=== PATIENT | female | born 1960 | race American Indian/Alaskan Native ===

== ENCOUNTER 2017-04-25 00:50 | Inpatient (IN) | payer MEDICAID ==
[2017-04-25] MEDS ORDERED: ZOFRAN IM ONE (01:17)
[2017-04-25 01:51] LABS: Basophils % (Auto) 1.2 % (0.0-1.8); Eosinophils % (Auto) 2.1 % (0.0-4.3); Hemoglobin 12.8 gm/dl (10.1-14.3); Mean Corpuscular HGB Conc 33 % (30-34); Mean Corpuscular Hemoglobin 28 pg (28-32); Mean Corpuscular Volume 86 fl (79-97); Platelet Count 201 K/mm3 (140-440); Red Blood Count 4.52 M/mm3 (3.65-5.03); Red Cell Distribution Width 14.3 % (13.2-15.2); White Blood Count 8.3 K/mm3 (4.5-11.0)
[2017-04-25 02:09] LABS: Alanine Aminotransferase 12 units/L (7-56); Albumin 3.7 g/dL (3.9-5); Albumin/Globulin Ratio 1.5 %; Alkaline Phosphatase 81 units/L (35-129); Anion Gap 19 mmol/L; BUN/Creatinine Ratio 21; Blood Urea Nitrogen 15 mg/dL (7-17); Carbon Dioxide 21 mmol/L (22-30); Chloride 98.6 mmol/L (98-107); Glucose 418 mg/dL (65-100); Lipase 41 units/L (13-60); Potassium 3.8 mmol/L (3.6-5.0); Sodium 135 mmol/L (137-145); Total Protein 6.2 g/dL (6.3-8.2)
[2017-04-25] MEDS ORDERED: APRESOLINE IV ONE (03:34)
[2017-04-25] MEDS ORDERED: NACL 0.9% 1000 ML 1,000 ML IV ONE (03:34)
[2017-04-25] MEDS ORDERED: MORPHINE IV ONE (03:34)
[2017-04-25 04:15] LABS: Bilirubin,Urine NEG (Negative); Blood,Urine NEG (Negative); Ketones,Urine NEG (Negative); Leukocyte Esterase,Urine NEG (Negative); Mucus,Urine FEW /HPF; Nitrite,Urine NEG (Negative); Urobilinogen,Urine < 2.0 mg/dL (<2.0)
--- NOTE | 2017-04-25 05:36 | Emergency Department Report ---
ED N/V/D HPI - General Chief complaint: Nausea/Vomiting/Diarrhea Stated complaint: LOWER ABD/BACK PAIN Time Seen by Provider: 04/25/17 04:46 Source: patient Mode of arrival: Ambulatory Limitations: No Limitations - History of Present Illness Initial comments: Patient's abdominal pain is in the right upper quadrant and epigastric region it is of moderate intensity radiating to the right flank area with no aggravating or relieving factor. While the patient was here at about 5 PM she started complaining of substernal chest pain of moderate intensity with no aggravating or relieving factor and nonradiating MD complaint: nausea, diarrhea, abdominal pain Onset/Timin (day) -: Gradual Description of Vomiting: food contents Description of Diarrhea: water Associated Abdominal Pain: Yes Location: RUQ, epigastric Radiation: other (right flank) Severity: moderate Quality: constant Consistency: constant Improves with: none Worsens with: none Associated Symptoms: denies other symptoms - Related Data Home Medications Medication Instructions Recorded Confirmed Last Taken Aspirin [Aspirin BABY CHEW TAB] 81 mg PO QDAY 02/20/15 10/09/16 1 Day Ago ~10/08/16 81 Carvedilol [Coreg] 6.25 mg PO BID 02/20/15 10/09/16 1 Day Ago ~10/08/16 Clopidogrel Bisulfate [Plavix] 75 mg PO DAILY 02/20/15 10/09/16 1 Day Ago ~10/08/16 Ezetimibe [Zetia] 10 mg PO QDAY 02/20/15 10/09/16 1 Day Ago ~10/08/16 Hydrochlorothiazide [HCTZ] 12.5 mg PO QDAY 02/20/15 10/09/16 1 Day Ago ~10/08/16 Lisinopril [Zestril TAB] 20 mg PO QHS 02/20/15 10/09/16 1 Day Ago ~10/08/16 Pantoprazole [Protonix TAB] 40 mg PO QDAY 02/20/15 10/09/16 1 Day Ago ~10/08/16 Ranolazine [Ranexa] 1,000 mg PO BID 02/20/15 10/09/16 1 Day Ago ~10/08/16 amLODIPine [Norvasc] 5 mg PO QHS 02/20/15 10/09/16 1 Day Ago ~10/08/16 Previous Rx's Medication Instructions Recorded Last Taken Type oxyCODONE /ACETAMINOPHEN [Percocet 1 tab PO Q6HR PRN #20 tablet 02/20/15 1 Day Ago Rx 5/325 mg] ~10/08/16 ISOSORBIDE MONOnitrate [Imdur ER] 60 mg PO QDAY #30 tablet 10/11/16 Unknown Rx Insulin Detemir [Levemir] 18 units SUB-Q QHS #30 units 10/11/16 Unknown Rx Allergies Allergy/AdvReac Type Severity Reaction Status Date / Time insulin glargine, human AdvReac Unknown Verified 02/21/16 00:05 recombin. a [From Lantus] shellfish derived AdvReac Unknown Verified 02/20/15 15:28 Flu Vaccine AdvReac Rash Uncoded 02/20/15 15:28 IV Dye AdvReac Unknown Uncoded 02/20/15 15:28 ED Review of Systems ROS: Stated complaint: LOWER ABD/BACK PAIN Other details as noted in HPI Comment: All other systems reviewed and negative ED Past Medical Hx - Past Medical History Hx Hypertension: Yes Hx Heart Attack/AMI: Yes (nstemi) Hx Diabetes: Yes Hx Arthritis: Yes Hx Headaches / Migraines: Yes Hx Asthma: Yes Additional medical history: lupus, Gastroparesis. sleep apnea, CPAP - Surgical History Hx Coronary Stent: Yes (x 9) Hx Open Heart Surgery: Yes (CABG x 3) Hx Cholecystectomy: Yes - Social History Smoking Status: Never Smoker Substance Use Type: None - Medications Home Medications: Home Medications Medication Instructions Recorded Confirmed Last Taken Type Aspirin [Aspirin BABY CHEW TAB] 81 mg PO QDAY 02/20/15 10/09/16 1 Day Ago History ~10/08/16 81 Carvedilol [Coreg] 6.25 mg PO BID 02/20/15 10/09/16 1 Day Ago History ~10/08/16 Clopidogrel Bisulfate [Plavix] 75 mg PO DAILY 02/20/15 10/09/16 1 Day Ago History ~10/08/16 Ezetimibe [Zetia] 10 mg PO QDAY 02/20/15 10/09/16 1 Day Ago History ~10/08/16 Hydrochlorothiazide [HCTZ] 12.5 mg PO QDAY 02/20/15 10/09/16 1 Day Ago History ~10/08/16 Lisinopril [Zestril TAB] 20 mg PO QHS 02/20/15 10/09/16 1 Day Ago History ~10/08/16 Pantoprazole [Protonix TAB] 40 mg PO QDAY 02/20/15 10/09/16 1 Day Ago History ~10/08/16 Ranolazine [Ranexa] 1,000 mg PO BID 02/20/15 10/09/16 1 Day Ago History ~10/08/16 amLODIPine [Norvasc] 5 mg PO QHS 02/20/15 10/09/16 1 Day Ago History ~10/08/16 oxyCODONE /ACETAMINOPHEN [Percocet 1 tab PO Q6HR PRN #20 tablet 02/20/15 1 Day Ago Rx 5/325 mg] ~10/08/16 ISOSORBIDE MONOnitrate [Imdur ER] 60 mg PO QDAY #30 tablet 10/11/16 Unknown Rx Insulin Detemir [Levemir] 18 units SUB-Q QHS #30 units 10/11/16 Unknown Rx ED Physical Exam - General Limitations: No Limitations General appearance: alert, in distress ([id number] due to chest pain and abdominal pain) - Head Head exam: Present: atraumatic, normocephalic - Eye Eye exam: Present: normal appearance, PERRL Pupils: Present: normal accommodation - ENT ENT exam: Present: normal exam, normal orophraynx - Neck Neck exam: Present: normal inspection, tenderness - Respiratory Respiratory exam: Present: normal lung sounds bilaterally, respiratory distress - Cardiovascular Cardiovascular Exam: Present: regular rate, normal rhythm - GI/Abdominal GI/Abdominal exam: Present: soft, tenderness (epigastric tenderness no rebound.) . Absent: distended - Rectal Rectal exam: Present: deferred - Extremities Exam Extremities exam: Present: normal inspection, full ROM - Back Exam Back exam: Present: normal inspection, full ROM - Neurological Exam Neurological exam: Present: alert, oriented X3, CN II-XII intact. Absent: altered - Psychiatric Psychiatric exam: Present: normal affect, normal mood, anxious - Skin Skin exam: Present: warm, dry, cyanosis ED Course Vital Signs 04/25/17 04/25/17 04/25/17 01:05 02:04 02:06 Temperature 98.2 F Pulse Rate 96 H 90 Respiratory 17 Rate Blood Pressure 240/103 Blood Pressure [Right] O2 Sat by Pulse 100 100 98 Oximetry 04/25/17 04/25/17 04/25/17 02:10 02:16 02:20 Temperature Pulse Rate 88 88 91 H Respiratory 13 18 14 Rate Blood Pressure 220/96 220/96 220/96 Blood Pressure [Right] O2 Sat by Pulse 100 100 100 Oximetry 04/25/17 04/25/17 04/25/17 02:26 02:30 02:36 Temperature Pulse Rate 88 87 89 Respiratory 18 22 14 Rate Blood Pressure 216/80 216/80 230/90 Blood Pressure [Right] O2 Sat by Pulse 100 99 100 Oximetry 04/25/17 04/25/17 04/25/17 02:40 02:46 02:50 Temperature Pulse Rate 88 90 89 Respiratory 18 16 21 Rate Blood Pressure 230/90 230/90 229/99 Blood Pressure [Right] O2 Sat by Pulse 100 100 100 Oximetry 04/25/17 04/25/17 04/25/17 03:00 03:01 03:03 Temperature 97.7 F Pulse Rate 91 H 90 Respiratory 14 14 12 Rate Blood Pressure Blood Pressure 216/80 [Right] O2 Sat by Pulse 100 100 99 Oximetry 04/25/17 04/25/17 04/25/17 03:05 03:11 03:15 Temperature Pulse Rate 88 90 86 Respiratory 20 20 20 Rate Blood Pressure 227/87 227/87 229/99 Blood Pressure [Right] O2 Sat by Pulse 100 100 100 Oximetry 04/25/17 04/25/17 04/25/17 03:20 03:25 03:30 Temperature Pulse Rate 87 88 90 Respiratory 12 19 16 Rate Blood Pressure 230/85 230/85 228/100 Blood Pressure [Right] O2 Sat by Pulse 98 100 97 Oximetry 04/25/17 04/25/17 04/25/17 03:35 03:41 03:45 Temperature Pulse Rate 95 H 94 H 94 H Respiratory 14 16 10 L Rate Blood Pressure 228/100 228/100 228/100 Blood Pressure [Right] O2 Sat by Pulse 100 100 100 Oximetry 04/25/17 04/25/17 04/25/17 03:51 03:55 03:59 Temperature Pulse Rate 88 91 H 91 H Respiratory 16 21 Rate Blood Pressure 195/73 195/73 195/73 Blood Pressure [Right] O2 Sat by Pulse 100 100 Oximetry 04/25/17 04/25/17 04/25/17 04:01 04:05 04:10 Temperature Pulse Rate 86 72 56 L Respiratory 18 9 L 21 Rate Blood Pressure 128/68 128/68 81/29 Blood Pressure [Right] O2 Sat by Pulse 97 100 100 Oximetry 04/25/17 04/25/17 04/25/17 04:15 04:21 04:25 Temperature Pulse Rate 61 68 65 Respiratory 26 H 24 26 H Rate Blood Pressure 87/32 82/52 82/52 Blood Pressure [Right] O2 Sat by Pulse 100 99 99 Oximetry 04/25/17 04/25/17 04/25/17 04:30 04:35 04:40 Temperature Pulse Rate 78 86 69 Respiratory 22 24 16 Rate Blood Pressure 95/40 95/40 127/43 Blood Pressure [Right] O2 Sat by Pulse 100 100 98 Oximetry 04/25/17 04/25/17 04/25/17 04:45 04:50 04:55 Temperature Pulse Rate 70 89 75 Respiratory 17 15 15 Rate Blood Pressure 112/33 109/53 110/55 Blood Pressure [Right] O2 Sat by Pulse 100 97 98 Oximetry 04/25/17 04:59 Temperature Pulse Rate Respiratory Rate Blood Pressure Blood Pressure 110/55 [Right] O2 Sat by Pulse Oximetry ED Medical Decision Making - Lab Data Result diagrams: 04/25/17 01:25 04/25/17 01:25 - EKG Data -: EKG Interpreted by Me EKG shows normal: sinus rhythm, axis (normal), intervals (normal), QRS complexes (normal), ST-T waves (T-wave inversion in lead II and V4 to V6. different Compared to the EKG of 10/10/2016) Rate: normal - EKG Data When compared to previous EKG there are: changes noted - Medical Decision Making The patient's significant risk factors I think the patient had been admitted to be ruled out for an acute coronary syndrome. Also, with the fact that patient has flipped T waves which are new compared to the EKG of September of this year. The T waves are inverted in V4 to V6 and also in lead 2 - Differential Diagnosis acs,gastroenteritis Critical care attestation.: If time is entered above; I have spent that time in minutes in the direct care of this critically ill patient, excluding procedure time. ED Disposition Clinical Impression: Chest pain Disposition: OP ADMIT IP TO THIS HOSP Is pt being admited?: Yes Does the pt Need Aspirin: Yes Condition: Stable
[2017-04-25] MEDS ORDERED: ZOFRAN IV ONE (05:46)
[2017-04-25] MEDS ORDERED: BABY ASPIRIN PO ONE (05:46)
[2017-04-25] MEDS ORDERED: NITRO-BID 2% TP ONE (05:46)
[2017-04-25] MEDS ORDERED: D50W (25GM) Syringe IV PRN (08:12)
[2017-04-25] MEDS ORDERED: SODIUM CHLORIDE FLUSH SYRINGE 10 ML IV PRN (08:13)
[2017-04-25] MEDS ORDERED: MILK OF MAGNESIA PO PRN (08:17)
[2017-04-25] MEDS ORDERED: DULCOLAX PR PRN (08:17)
--- NOTE | 2017-04-25 08:41 | History and Physical Report ---
History of Present Illness Date of examination: 04/25/17 Chief complaint: Chest pain and abdominal pain History of present illness: 56-year-old -[place] female with past medical history significant for CAD status post CABG, 5 stents, lupus, hyperlipidemia, diabetes, arthritis presented to the emergency department complaining of abdominal pain that started yesterday. Pain is on the lower abdomen, sharp, 10 out of 10 in intensity, with no radiation, associated with nausea, vomiting and diarrhea. Patient is also complaining chronic back pain and joint pain. While she was in the emergency department the patient started to have mediastinal chest pain, 8 out of 10 in intensity, she feels as if an elephant is sitting her chest, no radiation, associated with diaphoresis, shortness of breath, palpitation. Patient said that her blood pressure was 240/160. Patient said she has been taking her medications as ordered. Patient has been admitted previously and was evaluated by [facility]. Cardiac enzymes were negative, right upper quadrant ultrasound is negative. REVIEW OF SYSTEMS: GENERAL: no weight change, no fatigue, no fever HEAD: no head ache EYES: no blurry vision, no acute visual loss EARS: no hearing loss, no discharge, no earache NOSE: no stuffiness, no sneezing, no discharge MOUTH, THROAT AND NECK: no bleeding gums, no sore throat, no swollen neck CARDIAC: As stated in the HPI. RESPIRATORY: + shortness of breath, no wheeze, no cough, no sputum, no hemoptysis, no asthma GI: As stated in the HPI URINARY: no change in frequency, no urgency, no polyuria, no hematuria, no incontinence MUSCULOSKELETAL: no muscle weakness, no pain, no joint stiffness NEUROLOGIC: no loss of sensation/numbness, no tingling, no tremors, no weakness/ paralysis HEMATOLOGIC: no anemia, no easy bruising SKIN: no rashes ENDOCRINE: no heat/cold intolerance, no polyuria, no polydipsia, no thyroid problems,+ diabetes PSYCHIATRIC: no anxiety, no depression, no suicidal ideations Past History Past Medical History: arthritis, diabetes, hypertension, hyperlipidemia, other ( SLE) Past Surgical History: cholecystectomy, CABG Social history: full code. denies: smoking, alcohol abuse, prescription drug abuse, IV drug use Family history: cancer (Father diet of throat cancer), other (sister has heart failure) Medications and Allergies Allergies Allergy/AdvReac Type Severity Reaction Status Date / Time insulin glargine, human AdvReac Unknown Verified 02/21/16 00:05 recombin. a [From Lantus] shellfish derived AdvReac Unknown Verified 02/20/15 15:28 Flu Vaccine AdvReac Rash Uncoded 02/20/15 15:28 IV Dye AdvReac Unknown Uncoded 02/20/15 15:28 Home Medications Medication Instructions Recorded Confirmed Last Taken Type Aspirin [Aspirin BABY CHEW TAB] 81 mg PO QDAY 02/20/15 10/09/16 1 Day Ago History ~10/08/16 81 Carvedilol [Coreg] 6.25 mg PO BID 02/20/15 10/09/16 1 Day Ago History ~10/08/16 Clopidogrel Bisulfate [Plavix] 75 mg PO DAILY 02/20/15 10/09/16 1 Day Ago History ~10/08/16 Ezetimibe [Zetia] 10 mg PO QDAY 02/20/15 10/09/16 1 Day Ago History ~10/08/16 Hydrochlorothiazide [HCTZ] 12.5 mg PO QDAY 02/20/15 10/09/16 1 Day Ago History ~10/08/16 Lisinopril [Zestril TAB] 20 mg PO QHS 02/20/15 10/09/16 1 Day Ago History ~10/08/16 Pantoprazole [Protonix TAB] 40 mg PO QDAY 02/20/15 10/09/16 1 Day Ago History ~10/08/16 Ranolazine [Ranexa] 1,000 mg PO BID 02/20/15 10/09/16 1 Day Ago History ~10/08/16 amLODIPine [Norvasc] 5 mg PO QHS 02/20/15 10/09/16 1 Day Ago History ~10/08/16 oxyCODONE /ACETAMINOPHEN [Percocet 1 tab PO Q6HR PRN #20 tablet 02/20/15 1 Day Ago Rx 5/325 mg] ~10/08/16 ISOSORBIDE MONOnitrate [Imdur ER] 60 mg PO QDAY #30 tablet 10/11/16 Unknown Rx Insulin Detemir [Levemir] 18 units SUB-Q QHS #30 units 10/11/16 Unknown Rx Active Meds: Active Medications Acetaminophen (Tylenol) 650 mg PO Q4H PRN PRN Reason: Pain MILD(1-3)/Fever >100.5/MUSA Aspirin (Ecotrin) 325 mg PO QDAY [facility] Atorvastatin Calcium (Lipitor) 40 mg PO QHS [facility] Bisacodyl (Dulcolax) 10 mg [place] QDAY PRN PRN Reason: Constipation unrelieved by MOM Carvedilol (Coreg) 6.25 mg PO BID [facility] Clopidogrel Bisulfate (Plavix) 75 mg PO DAILY [facility] Dextrose (D50w (25gm) Syringe) 50 ml IV PRN PRN PRN Reason: Hypoglycemia Docusate Sodium (Colace) 100 mg PO BID [facility] Ezetimibe (Zetia) 10 mg PO QDAY [facility] Insulin Aspart (Novolog) 0 units SUB-Q ACHS [facility] PRN Reason: Protocol Insulin Detemir (Levemir) 18 units SUB-Q QHS [facility] Isosorbide Mononitrate (Imdur) 60 mg PO QDAY [facility] Lisinopril (Zestril) 20 mg PO QHS [facility] Magnesium Hydroxide (Milk Of Magnesia) 30 ml PO Q4H PRN PRN Reason: Constipation Morphine Sulfate (Morphine) 2 mg IV Q4H PRN PRN Reason: Chest Pain Ondansetron HCl (Zofran) 4 mg IV Q8H PRN PRN Reason: N/V unrelieved by Reglan Pantoprazole Sodium (Protonix) 40 mg PO QDAY [facility] Ranolazine (Ranexa Er) 1,000 mg PO BID [facility] Sodium Chloride (Sodium Chloride Flush Syringe 10 Ml) 10 ml IV PRN PRN PRN Reason: LINE FLUSH Exam - Physical Exam Narrative exam: Not in cardiopulmonary distress. The patient appeared well nourished and normally developed. Vital signs as documented. Head exam is unremarkable. No scleral icterus . Neck is without jugular venous distension, thyromegaly, or carotid bruits. Lungs are clear to auscultation. Cardiac exam reveals regular rate and Rhythm. First and second heart sounds normal. No murmurs, rubs or gallops. Abdominal exam reveals normal bowel sounds, no masses, no organomegaly and no aortic enlargement. Extremities are nonedematous and both femoral and pedal pulses are normal. ELEVATOR INSPECTOR: Alert and oriented 3. No focal weakness. - Constitutional Vitals: Temp Pulse Resp BP Pulse Ox 97.7 F 94 H 15 126/66 98 04/25/17 03:00 04/25/17 06:56 04/25/17 04:55 04/25/17 06:56 04/25/17 04:55 Results - Labs CBC & Chem 7: 04/25/17 08:58 04/25/17 08:58 Labs: Laboratory Last Values WBC 8.3 K/mm3 (4.5-11.0) 04/25/17 01:25 RBC 4.52 M/mm3 (3.65-5.03) 04/25/17 01:25 Hgb 12.8 gm/dl (10.1-14.3) 04/25/17 01:25 Hct 39.0 % (30.3-42.9) 04/25/17 01:25 MCV 86 fl (79-97) 04/25/17 01:25 MCH 28 pg (28-32) 04/25/17 01:25 MCHC 33 % (30-34) 04/25/17 01:25 RDW 14.3 % (13.2-15.2) 04/25/17 01:25 Plt Count 201 K/mm3 (140-440) 04/25/17 01:25 Lymph % (Auto) 36.3 % (13.4-35.0) H 04/25/17 01:25 [place] % (Auto) 5.8 % (0.0-7.3) 04/25/17 01:25 Eos % (Auto) 2.1 % (0.0-4.3) 04/25/17 01:25 Baso % (Auto) 1.2 % (0.0-1.8) 04/25/17 01:25 Lymph # 3.0 K/mm3 (1.2-5.4) 04/25/17 01:25 [place] # 0.5 K/mm3 (0.0-0.8) 04/25/17 01:25 Eos # 0.2 K/mm3 (0.0-0.4) 04/25/17 01:25 Baso # 0.1 K/mm3 (0.0-0.1) 04/25/17 01:25 Seg Neutrophils % 54.6 % (40.0-70.0) 04/25/17 01:25 Seg Neutrophils # 4.5 K/mm3 (1.8-7.7) 04/25/17 01:25 VBG pH 7.399 (7.320-7.420) 04/25/17 01:25 Sodium 135 mmol/L (137-145) L 04/25/17 01:25 Potassium 3.8 mmol/L (3.6-5.0) 04/25/17 01:25 Chloride 98.6 mmol/L (98-107) 04/25/17 01:25 Carbon Dioxide 21 mmol/L (22-30) L 04/25/17 01:25 Anion Gap 19 mmol/L 04/25/17 01:25 BUN 15 mg/dL (7-17) 04/25/17 01:25 Creatinine 0.7 mg/dL (0.7-1.2) 04/25/17 01:25 Estimated GFR > 60 ml/min 04/25/17 01:25 BUN/Creatinine Ratio 21 % 04/25/17 01:25 Glucose 418 mg/dL (65-100) H 04/25/17 01:25 POC Glucose 298 (70-105) H 04/25/17 04:34 Calcium 9.0 mg/dL (8.4-10.2) 04/25/17 01:25 Total Bilirubin 0.20 mg/dL (0.1-1.2) 04/25/17 01:25 AST 10 units/L (5-40) 04/25/17 01:25 ALT 12 units/L (7-56) 04/25/17 01:25 Alkaline Phosphatase 81 units/L (35-129) 04/25/17 01:25 Troponin T < 0.010 ng/mL (0.00-0.029) 04/25/17 05:41 Total Protein 6.2 g/dL (6.3-8.2) L 04/25/17 01:25 Albumin 3.7 g/dL (3.9-5) L 04/25/17 01:25 Albumin/Globulin Ratio 1.5 % 04/25/17 01:25 Lipase 41 units/L (13-60) 04/25/17 01:25 Urine Color Yellow (Yellow) 04/25/17 03:55 Urine Turbidity Clear (Clear) 04/25/17 03:55 Urine pH 7.0 (5.0-7.0) 04/25/17 03:55 Ur Specific [place] 1.026 (1.003-1.030) 04/25/17 03:55 Urine Protein 100 mg/dl mg/dL (Negative) 04/25/17 03:55 Urine Glucose (UA) >=500 mg/dL (Negative) 04/25/17 03:55 Urine Ketones Neg mg/dL (Negative) 04/25/17 03:55 Urine Blood Neg (Negative) 04/25/17 03:55 Urine Nitrite Neg (Negative) 04/25/17 03:55 Urine Bilirubin Neg (Negative) 04/25/17 03:55 Urine Urobilinogen < 2.0 mg/dL (<2.0) 04/25/17 03:55 Ur Leukocyte Esterase Neg (Negative) 04/25/17 03:55 Urine WBC (Auto) 2.0 /HPF (0.0-6.0) 04/25/17 03:55 Urine RBC (Auto) 4.0 /HPF (0.0-6.0) 04/25/17 03:55 U Epithel Cells (Auto) 4.0 /HPF (0-13.0) 04/25/17 03:55 Urine Mucus Few /HPF 04/25/17 03:55 - Imaging and Cardiology US - abdomen: report reviewed (normal) Assessment and Plan Assessment and plan: Chest pain CAD status post CABG History of stent placement DM with hyperglycemia History of lupus Lower abdominal pain - Serial cardiac enzymes, EKG, cardiology consult - Pain control - Resume appropriate home medications - Cardiology consult - Sliding scale and basal insulin - Right upper quadrant ultrasound, was negative - CT abdomen and pelvis is pending DVT prophylaxis - Heparin Disposition - Admit to telemetry Advance Directives: Yes VTE prophylaxis?: Chemical Plan of care discussed with patient/family: Yes
[2017-04-25 09:12] LABS: Eosinophils % (Auto) 0.2 % (0.0-4.3); Mean Corpuscular HGB Conc 33 % (30-34); Mean Corpuscular Hemoglobin 28 pg (28-32); Mean Corpuscular Volume 85 fl (79-97); Platelet Count 200 K/mm3 (140-440); Red Blood Count 4.61 M/mm3 (3.65-5.03); Red Cell Distribution Width 14.5 % (13.2-15.2); White Blood Count 11.4 K/mm3 (4.5-11.0)
[2017-04-25 09:23] LABS: INR 0.93 (0.87-1.13)
[2017-04-25] MEDS: TYLENOL PO PRN ×3 (09:31→17:38)
[2017-04-25] MEDS: MORPHINE IV PRN ×3 (09:32→17:39)
[2017-04-25] MEDS: ZOFRAN IV PRN (09:32)
[2017-04-25] MEDS ORDERED: ZOFRAN ONE (09:35)
[2017-04-25] MEDS ORDERED: MORPHINE ONE (09:35)
[2017-04-25] MEDS ORDERED: TYLENOL ONE (09:36)
[2017-04-25 09:37] LABS: Anion Gap 22 mmol/L; BUN/Creatinine Ratio 27; Blood Urea Nitrogen 16 mg/dL (7-17); Calcium 8.5 mg/dL (8.4-10.2); Carbon Dioxide 20 mmol/L (22-30); Chloride 100.6 mmol/L (98-107); Glucose 359 mg/dL (65-100); Potassium 3.9 mmol/L (3.6-5.0); Sodium 139 mmol/L (137-145)
[2017-04-25] MEDS ORDERED: NON-FORMULARY (Ranolazine [Ranexa] 1,000 MG) PO SCH (10:00)
[2017-04-25] MEDS ORDERED: PEPCID PO SCH (10:00)
--- NOTE | 2017-04-25 10:12 | Ultrasound Report ---
FINAL REPORT PROCEDURE: US ABDOMEN LIMITED TECHNIQUE: Real-time sonography was performed of the RIGHT UPPER QUADRANT with image documentation. CPT 19418 HISTORY: RUQ pain COMPARISON: No prior studies are available for comparison. FINDINGS: Fatty infiltration of liver. Prior cholecystectomy. Common bile duct 7 millimeters. 13 centimeter right kidney without obstruction. Pancreas unremarkable. No aortic aneurysm. IMPRESSION: No acute pathologic process seen at this time
--- NOTE | 2017-04-25 10:42 | Consultation ---
Medications and Allergies Allergies Allergy/AdvReac Type Severity Reaction Status Date / Time insulin glargine, human AdvReac Unknown Verified 02/21/16 00:05 recombin. a [From Lantus] shellfish derived AdvReac Unknown Verified 02/20/15 15:28 Flu Vaccine AdvReac Rash Uncoded 02/20/15 15:28 IV Dye AdvReac Unknown Uncoded 02/20/15 15:28 Home Medications Medication Instructions Recorded Confirmed Last Taken Type Aspirin [Aspirin BABY CHEW TAB] 81 mg PO QDAY 02/20/15 10/09/16 1 Day Ago History ~10/08/16 81 Carvedilol [Coreg] 6.25 mg PO BID 02/20/15 10/09/16 1 Day Ago History ~10/08/16 Clopidogrel Bisulfate [Plavix] 75 mg PO DAILY 02/20/15 10/09/16 1 Day Ago History ~10/08/16 Ezetimibe [Zetia] 10 mg PO QDAY 02/20/15 10/09/16 1 Day Ago History ~10/08/16 Hydrochlorothiazide [HCTZ] 12.5 mg PO QDAY 02/20/15 10/09/16 1 Day Ago History ~10/08/16 Lisinopril [Zestril TAB] 20 mg PO QHS 02/20/15 10/09/16 1 Day Ago History ~10/08/16 Pantoprazole [Protonix TAB] 40 mg PO QDAY 02/20/15 10/09/16 1 Day Ago History ~10/08/16 Ranolazine [Ranexa] 1,000 mg PO BID 02/20/15 10/09/16 1 Day Ago History ~10/08/16 amLODIPine [Norvasc] 5 mg PO QHS 02/20/15 10/09/16 1 Day Ago History ~10/08/16 oxyCODONE /ACETAMINOPHEN [Percocet 1 tab PO Q6HR PRN #20 tablet 02/20/15 1 Day Ago Rx 5/325 mg] ~10/08/16 ISOSORBIDE MONOnitrate [Imdur ER] 60 mg PO QDAY #30 tablet 10/11/16 Unknown Rx Insulin Detemir [Levemir] 18 units SUB-Q QHS #30 units 10/11/16 Unknown Rx Active Meds: Active Medications Acetaminophen (Tylenol) 650 mg PO Q4H PRN PRN Reason: Pain MILD(1-3)/Fever >100.5/MUSA Last Admin: 04/25/17 09:31 Dose: 650 mg Aspirin (Ecotrin) 325 mg PO QDAY [facility] Atorvastatin Calcium (Lipitor) 40 mg PO QHS [facility] Bisacodyl (Dulcolax) 10 mg [place] QDAY PRN PRN Reason: Constipation unrelieved by MOM Carvedilol (Coreg) 6.25 mg PO BID [facility] Clopidogrel Bisulfate (Plavix) 75 mg PO DAILY [facility] Dextrose (D50w (25gm) Syringe) 50 ml IV PRN PRN PRN Reason: Hypoglycemia Docusate Sodium (Colace) 100 mg PO BID [facility] Ezetimibe (Zetia) 10 mg PO QDAY [facility] Sodium Chloride (Nacl 0.9% 1000 Ml) 1,000 mls @ 75 mls/hr IV DIRECT [facility] Insulin Aspart (Novolog) 0 units SUB-Q ACHS [facility] PRN Reason: Protocol Insulin Detemir (Levemir) 18 units SUB-Q QHS [facility] Isosorbide Mononitrate (Imdur) 60 mg PO QDAY [facility] Lisinopril (Zestril) 20 mg PO QHS [facility] Magnesium Hydroxide (Milk Of Magnesia) 30 ml PO Q4H PRN PRN Reason: Constipation Morphine Sulfate (Morphine) 2 mg IV Q4H PRN PRN Reason: Chest Pain Last Admin: 04/25/17 09:32 Dose: 2 mg Ondansetron HCl (Zofran) 4 mg IV Q8H PRN PRN Reason: N/V unrelieved by Reglan Last Admin: 04/25/17 09:32 Dose: 4 mg Pantoprazole Sodium (Protonix) 40 mg PO QDAY [facility] Ranolazine (Ranexa Er) 1,000 mg PO BID [facility] Sodium Chloride (Sodium Chloride Flush Syringe 10 Ml) 10 ml IV PRN PRN PRN Reason: LINE FLUSH Physical Examination Vital Signs Temp Pulse BP Pulse Ox 98.2 F 96 H 240/103 100 04/25/17 01:05 04/25/17 01:05 04/25/17 01:05 04/25/17 01:05 Results 04/25/17 08:58 04/25/17 08:58 Cardiac Enzymes 04/25/17 Range/Units 01:25 AST 10 (5-40) units/L Coagulation 04/25/17 Range/Units 08:58 PT 12.9 (12.2-14.9) Sec. INR 0.93 (0.87-1.13) Lipids 04/25/17 Range/Units 08:58 Triglycerides 62 (2-149) mg/dL Cholesterol 255 H (50-199) mg/dL HDL Cholesterol 70 H (40-59) mg/dL Cholesterol/HDL Ratio 3.64 % CBC 04/25/17 04/25/17 Range/Units 01:25 08:58 WBC 8.3 11.4 H (4.5-11.0) K/mm3 RBC 4.52 4.61 (3.65-5.03) M/mm3 Hgb 12.8 13.0 (10.1-14.3) gm/dl Hct 39.0 39.0 (30.3-42.9) % Plt Count 201 200 (140-440) K/mm3 Lymph # 3.0 1.4 (1.2-5.4) K/mm3 [place] # 0.5 0.3 (0.0-0.8) K/mm3 Eos # 0.2 0.0 (0.0-0.4) K/mm3 Baso # 0.1 0.1 (0.0-0.1) K/mm3 Comprehensive Metabolic Panel 04/25/17 04/25/17 Range/Units 01:25 08:58 Sodium 135 L 139 (137-145) mmol/L Potassium 3.8 3.9 (3.6-5.0) mmol/L Chloride 98.6 100.6 (98-107) mmol/L Carbon Dioxide 21 L 20 L (22-30) mmol/L BUN 15 16 (7-17) mg/dL Creatinine 0.7 0.6 L (0.7-1.2) mg/dL Glucose 418 H 359 H (65-100) mg/dL Calcium 9.0 8.5 (8.4-10.2) mg/dL AST 10 (5-40) units/L ALT 12 (7-56) units/L Alkaline Phosphatase 81 (35-129) units/L Total Protein 6.2 L (6.3-8.2) g/dL Albumin 3.7 L (3.9-5) g/dL Assessment and Plan full consult dictated thanks
[2017-04-25] MEDS: RANEXA ER PO SCH ×2 (11:05→22:10)
[2017-04-25] MEDS: ZETIA PO SCH (11:05)
[2017-04-25] MEDS: IMDUR PO SCH (11:06)
[2017-04-25] MEDS: COREG PO SCH ×2 (11:06→22:11)
[2017-04-25] MEDS: PROTONIX PO SCH (11:06)
[2017-04-25] MEDS: PLAVIX PO SCH (11:06)
[2017-04-25] MEDS: COLACE PO SCH ×2 (11:07→22:11)
[2017-04-25] MEDS ORDERED: COLACE ONE (11:18)
[2017-04-25] MEDS ORDERED: COREG ONE (11:19)
[2017-04-25] MEDS ORDERED: PLAVIX ONE (11:19)
[2017-04-25] MEDS ORDERED: PROTONIX PO ONE (11:19)
[2017-04-25] MEDS: NOVOLOG SUB-Q SCH ×3 (11:35→22:11)
[2017-04-25] MEDS ORDERED: NACL ONE (12:30)
--- NOTE | 2017-04-25 13:34 | Cat Scan Report ---
CT ABDOMEN PELVIS WITH CONTRAST: HISTORY: Lower abdominal pain. COMPARISON: none. TECHNIQUE: Helical CT in 1.25mm intervals following IV contrast. Sagittal and coronal reconstructions. FINDINGS: Lung bases: normal. Liver: There is mild fatty change throughout the liver. No focal mass or surface nodularity. Biliary system: Cholecystectomy has been performed. No evidence for biliary dilatation. Pancreas: normal. Spleen: normal. Kidneys/ureters/bladder: normal. Adrenal glands: normal. Aorta: normal. Intestines: normal. Appendix: normal. Pelvic viscera: Hysterectomy changes are suspected. No adnexal abnormality.. Musculoskeletal: normal. IMPRESSION: No acute process is identified in the abdomen or pelvis. Surgical changes. Mild hepatic steatosis.
[2017-04-25] MEDS: NACL 0.9% 1000 ML 1,000 ML IV SCH (17:28)
--- NOTE | 2017-04-25 18:46 | Consultation ---
REASON FOR CONSULTATION: Abdominal pain, history of CABG and multiple PCIs. HISTORY OF PRESENT ILLNESS: The patient is a pleasant 56-year-old -[place] female who presents here with abdominal pain, nausea, vomiting and diarrhea. She has had abdominal pain since 5:00 p.m. No syncope or presyncope. When pressing on the abdomen, she does have chest pain. She was seen in the Emergency Room. She has no chest pain at this time. No syncope or presyncope. No hematochezia or melena. No rashes. No headache or blurred vision. She has been admitted to the hospitalist service. MEDICATIONS: Inpatient and outpatient medications reviewed. ALLERGIES: Multiple allergies were reviewed. PHYSICAL EXAMINATION: VITAL SIGNS: Blood pressure is 140/70, sinus tachycardia, heart rate of 113. No dysrhythmias. O2 sats 100% on 2 liters. GENERAL: This is a middle-aged -[place] female in no apparent distress, alert and oriented x3. HEENT: Sclerae anicteric. NECK: Supple. No mass or JVD. CHEST: Clear to auscultation bilaterally. Good air movement. CARDIOVASCULAR: Tachy, S1, S2. ABDOMEN: Soft, nontender, nondistended. Normoactive bowel sounds in 4 quadrants. No mass or bruits. EXTREMITIES: No cyanosis, clubbing, edema. Good peripheral pulses. SKIN: Intact. No rashes. LABORATORY DATA: BMP is normal. Cardiac enzymes are negative x2. Hemoglobin 13.0, hematocrit , platelets 200. Her creatinine is 0.6, BUN 22. EKG shows sinus tachycardia, LVH, no acute ST segment shift. Echocardiogram performed in September reveals normal LV function, moderate concentric LVH, diastolic dysfunction. ASSESSMENT AND PLAN: In summary, the patient is a pleasant 56-year-old pleasant female with multiple medical problems including coronary artery disease, coronary bypass surgery and multiple percutaneous coronary interventions, who presents with nausea, vomiting, abdominal pain and diarrhea. Cardiac enzymes are negative. EKG is unremarkable, mild sinus tachycardia, likely due to volume depletion. She is not having any chest pain. At this point, continue aspirin, Plavix, supportive care, abdominal pain per primary, volume repletion with IV fluids. We will continue to follow along with you. Thank you for this consultation. JOB# [id number] SBM/NTS
[2017-04-25] MEDS: ZESTRIL PO SCH (22:10)
[2017-04-25] MEDS: LEVEMIR SUB-Q SCH (22:13)
[2017-04-26] MEDS: TYLENOL PO PRN ×3 (01:01→18:42)
[2017-04-26 06:41] LABS: Basophils % (Auto) 0.5 % (0.0-1.8); Eosinophils % (Auto) 2.2 % (0.0-4.3); Hematocrit 33.4 % (30.3-42.9); Hemoglobin 10.8 gm/dl (10.1-14.3); Mean Corpuscular HGB Conc 32 % (30-34); Mean Corpuscular Hemoglobin 27 pg (28-32); Mean Corpuscular Volume 84 fl (79-97); Platelet Count 187 K/mm3 (140-440); Red Blood Count 3.97 M/mm3 (3.65-5.03); Red Cell Distribution Width 14.5 % (13.2-15.2)
[2017-04-26 06:50] LABS: Anion Gap 17 mmol/L; BUN/Creatinine Ratio 22; Blood Urea Nitrogen 13 mg/dL (7-17); Calcium 8.1 mg/dL (8.4-10.2); Carbon Dioxide 21 mmol/L (22-30); Chloride 105.2 mmol/L (98-107); Glucose 175 mg/dL (65-100); Potassium 3.6 mmol/L (3.6-5.0); Sodium 140 mmol/L (137-145)
[2017-04-26] MEDS: COLACE PO SCH ×2 (10:44→21:53)
[2017-04-26] MEDS: COREG PO SCH ×2 (10:45→22:02)
[2017-04-26] MEDS: IMDUR PO SCH (10:46)
[2017-04-26] MEDS: PLAVIX PO SCH (10:46)
[2017-04-26] MEDS: ZETIA PO SCH (10:47)
[2017-04-26] MEDS: RANEXA ER PO SCH ×2 (10:47→22:02)
[2017-04-26] MEDS: PROTONIX PO SCH (10:47)
[2017-04-26] MEDS: ECOTRIN PO SCH (10:49)
[2017-04-26] MEDS: MORPHINE IV PRN ×2 (10:56→18:43)
--- NOTE | 2017-04-26 11:41 | Progress Note ---
Assessment and Plan 56yo aaf: 1. Abd pain - ? colitis, neg ct abd * consider gi consult (Dr. Black) 2. Volume depletion - better w repletion 3. h/o cad/cabg/pci - * neg ce * no ecg changes * no cp 4. htn * uncontrolled on multiple agents - add hydralazine * low salt diet 5. hl 6. lupus 7. dm Subjective Date of service: 04/26/17 Interval history: Abd pain somewhat better no cp or sob Objective Vital Signs Temp Pulse Resp BP BP Pulse Ox 04/26/17 10:46 87 171/88 04/26/17 10:45 87 171/88 04/26/17 09:13 98.9 F 87 20 171/88 04/26/17 08:08 98.9 F 86 20 171/88 97 04/26/17 04:21 98.4 F 81 18 120/59 96 04/25/17 23:42 98.1 F 82 18 126/66 97 04/25/17 19:07 98.2 F 18 169/80 04/25/17 15:42 98.2 F 87 18 152/71 100 04/25/17 13:18 98.9 F 98 H 18 137/58 99 - Labs and Meds CBC 04/26/17 Range/Units 05:57 WBC 8.0 (4.5-11.0) K/mm3 RBC 3.97 (3.65-5.03) M/mm3 Hgb 10.8 (10.1-14.3) gm/dl Hct 33.4 (30.3-42.9) % Plt Count 187 (140-440) K/mm3 Lymph # 2.6 (1.2-5.4) K/mm3 [place] # 0.5 (0.0-0.8) K/mm3 Eos # 0.2 (0.0-0.4) K/mm3 Baso # 0.0 (0.0-0.1) K/mm3 Comprehensive Metabolic Panel 04/26/17 Range/Units 05:57 Sodium 140 (137-145) mmol/L Potassium 3.6 (3.6-5.0) mmol/L Chloride 105.2 (98-107) mmol/L Carbon Dioxide 21 L (22-30) mmol/L BUN 13 (7-17) mg/dL Creatinine 0.6 L (0.7-1.2) mg/dL Glucose 175 H (65-100) mg/dL Calcium 8.1 L (8.4-10.2) mg/dL
[2017-04-26] MEDS: NOVOLOG SUB-Q SCH ×4 (13:04→22:02)
[2017-04-26] MEDS: APRESOLINE PO SCH ×2 (14:02→22:02)
--- NOTE | 2017-04-26 16:10 | Progress Note ---
Assessment and Plan - Lower abdominal pain: NL CT abdomen except for mild steotosis; still has severe RLQ tenderness with rebound. consulted surgeon. Not typical of colitis - Chest pain: resolved. Normal Jeremias EKG. Cardiology following. continu with ASA, NTG and morphin - CAD status post CABG: State on staein and - DM with hyperglycemia: optimize control with SSI an continue with ADA diet - History of lupus: Stable - DVT prophylaxis: Heparin Subjective Date of service: 04/26/17 Principal diagnosis: Chest pain, Abdominal pain, SLE Interval history: Still having severe abdominal pain. No fever, N/V Objective - Exam Narrative Exam: Constitutional: Well-nourished well-developed. In no distress Head: Normocephalic atraumatic Eyes: Pupils are equal round and reactive to light Nose: No enlarged turbinates, no septal deviation. Mouth: Moist mucous membranes. Neck: Supple no thyromegaly. No bruit. No JVD Heart: Regular rate and rhythm, S1-S2 abnormal. No rubs murmurs or gallop Lungs: Clear to auscultation bilaterally no rales or rhonchi Abdomen: Soft right lower quadrant tenderness and rebound tenderness. No organomegaly Extremities: No edema no cyanosis and no clubbing. Neuro: Alert oriented -3 no focal sensory or motor deficit. Skin: No rashes no hyperemic spots - Constitutional Vitals: Vital Signs - 12hr 04/26/17 04/26/17 04/26/17 04:21 08:08 09:13 Temperature 98.4 F 98.9 F 98.9 F Pulse Rate 81 86 87 Respiratory 18 20 20 Rate Blood Pressure 120/59 171/88 Blood Pressure 171/88 [Right] O2 Sat by Pulse 96 97 Oximetry 04/26/17 04/26/17 04/26/17 10:45 10:46 13:29 Temperature 99.1 F Pulse Rate 87 87 84 Respiratory 20 Rate Blood Pressure 171/88 171/88 Blood Pressure 187/84 [Right] O2 Sat by Pulse 98 Oximetry 04/26/17 04/26/17 04/26/17 13:36 13:40 14:02 Temperature 99.1 F Pulse Rate 84 80 84 Respiratory 20 Rate Blood Pressure 187/84 Blood Pressure 187/84 [Right] O2 Sat by Pulse 98 Oximetry - Labs CBC & Chem 7: 04/26/17 05:57 04/26/17 05:57 Labs: Abnormal lab results 04/25/17 04/25/17 04/26/17 Range/Units 12:38 15:41 05:57 MCH 27 L (28-32) pg Carbon Dioxide (22-30) mmol/L Creatinine (0.7-1.2) mg/dL Glucose (65-100) mg/dL POC Glucose 367 H 305 H (70-105) Calcium (8.4-10.2) mg/dL 04/26/17 04/26/17 Range/Units 05:57 10:58 MCH (28-32) pg Carbon Dioxide 21 L (22-30) mmol/L Creatinine 0.6 L (0.7-1.2) mg/dL Glucose 175 H (65-100) mg/dL POC Glucose 214 H (70-105) Calcium 8.1 L (8.4-10.2) mg/dL
--- NOTE | 2017-04-26 16:43 | Consultation ---
History of Present Illness Consult date: 04/26/17 Reason for consult: abdominal pain Requesting physician: ZACKERY MARRERO Chief complaint: abdominal pain - History of present illness History of present illness: 56 yo F with hx of CAD s/p cath with stents, DM, HTN presented to ER with c/o abdominal pain and back pain on the right. This started 2 days ago and the pain starts in the mid lower abdomen and radiates to the RLQ and across to the back. The patient states it is crampy in nature. She had associated nausea and dry heaves, but no emesis. This has since improved. She also c/o diarrhea without hematochezia or melena. She is complaining of dyuria, pressure with urination, and foul smelling urine. She has been tolerating a clear liquid diet. She denies sick contacts. She has hx of kidney stones. Surgery is consulted to r/o appendicitis. Past History Past Medical History: arthritis, CAD, diabetes, hypertension, hyperlipidemia, other (SLE) Past Surgical History: cholecystectomy, CABG, , hysterectomy, Other ( cardiac stents) Social history: full code. denies: smoking, alcohol abuse, prescription drug abuse, IV drug use Family history: cancer (Father diet of throat cancer), other (sister has heart failure) Medications and Allergies Allergies Allergy/AdvReac Type Severity Reaction Status Date / Time insulin glargine, human AdvReac Unknown Verified 02/21/16 00:05 recombin. a [From Lantus] shellfish derived AdvReac Unknown Verified 02/20/15 15:28 Flu Vaccine AdvReac Rash Uncoded 02/20/15 15:28 IV Dye AdvReac Unknown Uncoded 02/20/15 15:28 Home Medications Medication Instructions Recorded Confirmed Last Taken Type Aspirin [Aspirin BABY CHEW TAB] 81 mg PO QDAY 02/20/15 10/09/16 04/24/17 10:00 History Carvedilol [Coreg] 6.25 mg PO BID 02/20/15 04/25/17 04/24/17 10:00 History Clopidogrel Bisulfate [Plavix] 75 mg PO DAILY 02/20/15 04/25/17 04/24/17 10:00 History Ezetimibe [Zetia] 10 mg PO QDAY 02/20/15 04/25/17 04/24/17 10:00 History Hydrochlorothiazide [HCTZ] 12.5 mg PO QDAY 02/20/15 10/09/16 04/24/17 10:00 History Lisinopril [Zestril TAB] 20 mg PO QHS 02/20/15 10/09/16 04/24/17 17:00 History Pantoprazole [Protonix TAB] 40 mg PO QDAY 02/20/15 10/09/16 04/24/17 17:00 History Ranolazine [Ranexa] 1,000 mg PO BID 02/20/15 10/09/16 1 Day Ago History ~10/08/16 amLODIPine [Norvasc] 5 mg PO QHS 02/20/15 10/09/16 04/24/17 10:00 History oxyCODONE /ACETAMINOPHEN [Percocet 1 tab PO Q6HR PRN #20 tablet 02/20/1504/24/17 17:00 Rx 5/325 mg] ISOSORBIDE MONOnitrate [Imdur ER] 60 mg PO QDAY #30 tablet 10/11/16 04/24/17 17 :00 Rx Insulin Detemir [Levemir] 18 units SUB-Q QHS #30 units 10/11/16 04/25/17 10:00 Rx Active Meds: Active Medications Acetaminophen (Tylenol) 650 mg PO Q4H PRN PRN Reason: Pain MILD(1-3)/Fever >100.5/MUSA Last Admin: 04/26/17 10:55 Dose: 650 mg Aspirin (Ecotrin) 325 mg PO QDAY [facility] Last Admin: 04/26/17 10:49 Dose: 325 mg Atorvastatin Calcium (Lipitor) 40 mg PO QHS [facility] Last Admin: 04/25/17 22:11 Dose: 40 mg Bisacodyl (Dulcolax) 10 mg [place] QDAY PRN PRN Reason: Constipation unrelieved by MOM Carvedilol (Coreg) 6.25 mg PO BID [facility] Last Admin: 04/26/17 10:45 Dose: 6.25 mg Clopidogrel Bisulfate (Plavix) 75 mg PO DAILY [facility] Last Admin: 04/26/17 10:46 Dose: 75 mg Dextrose (D50w (25gm) Syringe) 50 ml IV PRN PRN PRN Reason: Hypoglycemia Docusate Sodium (Colace) 100 mg PO BID [facility] Last Admin: 04/26/17 10:44 Dose: 100 mg Ezetimibe (Zetia) 10 mg PO QDAY [facility] Last Admin: 04/26/17 10:47 Dose: 10 mg Hydralazine HCl (Apresoline) 25 mg PO Q8HR [facility] Last Admin: 04/26/17 14:02 Dose: 25 mg Sodium Chloride (Nacl 0.9% 1000 Ml) 1,000 mls @ 75 mls/hr IV DIRECT [facility] Last Admin: 04/25/17 17:28 Dose: 75 mls/hr Insulin Aspart (Novolog) 0 units SUB-Q ACHS [facility] PRN Reason: Protocol Last Admin: 04/26/17 13:04 Dose: 4 units Insulin Detemir (Levemir) 18 units SUB-Q QHS [facility] Last Admin: 04/25/17 22:13 Dose: 18 units Isosorbide Mononitrate (Imdur) 60 mg PO QDAY [facility] Last Admin: 04/26/17 10:46 Dose: 60 mg Lisinopril (Zestril) 20 mg PO QHS [facility] Last Admin: 04/25/17 22:10 Dose: 20 mg Magnesium Hydroxide (Milk Of Magnesia) 30 ml PO Q4H PRN PRN Reason: Constipation Morphine Sulfate (Morphine) 2 mg IV Q4H PRN PRN Reason: Chest Pain Last Admin: 04/26/17 10:56 Dose: 2 mg Ondansetron HCl (Zofran) 4 mg IV Q8H PRN PRN Reason: N/V unrelieved by Alexandra Last Admin: 04/25/17 09:32 Dose: 4 mg Pantoprazole Sodium (Protonix) 40 mg PO QDAY [facility] Last Admin: 04/26/17 10:47 Dose: 40 mg Ranolazine (Ranexa Er) 1,000 mg PO BID [facility] Last Admin: 04/26/17 10:47 Dose: 1,000 mg Sodium Chloride (Sodium Chloride Flush Syringe 10 Ml) 10 ml IV PRN PRN PRN Reason: LINE FLUSH Review of Systems All systems: negative (see hpi) Exam Vital Signs Temp Pulse BP Pulse Ox 98.2 F 96 H 240/103 100 04/25/17 01:05 04/25/17 01:05 04/25/17 01:05 04/25/17 01:05 Narrative exam: Gen: AAOx3. NAD CV: s1, S2+ Resp: No audible wheezes Abd: soft, ND, + TTP suprapubic region, RLQ, R flank, and +CVA Tenderness of the right. Ext: no c/c/e Results - Labs 04/26/17 05:57 04/26/17 05:57 Abnormal lab results 04/25/17 04/25/17 04/26/17 Range/Units 12:38 15:41 05:57 MCH 27 L (28-32) pg Carbon Dioxide (22-30) mmol/L Creatinine (0.7-1.2) mg/dL Glucose (65-100) mg/dL POC Glucose 367 H 305 H (70-105) Calcium (8.4-10.2) mg/dL 04/26/17 04/26/17 Range/Units 05:57 10:58 MCH (28-32) pg Carbon Dioxide 21 L (22-30) mmol/L Creatinine 0.6 L (0.7-1.2) mg/dL Glucose 175 H (65-100) mg/dL POC Glucose 214 H (70-105) Calcium 8.1 L (8.4-10.2) mg/dL Diabetes panel 04/26/17 Range/Units 05:57 Sodium 140 (137-145) mmol/L Potassium 3.6 (3.6-5.0) mmol/L Chloride 105.2 (98-107) mmol/L Carbon Dioxide 21 L (22-30) mmol/L BUN 13 (7-17) mg/dL Creatinine 0.6 L (0.7-1.2) mg/dL Glucose 175 H (65-100) mg/dL Calcium 8.1 L (8.4-10.2) mg/dL Calcium panel 04/26/17 Range/Units 05:57 Calcium 8.1 L (8.4-10.2) mg/dL Pituitary panel 04/26/17 Range/Units 05:57 Sodium 140 (137-145) mmol/L Potassium 3.6 (3.6-5.0) mmol/L Chloride 105.2 (98-107) mmol/L Carbon Dioxide 21 L (22-30) mmol/L BUN 13 (7-17) mg/dL Creatinine 0.6 L (0.7-1.2) mg/dL Glucose 175 H (65-100) mg/dL Calcium 8.1 L (8.4-10.2) mg/dL Adrenal panel 04/26/17 Range/Units 05:57 Sodium 140 (137-145) mmol/L Potassium 3.6 (3.6-5.0) mmol/L Chloride 105.2 (98-107) mmol/L Carbon Dioxide 21 L (22-30) mmol/L BUN 13 (7-17) mg/dL Creatinine 0.6 L (0.7-1.2) mg/dL Glucose 175 H (65-100) mg/dL Calcium 8.1 L (8.4-10.2) mg/dL - Imaging CT scan - abdomen: report reviewed, image reviewed CT scan - pelvis: report reviewed, image reviewed (normal appendix, filled with oral contrast with air at tip, no thickening, no fat stranding. Mild hepatic steatosis) US - abdomen: report reviewed, image reviewed (no abdominal pathology) Assessment and Plan 56 Yo F with R lower abdominal pain and right flank pain 1. recommend UA to r/o UTI. 2. Patient may have kidney stones as etiology of pain based on distribution of pain on exam 3. continue diet as tolerated 4. pain and nausea control prn 5. no evidence of acute appendicitis based on HPI, exam, labs, and imaging D/W Dr. Marrero
[2017-04-26] MEDS: LEVEMIR SUB-Q SCH (22:01)
[2017-04-26] MEDS: ZESTRIL PO SCH (22:02)
[2017-04-27] MEDS: TYLENOL PO PRN ×2 (00:13→11:23)
[2017-04-27] MEDS: MORPHINE IV PRN ×5 (00:18→23:07)
[2017-04-27] MEDS: APRESOLINE PO SCH ×3 (06:11→23:13)
[2017-04-27] MEDS: NOVOLOG SUB-Q SCH ×4 (08:59→23:30)
[2017-04-27] MEDS: ZETIA PO SCH (09:01)
[2017-04-27] MEDS: RANEXA ER PO SCH ×2 (09:01→23:10)
[2017-04-27] MEDS: IMDUR PO SCH (09:01)
[2017-04-27] MEDS: COREG PO SCH ×2 (09:01→23:12)
[2017-04-27] MEDS: ECOTRIN PO SCH (09:01)
[2017-04-27] MEDS: PROTONIX PO SCH (09:01)
[2017-04-27] MEDS: PLAVIX PO SCH (09:01)
[2017-04-27] MEDS: COLACE PO SCH ×2 (09:02→23:15)
[2017-04-27] MEDS: ZOFRAN IV PRN (09:07)
[2017-04-27] MEDS ORDERED: LEVAQUIN 750MG/150ML 750 MG/150 ML BAG IV SCH (10:00)
--- NOTE | 2017-04-27 11:13 | Progress Note ---
Assessment and Plan Currently stable cardiac status. Recommend GI consultation per primary. The patient has been seen in conjunction with Dr. Wilkes who agrees with the assessment and plan of care. - Patient Problems (1) Abdominal pain Current Visit: Yes Status: Acute (2) CAD (coronary artery disease) Current Visit: Yes Status: Chronic (3) Hx of CABG Current Visit: Yes Status: Chronic (4) Lupus Current Visit: Yes Status: Chronic (5) Diabetes Current Visit: Yes Status: Chronic (6) HTN (hypertension) Current Visit: Yes Status: Chronic Subjective Date of service: 04/27/17 Principal diagnosis: Chest pain, Abdominal pain, SLE Interval history: Pt resting in bed, still c/o abdominal pain, tenderness noted with palpation of RUQ and anjana-umbilical area. Pt deneis any chest pain or cardiac complaints. Objective Last Vital Signs Temp 98.8 F 04/27/17 07:23 Pulse 85 04/27/17 09:01 Resp 18 04/27/17 07:23 BP 133/69 04/27/17 09:01 Pulse Ox 97 04/27/17 03:53 - Physical Examination General: Other (c/o abdominal pain) HEENT: Positive: PERRL, Normocephaly, Mucus Membranes Moist Neck: Positive: neck supple, trachea midline Cardiac: Positive: Reg Rate and Rhythm, S1/S2 Lungs: Positive: clear to auscultation Neuro: Positive: Grossly Intact, Cranial Nerve 2-12 Intact Abdomen: Positive: Active Bowel Sounds, Tender (RUE and anjana-umbilical area) Skin: Positive: Clear. Negative: Rash, Wound Musculoskeletal: No Pain, Normal Range of Motion Extremities: Present: edema (trace BLE ) - Telemetry EKG Rhythm: Sinus Rhythm
[2017-04-27 11:30] LABS: Bilirubin,Urine NEG (Negative); Blood,Urine NEG (Negative); Ketones,Urine NEG (Negative); Leukocyte Esterase,Urine TR (Negative); Mucus,Urine FEW /HPF; Nitrite,Urine NEG (Negative)
--- NOTE | 2017-04-27 12:51 | Progress Note ---
<WILLIAN MENDOSA - Last Filed: 04/27/17 13:01> Assessment and Plan Assessment and plan: 56-year-old -A[place]ij[place] female with past medical history significant for CAD status post CABG, 5 stents, lupus, hyperlipidemia, diabetes, arthritis presented to the emergency department complaining of abdominal pain that started yesterday. Pain is on the lower abdomen, sharp, 10 out of 10 in intensity, with no radiation, associated with nausea, vomiting and diarrhea. Patient is also complaining chronic back pain and joint pain. While she was in the emergency department the patient started to have mediastinal chest pain, 8 out of 10 in intensity, she feels as if an elephant is sitting her chest, no radiation, associated with diaphoresis, shortness of breath, palpitation. Patient said that her blood pressure was 240/160. Lower abdominal pain NL CT abdomen except for mild steotosis; Still has severe RLQ tenderness with rebound, Not typical of colitis GI consulted Chest pain Resolved Normal Jeremias EKG, Cardiology following. continue with ASA, NTG and morphine CAD status post CABG Continue Zetia and ASA DM with hyperglycemia SSI and and basal insulin continue with ADA diet History of lupus: Stable DVT prophylaxis: Heparin Disposition Transfer to med/surg floor History Interval history: Patient mildly distressed. She denies chest pain shortness of breath diarrhea. Still complains of abdominal pain 5 out of 6 with medication 10 without. nausea is alleviated with medication Hospitalist Physical - Constitutional Vitals: Temp Pulse Resp BP Pulse Ox 98.6 F 85 18 141/73 97 04/27/17 11:26 04/27/17 09:01 04/27/17 11:26 04/27/17 11:26 04/27/17 03:53 General appearance: Present: mild distress, well-nourished - EENT Eyes: Present: PERRL, EOM intact ENT: hearing intact, clear oral mucosa - Neck Neck: Present: supple, normal ROM - Respiratory Respiratory effort: normal Respiratory: bilateral: CTA - Cardiovascular Rhythm: regular Heart Sounds: Present: S1 & S2 - Extremities Extremities: no ischemia, pulses intact, No edema Peripheral Pulses: within normal limits - Abdominal General gastrointestinal: soft, normal bowel sounds, other (RLQ tenderness with rebound tenderness) - Integumentary Integumentary: Present: clear, warm, dry - Psychiatric Psychiatric: appropriate mood/affect, cooperative - Neurologic Neurologic: CNII-XII intact, moves all extremities - Allied Health Allied health notes reviewed: nursing Results - Labs CBC & Chem 7: 04/26/17 05:57 04/26/17 05:57 Labs: Laboratory Last Values WBC 8.0 K/mm3 (4.5-11.0) 04/26/17 05:57 RBC 3.97 M/mm3 (3.65-5.03) 04/26/17 05:57 Hgb 10.8 gm/dl (10.1-14.3) 04/26/17 05:57 Hct 33.4 % (30.3-42.9) 04/26/17 05:57 MCV 84 fl (79-97) 04/26/17 05:57 MCH 27 pg (28-32) L 04/26/17 05:57 MCHC 32 % (30-34) 04/26/17 05:57 RDW 14.5 % (13.2-15.2) 04/26/17 05:57 Plt Count 187 K/mm3 (140-440) 04/26/17 05:57 Lymph % (Auto) 32.4 % (13.4-35.0) 04/26/17 05:57 [place] % (Auto) 6.3 % (0.0-7.3) 04/26/17 05:57 Eos % (Auto) 2.2 % (0.0-4.3) 04/26/17 05:57 Baso % (Auto) 0.5 % (0.0-1.8) 04/26/17 05:57 Lymph # 2.6 K/mm3 (1.2-5.4) 04/26/17 05:57 [place] # 0.5 K/mm3 (0.0-0.8) 04/26/17 05:57 Eos # 0.2 K/mm3 (0.0-0.4) 04/26/17 05:57 Baso # 0.0 K/mm3 (0.0-0.1) 04/26/17 05:57 Seg Neutrophils % 58.6 % (40.0-70.0) 04/26/17 05:57 Seg Neutrophils # 4.7 K/mm3 (1.8-7.7) 04/26/17 05:57 PT 12.9 Sec. (12.2-14.9) 04/25/17 08:58 INR 0.93 (0.87-1.13) 04/25/17 08:58 VBG pH 7.399 (7.320-7.420) 04/25/17 01:25 Sodium 140 mmol/L (137-145) 04/26/17 05:57 Potassium 3.6 mmol/L (3.6-5.0) 04/26/17 05:57 Chloride 105.2 mmol/L (98-107) 04/26/17 05:57 Carbon Dioxide 21 mmol/L (22-30) L 04/26/17 05:57 Anion Gap 17 mmol/L 04/26/17 05:57 BUN 13 mg/dL (7-17) 04/26/17 05:57 Creatinine 0.6 mg/dL (0.7-1.2) L 04/26/17 05:57 Estimated GFR > 60 ml/min 04/26/17 05:57 BUN/Creatinine Ratio 22 % 04/26/17 05:57 Glucose 175 mg/dL (65-100) H 04/26/17 05:57 POC Glucose 277 (70-105) H 04/26/17 21:32 Hemoglobin A1c 11.8 % (4-6) H 04/25/17 08:58 Calcium 8.1 mg/dL (8.4-10.2) L 04/26/17 05:57 Total Bilirubin 0.20 mg/dL (0.1-1.2) 04/25/17 01:25 AST 10 units/L (5-40) 04/25/17 01:25 ALT 12 units/L (7-56) 04/25/17 01:25 Alkaline Phosphatase 81 units/L (35-129) 04/25/17 01:25 Troponin T < 0.010 ng/mL (0.00-0.029) 04/25/17 08:58 NT-Pro-B Natriuret Pep 898.9 pg/mL (0-900) 04/25/17 08:58 Total Protein 6.2 g/dL (6.3-8.2) L 04/25/17 01:25 Albumin 3.7 g/dL (3.9-5) L 04/25/17 01:25 Albumin/Globulin Ratio 1.5 % 04/25/17 01:25 Triglycerides 62 mg/dL (2-149) 04/25/17 08:58 Cholesterol 255 mg/dL (50-199) H 04/25/17 08:58 LDL Cholesterol Direct 173 mg/dL (50-130) H 04/25/17 08:58 HDL Cholesterol 70 mg/dL (40-59) H 04/25/17 08:58 Cholesterol/HDL Ratio 3.64 % 04/25/17 08:58 Lipase 41 units/L (13-60) 04/25/17 01:25 Urine Color [place] (Yellow) 04/27/17 11:02 Urine Turbidity Clear (Clear) 04/27/17 11:02 Urine pH 5.0 (5.0-7.0) 04/27/17 11:02 Ur Specific [place] 1.028 (1.003-1.030) 04/27/17 11:02 Urine Protein 100 mg/dl mg/dL (Negative) 04/27/17 11:02 Urine Glucose (UA) Neg mg/dL (Negative) 04/27/17 11:02 Urine Ketones Neg mg/dL (Negative) 04/27/17 11:02 Urine Blood Neg (Negative) 04/27/17 11:02 Urine Nitrite Neg (Negative) 04/27/17 11:02 Urine Bilirubin Neg (Negative) 04/27/17 11:02 Urine Urobilinogen 2.0 mg/dL (<2.0) 04/27/17 11:02 Ur Leukocyte Esterase Tr (Negative) 04/27/17 11:02 Urine WBC (Auto) 7.0 /HPF (0.0-6.0) H 04/27/17 11:02 Urine RBC (Auto) 3.0 /HPF (0.0-6.0) 04/27/17 11:02 U Epithel Cells (Auto) 1.0 /HPF (0-13.0) 04/27/17 11:02 Urine Mucus Few /HPF 04/27/17 11:02 <TAO BELLAMY - Last Filed: 04/28/17 06:45> Assessment and Plan Assessment and plan: I saw and evaluated the patient. I agree with the findings and the plan of care as documented in the Physician Lithographic Press Feeder's~note, with the following corrections and additions. Pt reports recurrent admission for "abdominal infection" and was associated with diarrhea x2 since october. she reports right flank pain has been ongoing since that time but recurrent ruq pain comes intermittently. She reports diarrhea on this admission although staff has only mentioned diarrhea only noted once. Will check stool for occult blood Obtain GI eval- Per patient was planned for colonoscopy out patient for this week Doubt SLE flare but cannot fully rule out at this time. Hospitalist Physical - Constitutional Vitals: Temp Pulse Resp BP Pulse Ox 98.7 F 90 18 178/80 98 04/28/17 05:05 04/28/17 05:29 04/28/17 05:05 04/28/17 05:29 04/28/17 05:05 Results - Labs CBC & Chem 7: 04/26/17 05:57 04/26/17 05:57 Labs: Laboratory Last Values WBC 8.0 K/mm3 (4.5-11.0) 04/26/17 05:57 RBC 3.97 M/mm3 (3.65-5.03) 04/26/17 05:57 Hgb 10.8 gm/dl (10.1-14.3) 04/26/17 05:57 Hct 33.4 % (30.3-42.9) 04/26/17 05:57 MCV 84 fl (79-97) 04/26/17 05:57 MCH 27 pg (28-32) L 04/26/17 05:57 MCHC 32 % (30-34) 04/26/17 05:57 RDW 14.5 % (13.2-15.2) 04/26/17 05:57 Plt Count 187 K/mm3 (140-440) 04/26/17 05:57 Lymph % (Auto) 32.4 % (13.4-35.0) 04/26/17 05:57 [place] % (Auto) 6.3 % (0.0-7.3) 04/26/17 05:57 Eos % (Auto) 2.2 % (0.0-4.3) 04/26/17 05:57 Baso % (Auto) 0.5 % (0.0-1.8) 04/26/17 05:57 Lymph # 2.6 K/mm3 (1.2-5.4) 04/26/17 05:57 [place] # 0.5 K/mm3 (0.0-0.8) 04/26/17 05:57 Eos # 0.2 K/mm3 (0.0-0.4) 04/26/17 05:57 Baso # 0.0 K/mm3 (0.0-0.1) 04/26/17 05:57 Seg Neutrophils % 58.6 % (40.0-70.0) 04/26/17 05:57 Seg Neutrophils # 4.7 K/mm3 (1.8-7.7) 04/26/17 05:57 PT 12.9 Sec. (12.2-14.9) 04/25/17 08:58 INR 0.93 (0.87-1.13) 04/25/17 08:58 VBG pH 7.399 (7.320-7.420) 04/25/17 01:25 Sodium 140 mmol/L (137-145) 04/26/17 05:57 Potassium 3.6 mmol/L (3.6-5.0) 04/26/17 05:57 Chloride 105.2 mmol/L (98-107) 04/26/17 05:57 Carbon Dioxide 21 mmol/L (22-30) L 04/26/17 05:57 Anion Gap 17 mmol/L 04/26/17 05:57 BUN 13 mg/dL (7-17) 04/26/17 05:57 Creatinine 0.6 mg/dL (0.7-1.2) L 04/26/17 05:57 Estimated GFR > 60 ml/min 04/26/17 05:57 BUN/Creatinine Ratio 22 % 04/26/17 05:57 Glucose 175 mg/dL (65-100) H 04/26/17 05:57 POC Glucose 157 (70-105) H 04/27/17 16:34 Hemoglobin A1c 11.8 % (4-6) H 04/25/17 08:58 Calcium 8.1 mg/dL (8.4-10.2) L 04/26/17 05:57 Total Bilirubin 0.20 mg/dL (0.1-1.2) 04/25/17 01:25 AST 10 units/L (5-40) 04/25/17 01:25 ALT 12 units/L (7-56) 04/25/17 01:25 Alkaline Phosphatase 81 units/L (35-129) 04/25/17 01:25 Troponin T < 0.010 ng/mL (0.00-0.029) 04/25/17 08:58 NT-Pro-B Natriuret Pep 898.9 pg/mL (0-900) 04/25/17 08:58 Total Protein 6.2 g/dL (6.3-8.2) L 04/25/17 01:25 Albumin 3.7 g/dL (3.9-5) L 04/25/17 01:25 Albumin/Globulin Ratio 1.5 % 04/25/17 01:25 Triglycerides 62 mg/dL (2-149) 04/25/17 08:58 Cholesterol 255 mg/dL (50-199) H 04/25/17 08:58 LDL Cholesterol Direct 173 mg/dL (50-130) H 04/25/17 08:58 HDL Cholesterol 70 mg/dL (40-59) H 04/25/17 08:58 Cholesterol/HDL Ratio 3.64 % 04/25/17 08:58 Lipase 41 units/L (13-60) 04/25/17 01:25 Urine Color [place] (Yellow) 04/27/17 11:02 Urine Turbidity Clear (Clear) 04/27/17 11:02 Urine pH 5.0 (5.0-7.0) 04/27/17 11:02 Ur Specific [place] 1.028 (1.003-1.030) 04/27/17 11:02 Urine Protein 100 mg/dl mg/dL (Negative) 04/27/17 11:02 Urine Glucose (UA) Neg mg/dL (Negative) 04/27/17 11:02 Urine Ketones Neg mg/dL (Negative) 04/27/17 11:02 Urine Blood Neg (Negative) 04/27/17 11:02 Urine Nitrite Neg (Negative) 04/27/17 11:02 Urine Bilirubin Neg (Negative) 04/27/17 11:02 Urine Urobilinogen 2.0 mg/dL (<2.0) 04/27/17 11:02 Ur Leukocyte Esterase Tr (Negative) 04/27/17 11:02 Urine WBC (Auto) 7.0 /HPF (0.0-6.0) H 04/27/17 11:02 Urine RBC (Auto) 3.0 /HPF (0.0-6.0) 04/27/17 11:02 U Epithel Cells (Auto) 1.0 /HPF (0-13.0) 04/27/17 11:02 Urine Mucus Few /HPF 04/27/17 11:02
--- NOTE | 2017-04-27 20:04 | Gastroenterology Consultation ---
History of Present Illness - Reason for Consult Consult date: 04/27/17 Abdominal Pain Requesting physician: IOANA MONTALVO - History of Present Illness The patient is a 56 yo female admitted with chest and abdominal pain. She has been evaluated by Cards (extensive CAD hx) and is felt to not be having acute ischemia. She does have a long hx of chronic abdominal pain that his intermittent. She has had CT scans that have shown no lesions; she recently saw Dr Black in the clinic and is set up to get a colonoscopy/EGD in the clinic in the next 2-[address] scan this visit shows no obstruction, mass lesion, or ischemia. She is on no antispasmodic. She denies BM or eating as a trigger , but does say she has a poor appetite. She has no family hx of GI cancer. She has had a prior CCY and hysterectomy. She has not tried any IBS-type medications in the past. Past History Past Medical History: arthritis, CAD, diabetes, hypertension, hyperlipidemia, other (SLE) Past Surgical History: cholecystectomy, CABG, , hysterectomy, Other ( cardiac stents) Social history: full code. denies: smoking, alcohol abuse, prescription drug abuse, IV drug use Family history: cancer (Father diet of throat cancer), other (sister has heart failure) Medications and Allergies Allergies Allergy/AdvReac Type Severity Reaction Status Date / Time insulin glargine, human AdvReac Unknown Verified 02/21/16 00:05 recombin. a [From Lantus] shellfish derived AdvReac Unknown Verified 02/20/15 15:28 Flu Vaccine AdvReac Rash Uncoded 02/20/15 15:28 IV Dye AdvReac Unknown Uncoded 02/20/15 15:28 Home Medications Medication Instructions Recorded Confirmed Last Taken Type Aspirin [Aspirin BABY CHEW TAB] 81 mg PO QDAY 02/20/15 04/27/17 1 Day Ago History ~10/08/16 81 Carvedilol [Coreg] 6.25 mg PO BID 02/20/15 04/27/17 1 Day Ago History ~10/08/16 Clopidogrel Bisulfate [Plavix] 75 mg PO DAILY 02/20/15 04/27/17 1 Day Ago History ~10/08/16 Ezetimibe [Zetia] 10 mg PO QDAY 02/20/15 04/27/17 1 Day Ago History ~10/08/16 Hydrochlorothiazide [HCTZ] 12.5 mg PO QDAY 02/20/15 04/27/17 1 Day Ago History ~10/08/16 Lisinopril [Zestril TAB] 20 mg PO QHS 02/20/15 04/27/17 1 Day Ago History ~10/08/16 Pantoprazole [Protonix TAB] 40 mg PO QDAY 02/20/15 04/27/17 1 Day Ago History ~10/08/16 Ranolazine [Ranexa] 1,000 mg PO BID 02/20/15 04/27/17 1 Day Ago History ~10/08/16 amLODIPine [Norvasc] 5 mg PO QHS 02/20/15 04/27/17 1 Day Ago History ~10/08/16 oxyCODONE /ACETAMINOPHEN [Percocet 1 tab PO Q6HR PRN #20 tablet 02/20/15 1 Day Ago Rx 5/325 mg] ~10/08/16 ISOSORBIDE MONOnitrate [Imdur ER] 60 mg PO QDAY #30 tablet 10/11/16 04/27/17 Unknown Rx Insulin Detemir [Levemir] 18 units SUB-Q QHS #30 units 10/11/16 04/27/17 Unknown Rx Active Meds: Active Medications Acetaminophen (Tylenol) 650 mg PO Q4H PRN PRN Reason: Pain MILD(1-3)/Fever >100.5/MUSA Last Admin: 04/27/17 11:23 Dose: 650 mg Aspirin (Ecotrin) 325 mg PO QDAY [facility] Last Admin: 04/27/17 09:01 Dose: 325 mg Atorvastatin Calcium (Lipitor) 40 mg PO QHS [facility] Last Admin: 04/26/17 22:02 Dose: 40 mg Bisacodyl (Dulcolax) 10 mg NE QDAY PRN PRN Reason: Constipation unrelieved by MOM Carvedilol (Coreg) 6.25 mg PO BID [facility] Last Admin: 04/27/17 09:01 Dose: 6.25 mg Clopidogrel Bisulfate (Plavix) 75 mg PO DAILY [facility] Last Admin: 04/27/17 09:01 Dose: 75 mg Dextrose (D50w (25gm) Syringe) 50 ml IV PRN PRN PRN Reason: Hypoglycemia Docusate Sodium (Colace) 100 mg PO BID [facility] Last Admin: 04/27/17 09:02 Dose: Not Given Ezetimibe (Zetia) 10 mg PO QDAY [facility] Last Admin: 04/27/17 09:01 Dose: 10 mg Hydralazine HCl (Apresoline) 25 mg PO Q8HR [facility] Last Admin: 04/27/17 13:57 Dose: 25 mg Sodium Chloride (Nacl 0.9% 1000 Ml) 1,000 mls @ 75 mls/hr IV DIRECT [facility] Last Admin: 04/25/17 17:28 Dose: 75 mls/hr Insulin Aspart (Novolog) 0 units SUB-Q ACHS [facility] PRN Reason: Protocol Last Admin: 04/27/17 16:30 Dose: 3 units Insulin Detemir (Levemir) 18 units SUB-Q QHS [facility] Last Admin: 04/26/17 22:01 Dose: 18 units Isosorbide Mononitrate (Imdur) 60 mg PO QDAY [facility] Last Admin: 04/27/17 09:01 Dose: 60 mg Levofloxacin (Levaquin) 750 mg PO Q24HR [facility] Lisinopril (Zestril) 20 mg PO QHS [facility] Last Admin: 04/26/17 22:02 Dose: 20 mg Magnesium Hydroxide (Milk Of Magnesia) 30 ml PO Q4H PRN PRN Reason: Constipation Morphine Sulfate (Morphine) 2 mg IV Q4H PRN PRN Reason: Chest Pain Last Admin: 04/27/17 16:17 Dose: 2 mg Ondansetron HCl (Zofran) 4 mg IV Q8H PRN PRN Reason: N/V unrelieved by Reglan Last Admin: 04/27/17 09:07 Dose: 4 mg Pantoprazole Sodium (Protonix) 40 mg PO QDAY [facility] Last Admin: 04/27/17 09:01 Dose: 40 mg Ranolazine (Ranexa Er) 1,000 mg PO BID [facility] Last Admin: 04/27/17 09:01 Dose: 1,000 mg Sodium Chloride (Sodium Chloride Flush Syringe 10 Ml) 10 ml IV PRN PRN PRN Reason: LINE FLUSH Review of Systems - Review of Systems All systems: negative (as noted in the HPI.) Exam - Constitutional Vital Signs: Temp Pulse Resp BP Pulse Ox 97.4 F L 82 20 144/69 99 04/27/17 15:49 04/27/17 15:49 04/27/17 15:49 04/27/17 15:49 04/27/17 15:49 General appearance: no acute distress - EENT Eyes: PERRL, EOM intact ENT: hearing intact, clear oral mucosa - Neck Neck: supple, normal ROM - Respiratory Respiratory effort: normal Respiratory: bilateral: CTA - Cardiovascular Rhythm: regular Heart Sounds: Present: S1 & S2 Extremities: no ischemia, No edema - Gastrointestinal General gastrointestinal: Present: soft, non-tender, non-distended - Integumentary Integumentary: Present: clear, warm, dry - Neurologic Neurological: alert and oriented x3 - Labs CBC & Chem 7: 04/26/17 05:57 04/26/17 05:57 Lab Results: Laboratory Results - last 24 hr 04/26/17 04/27/17 04/27/17 21:32 07:30 11:02 POC Glucose 277 H 105 Urine Color [place] Urine Turbidity Clear Urine pH 5.0 Ur Specific [place] 1.028 Urine Protein 100 mg/dl Urine Glucose (UA) Neg Urine Ketones Neg Urine Blood Neg Urine Nitrite Neg Urine Bilirubin Neg Urine Urobilinogen 2.0 Ur Leukocyte Esterase Tr Urine WBC (Auto) 7.0 H Urine RBC (Auto) 3.0 U Epithel Cells (Auto) 1.0 Urine Mucus Few 04/27/17 04/27/17 11:31 16:34 POC Glucose 172 H 157 H Urine Color Urine Turbidity Urine pH Ur Specific [place] Urine Protein Urine Glucose (UA) Urine Ketones Urine Blood Urine Nitrite Urine Bilirubin Urine Urobilinogen Ur Leukocyte Esterase Urine WBC (Auto) Urine RBC (Auto) U Epithel Cells (Auto) Urine Mucus Assessment and Plan - Patient Problems (1) Chronic abdominal pain Current Visit: Yes Status: Acute Plan to address problem: - Labs/CT/Hx not consistent with acute process requiring emergent w/u, and the patient has an appt with Dr Black for endoscopy in the next few weeks. - Recommend adding librax for acute flares of pain QAC, and OK to d/c home per our service. - Recommend patient optimize BP and cholesterol treatment at home, as this may be contributing. -Will sign off; patient has OP appt arranged with Dr Black, please call if needed.
[2017-04-27] MEDS: ZESTRIL PO SCH (23:10)
[2017-04-27] MEDS: NACL 0.9% 1000 ML 1,000 ML IV SCH (23:17)
[2017-04-27] MEDS: LEVEMIR SUB-Q SCH (23:32)
[2017-04-28] MEDS: APRESOLINE PO SCH ×2 (05:29→13:42)
[2017-04-28] MEDS: MORPHINE IV PRN ×2 (05:30→10:53)
[2017-04-28] MEDS: LIBRAX 5-2.5 MG PO SCH ×2 (07:30→11:30)
[2017-04-28] MEDS: NOVOLOG SUB-Q SCH ×2 (07:30→11:30)
[2017-04-28 08:53] VITALS: BP 162/74
--- NOTE | 2017-04-28 09:23 | Discharge Summary ---
Providers - Providers Date of Admission: 04/25/17 09:04 Attending physician: IOANA MONTALVO 04/25/17 Consult to Cardiac Rehabilitation [CONS] Routine Reason For Exam: Phase I 04/25/17 08:21 Consult to Physician [CONS] Routine Consulting Provider: HARITHA KRISHNAMURTHY Reason For Exam: chest pain Place consult to:: [facility] Notified:: Y Was contact made?: Yes If yes, spoke with:: CARLOS Naidu Time called:: 09:05 04/27/17 12:45 Consult to Physician [CONS] Urgent Consulting Provider: [facility] Reason For Exam: Abdominal pain Notified:: Yes 04/27/17 12:51 Consult to Physician [CONS] Routine Consulting Provider: JEANETH LOPEZ Reason For Exam: right upper quad abdominal pain Place consult to:: Office Notified:: yes Phone number called:: [phone] Was contact made?: Yes If yes, spoke with:: Odalys Time called:: 13:10 Primary care physician: CUSTOMS MANAGER Hospitalization Condition: Stable Disposition: DC-01 TO HOME OR SELFCARE Exam - Constitutional Vitals: Temp Pulse Resp BP Pulse Ox 98.7 F 84 18 162/74 97 04/28/17 08:02 04/28/17 08:02 04/28/17 08:02 04/28/17 08:02 04/28/17 08:02 Plan Follow up with: VIKI FRANCO MD [Primary Care Provider] - 3-5 Days JEANETH LOPEZ MD [Staff Physician] - 7 Days Prescriptions: AtorvaSTATin [Lipitor] 40 mg PO QHS 30 Days tablet chlordiazePOXIDE/CLIDINIUM [Librax 5-2.5 mg] 1 cap PO AC 30 Days capsule
[2017-04-28] MEDS ORDERED: LEVAQUIN PO SCH (10:00)
[2017-04-28] MEDS: IMDUR PO SCH (10:43)
[2017-04-28] MEDS: COLACE PO SCH (10:43)
[2017-04-28] MEDS: RANEXA ER PO SCH (10:44)
[2017-04-28] MEDS: PROTONIX PO SCH (10:44)
[2017-04-28] MEDS: ZETIA PO SCH (10:44)
[2017-04-28] MEDS: PLAVIX PO SCH (10:45)
[2017-04-28] MEDS: ECOTRIN PO SCH (10:45)
[2017-04-28] MEDS: COREG PO SCH (10:47)
--- NOTE | 2017-04-28 11:48 | Progress Note ---
Assessment and Plan Currently stable cardiac status. GI consultation noted. Pt to f/u as OP with GI. Pt may discharge home from cardiology standpoint. Recommend follow up in our office with Sol Vázquez NP, within 1-2 weeks of hospital discharge ([phone]). The patient has been seen in conjunction with Dr. Wilkes who agrees with the assessment and plan of care. - Patient Problems (1) Abdominal pain Current Visit: Yes Status: Acute (2) CAD (coronary artery disease) Current Visit: Yes Status: Chronic (3) Hx of CABG Current Visit: Yes Status: Chronic (4) Lupus Current Visit: Yes Status: Chronic (5) Diabetes Current Visit: Yes Status: Chronic (6) HTN (hypertension) Current Visit: Yes Status: Chronic Subjective Date of service: 04/28/17 Principal diagnosis: Chest pain, Abdominal pain, SLE Interval history: Pt resting in bed, still c/o abdominal pain. Pt deneis any chest pain or cardiac complaints. Objective Last Vital Signs Temp 98.7 F 04/28/17 08:02 Pulse 84 04/28/17 08:02 Resp 18 04/28/17 08:02 BP 162/74 04/28/17 08:02 Pulse Ox 97 04/28/17 08:02 - Physical Examination General: Other (c/o abdominal pain) HEENT: Positive: PERRL, Normocephaly, Mucus Membranes Moist Neck: Positive: neck supple, trachea midline Cardiac: Positive: Reg Rate and Rhythm, S1/S2 Lungs: Positive: clear to auscultation Neuro: Positive: Grossly Intact, Cranial Nerve 2-12 Intact Abdomen: Positive: Active Bowel Sounds, Tender (RUE and anjana-umbilical area) Skin: Positive: Clear. Negative: Rash, Wound Musculoskeletal: No Pain, Normal Range of Motion Extremities: Present: edema (trace BLE )
--- NOTE | 2017-04-28 13:55 | Discharge Summary ---
Providers - Providers Date of Admission: 04/25/17 09:04 Date of discharge: 04/28/17 Attending physician: IOANA MONTALVO 04/25/17 Consult to Cardiac Rehabilitation [CONS] Routine Reason For Exam: Phase I 04/25/17 08:21 Consult to Physician [CONS] Routine Consulting Provider: HARITHA KRISHNAMURTHY Reason For Exam: chest pain Place consult to:: [facility] Notified:: Y Was contact made?: Yes If yes, spoke with:: CARLOS Naidu Time called:: 09:05 04/27/17 12:45 Consult to Physician [CONS] Urgent Consulting Provider: [facility] Reason For Exam: Abdominal pain Notified:: Yes 04/27/17 12:51 Consult to Physician [CONS] Routine Consulting Provider: JEANETH LOPEZ Reason For Exam: right upper quad abdominal pain Place consult to:: Office Notified:: yes Phone number called:: [phone] Was contact made?: Yes If yes, spoke with:: Odalys Time called:: 13:10 Primary care physician: ARMHOLE BASTER JUMPBASTING Hospitalization Condition: Stable Pertinent studies: Abdominal ultrasound revealed no acute pathologic process. CT of the pelvis and abdomen revealed no acute process. Hospital course: 56-year-old -[place] female with past medical history significant for CAD status post CABG, 5 stents, lupus, hyperlipidemia, diabetes, arthritis presented to the emergency department complaining of abdominal pain that started yesterday. Pain is on the lower abdomen, sharp, 10 out of 10 in intensity, with no radiation, associated with nausea, vomiting and diarrhea. Patient is also complaining chronic back pain and joint pain. While she was in the emergency department the patient started to have mediastinal chest pain, 8 out of 10 in intensity, she feels as if an elephant is sitting her chest, no radiation, associated with diaphoresis, shortness of breath, palpitation. Patient said that her blood pressure was 240/160. Patient was treated with antibiotics, IV fluids, insulin, antihypertensives, antiplatelet therapy, statin therapy, nitrates, and analgesics. Discharge diagnoses Lower abdominal pain Chest pain CAD status post CABG Diabetes mellitus with hyperglycemia History of lupus Hypertension DVT prophylaxis Disposition: TO HOME OR SELFCARE Time spent for discharge: 35 mins Core Measure Documentation - Palliative Care Palliative Care/ Comfort Measures: Not Applicable - Core Measures Any of the following diagnoses?: none Exam - Constitutional Vitals: Temp Pulse Resp BP Pulse Ox 98.7 F 84 18 162/74 97 04/28/17 08:02 04/28/17 08:02 04/28/17 08:02 04/28/17 08:02 04/28/17 08:02 General appearance: Present: no acute distress, well-nourished - EENT Eyes: Present: PERRL ENT: hearing intact, clear oral mucosa - Neck Neck: Present: supple, normal ROM - Respiratory Respiratory effort: normal Respiratory: bilateral: CTA - Cardiovascular Heart Sounds: Present: S1 & S2. Absent: rub, click - Extremities Extremities: pulses symmetrical, No edema Peripheral Pulses: within normal limits - Abdominal General gastrointestinal: Present: soft, non-tender, non-distended, normal bowel sounds Female genitourinary: Present: deferred - Rectal Rectal Exam: deferred - Integumentary Integumentary: Present: clear, warm, dry - Musculoskeletal Musculoskeletal: gait normal, strength equal bilaterally - Psychiatric Psychiatric: appropriate mood/affect, intact judgment & insight - Neurologic Neurologic: CNII-XII intact, moves all extremities - Allied Health Allied health notes reviewed: nursing Plan Activity: fall precautions Weight Bearing Status: Weight Bear as Tolerated Diet: low fat, low cholesterol, low salt, diabetic Follow up with: PRIMARY CAREMD [Primary Care Provider] - 3-5 Days JEANETH LOPEZ MD [Staff Physician] - 7 Days Prescriptions: AtorvaSTATin [Lipitor] 40 mg PO QHS 30 Days tablet chlordiazePOXIDE/CLIDINIUM [Librax 5-2.5 mg] 1 cap PO AC 30 Days capsule
--- NOTE | 2017-05-05 11:11 | Query- Chest Pain ---
Janak Bey Ayleen Date: 05/05/17 Sdv Pilot/Navigator/Dds Operator/CDS:____Sanam / Rafiq Phone#:____[phone] Exercise your independent professional judgment when responding to query. Questions asked do not imply a particular answer is desired or expected. We greatly appreciate your clarification on this issue. Clinical Documentation States: 56 year old female was admitted on 04/25/17 The progress note (Dr. Null 04/26/17) states " Chest pain: resolved. Normal Jeremias EKG. Cardiology following. continu with ASA, NTG and morphin Principal diagnosis: Chest pain, Abdominal pain, SLE " The cardiology progress note (Dr. Wilkes 04/27/17) states " - Patient Problems (1) Abdominal pain (2) CAD (coronary artery disease) (3) Hx of CABG " Please document the etiology of Chest Pain: [ ] Myocardial Infarction [ ] Pneumonia [ ] Mediastinitis [ ] Costochondritis [ ] Pulmonary Embolism [ ] Coronary Artery Disease [x ] GERD [ ] Other: [ ] Comment/Explanation: Present on Admission: [x ] Yes (Y) [ ] Clinically undeterminable (W) [ ] No(N) Please document response in your Progress Notes and/or Discharge Summary and indicate if the condition was present on admission. TORITO
== END 2017-04-28 16:17 | disposition home or self-care (01) | DRG 392 ==
LOC: ED 00:50 → 4A 09:04 → 3A 04-27 15:38
PROVIDERS: ADMIT Internal Medicine; ATTEND Internal Medicine
DX: K21.9 Gastro-esophageal reflux disease without esophagitis (principal); R10.31 Right lower quadrant pain; M32.9 Systemic lupus erythematosus, unspecified; E11.65 Type 2 diabetes mellitus with hyperglycemia; I25.10 Atherosclerotic heart disease of native coronary artery without angina pectoris; I10 Essential (primary) hypertension; E78.5 Hyperlipidemia, unspecified; G89.29 Other chronic pain; M54.9 Dorsalgia, unspecified; M19.90 Unspecified osteoarthritis, unspecified site; N39.0 Urinary tract infection, site not specified; G43.909 Migraine, unspecified, not intractable, without status migrainosus; J45.909 Unspecified asthma, uncomplicated; Z95.1 Presence of aortocoronary bypass graft; Z90.49 Acquired absence of other specified parts of digestive tract; Z88.7 Allergy status to serum and vaccine; I25.2 Old myocardial infarction; Z88.8 Allergy status to other drugs, medicaments and biological substances; Z91.013 Allergy to seafood; Z80.8 Family history of malignant neoplasm of other organs or systems; Z90.710 Acquired absence of both cervix and uterus
CPT/HCPCS: 36415; 74177; 76705; 80048; 80053; 80061; 81001; 82805; 82962; 83036; 83690; 83880; 84484; 85025; 85610; 93005; 93010; 96361; 96372; 96375; 96376; A9270-GY; J0360; J1815; J1818; J1956; J2270; J2405; J7030; Q9967

== ENCOUNTER 2017-05-07 14:22 | Emergency (ER) | payer MEDICAID ==
[2017-05-07 14:38] VITALS: BP 189/75
[2017-05-07] MEDS ORDERED: NACL 0.9% 1000 ML 1,000 ML IV ONE (15:56)
[2017-05-07] MEDS ORDERED: MORPHINE IV ONE (15:57)
[2017-05-07] MEDS ORDERED: DECADRON IV ONE (15:57)
--- NOTE | 2017-05-07 16:00 | Emergency Department Report ---
Chief Complaint: Pain General Stated Complaint: LUPUS PAINS Time Seen by Provider: 05/07/17 15:50 - HPI History of Present Illness: Patient is a 56-year-old [place] female with a history of lupus who states that she is in the lupus flareup. Patient states she has pain in all of her joints in her arms and legs as well as her back. Patient denies any vomiting does state she has mild nausea. Patient states this the second time this year that she has had a flareup. Patient states that she has not had a fever denies cough chest pain shortness of breath. The pain is achy - ROS Review of Systems: Review of systems are negative except for those discussed in the HPI - Exam Vital Signs: Vital Signs 05/07/17 14:36 Temperature 98.4 F Pulse Rate 98 H Respiratory 18 Rate Blood Pressure 189/75 O2 Sat by Pulse 100 Oximetry Physical Exam: Focused physical exam general exam patient is an mild distress secondary to pain. Lungs are clear to auscultation bilaterally heart tones are normal abdomen soft nontender skin exam is normal no rash muscular skeletal is no swelling erythema or warmth to the joints are exam is grossly normal MSE screening note: Focused history and physical exam performed. Due to findings the following was ordered: Patient be given 10 of Decadron for morphine as well as 1 L of IV fluids for pain control ED Disposition for MSE Condition: Stable Referrals: JEYSON REYES MD [Primary Care Provider] - 3-5 Days
--- NOTE | 2017-05-07 17:36 | Emergency Department Report ---
HPI - General Chief Complaint: Pain General Time Seen by Provider: 05/07/17 15:50 - HPI HPI: Patient is a 56-year-old female with a history of lupus who presents to ED complaining of a lupus flare with generalized body aches. Patient states she gets about 2 flareups per year and normally sees a pain doctor but cannot get an appointment to June 01 and could not wait that long. She also states that she has a primary care doctor that she follows up with regularly. She denies any lesions, rash, shortness of breath or chest pain Patient was initially screened by Dr. Reyes. See MSE note for HPI ED Past Medical Hx - Past Medical History Hx Hypertension: Yes Hx Heart Attack/AMI: Yes (nstemi) Hx Diabetes: Yes Hx Arthritis: Yes Hx Headaches / Migraines: Yes Hx Asthma: Yes Additional medical history: lupus, Gastroparesis. sleep apnea, CPAP - Surgical History Hx Coronary Stent: Yes (x 9) Hx Open Heart Surgery: Yes (CABG x 3) Hx Cholecystectomy: Yes - Social History Smoking Status: Never Smoker Substance Use Type: None - Medications Home Medications: Home Medications Medication Instructions Recorded Confirmed Last Taken Type Aspirin [Aspirin BABY CHEW TAB] 81 mg PO QDAY 02/20/15 04/27/17 1 Day Ago History ~10/08/16 81 Carvedilol [Coreg] 6.25 mg PO BID 02/20/15 04/27/17 1 Day Ago History ~10/08/16 Clopidogrel Bisulfate [Plavix] 75 mg PO DAILY 02/20/15 04/27/17 1 Day Ago History ~10/08/16 Ezetimibe [Zetia] 10 mg PO QDAY 02/20/15 04/27/17 1 Day Ago History ~10/08/16 Hydrochlorothiazide [HCTZ] 12.5 mg PO QDAY 02/20/15 04/27/17 1 Day Ago History ~10/08/16 Lisinopril [Zestril TAB] 20 mg PO QHS 02/20/15 04/27/17 1 Day Ago History ~10/08/16 Pantoprazole [Protonix TAB] 40 mg PO QDAY 02/20/15 04/27/17 1 Day Ago History ~10/08/16 Ranolazine [Ranexa] 1,000 mg PO BID 02/20/15 04/27/17 1 Day Ago History ~10/08/16 amLODIPine [Norvasc] 5 mg PO QHS 02/20/15 04/27/17 1 Day Ago History ~10/08/16 ISOSORBIDE MONOnitrate [Imdur ER] 60 mg PO QDAY #30 tablet 10/11/16 04/27/17 Unknown Rx Insulin Detemir [Levemir] 18 units SUB-Q QHS #30 units 10/11/16 04/27/17 Unknown Rx AtorvaSTATin [Lipitor] 40 mg PO QHS 30 Days tablet 04/28/17 Unknown Rx chlordiazePOXIDE/CLIDINIUM [Librax 1 cap PO AC 30 Days capsule 04/28/17 Unknown Rx 5-2.5 mg] Diclofenac Dr (Nf) 50 mg PO BID #40 tablet. 05/07/17 Unknown Rx oxyCODONE /ACETAMINOPHEN [Percocet 1 tab PO Q6HR PRN #20 tablet 05/07/17 Unknown Rx 5/325 mg] predniSONE [Deltasone] 20 mg PO QDAY #5 tab 05/07/17 Unknown Rx ED Review of Systems ROS: Stated complaint: LUPUS PAINS Other details as noted in HPI Constitutional: denies: chills, fever Eyes: denies: eye pain, eye discharge, vision change ENT: denies: ear pain, throat pain Respiratory: denies: cough, shortness of breath, wheezing Cardiovascular: denies: chest pain, palpitations Endocrine: no symptoms reported Gastrointestinal: denies: abdominal pain, nausea, diarrhea Genitourinary: denies: urgency, dysuria, discharge Musculoskeletal: myalgia. denies: back pain, joint swelling, arthralgia Skin: denies: rash, lesions Neurological: denies: headache, weakness, paresthesias Psychiatric: denies: anxiety, depression Hematological/Lymphatic: denies: easy bleeding, easy bruising Physical Exam - Physical Exam Vital Signs: Vital Signs 05/07/17 05/07/17 14:36 16:33 Temperature 98.4 F Pulse Rate 98 H Respiratory 18 20 Rate Blood Pressure 189/75 O2 Sat by Pulse 100 Oximetry Physical Exam: GENERAL: Alert and oriented x3, no apparent distress, Normal Gait, atraumatic. HEAD: Head is normocephalic and a-traumatic. EYES: Extra ocular muscles are intact. Pupils are equal, round, and reactive to light and accommodation. mildly jaundiced. LUNGS: Symetrical with respiration, No wheezing, no rales or crackles, CTAB. HEART: S1, S2 present, regular rate and rhythm without murmur, no rubs, no gallops. Non tender to palpation ABDOMEN: No organomegaly was noted,Positive bowel sounds, soft, and non- distended. Nontender to palpation on all Quadrants, NO CVA tenderness. BACK: Full range of motion, no spinal tenderness, nontender to palpation. EXTREMITIES/MUSCULOSKELETAL: No cyanosis, clubbing, rash, lesions or edema. Full ROM bilaterally. UE/LE Pulses 2+ bilaterally. LE and UE 5+ strength bilaterally, NEUROLOGIC: The patient is cooperative with no focal neurologic deficits. Cranial nerves II through XII are grossly intact. Normal speech. Normal sensation in bilateral upper and lower extremities, No loss of sensation, SKIN: Warm and dry, No lesions, No ulceration or induration present. Old healed scars on bilateral legs. ED Course Vital Signs 05/07/17 05/07/17 14:36 16:33 Temperature 98.4 F Pulse Rate 98 H Respiratory 18 20 Rate Blood Pressure 189/75 O2 Sat by Pulse 100 Oximetry ED Medical Decision Making - Medical Decision Making 56-year-old female presents with lupus generalized pain ED course: Patient received a liter of fluids, some pain control. Patient reports feeling much better after getting treatment. I discussed the patient to follow up with her pcp Vital signs are normal , she is in no acute distress Patient states that she will follow-up with her doctor and keep her appointment. I discussed the patient worsens to return to ED. I discussed the patient to abstain from strenuous activities Critical care attestation.: If time is entered above; I have spent that time in minutes in the direct care of this critically ill patient, excluding procedure time. ED Disposition Clinical Impression: Lupus arthritis, Myalgia Disposition: -01 TO HOME OR SELFCARE Is pt being admited?: No Does the pt Need Aspirin: No Condition: Stable Instructions: Sarcoidosis (ED), Trigger Point Pain (ED) Additional Instructions: Make sure to follow up with the primary care physician as discussed. Take all your medications as you've been prescribed. If you have any worsening symptoms or develop new symptoms please return to ED immediately. Prescriptions: Diclofenac (Nf) 50 mg PO BID #40 tablet. oxyCODONE /ACETAMINOPHEN [Percocet 5/325 mg] 1 tab PO Q6HR PRN #20 tablet PRN Reason: Pain predniSONE [Deltasone] 20 mg PO QDAY #5 tab Referrals: JEYSON REYES MD [Primary Care Provider] - 3-5 Days Forms: Accompanied Note, Work/School Release Form(ED) Time of Disposition: 17:40
== END 2017-05-07 17:59 | disposition home or self-care (01) ==
LOC: ED 14:22
DX: M32.8 Other forms of systemic lupus erythematosus (principal); M79.1 Myalgia; I10 Essential (primary) hypertension; M19.90 Unspecified osteoarthritis, unspecified site; E11.9 Type 2 diabetes mellitus without complications; I25.2 Old myocardial infarction; G43.909 Migraine, unspecified, not intractable, without status migrainosus; J45.909 Unspecified asthma, uncomplicated; Z90.49 Acquired absence of other specified parts of digestive tract; Z95.1 Presence of aortocoronary bypass graft; Z88.8 Allergy status to other drugs, medicaments and biological substances; Z91.013 Allergy to seafood
CPT/HCPCS: 96361; 96374; 96375; 99282; J1100; J2270; J7030

== ENCOUNTER 2017-06-04 16:53 | Emergency (ER) | payer MEDICAID ==
[2017-06-04] MEDS ORDERED: ASPIRIN PO ONE (17:12)
[2017-06-04 17:31] LABS: Basophils # (Auto) 0.1 K/mm3 (0.0-0.1); Basophils % (Auto) 1.2 % (0.0-1.8); Eosinophils # (Auto) 0.2 K/mm3 (0.0-0.4); Hematocrit 38.8 % (30.3-42.9); Lymphocytes # (Auto) 2.5 K/mm3 (1.2-5.4); Lymphocytes % (Auto) 31.1 % (13.4-35.0); Mean Corpuscular HGB Conc 34 % (30-34); Mean Corpuscular Hemoglobin 28 pg (28-32); Mean Corpuscular Volume 84 fl (79-97); Monocytes # (Auto) 0.4 K/mm3 (0.0-0.8); Monocytes % (Auto) 5.5 % (0.0-7.3); Platelet Count 223 K/mm3 (140-440); Red Cell Distribution Width 13.2 % (13.2-15.2)
--- NOTE | 2017-06-04 17:52 | XRay Report ---
FINAL REPORT EXAM: XR CHEST ROUTINE 2V HISTORY: cough/chest pain TECHNIQUE: Frontal and lateral chest radiographs. PRIORS: None. FINDINGS: Median sternotomy are seen. The cardiomediastinal silhouette is normal. No focal consolidation. No pleural effusion. No pneumothorax. No acute osseous abnormality. IMPRESSION: No acute cardiopulmonary process.
[2017-06-04 17:53] LABS: BUN/Creatinine Ratio 32; Blood Urea Nitrogen 19 mg/dL (7-17); Calcium 8.9 mg/dL (8.4-10.2); Hemolysis Index 6
[2017-06-04 19:25] VITALS: BP 231/83
== END 2017-06-05 03:14 | disposition left against medical advice (07) ==
LOC: ED 16:53
DX: R07.2 Precordial pain (principal); R09.81 Nasal congestion; R05 Cough; Z53.21 Procedure and treatment not carried out due to patient leaving prior to being seen by health care provider
CPT/HCPCS: 36415; 71046; 80048; 84484; 85025; 87400; 93005; 93010

== ENCOUNTER 2017-09-09 03:10 | Emergency (ER) | payer MEDICAID ==
[2017-09-09 04:13] LABS: Basophils # (Auto) 0.1 K/mm3 (0.0-0.1); Eosinophils # (Auto) 0.3 K/mm3 (0.0-0.4); Eosinophils % (Auto) 3.3 % (0.0-4.3); Hematocrit 38.7 % (30.3-42.9); Hemoglobin 13.2 gm/dl (10.1-14.3); Lymphocytes # (Auto) 2.9 K/mm3 (1.2-5.4); Lymphocytes % (Auto) 36.5 % (13.4-35.0); Mean Corpuscular HGB Conc 34 % (30-34); Mean Corpuscular Hemoglobin 28 pg (28-32); Mean Corpuscular Volume 83 fl (79-97); Monocytes # (Auto) 0.6 K/mm3 (0.0-0.8); Monocytes % (Auto) 7.5 % (0.0-7.3); Platelet Count 252 K/mm3 (140-440); Red Cell Distribution Width 13.5 % (13.2-15.2)
[2017-09-09 04:27] LABS: Alanine Aminotransferase 8 units/L (7-56); Albumin 3.7 g/dL (3.9-5); BUN/Creatinine Ratio 18; Blood Urea Nitrogen 9 mg/dL (7-17); Calcium 8.8 mg/dL (8.4-10.2); Hemolysis Index 0
--- NOTE | 2017-09-09 04:28 | Cat Scan Report ---
FINAL REPORT EXAM: CT HEAD/BRAIN WO CON HISTORY: headache TECHNIQUE: Routine imaging was obtained of the brain without IV contrast. FINDINGS: There is no evidence of acute stroke or hemorrhage. The ventricular system is appropriate in size and is symmetric. The basal cisterns appear normal. The visualized sinuses are clear. The mastoid air cells are well pneumatized. The calvarium appears intact. IMPRESSION: No acute intracranial process.
[2017-09-09] MEDS ORDERED: APRESOLINE IV ONE (05:13)
[2017-09-09] MEDS ORDERED: K-DUR PO ONE (06:27)
[2017-09-09] MEDS ORDERED: ZOFRAN IV ONE (06:50)
[2017-09-09] MEDS ORDERED: DILAUDID IV ONE (06:50)
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
[2017-09-09 08:29] VITALS: BP 148/84
== END 2017-09-09 08:27 | disposition home or self-care (01) ==
LOC: ED 03:10
DX: R51 Headache (principal); L93.0 Discoid lupus erythematosus; L97.529 Non-pressure chronic ulcer of other part of left foot with unspecified severity; I10 Essential (primary) hypertension; E11.9 Type 2 diabetes mellitus without complications; J44.9 Chronic obstructive pulmonary disease, unspecified; Z95.1 Presence of aortocoronary bypass graft
CPT/HCPCS: 36415; 70450; 80053; 85025; 93005; 93010; 96374; 96375; 99284; J0360; J1170; J2405

== ENCOUNTER 2018-03-02 13:23 | Emergency (ER) | payer MEDICAID ==
[2018-03-02 15:13] VITALS: BP 137/61
[2018-03-02] MEDS ORDERED: NACL 0.9% 1000 ML 1,000 ML IV ONE (15:57)
[2018-03-02] MEDS ORDERED: BENADRYL IV ONE ×2 (15:57→17:27)
[2018-03-02] MEDS ORDERED: TORADOL IV ONE (15:57)
[2018-03-02] MEDS ORDERED: REGLAN IV ONE (15:57)
--- NOTE | 2018-03-02 16:03 | Emergency Department Report ---
ED Headache HPI - General Chief Complaint: Headache Stated Complaint: MIGRAINE,HEADACHES Time Seen by Provider: 03/02/18 15:50 Source: patient Exam Limitations: no limitations - History of Present Illness Initial Comments: Pt reports that she has had a headache for the past four days with associated blurred vision, nausea, vomiting. States glucose elevated. Also reports a couple episodes of palpitations but denies CP or SOB. States she has not had a headache like this in the past. Timing/Duration: constant, other (4 days) Quality: severe Recent Head Trauma: no recent headache/trauma Modifying Factors: worse with: exposure to light Associated Symptoms: nausea/vomiting. denies: fever/chills, loss of consciousness, numbness in legs/feet, seizures, stiff neck Allergies/Adverse Reactions: Allergies insulin glargine, human recombin. a [From Lantus] Adverse Reaction (Verified 03:27) Unknown shellfish derived Adverse Reaction (Verified 06/07/17 03:27) Unknown Flu Vaccine Adverse Reaction (Uncoded 06/07/17 03:27) Rash IV Dye Adverse Reaction (Uncoded 06/07/17 03:27) Unknown Home Medications: Ambulatory Orders hydroCHLOROthiazide [HCTZ] 12.5 mg PO QDAY 02/20/15 Carvedilol [Coreg] 3.125 mg PO BID #60 tablet 06/10/17 Clopidogrel Bisulfate [Plavix] 75 mg PO DAILY #30 tablet 06/10/17 Detemir (Nf) [Levemir (Nf)] 18 units SUB-Q QHS #30 day 06/10/17 ISOSORBIDE MONOnitrate [Imdur ER] 120 mg PO QDAY #30 day 06/10/17 Nitroglycerin [Nitrostat] 0.4 mg SL .Q5MIN PRN #30 tablet 06/10/17 Pantoprazole [Protonix TAB] 40 mg PO QDAY #30 tablet 06/10/17 Prochlorperazine [Compazine] 10 mg PO Q6HR tablet 06/10/17 Ranolazine ER [Ranexa ER] 500 mg PO BID #60 tablet 06/10/17 amLODIPine [Norvasc] 10 mg PO QHS #30 tablet 06/10/17 oxyCODONE /ACETAMINOPHEN [Percocet 5/325 mg] 1 tab PO Q6H PRN #20 tablet Ondansetron [Zofran Odt] 4 mg PO Q8HR PRN #15 tab.rapdis 09/09/17 Butalb/Acetamin/Caff 50-325-40 [Fioricet] 1 tab PO Q6HR PRN #12 tab 03/02/18 Promethazine [Phenergan TAB] 25 mg PO Q6HR PRN #12 tab 03/02/18 ED Review of Systems ROS: Stated complaint: MIGRAINE,HEADACHES Other details as noted in HPI Comment: All other systems reviewed and negative Constitutional: denies: chills, fever Eyes: denies: eye pain, eye discharge, vision change ENT: denies: ear pain, throat pain Respiratory: denies: cough, shortness of breath, wheezing Cardiovascular: palpitations. denies: chest pain Endocrine: no symptoms reported Gastrointestinal: nausea, vomiting. denies: abdominal pain, diarrhea Genitourinary: denies: urgency, dysuria, discharge Musculoskeletal: denies: back pain, joint swelling, arthralgia Skin: denies: rash, lesions Neurological: headache. denies: weakness, paresthesias Psychiatric: denies: anxiety, depression Hematological/Lymphatic: denies: easy bleeding, easy bruising ED Past Medical Hx - Past Medical History Hx Hypertension: Yes Hx Heart Attack/AMI: Yes (nstemi) Hx Diabetes: Yes Hx Arthritis: Yes Hx Headaches / Migraines: Yes Hx Asthma: Yes Additional medical history: lupus, Gastroparesis. sleep apnea, CPAP - Surgical History Hx Coronary Stent: Yes Hx Open Heart Surgery: Yes Hx Cholecystectomy: Yes Additional Surgical History: stent placed in left lower extremity - Social History Smoking Status: Former Smoker Substance Use Type: None - Medications Home Medications: Home Medications Medication Instructions Recorded Confirmed Last Taken Type hydroCHLOROthiazide [HCTZ] 12.5 mg PO QDAY 02/20/15 06/07/17 06/06/17 History Carvedilol [Coreg] 3.125 mg PO BID #60 tablet 06/10/17 Unknown Rx Clopidogrel Bisulfate [Plavix] 75 mg PO DAILY #30 tablet 06/10/17 Unknown Rx Detemir (Nf) [Levemir (Nf)] 18 units SUB-Q QHS #30 day 06/10/17 Unknown Rx ISOSORBIDE MONOnitrate [Imdur ER] 120 mg PO QDAY #30 day 06/10/17 Unknown Rx Nitroglycerin [Nitrostat] 0.4 mg SL .Q5MIN PRN #30 tablet 06/10/17 Unknown Rx Pantoprazole [Protonix TAB] 40 mg PO QDAY #30 tablet 06/10/17 Unknown Rx Prochlorperazine [Compazine] 10 mg PO Q6HR tablet 06/10/17 Unknown Rx Ranolazine ER [Ranexa ER] 500 mg PO BID #60 tablet 06/10/17 Unknown Rx amLODIPine [Norvasc] 10 mg PO QHS #30 tablet 06/10/17 Unknown Rx oxyCODONE /ACETAMINOPHEN [Percocet 1 tab PO Q6H PRN #20 tablet 06/10/17 Unknown Rx 5/325 mg] Ondansetron [Zofran Odt] 4 mg PO Q8HR PRN #15 tab.rapdis 09/09/17 Unknown Rx Butalb/Acetamin/Caff 50-325-40 1 tab PO Q6HR PRN #12 tab 03/02/18 Unknown Rx [Fioricet] Promethazine [Phenergan TAB] 25 mg PO Q6HR PRN #12 tab 03/02/18 Unknown Rx ED Physical Exam - General Limitations: No Limitations General appearance: alert, in no apparent distress (but appears uncomfortable) - Head Head exam: Present: atraumatic, normocephalic - Eye Eye exam: Present: normal appearance, PERRL, EOMI Pupils: Present: normal accommodation - ENT ENT exam: Present: normal exam, mucous membranes moist - Neck Neck exam: Present: normal inspection, full ROM. Absent: tenderness, meningismus - Respiratory Respiratory exam: Present: normal lung sounds bilaterally. Absent: respiratory distress - Cardiovascular Cardiovascular Exam: Present: regular rate, normal rhythm. Absent: systolic murmur, diastolic murmur, rubs, gallop - GI/Abdominal GI/Abdominal exam: Present: soft, normal bowel sounds. Absent: tenderness, guarding - Extremities Exam Extremities exam: Present: normal inspection - Back Exam Back exam: Present: normal inspection - Neurological Exam Neurological exam: Present: alert, oriented X3, CN II-XII intact, normal gait, reflexes normal. Absent: motor sensory deficit - Psychiatric Psychiatric exam: Present: normal affect, normal mood - Skin Skin exam: Present: warm, dry, intact, normal color. Absent: rash ED Course Vital Signs 03/02/18 15:10 Temperature 98.7 F Pulse Rate 95 H Respiratory 20 Rate Blood Pressure 137/61 O2 Sat by Pulse 100 Oximetry ED Medical Decision Making - Lab Data Result diagrams: 03/02/18 16:21 03/02/18 16:21 - EKG Data -: EKG Interpreted by Me EKG shows normal: sinus rhythm Rate: normal - EKG Data Interpretation: nonspecific ST-T wave pennie 03/02/18 18:04 no STEMI - Radiology Data Radiology results: image reviewed interpreted by me: negative head CT - Medical Decision Making Pt in with [facility]USA x 4 days, nausea, blurred vision. Workup included a negative head CT reviewed by myself and Dr. Reyes. There were no focal deficits on exam. Labs showed mild hyperglycemia treated with IVF. Pt received IV Toradol, Benadryl, Reglan and had resolution of symptoms. She is stable for f/u with PCP. - Differential Diagnosis migraine, tension MUSA, SAH less likely, electrolyte disturbance. Critical care attestation.: If time is entered above; I have spent that time in minutes in the direct care of this critically ill patient, excluding procedure time. ED Disposition Clinical Impression: Hyperglycemia Headache Qualifiers: Headache type: unspecified Headache chronicity pattern: acute headache Intractability: not intractable Qualified Code(s): R51 - Headache Disposition: DC- TO HOME OR SELFCARE Is pt being admited?: No Condition: Good Instructions: Diabetic Hyperglycemia (ED), Migraine Headache (ED) Prescriptions: Butalb/Acetamin/Caff 50-325-40 [Fioricet] 1 tab PO Q6HR PRN #12 tab PRN Reason: Headache Promethazine [Phenergan TAB] 25 mg PO Q6HR PRN #12 tab PRN Reason: Nausea Referrals: PRIMARY CARE, [Primary Care Provider] - 3-5 Days Time of Disposition: 18:05
[2018-03-02 16:29] LABS: Basophils # (Auto) 0.1 K/mm3 (0.0-0.1); Basophils % (Auto) 0.8 % (0.0-1.8); Eosinophils # (Auto) 0.1 K/mm3 (0.0-0.4); Eosinophils % (Auto) 1.8 % (0.0-4.3); Hematocrit 39.1 % (30.3-42.9); Lymphocytes # (Auto) 2.1 K/mm3 (1.2-5.4); Lymphocytes % (Auto) 25.7 % (13.4-35.0); Mean Corpuscular HGB Conc 33 % (30-34); Mean Corpuscular Hemoglobin 28 pg (28-32); Mean Corpuscular Volume 83 fl (79-97); Monocytes # (Auto) 0.5 K/mm3 (0.0-0.8); Monocytes % (Auto) 6.1 % (0.0-7.3); Platelet Count 324 K/mm3 (140-440); Red Blood Count 4.71 M/mm3 (3.65-5.03); Red Cell Distribution Width 13.7 % (13.2-15.2)
[2018-03-02 16:46] LABS: BUN/Creatinine Ratio 21; Blood Urea Nitrogen 17 mg/dL (7-17); Calcium 9.3 mg/dL (8.4-10.2); Hemolysis Index 2
--- NOTE | 2018-03-03 10:27 | Cat Scan Report ---
FINAL REPORT EXAM: CT HEAD WO CONTRAST HISTORY: HEADACHE TECHNIQUE: Noncontrast CT axial images of the brain. PRIORS: 09 September 2017. FINDINGS: No parenchymal mass, mass effect, hemorrhage, midline shift or hydrocephalus. No evidence of acute cortical infarct. No abnormal, extra-axial fluid or air collection. Osseous calvarium grossly intact. IMPRESSION: 1. No acute intracranial findings.
== END 2018-03-02 18:21 | disposition home or self-care (01) ==
LOC: ED 13:23
DX: R51 Headache (principal); E11.65 Type 2 diabetes mellitus with hyperglycemia; I10 Essential (primary) hypertension; M19.90 Unspecified osteoarthritis, unspecified site; J45.909 Unspecified asthma, uncomplicated; M32.9 Systemic lupus erythematosus, unspecified; G47.30 Sleep apnea, unspecified; Z95.1 Presence of aortocoronary bypass graft; Z90.49 Acquired absence of other specified parts of digestive tract; Z87.891 Personal history of nicotine dependence; Z88.8 Allergy status to other drugs, medicaments and biological substances; Z91.013 Allergy to seafood; Z88.7 Allergy status to serum and vaccine
CPT/HCPCS: 36415; 70450; 80048; 85025; 93005; 93010; 96361; 96374; 96375; 96376; 99284; J1200; J1885; J2765; J7030

== ENCOUNTER 2018-10-26 12:09 | Inpatient (IN) | payer MEDICAID ==
--- NOTE | 2018-10-26 12:29 | Emergency Department Report ---
ED Chest Pain HPI - General Chief Complaint: Chest Pain Stated Complaint: CHEST PAIN/LUPUS FLARING UP Time Seen by Provider: 10/26/18 12:18 Source: patient Mode of arrival: Wheelchair Limitations: No Limitations - History of Present Illness Initial Comments: 58-year-old -[place] female presents to the emergency department via EMS from home with complaint of a flareup of her lupus, as well as some more recent chest pain. The patient says that she has been dealing with some joint pains over the past few days that she believes is secondary to her lupus. About 1 hour prior to arrival, the patient started having some midsternal chest pain and shortness of breath. She took 2 sublingual nitroglycerin with only some mild improvement. She has been taking Tylenol for her joint pains without any relief. She has a past medical history of hypertension, diabetes on both insulin and pills, coronary artery disease with previous CABG, peripheral arterial disease. Her primary care physician is a Dr. 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 No recent travel or sick contacts only. - Related Data Home Medications Medication Instructions Recorded Confirmed Last Taken Lisinopril [Zestril] 20 mg PO QDAY 10/26/18 10/26/18 10/25/18 Rosuvastatin Calcium [Crestor] 40 mg PO QHS 10/26/18 10/26/18 10/25/18 metFORMIN [Glucophage] 500 mg PO BID 10/26/18 10/26/18 10/25/18 Previous Rx's Medication Instructions Recorded Last Taken Type Clopidogrel Bisulfate [Plavix] 75 mg PO DAILY #30 tablet 06/10/17 10/25/18 Rx Detemir (Nf) [Levemir (Nf)] 18 units SUB-Q QHS #30 day 06/10/17 10/25/18 Rx ISOSORBIDE MONOnitrate [Imdur ER] 120 mg PO QDAY #30 day 06/10/17 10/25/18 Rx Nitroglycerin [Nitrostat] 0.4 mg SL .Q5MIN PRN #30 tablet 06/10/17 10/25/18 Rx Pantoprazole [Protonix TAB] 40 mg PO QDAY #30 tablet 06/10/17 10/25/18 Rx Prochlorperazine [Compazine] 10 mg PO Q6HR tablet 06/10/17 10/25/18 Rx Ranolazine ER [Ranexa ER] 500 mg PO BID #60 tablet 06/10/17 10/25/18 Rx amLODIPine [Norvasc] 10 mg PO QHS #30 tablet 06/10/17 10/25/18 Rx oxyCODONE /ACETAMINOPHEN [Percocet 1 tab PO Q6H PRN #20 tablet 06/10/17 10/25/18 Rx 5/325 mg] Allergies Allergy/AdvReac Type Severity Reaction Status Date / Time insulin glargine, human AdvReac Unknown Verified 10/26/18 12:10 recombin. a [From Lantus] shellfish derived AdvReac Unknown Verified 10/26/18 12:10 Flu Vaccine AdvReac Rash Uncoded 06/07/17 03:27 IV Dye AdvReac Unknown Uncoded 06/07/17 03:27 Heart Score - HEART Score History: Moderately suspicious EKG: Non-specific Age: 45-65 Risk factors: > 3 risk factors or hx of atherosclerotic disease Troponin: < normal limit HEART Score: 5 - Critical Actions Critical Actions: 4-6 pts:12-16.6% risk of adverse cardiac event. Should be admitted ED Review of Systems ROS: Stated complaint: CHEST PAIN/LUPUS FLARING UP Other details as noted in HPI Comment: All other systems reviewed and negative Constitutional: denies: chills, fever Eyes: denies: eye pain, vision change ENT: denies: ear pain, throat pain Respiratory: shortness of breath. denies: cough Cardiovascular: chest pain, edema. denies: palpitations Gastrointestinal: denies: abdominal pain, vomiting Genitourinary: denies: dysuria, discharge Musculoskeletal: arthralgia. denies: back pain Skin: denies: rash, lesions Neurological: denies: headache, weakness ED Past Medical Hx - Past Medical History Hx Hypertension: Yes Hx Heart Attack/AMI: Yes (nstemi) Hx Diabetes: Yes Hx Arthritis: Yes Hx Headaches / Migraines: Yes Hx Asthma: Yes Additional medical history: lupus, Gastroparesis. sleep apnea, CPAP - Surgical History Hx Coronary Stent: Yes Hx Open Heart Surgery: Yes Hx Cholecystectomy: Yes Additional Surgical History: stent placed in left lower extremity - Social History Smoking Status: Former Smoker Substance Use Type: None - Medications Home Medications: Home Medications Medication Instructions Recorded Confirmed Last Taken Type Clopidogrel Bisulfate [Plavix] 75 mg PO DAILY #30 tablet 06/10/17 10/26/18 10/25/18 Rx Detemir (Nf) [Levemir (Nf)] 18 units SUB-Q QHS #30 day 06/10/17 10/26/18 10/25/18 Rx ISOSORBIDE MONOnitrate [Imdur ER] 120 mg PO QDAY #30 day 06/10/17 10/26/18 10/25/18 Rx Nitroglycerin [Nitrostat] 0.4 mg SL .Q5MIN PRN #30 tablet 06/10/17 10/26/18 10/25/18 Rx Pantoprazole [Protonix TAB] 40 mg PO QDAY #30 tablet 06/10/17 10/26/18 10/25/18 Rx Prochlorperazine [Compazine] 10 mg PO Q6HR tablet 06/10/17 10/26/18 10/25/18 Rx Ranolazine ER [Ranexa ER] 500 mg PO BID #60 tablet 06/10/17 10/26/18 10/25/18 Rx amLODIPine [Norvasc] 10 mg PO QHS #30 tablet 06/10/17 10/26/18 10/25/18 Rx oxyCODONE /ACETAMINOPHEN [Percocet 1 tab PO Q6H PRN #20 tablet 06/10/17 10/26/18 10/25/18 Rx 5/325 mg] Lisinopril [Zestril] 20 mg PO QDAY 10/26/18 10/26/18 10/25/18 History Rosuvastatin Calcium [Crestor] 40 mg PO QHS 10/26/18 10/26/18 10/25/18 History metFORMIN [Glucophage] 500 mg PO BID 10/26/18 10/26/18 10/25/18 History ED Physical Exam - General Limitations: No Limitations - Other Other exam information: GENERAL: The patient is well-developed well-nourished. HENT: Normocephalic. Atraumatic. Patient has moist mucous membranes. EYES: Extraocular motions are intact. NECK: Supple. Trachea is midline. CHEST/LUNGS: Clear to auscultation. There is no respiratory distress noted. HEART/CARDIOVASCULAR: Regular. There is no tachycardia. There is no murmur. ABDOMEN: Abdomen is soft, nontender. Patient has normal bowel sounds. There is no abdominal distention. SKIN: Skin is warm and dry. NEURO: The patient is awake, alert, and oriented. The patient is cooperative. The patient has no focal neurologic deficits. The patient has normal speech. MUSCULOSKELETAL: There is no tenderness or deformity. There is no evidence of acute injury. ED Course Vital Signs 10/26/18 10/26/18 10/26/18 12:52 12:56 13:08 Temperature 98.6 F Pulse Rate 82 86 Respiratory 16 12 12 Rate Blood Pressure 195/86 Blood Pressure [Left] O2 Sat by Pulse 100 100 100 Oximetry 10/26/18 10/26/18 10/26/18 15:09 16:00 16:15 Temperature Pulse Rate 80 82 78 Respiratory 20 14 14 Rate Blood Pressure 174/65 Blood Pressure 176/83 206/83 126/74 [Left] O2 Sat by Pulse 96 100 Oximetry 10/26/18 10/26/18 10/26/18 16:45 17:00 17:20 Temperature Pulse Rate 81 77 78 Respiratory 17 Rate Blood Pressure Blood Pressure 196/73 198/78 141/68 [Left] O2 Sat by Pulse 98 Oximetry - EJ/Peripheral Line Arm R Time Out Performed: Yes Indications: nurses unable to establis Skin Cleansed in Sterile Fashion: Yes Size: 20 Dressing Placed: Tegaderm, tape Patient Tolerated Procedure: well JAD score - Jad Score Age > 65: (0) No Aspirin use within the Past 7 Days: (1) Yes 3 or more CAD Risk Factors: (1) Yes 2 or more Angina events in past 24 hrs: (1) Yes Known CAD with more than 50% Stenosis: (0) No Elevated Cardiac Markers: (0) No ST Deviation Greater than 0.5mm: (0) No JAD Score: 3 ED Medical Decision Making - Lab Data Result diagrams: 10/26/18 14:33 10/26/18 12:41 - EKG Data -: EKG Interpreted by Me EKG shows normal: sinus rhythm, axis (left axis deviation), intervals, QRS com plexes (LVH), ST-T waves (early repolarization) Rate: normal - EKG Data When compared to previous EKG there are: no significant change Interpretation: unchanged when compared t (03/04/18) - Radiology Data Radiology results: report reviewed, image reviewed interpreted by me: Chest x-ray does not show any acute process. There are no pleural effusions, obvious pneumonia and there is no pneumothorax. PROCEDURE: CT ANGIO CHEST TECHNIQUE: Computerized tomographic angiography of the chest was performed after the IV injection of iodinated nonionic contrast including image processing. The image data was postprocessed using 2-dimensional multiplanar reformatted (MPR) and 3-dimensional (MIP and/or volume rendered) techniques. Automated exposure control, adjustment of mA and/or kV according to patient size, or iterative reconstruction dose optimization techniques were utilized. CT DOSE LENGTH PRODUCT: 534.2 mGycm HISTORY: CP, elevated dimer COMPARISONS: CXR 06/07/2017 . FINDINGS: Heart and pericardium: Normal. Thoracic aorta: Normal. Pulmonary vasculature: Normal. No evidence for PE. Lymph nodes: There is a 1.2 cm lymph node in the superior mediastinum right paratracheal region.. Lungs: Normal. Pleural space: No effusion, thickening, or pneumothorax. Musculoskeletal structures: No significant abnormality. Upper abdominal structures: No significant abnormality. IMPRESSION: No acute abnormality. No evidence for PE. Single mildly enlarged lymph node in the superior mediastinum which may be reactive This document is electronically signed by Keshia Senior MD., October 26 2018 05:34:52 PM ET Transcribed By: [facility] Dictated By: KESHIA SENIOR MD Electronically Authenticated By: KESHIA SENIOR MD Signed Date/Time: 10/26/18 6385 - Medical Decision Making Patient presents to the emergency department with some chest pain and some other body aches consistent with her lupus. EKG does not show any signs of ST elevation IL. Chest x-ray does not show any acute process. The patient's labs have been unremarkable with troponins negative 2 but she did have an elevated and equivocal d-dimer. For this reason a CT angiography of the chest was done that shows a single lymph node but otherwise no signs of any pulmonary embolism, dissection, aneurysm, or any other acute process. She still continues to have some chest discomfort despite administration of pain medication. She has a history of coronary artery disease and it has been greater than 1.5 years since her last stress test. For these reasons the patient will be admitted to the hospital for further evaluation and treatment and was accepted for admission by the hospitalist, Dr. Curry. - Differential Diagnosis IL, PE, Costochondritis, Critical Care Time: No Critical care attestation.: If time is entered above; I have spent that time in minutes in the direct care of this critically ill patient, excluding procedure time. ED Disposition Clinical Impression: History of coronary artery bypass graft x 3, Hx of CABG, Angina at rest Chest pain Qualifiers: Chest pain type: unspecified Qualified Code(s): R07.9 - Chest pain, unspecified HTN (hypertension) Qualifiers: Hypertension type: essential hypertension Qualified Code(s): I10 - Essential (primary) hypertension Disposition: OP ADMIT IP TO THIS HOSP Is pt being admited?: Yes Condition: Fair Instructions: Chest Pain (ED), Hypertension (ED), Angina (ED) Referrals: JESSICA FRASER MD [Primary Care Provider] - 3-5 Days
--- NOTE | 2018-10-26 12:40 | XRay Report ---
AP CHEST: HISTORY: chest pain Previous thoracic surgery changes are noted. AP view of the chest demonstrates a normal mediastinal and cardiac contour with clear lungs and normal bony and soft tissue structures. IMPRESSION: Unremarkable AP chest. No change since 06/07/17.
[2018-10-26 13:07] LABS: INR 0.91 (0.87-1.13)
[2018-10-26 13:08] LABS: Hematocrit TNR % (30.3-42.9); Hemoglobin TNR gm/dl (10.1-14.3); Partial Thromboplastin Time 20.4 Sec. (24.2-36.6); Red Blood Count TNR M/mm3 (3.65-5.03)
[2018-10-26 13:09] LABS: Lymphocytes % (Auto) TNR % (13.4-35.0); Mean Corpuscular HGB Conc TNR % (30-34); Mean Corpuscular Volume TNR fl (79-97); Platelet Count TNR K/mm3 (140-440); Red Cell Distribution Width TNR % (13.2-15.2)
[2018-10-26] MEDS ORDERED: MORPHINE IV ONE ×2 (13:09→16:18)
[2018-10-26] MEDS ORDERED: BABY ASPIRIN PO ONE (13:09)
[2018-10-26 13:10] LABS: Basophils # (Auto) TNR K/mm3 (0.0-0.1); Basophils % (Auto) TNR % (0.0-1.8); Eosinophils # (Auto) TNR K/mm3 (0.0-0.4); Eosinophils % (Auto) TNR % (0.0-4.3); Lymphocytes # (Auto) TNR K/mm3 (1.2-5.4); Monocytes # (Auto) TNR K/mm3 (0.0-0.8); Monocytes % (Auto) TNR % (0.0-7.3)
[2018-10-26 13:23] LABS: Alanine Aminotransferase 10 units/L (7-56); Albumin 3.6 g/dL (3.9-5); BUN/Creatinine Ratio 45; Blood Urea Nitrogen 18 mg/dL (7-17); Calcium 9.5 mg/dL (8.4-10.2); Hemolysis Index 50
[2018-10-26 14:49] LABS: Basophils # (Auto) 0.1 K/mm3 (0.0-0.1); Basophils % (Auto) 1.3 % (0.0-1.8); Eosinophils # (Auto) 0.2 K/mm3 (0.0-0.4); Eosinophils % (Auto) 2.3 % (0.0-4.3); Hemoglobin 14.6 gm/dl (10.1-14.3); Lymphocytes # (Auto) 2.9 K/mm3 (1.2-5.4); Lymphocytes % (Auto) 40.1 % (13.4-35.0); Mean Corpuscular HGB Conc 34 % (30-34); Mean Corpuscular Volume 83 fl (79-97); Monocytes # (Auto) 0.4 K/mm3 (0.0-0.8); Monocytes % (Auto) 5.6 % (0.0-7.3); Platelet Count 278 K/mm3 (140-440); Red Blood Count 5.19 M/mm3 (3.65-5.03); Red Cell Distribution Width 13.8 % (13.2-15.2)
[2018-10-26] MEDS ORDERED: NORMODYNE IV ONE (14:56)
[2018-10-26] MEDS ORDERED: MORPHINE ONE (17:09)
--- NOTE | 2018-10-26 17:36 | Cat Scan Report ---
PROCEDURE: CT ANGIO CHEST TECHNIQUE: Computerized tomographic angiography of the chest was performed after the IV injection of iodinated nonionic contrast including image processing. The image data was postprocessed using 2-di mensional multiplanar reformatted (MPR) and 3-dimensional (MIP and/or volume rendered) techniques. Au tomated exposure control, adjustment of mA and/or kV according to patient size, or iterative reconstr uction dose optimization techniques were utilized. CT DOSE LENGTH PRODUCT: 534.2 mGycm HISTORY: CP, elevated dimer COMPARISONS: CXR 06/07/2017 . FINDINGS: Heart and pericardium: Normal. Thoracic aorta: Normal. Pulmonary vasculature: Normal. No evidence for PE. Lymph nodes: There is a 1.2 cm lymph node in the superior mediastinum right paratracheal region.. Lungs: Normal. Pleural space: No effusion, thickening, or pneumothorax. Musculoskeletal structures: No significant abnormality. Upper abdominal structures: No significant abnormality. IMPRESSION: No acute abnormality. No evidence for PE. Single mildly enlarged lymph node in the superi or mediastinum which may be reactive This document is electronically signed by Keshia Senior MD., October 26 2018 05:34:52 PM ET
[2018-10-26] MEDS ORDERED: NON-FORMULARY (Rosuvastatin Calcium [Crestor] 40 MG) PO SCH (22:00)
[2018-10-26] MEDS: GLUCOPHAGE PO SCH (22:33)
[2018-10-26] MEDS: PROTONIX PO SCH (22:33)
[2018-10-26] MEDS: RANEXA ER PO SCH (22:33)
[2018-10-26] MEDS: ZESTRIL PO SCH (22:34)
[2018-10-26] MEDS: PERCOCET 5/325 PO PRN (22:35)
[2018-10-26] MEDS: NORVASC PO SCH (22:38)
[2018-10-26] MEDS: IMDUR PO SCH (22:39)
[2018-10-26] MEDS: PLAVIX PO SCH (22:46)
[2018-10-27] MEDS: COMPAZINE PO SCH ×5 (01:11→23:47)
[2018-10-27] MEDS: LANTUS SUB-Q SCH ×2 (01:16→21:38)
[2018-10-27] MEDS: PERCOCET 5/325 PO PRN ×2 (05:01→19:32)
--- NOTE | 2018-10-27 06:50 | Event Note ---
Date: 10/26/18 Chest pain--r/o ID Lupus--initiated on Plaquenil See H/p in reports
--- NOTE | 2018-10-27 07:24 | History and Physical Report ---
CHIEF COMPLAINT: Left-sided chest pain for 1 day. HISTORY OF PRESENT ILLNESS: A 58-year-old female with history of hypertension, hyperlipidemia, type 2 diabetes and lupus, comes in for left-sided chest pain since a.m. Chest pain is left-sided, dull in character, 5 in intensity on a scale of 1-10. No radiation. No diaphoresis. No nausea, no vomiting. She took 2 sublingual nitroglycerins with some improvement. Not on any Plaquenil or anything for lupus. The patient is a poor historian. PAST MEDICAL HISTORY: As mentioned, hypertension, hyperlipidemia, type 2 diabetes and lupus. PAST SURGICAL HISTORY: Open heart surgery. Triple bypass and multiple stents in the past. She states she had 13 stents. No recent stress test for 1 year. Also, stent in the left lower extremity secondary to peripheral arterial disease. Cholecystectomy. SOCIAL HISTORY: Former smoker. Stopped smoking over a year ago, smoking for about 40 years. FAMILY HISTORY: Hypertension. CURRENT MEDICATIONS: Plavix 75 mg once a day, Levemir 18 units at night time, isosorbide mononitrate 120 mg once a day, amlodipine 10 mg once a day, lisinopril 20 mg once a day, Crestor 40 mg once a day. REVIEW OF SYSTEMS: Significant for left-sided chest pain. Otherwise, review of systems negative. PHYSICAL EXAMINATION: GENERAL: Young elderly female, cooperative during examination. VITAL SIGNS: Blood pressure is 195/86, temperature is 98.6, pulse is 82, respirations 16. HEENT: Unremarkable. Pupils equal and reactive. NECK: Supple, no lymphadenopathy, no thyromegaly. LUNGS: Clear to auscultation and percussion. Good air entry. CARDIOVASCULAR SYSTEM: S1, S2 heard. No gallop, no murmur, no rub. Apical impulse in left fifth intercostal space in midclavicular line. ABDOMEN: Soft and benign. No hepatosplenomegaly. No guarding, no rigidity. Hernial orifices are normal. EXTREMITIES: Good pedal pulses. No pedal edema. CENTRAL NERVOUS SYSTEM: Alert and oriented x 4, nonfocal exam. SKIN: Normal. LABORATORY DATA: White count is 7300, H and H is 14.0 and 43.0, platelet count is 278,000. Electrolytes are normal. Serum glucose is 223. DIAGNOSTIC DATA: EKG shows normal sinus rhythm, left axis deviation, ST-T wave abnormalities, nonspecific. Chest x-ray shows no acute process. CT angio chest shows no acute abnormality. No evidence for PE. ASSESSMENT AND PLAN: 1. Chest pain, rule out myocardial infarction, chest pain protocol. Lexiscan ordered. 2. Lupus. The patient initiated on Plaquenil. Ds-DNA ordered. 3. Hypertension. Continue antihypertensives in the form of lisinopril and amlodipine. 4. Insulin-dependent diabetes. Continue Levemir 18 units at nighttime and coverage. Also, metformin 500 b.i.d. Check hemoglobin A1c. 5. Coronary artery disease. Continue isosorbide mononitrate and Plavix. 6. Gastroesophageal reflux disease. Continue Protonix 40 mg once a day. 7. Hyperlipidemia. Continue rosuvastatin. 8. Deep venous thrombosis prophylaxis, Lovenox 40 mg once a day. JOB# [id number] VSM/NTS JAYAD
[2018-10-27] MEDS ORDERED: LEXISCAN IV ONE ×2 (10:57→10:58)
[2018-10-27] MEDS: GLUCOPHAGE PO SCH ×2 (12:49→21:34)
[2018-10-27] MEDS: LOVENOX SUB-Q SCH (12:49)
[2018-10-27] MEDS: PLAQUENIL PO SCH (12:49)
[2018-10-27] MEDS: PLAVIX PO SCH (12:49)
[2018-10-27] MEDS: ZESTRIL PO SCH (13:12)
[2018-10-27] MEDS: RANEXA ER PO SCH ×2 (13:13→21:33)
[2018-10-27] MEDS: IMDUR PO SCH (13:13)
[2018-10-27] MEDS: PROTONIX PO SCH (13:13)
--- NOTE | 2018-10-27 13:13 | Event Note ---
Date: 10/27/18 Chest Pain High risk MPI this admission showing a large severely reversible inferior and inferior wall defect consistent with Cx/RCA ischemia, LVEF 48% with RWMA Chronic stable angina Coronary artery disease s/p CABG with MADRID to LAD and multiple PCIs Cath 2016 - severe [place] vessel disease, patent MADRID to LAD. RCA noted occ luded and moderate disease described in the mid circumflex Hyperlipidemia Type II DM Recommendations: Coronary angiography in am to re-evaluate Cx disease
--- NOTE | 2018-10-27 14:23 | Progress Note ---
Assessment and Plan Assessment and plan: Chesty pain Admitted Abnormal stress test For cardiac cath tomorrow CAD s/p CABG Diabetes mellitus type 2 Accucheck qac and hs Hypertension Monitor BP Hyperlipidemia Cont statin Lupus flare On Plaquenil History Interval history: left sided chest pain Hospitalist Physical - Physical exam Narrative exam: Gen: Not in acute distress, lying in bed, HEENT: Normocephalic, atraumatic Neck: supple, no JVD Heart: S1 and S2 reg, no murmurs, rubs or gallop Lungs: Clear, no crackles, no wheeze Abd: soft, non tender, non distended, normal BS Ext: No edema, no clubbing, no cyanosis, Neuro: Awake,alert, oriented x 3, right sided weakness leg>arm Psych:Normal mood - Constitutional Vitals: Temp Pulse Resp BP Pulse Ox 97.5 F L 79 18 97/43 99 10/27/18 08:20 10/27/18 08:20 10/27/18 08:20 10/27/18 11:28 10/27/18 08:20 Results - Labs CBC & Chem 7: 10/28/18 06:17 10/28/18 Unknown Labs: Laboratory Last Values WBC 7.3 K/mm3 (4.5-11.0) 10/26/18 14:33 RBC 5.19 M/mm3 (3.65-5.03) H 10/26/18 14:33 Hgb 14.6 gm/dl (10.1-14.3) H 10/26/18 14:33 Hct 43.0 % (30.3-42.9) H 10/26/18 14:33 MCV 83 fl (79-97) 10/26/18 14:33 MCH 28 pg (28-32) 10/26/18 14:33 MCHC 34 % (30-34) 10/26/18 14:33 RDW 13.8 % (13.2-15.2) 10/26/18 14:33 Plt Count 278 K/mm3 (140-440) 10/26/18 14:33 Lymph % (Auto) 40.1 % (13.4-35.0) H 10/26/18 14:33 [place] % (Auto) 5.6 % (0.0-7.3) 10/26/18 14:33 Eos % (Auto) 2.3 % (0.0-4.3) 10/26/18 14:33 Baso % (Auto) 1.3 % (0.0-1.8) 10/26/18 14:33 Lymph # 2.9 K/mm3 (1.2-5.4) 10/26/18 14:33 [place] # 0.4 K/mm3 (0.0-0.8) 10/26/18 14:33 Eos # 0.2 K/mm3 (0.0-0.4) 10/26/18 14:33 Baso # 0.1 K/mm3 (0.0-0.1) 10/26/18 14:33 Add Manual Diff Complete 10/26/18 12:41 Seg Neutrophils % 50.7 % (40.0-70.0) 10/26/18 14:33 Seg Neutrophils # 3.7 K/mm3 (1.8-7.7) 10/26/18 14:33 PT 12.8 Sec. (12.2-14.9) 10/26/18 12:41 INR 0.91 (0.87-1.13) 10/26/18 12:41 APTT 20.4 Sec. (24.2-36.6) L 10/26/18 12:41 324.48 ng/mlDDU (0-234) H 10/26/18 12:41 Sodium 141 mmol/L (137-145) 10/26/18 12:41 Potassium 3.6 mmol/L (3.6-5.0) 10/26/18 12:41 Chloride 105.0 mmol/L (98-107) 10/26/18 12:41 Carbon Dioxide 23 mmol/L (22-30) 10/26/18 12:41 17 mmol/L 10/26/18 12:41 BUN 18 mg/dL (7-17) H 10/26/18 12:41 0.4 mg/dL (0.7-1.2) L 10/26/18 12:41 Estimated GFR > 60 ml/min 10/26/18 12:41 45 % 10/26/18 12:41 Glucose 223 mg/dL (65-100) H 10/26/18 12:41 POC Glucose 199 (70-105) H 10/27/18 12:42 Calcium 9.5 mg/dL (8.4-10.2) 10/26/18 12:41 0.60 mg/dL (0.1-1.2) 10/26/18 12:41 AST 14 units/L (5-40) 10/26/18 12:41 ALT 10 units/L (7-56) 10/26/18 12:41 77 units/L (35-129) 10/26/18 12:41 < 0.010 ng/mL (0.00-0.029) 10/27/18 Unknown NT-Pro-B Natriuret Pep 2071 pg/mL (0-900) H 10/26/18 12:41 6.8 g/dL (6.3-8.2) 10/26/18 12:41 3.6 g/dL (3.9-5) L 10/26/18 12:41 1.1 % 10/26/18 12:41 Active Medications - Current Medications Current Medications: Generic Name Dose Route Start Last Admin Trade Name Kingq PRN Reason Stop Dose Admin Amlodipine Besylate 10 mg 10/26/18 22:00 10/26/18 22:38 Norvasc PO 10 mg QHS [facility] Administration Aspirin 81 mg 10/28/18 10:00 Halfprin Ec PO QDAY [facility] Atorvastatin Calcium 40 mg 10/27/18 22:00 Lipitor PO QHS [facility] Clopidogrel Bisulfate 75 mg 10/26/18 21:00 10/27/18 12:49 Plavix PO 75 mg DAILY [facility] Administration Enoxaparin Sodium 40 mg 10/27/18 10:00 10/27/18 12:49 Lovenox SUB-Q 40 mg QDAY [facility] Administration Hydroxychloroquine Sulfate 200 mg 10/27/18 10:00 10/27/18 12:49 Plaquenil PO 200 mg QDAY [facility] Administration Insulin Glargine 18 units 10/26/18 22:00 10/27/18 01:16 Lantus SUB-Q Not Given QHS [facility] Isosorbide Mononitrate 120 mg 10/26/18 21:00 10/27/18 13:13 Imdur PO Not Given QDAY [facility] Lisinopril 20 mg 10/26/18 21:00 10/27/18 13:12 Zestril PO Not Given QDAY [facility] Metformin HCl 500 mg 10/26/18 22:00 10/27/18 12:49 Glucophage PO 500 mg BID [facility] Administration Oxycodone/Acetaminophen 1 tab 10/26/18 20:33 10/27/18 05:01 Percocet 5/325 PO 1 tab Q6H PRN Administration Pain, Moderate (4-6) Pantoprazole Sodium 40 mg 10/26/18 21:00 10/27/18 13:13 Protonix PO Not Given QDAY [facility] Prochlorperazine Maleate 10 mg 10/27/18 00:00 10/27/18 13:12 Compazine PO Not Given Q6HR [facility] Ranolazine 500 mg 10/26/18 22:00 10/27/18 13:13 Ranexa Er PO Not Given BID [facility]
--- NOTE | 2018-10-27 15:25 | Treadmill Report ---
INDICATION: Chest pain. ORDERING PHYSICIAN: Michael Curry MD FINDINGS: The left ventricular cavity is mildly dilated. The left ventricular ejection fraction is measured at 48%. There is hypokinesis of the inferolateral wall. There is evidence of a large severely reversible defect involving the inferolateral as well as the inferior wall consistent with ischemia in the right coronary artery and circumflex artery distribution. IMPRESSION: Abnormal myocardial perfusion scan. CONCLUSION: 1. Large severe reversible defect in the inferolateral wall consistent with ischemia in the right coronary artery and/or circumflex artery distribution. 2. Mildly dilated left ventricular cavity with an ejection fraction measured at 48%. 3. High risk myocardial perfusion scan associated with 1-year cardiovascular event rate of greater than 3%. [facility]# [id number] SATURNINO/CONCHITA
[2018-10-27] MEDS: NORVASC PO SCH (21:34)
[2018-10-28] MEDS: PERCOCET 5/325 PO PRN ×2 (01:43→17:20)
[2018-10-28 06:24] LABS: INR 0.9 (0.87-1.13)
[2018-10-28 06:25] LABS: Hemoglobin 10.8 gm/dl (10.1-14.3); Mean Corpuscular HGB Conc 34 % (30-34); Mean Corpuscular Volume 84 fl (79-97); Platelet Count 202 K/mm3 (140-440); Red Blood Count 3.81 M/mm3 (3.65-5.03); Red Cell Distribution Width 13.7 % (13.2-15.2)
[2018-10-28] MEDS: COMPAZINE PO SCH ×3 (06:27→17:22)
[2018-10-28 06:40] LABS: BUN/Creatinine Ratio 28; Blood Urea Nitrogen 22 mg/dL (7-17); Calcium 8.7 mg/dL (8.4-10.2); Hemolysis Index 25
[2018-10-28] MEDS: PLAVIX PO SCH (10:07)
[2018-10-28] MEDS: IMDUR PO SCH (10:07)
[2018-10-28] MEDS: RANEXA ER PO SCH ×2 (10:07→22:34)
[2018-10-28] MEDS: PROTONIX PO SCH (10:08)
[2018-10-28] MEDS: PLAQUENIL PO SCH (10:08)
[2018-10-28] MEDS: ZESTRIL PO SCH (10:08)
[2018-10-28] MEDS: GLUCOPHAGE PO SCH ×2 (10:08→22:35)
[2018-10-28] MEDS: LOVENOX SUB-Q SCH (10:09)
[2018-10-28] MEDS: HALFPRIN EC PO SCH (10:10)
[2018-10-28] MEDS: ZOFRAN IV PRN (11:56)
--- NOTE | 2018-10-28 12:45 | Consultation ---
History of Present Illness Consult date: 10/28/18 Consult reason: chest pain History of present illness: The patient is a 58-year-old woman with a history of complex three-vessel cor onary artery disease. She has had a single-vessel coronary bypass with MADRID to the LAD, as well as multivessel stent procedures. Two years ago, she underwent cardiac catheterization at this hospital following which she was placed on medical therapy for small vessel disease and chronic stable angina. I reviewed her cardiac catheterization angiograms. The right coronary artery was completely occluded at its ostium, within a previous stent. The left anterior descending artery was occluded in its mid segment after a small to medium sized diagonal branch. This mid LAD occlusion was also within the previous stent. The left internal mammary artery graft to the LAD was patent, with good anastomosis into the distal LAD, it also appeared that there was additional stenting of the LAD into its distal apical segments, likely performed via the internal mammary artery. The left main was patent, both used the proximal diagonal branch of the LAD, and also perfused a fairly large, codominant circumflex. The mid obtuse marginal branch was a small caliber branch of the circumflex, and also contained another occluded stent within its midsegment. Despite the diffuseness and severity of the coronary disease, there was very well preserved left ventricular systolic function with overall ejection fraction approaching 60-65%. ECG is normal sinus rhythm, there is left ventricular hypertrophy, there is ST depression in the lateral leads, repolarization abnormalities unchanged from her previous baseline ECG. Past History Past Medical History: CAD Past Surgical History: CABG, PTCA Medications and Allergies Allergies Allergy/AdvReac Type Severity Reaction Status Date / Time insulin glargine, human AdvReac Unknown Verified 10/26/18 12:10 recombin. a [From Lantus] shellfish derived AdvReac Unknown Verified 10/26/18 12:10 Flu Vaccine AdvReac Rash Uncoded 06/07/17 03:27 IV Dye AdvReac Unknown Uncoded 06/07/17 03:27 Home Medications Medication Instructions Recorded Confirmed Last Taken Type Clopidogrel Bisulfate [Plavix] 75 mg PO DAILY #30 tablet 06/10/17 10/26/18 10/25/18 Rx Detemir (Nf) [Levemir (Nf)] 18 units SUB-Q QHS #30 day 06/10/17 10/26/18 10/25/18 Rx ISOSORBIDE MONOnitrate [Imdur ER] 120 mg PO QDAY #30 day 06/10/17 10/26/18 10/25/18 Rx Nitroglycerin [Nitrostat] 0.4 mg SL .Q5MIN PRN #30 tablet 06/10/17 10/26/18 10/25/18 Rx Pantoprazole [Protonix TAB] 40 mg PO QDAY #30 tablet 06/10/17 10/26/18 10/25/18 Rx Prochlorperazine [Compazine] 10 mg PO Q6HR tablet 06/10/17 10/26/18 10/25/18 Rx Ranolazine ER [Ranexa ER] 500 mg PO BID #60 tablet 06/10/17 10/26/18 10/25/18 Rx amLODIPine [Norvasc] 10 mg PO QHS #30 tablet 06/10/17 10/26/18 10/25/18 Rx oxyCODONE /ACETAMINOPHEN [Percocet 1 tab PO Q6H PRN #20 tablet 06/10/17 10/26/18 10/25/18 Rx 5/325 mg] Lisinopril [Zestril] 20 mg PO QDAY 10/26/18 10/26/18 10/25/18 History Rosuvastatin Calcium [Crestor] 40 mg PO QHS 10/26/18 10/26/18 10/25/18 History metFORMIN [Glucophage] 500 mg PO BID 10/26/18 10/26/18 10/25/18 History Active Meds: Active Medications Amlodipine Besylate (Norvasc) 10 mg PO QHS [facility] Last Admin: 10/27/18 21:34 Dose: 10 mg Documented by: Aspirin (Halfprin Ec) 81 mg PO QDAY [facility] Last Admin: 10/28/18 10:10 Dose: 81 mg Documented by: Atorvastatin Calcium (Lipitor) 40 mg PO QHS [facility] Last Admin: 10/27/18 21:33 Dose: 40 mg Documented by: Clopidogrel Bisulfate (Plavix) 75 mg PO DAILY [facility] Last Admin: 10/28/18 10:07 Dose: 75 mg Documented by: Enoxaparin Sodium (Lovenox) 40 mg SUB-Q QDAY [facility] Last Admin: 10/28/18 10:09 Dose: 40 mg Documented by: Hydroxychloroquine Sulfate (Plaquenil) 200 mg PO QDAY [facility] Last Admin: 10/28/18 10:08 Dose: 200 mg Documented by: Insulin Glargine (Lantus) 18 units SUB-Q QHS [facility] Last Admin: 10/27/18 21:38 Dose: Not Given Documented by: Isosorbide Mononitrate (Imdur) 120 mg PO QDAY [facility] Last Admin: 10/28/18 10:07 Dose: 120 mg Documented by: Lisinopril (Zestril) 20 mg PO QDAY [facility] Last Admin: 10/28/18 10:08 Dose: 20 mg Documented by: Metformin HCl (Glucophage) 500 mg PO BID [facility] Last Admin: 10/28/18 10:08 Dose: 500 mg Documented by: Ondansetron HCl (Zofran) 4 mg IV Q6HR PRN PRN Reason: Nausea Last Admin: 10/28/18 11:56 Dose: 4 mg Documented by: Oxycodone/Acetaminophen (Percocet 5/325) 1 tab PO Q6H PRN PRN Reason: Pain, Moderate (4-6) Last Admin: 10/28/18 01:43 Dose: 1 tab Documented by: Pantoprazole Sodium (Protonix) 40 mg PO QDAY [facility] Last Admin: 10/28/18 10:08 Dose: 40 mg Documented by: Prochlorperazine Maleate (Compazine) 10 mg PO Q6HR [facility] Last Admin: 10/28/18 12:04 Dose: 10 mg Documented by: Ranolazine (Ranexa Er) 1,000 mg PO BID [facility] Review of Systems Cardiovascular: chest pain, shortness of breath, no orthopnea, no palpitations, no rapid/irregular heart beat, no edema, no syncope, no lightheadedness Physical Examination Vital Signs Temp Pulse Resp BP Pulse Ox 98.6 F 82 16 195/86 100 10/26/18 12:52 10/26/18 12:52 10/26/18 12:52 10/26/18 12:52 10/26/18 12:52 General appearance: no acute distress HEENT: Positive: PERRL Neck: Positive: neck supple Cardiac: Positive: Reg Rate and Rhythm Lungs: Positive: clear to auscultation Neuro: Positive: Grossly Intact Abdomen: Positive: Soft Female genitourinary: deferred Skin: Positive: Clear Extremities: Absent: edema Results 10/28/18 06:17 10/28/18 Unknown Coagulation 10/28/18 Range/Units Unknown PT 12.7 (12.2-14.9) Sec. INR 0.90 (0.87-1.13) CBC 10/28/18 Range/Units 06:17 WBC 7.2 (4.5-11.0) K/mm3 RBC 3.81 (3.65-5.03) M/mm3 Hgb 10.8 D (10.1-14.3) gm/dl Hct 32.0 D (30.3-42.9) % Plt Count 202 (140-440) K/mm3 Comprehensive Metabolic Panel 10/28/18 Range/Units Unknown Sodium 140 (137-145) mmol/L Potassium 3.5 L (3.6-5.0) mmol/L Chloride 106.9 (98-107) mmol/L Carbon Dioxide 21 L (22-30) mmol/L BUN 22 H (7-17) mg/dL Creatinine 0.8 D (0.7-1.2) mg/dL Glucose 190 H (65-100) mg/dL Calcium 8.7 (8.4-10.2) mg/dL EKG interpretations - Telemetry EKG Rhythm: Sinus Rhythm Assessment and Plan - Patient Problems (1) Chest pain Current Visit: Yes Status: Acute Qualifiers: Chest pain type: unspecified Qualified Code(s): R07.9 - Chest pain, unspecified Plan to address problem: Patient has multivessel coronary disease status post previous coronary bypass and stents, detailed anatomy as outlined. Currently manifesting chronic stable angina from small vessel disease. After discussions with the patient, she prefers optimization of her medical therapy for small vessel disease at this time, no additional benefit from additional coronary studies unless there is failure of medical therapy or significant change in pattern of angina. We will increase Ranexa.
[2018-10-28] MEDS ORDERED: RANEXA ER PO SCH (13:00)
--- NOTE | 2018-10-28 15:06 | Progress Note ---
Assessment and Plan Assessment and plan: Chesty pain Admitted Abnormal stress test Stable angina cardiology following Medical management Ranexa dose increased CAD s/p CABG Diabetes mellitus type 2 Accucheck qac and hs Hypertension Monitor BP Hyperlipidemia Cont statin Lupus flare On Plaquenil History Interval history: left sided chest pain Nausea Hospitalist Physical - Physical exam Narrative exam: Gen: Not in acute distress, lying in bed, HEENT: Normocephalic, atraumatic Neck: supple, no JVD Heart: S1 and S2 reg, no murmurs, rubs or gallop Lungs: Clear, no crackles, no wheeze Abd: soft, non tender, non distended, normal BS Ext: No edema, no clubbing, no cyanosis, Neuro: Awake,alert, oriented x 3, right sided weakness leg>arm Psych:Normal mood - Constitutional Vitals: Temp Pulse Resp BP Pulse Ox 97.8 F 82 18 149/69 99 10/28/18 11:56 10/28/18 12:00 10/28/18 11:56 10/28/18 11:56 10/28/18 11:56 General appearance: Present: no acute distress Results - Labs CBC & Chem 7: 10/28/18 06:17 10/28/18 Unknown Labs: Laboratory Last Values WBC 7.2 K/mm3 (4.5-11.0) 10/28/18 06:17 RBC 3.81 M/mm3 (3.65-5.03) 10/28/18 06:17 Hgb 10.8 gm/dl (10.1-14.3) D 10/28/18 06:17 Hct 32.0 % (30.3-42.9) D 10/28/18 06:17 MCV 84 fl (79-97) 10/28/18 06:17 MCH 28 pg (28-32) 10/28/18 06:17 MCHC 34 % (30-34) 10/28/18 06:17 RDW 13.7 % (13.2-15.2) 10/28/18 06:17 Plt Count 202 K/mm3 (140-440) 10/28/18 06:17 Lymph % (Auto) 40.1 % (13.4-35.0) H 10/26/18 14:33 [place] % (Auto) 5.6 % (0.0-7.3) 10/26/18 14:33 Eos % (Auto) 2.3 % (0.0-4.3) 10/26/18 14:33 Baso % (Auto) 1.3 % (0.0-1.8) 10/26/18 14:33 Lymph # 2.9 K/mm3 (1.2-5.4) 10/26/18 14:33 [place] # 0.4 K/mm3 (0.0-0.8) 10/26/18 14:33 Eos # 0.2 K/mm3 (0.0-0.4) 10/26/18 14:33 Baso # 0.1 K/mm3 (0.0-0.1) 10/26/18 14:33 Add Manual Diff Complete 10/26/18 12:41 Seg Neutrophils % 50.7 % (40.0-70.0) 10/26/18 14:33 Seg Neutrophils # 3.7 K/mm3 (1.8-7.7) 10/26/18 14:33 PT 12.7 Sec. (12.2-14.9) 10/28/18 Unknown INR 0.90 (0.87-1.13) 10/28/18 Unknown APTT 20.4 Sec. (24.2-36.6) L 10/26/18 12:41 324.48 ng/mlDDU (0-234) H 10/26/18 12:41 Sodium 140 mmol/L (137-145) 10/28/18 Unknown Potassium 3.5 mmol/L (3.6-5.0) L 10/28/18 Unknown Chloride 106.9 mmol/L (98-107) 10/28/18 Unknown Carbon Dioxide 21 mmol/L (22-30) L 10/28/18 Unknown 16 mmol/L 10/28/18 Unknown BUN 22 mg/dL (7-17) H 10/28/18 Unknown 0.8 mg/dL (0.7-1.2) D 10/28/18 Unknown Estimated GFR > 60 ml/min 10/28/18 Unknown 28 % 10/28/18 Unknown Glucose 190 mg/dL (65-100) H 10/28/18 Unknown POC Glucose 224 (70-105) H 10/28/18 12:02 Calcium 8.7 mg/dL (8.4-10.2) 10/28/18 Unknown 0.60 mg/dL (0.1-1.2) 10/26/18 12:41 AST 14 units/L (5-40) 10/26/18 12:41 ALT 10 units/L (7-56) 10/26/18 12:41 77 units/L (35-129) 10/26/18 12:41 < 0.010 ng/mL (0.00-0.029) 10/27/18 Unknown NT-Pro-B Natriuret Pep 2071 pg/mL (0-900) H 10/26/18 12:41 6.8 g/dL (6.3-8.2) 10/26/18 12:41 3.6 g/dL (3.9-5) L 10/26/18 12:41 1.1 % 10/26/18 12:41 Active Medications - Current Medications Current Medications: Generic Name Dose Route Start Last Admin Trade Name Freq PRN Reason Stop Dose Admin Amlodipine Besylate 10 mg 10/26/18 22:00 10/27/18 21:34 Norvasc PO 10 mg QHS [facility] Administration Aspirin 81 mg 10/28/18 10:00 10/28/18 10:10 Halfprin Ec PO 81 mg QDAY [facility] Administration Atorvastatin Calcium 40 mg 10/27/18 22:00 10/27/18 21:33 Lipitor PO 40 mg QHS [facility] Administration Clopidogrel Bisulfate 75 mg 10/26/18 21:00 10/28/18 10:07 Plavix PO 75 mg DAILY [facility] Administration Enoxaparin Sodium 40 mg 10/27/18 10:00 10/28/18 10:09 Lovenox SUB-Q 40 mg QDAY [facility] Administration Hydroxychloroquine Sulfate 200 mg 10/27/18 10:00 10/28/18 10:08 Plaquenil PO 200 mg QDAY [facility] Administration Insulin Glargine 18 units 10/26/18 22:00 10/27/18 21:38 Lantus SUB-Q Not Given QHS [facility] Isosorbide Mononitrate 120 mg 10/26/18 21:00 10/28/18 10:07 Imdur PO 120 mg QDAY [facility] Administration Lisinopril 20 mg 10/26/18 21:00 10/28/18 10:08 Zestril PO 20 mg QDAY [facility] Administration Metformin HCl 500 mg 10/26/18 22:00 10/28/18 10:08 Glucophage PO 500 mg BID [facility] Administration Ondansetron HCl 4 mg 10/28/18 12:00 10/28/18 11:56 Zofran IV 4 mg Q6HR PRN Administration Nausea Oxycodone/Acetaminophen 1 tab 10/26/18 20:33 10/28/18 01:43 Percocet 5/325 PO 1 tab Q6H PRN Administration Pain, Moderate (4-6) Pantoprazole Sodium 40 mg 10/26/18 21:00 10/28/18 10:08 Protonix PO 40 mg QDAY [facility] Administration Prochlorperazine Maleate 10 mg 10/27/18 00:00 10/28/18 12:04 Compazine PO 10 mg Q6HR [facility] Administration Ranolazine 1,000 mg 10/28/18 22:00 Ranexa Er PO BID [facility]
[2018-10-28] MEDS: LANTUS SUB-Q SCH (22:35)
[2018-10-28] MEDS: NORVASC PO SCH (22:35)
[2018-10-29] MEDS: PERCOCET 5/325 PO PRN ×2 (00:30→15:54)
[2018-10-29] MEDS: COMPAZINE PO SCH ×4 (00:36→18:21)
[2018-10-29] MEDS ORDERED: K-DUR PO ONE (07:22)
[2018-10-29] MEDS: IMDUR PO SCH (09:44)
[2018-10-29] MEDS: ZOFRAN IV PRN (09:49)
[2018-10-29] MEDS: PLAVIX PO SCH (09:49)
[2018-10-29] MEDS: RANEXA ER PO SCH (09:49)
[2018-10-29] MEDS: HALFPRIN EC PO SCH (09:50)
[2018-10-29] MEDS: PLAQUENIL PO SCH (09:51)
[2018-10-29] MEDS: ZESTRIL PO SCH (09:51)
[2018-10-29] MEDS: PROTONIX PO SCH (09:51)
[2018-10-29] MEDS: GLUCOPHAGE PO SCH (09:51)
[2018-10-29] MEDS: LOVENOX SUB-Q SCH (09:52)
--- NOTE | 2018-10-29 10:11 | Progress Note ---
Assessment and Plan Chronic stable angina from small vessel disease Hx of CAD with 1v CABG and multiple PCI's Diabetes mellitus Hypertension Normal LVEF 55-60% by echo 05/2017. Recommend: Continue medical therapy for coronary artery disease and chronic stable angina. Otherwise, conservative cardiac management. Subjective Date of service: 10/29/18 Interval history: Patient complains of abdominal pain with nausea. She denies chest pain and shortness of breath. Objective Vital Signs Temp Pulse Resp BP Pulse Ox 10/29/18 09:51 79 144/64 10/29/18 09:44 79 144/64 10/29/18 07:58 82 12 137/58 95 10/29/18 03:58 98.3 F 76 18 110/55 92 10/28/18 23:22 98.4 F 84 18 171/60 100 10/28/18 19:41 98.1 F 82 18 110/48 98 10/28/18 16:30 90 125/68 98 10/28/18 12:00 82 10/28/18 11:56 97.8 F 80 18 149/69 99 10/28/18 10:08 82 132/54 10/28/18 10:07 82 132/54 - Physical Examination General: No Apparent Distress HEENT: Positive: PERRL Neck: Positive: neck supple Cardiac: Positive: Reg Rate and Rhythm Lungs: Positive: Decreased Breath Sounds Neuro: Positive: Grossly Intact Abdomen: Positive: Soft Skin: Positive: Clear
--- NOTE | 2018-10-29 13:49 | Discharge Summary ---
Providers - Providers Date of Admission: 10/28/18 17:30 Date of discharge: 10/29/18 Attending physician: IOANA MONTALVO 10/26/18 15:21 Midline [Consult to PICC Line RN] [CONS] Stat Reason For Exam: difficult IV start, needs CTA and admit Type Line:: Midline 10/26/18 20:38 Consult to Physician [CONS] Routine Comment: Consulting Provider: WILFREDO KIM Physician Instructions: Reason For Exam: chest pain and coronary artery disease [facility] Condition: Fair Procedures: Stress test positive on 10/27/18 Hospital course: Patient is 58 yo with hypertension, lupus, coronary artery disease s/p stent, history of myocardial infarction. She presented with chest pain She was seen and evaluated in Emergency Department. Her Troponin was normal. She was admitted to Telemetry and evaluated by cardiology. Stress test was done, was abnormal. Patient opted for conservative management and Ranexa dose was increased to 100mg po twice daily. Chest pain subsided after few days and she was discharged home on 10/29/18. Total time spent on discharge, 31 mins Disposition: DC-01 TO HOME OR SELFCARE - Discharge Diagnoses (1) Diabetes mellitus type 2 in nonobese Status: Acute (2) Angina pectoris Status: Acute (3) Chest pain Status: Acute Qualifiers: Chest pain type: unspecified Qualified Code(s): R07.9 - Chest pain, unspecified (4) Hx of heart artery stent Status: Acute (5) CAD (coronary artery disease) Status: Chronic (6) HTN (hypertension) Status: Chronic Qualifiers: Hypertension type: essential hypertension Qualified Code(s): I10 - Essential (primary) hypertension (7) Hx of CABG Status: Chronic (8) Lupus Status: Chronic Core Measure Documentation - Palliative Care Palliative Care/ Comfort Measures: Not Applicable - Core Measures Any of the following diagnoses?: none Exam - Constitutional Vitals: Temp Pulse Resp BP Pulse Ox 98.3 F 82 12 144/64 95 10/29/18 03:58 10/29/18 10:00 10/29/18 07:58 10/29/18 09:51 10/29/18 07:58 Plan Activity: advance as tolerated Diet: low fat, low cholesterol, low salt, diabetic Additional Instructions: 1.Follow up with PCP in 1 week. 2.Follow up with Dr. Hill in 1 week. 3.Follow up with [facility] in 1 week Follow up with: JESSICA FRASER MD [Primary Care Provider] - 3-5 Days Prescriptions: Aspirin EC 81 mg PO QDAY #30 tablet Ranolazine ER [Ranexa ER] 1,000 mg PO BID #120 tablet
[2018-10-29 17:15] VITALS: BP 142/64
== END 2018-10-29 18:31 | disposition home or self-care (01) | DRG 303 ==
LOC: ED 12:09 → 4A 18:06 → OBSVTOIN 10-28 17:30
PROVIDERS: ADMIT Internal Medicine; ATTEND Internal Medicine
DX: I25.119 Atherosclerotic heart disease of native coronary artery with unspecified angina pectoris (principal); M32.9 Systemic lupus erythematosus, unspecified; R07.9 Chest pain, unspecified; I10 Essential (primary) hypertension; E11.9 Type 2 diabetes mellitus without complications; E11.51 Type 2 diabetes mellitus with diabetic peripheral angiopathy without gangrene; I25.2 Old myocardial infarction; M19.90 Unspecified osteoarthritis, unspecified site; G43.909 Migraine, unspecified, not intractable, without status migrainosus; E11.43 Type 2 diabetes mellitus with diabetic autonomic (poly)neuropathy; K31.84 Gastroparesis; E78.5 Hyperlipidemia, unspecified; Z95.5 Presence of coronary angioplasty implant and graft; Z95.1 Presence of aortocoronary bypass graft; Z90.49 Acquired absence of other specified parts of digestive tract; Z79.84 Long term (current) use of oral hypoglycemic drugs; Z87.891 Personal history of nicotine dependence
CPT/HCPCS: 36415; 71045; 71275; 78452; 80048; 80053; 82962; 83880; 84484; 85025; 85027; 85379; 85610; 85730; 86225; 93005; 93010; 93017; G0378; A9270-GY; A9502; J1650; J1815; J2270; J2405; J2785; J3246; Q0164; Q9967

== ENCOUNTER 2018-12-09 13:07 | Inpatient (IN) | payer MEDICAID ==
--- NOTE | 2018-12-09 13:28 | Event Note ---
ED Screening Note ED Screening Note: pt presents with substernal CP that began early this morning took two nitro which relieved her symptoms but CP returned +nausea no vomiting states she broke out in a sweat earlier today tingling in the right arm PMHx DM, Lupus, HTN, HLD PSHx CABG +smoker non drinker no drug use This initial assessment/diagnostic orders/clinical plan/treatment(s) is/are subject to change based on patients health status, clinical progression and re- assessment by fellow clinical providers in the ED. Further treatment and workup at subsequent clinical providers discretion. Patient/guardian urged not to elope from the ED as their condition may be serious if not clinically assessed and managed. Initial orders include: CP protocol
[2018-12-09] MEDS ORDERED: ASPIRIN PO ONE (13:42)
--- NOTE | 2018-12-09 13:42 | Emergency Department Report ---
ED Chest Pain HPI - General Chief Complaint: Chest Pain Stated Complaint: CHEST PAIN Time Seen by Provider: 12/09/18 13:25 Source: patient Mode of arrival: Wheelchair Limitations: Physical Limitation - History of Present Illness Initial Comments: Patient is a 58-year-old female that presents emergency room with mid sternal chest pain that radiates to her left shoulder and right arm. Patient states she is also having shortness of breath. Patient states she had some nausea last night. Patient states her chest pain has been going on since yesterday. Patient states her chest pain is worsening. Patient states her chest pain is a 5 out of 10. Patient states her chest pain is better with rest and worse with exertion. Patient states her shortness of breath is better with rest and worse with exertion. Patient states that she has a history of MD Complaint: chest pain -: Sudden Onset: during rest Pain Location: substernal, left chest Pain Radiation: RUE, LUE Severity: moderate Severity scale (0 -10): 5 Quality: heaviness, sharp Consistency: constant Improves With: rest Worsens With: exertion re: nausea, dyspnea. denies: vomting, diaphoresis, sense of impending doom Other Symptoms: denies: cough, fever, syncope, rash, acid taste in mouth, leg swelling, palpitations, burping Treatments Prior to Arrival: none Aspirin use within the Past 7 Days: (1) Yes - Related Data On Oral Contraceptives: No Home Medications Medication Instructions Recorded Confirmed Last Taken Lisinopril [Zestril TAB] 20 mg PO QDAY 10/26/18 10/26/18 10/25/18 Rosuvastatin Calcium [Crestor] 40 mg PO QHS 10/26/18 10/26/18 10/25/18 metFORMIN [Glucophage] 500 mg PO BID 10/26/18 10/26/18 10/25/18 Previous Rx's Medication Instructions Recorded Last Taken Type Clopidogrel Bisulfate [Plavix] 75 mg PO DAILY #30 tablet 06/10/17 10/25/18 Rx Detemir (Nf) [Levemir (Nf)] 18 units SUB-Q QHS #30 day 06/10/17 10/25/18 Rx ISOSORBIDE MONOnitrate [Imdur ER] 120 mg PO QDAY #30 day 06/10/17 10/25/18 Rx Nitroglycerin [Nitrostat] 0.4 mg SL .Q5MIN PRN #30 tablet 06/10/17 10/25/18 Rx Pantoprazole [Protonix TAB] 40 mg PO QDAY #30 tablet 06/10/17 10/25/18 Rx Prochlorperazine [Compazine] 10 mg PO Q6HR tablet 06/10/17 10/25/18 Rx amLODIPine [Norvasc] 10 mg PO QHS #30 tablet 06/10/17 10/25/18 Rx oxyCODONE /ACETAMINOPHEN [Percocet 1 tab PO Q6H PRN #20 tablet 06/10/17 10/25/18 Rx 5/325 mg] Aspirin EC 81 mg PO QDAY #30 tablet 10/29/18 Unknown Rx Ranolazine ER [Ranexa ER] 1,000 mg PO BID #120 tablet 10/29/18 Unknown Rx Allergies Allergy/AdvReac Type Severity Reaction Status Date / Time insulin glargine, human AdvReac Unknown Verified 10/26/18 12:10 recombin. a [From Lantus] shellfish derived AdvReac Unknown Verified 10/26/18 12:10 Flu Vaccine AdvReac Rash Uncoded 06/07/17 03:27 IV Dye AdvReac Unknown Uncoded 06/07/17 03:27 Heart Score - HEART Score History: Moderately suspicious EKG: Significant ST-depression Age: 45-65 Risk factors: > 3 risk factors or hx of atherosclerotic disease Troponin: < normal limit HEART Score: 6 ED Review of Systems ROS: Stated complaint: CHEST PAIN Other details as noted in HPI Constitutional: denies: chills, fever Eyes: denies: eye pain, eye discharge, vision change ENT: denies: ear pain, throat pain Respiratory: shortness of breath. denies: cough, wheezing Cardiovascular: chest pain. denies: palpitations Endocrine: no symptoms reported Gastrointestinal: denies: abdominal pain, nausea, diarrhea Genitourinary: denies: urgency, dysuria, discharge Musculoskeletal: denies: back pain, joint swelling, arthralgia Skin: denies: rash, lesions Neurological: denies: headache, weakness, paresthesias Psychiatric: denies: anxiety, depression Hematological/Lymphatic: denies: easy bleeding, easy bruising ED Past Medical Hx - Past Medical History Previous Medical History?: Yes Hx Hypertension: Yes Hx Heart Attack/AMI: Yes Hx Diabetes: Yes Hx Arthritis: Yes Hx Headaches / Migraines: Yes Hx Asthma: Yes Additional medical history: lupus, Gastroparesis. sleep apnea, CPAP - Surgical History Past Surgical History?: Yes Hx Coronary Stent: Yes Hx Open Heart Surgery: Yes Hx Cholecystectomy: Yes Additional Surgical History: stent placed in left lower extremity - Family History Family history: no significant - Social History Smoking Status: Current Every Day Smoker Substance Use Type: None - Medications Home Medications: Home Medications Medication Instructions Recorded Confirmed Last Taken Type Clopidogrel Bisulfate [Plavix] 75 mg PO DAILY #30 tablet 06/10/17 10/26/18 10/25/18 Rx Detemir (Nf) [Levemir (Nf)] 18 units SUB-Q QHS #30 day 06/10/17 10/26/18 10/25/18 Rx ISOSORBIDE MONOnitrate [Imdur ER] 120 mg PO QDAY #30 day 06/10/17 10/26/18 10/25/18 Rx Nitroglycerin [Nitrostat] 0.4 mg SL .Q5MIN PRN #30 tablet 06/10/17 10/26/18 10/25/18 Rx Pantoprazole [Protonix TAB] 40 mg PO QDAY #30 tablet 06/10/17 10/26/18 10/25/18 Rx Prochlorperazine [Compazine] 10 mg PO Q6HR tablet 06/10/17 10/26/18 10/25/18 Rx amLODIPine [Norvasc] 10 mg PO QHS #30 tablet 06/10/17 10/26/18 10/25/18 Rx oxyCODONE /ACETAMINOPHEN [Percocet 1 tab PO Q6H PRN #20 tablet 06/10/17 10/26/18 10/25/18 Rx 5/325 mg] Lisinopril [Zestril TAB] 20 mg PO QDAY 10/26/18 10/26/18 10/25/18 History Rosuvastatin Calcium [Crestor] 40 mg PO QHS 10/26/18 10/26/18 10/25/18 History metFORMIN [Glucophage] 500 mg PO BID 10/26/18 10/26/18 10/25/18 History Aspirin EC 81 mg PO QDAY #30 tablet 10/29/18 Unknown Rx Ranolazine ER [Ranexa ER] 1,000 mg PO BID #120 tablet 10/29/18 Unknown Rx ED Physical Exam - General Limitations: Physical Limitation General appearance: alert, in no apparent distress - Head Head exam: Present: atraumatic, normocephalic - Eye Eye exam: Present: normal appearance - ENT ENT exam: Present: mucous membranes moist - Neck Neck exam: Present: normal inspection - Respiratory Respiratory exam: Present: normal lung sounds bilaterally. Absent: respiratory distress - Cardiovascular Cardiovascular Exam: Present: regular rate, normal rhythm. Absent: systolic mu rmur, diastolic murmur, rubs, gallop - GI/Abdominal GI/Abdominal exam: Present: soft, normal bowel sounds. Absent: distended, tenderness, guarding - Rectal Rectal exam: Present: deferred - Extremities Exam Extremities exam: Present: normal inspection (right BKA), full ROM, normal c apillary refill. Absent: tenderness, pedal edema, calf tenderness - Back Exam Back exam: Present: normal inspection - Neurological Exam Neurological exam: Present: alert, oriented X3 - Psychiatric Psychiatric exam: Present: normal affect, normal mood - Skin Skin exam: Present: warm, dry, intact, normal color. Absent: rash ED Course Vital Signs 12/09/18 13:25 Temperature 97.9 F Pulse Rate 85 Respiratory 16 Rate Blood Pressure 164/69 O2 Sat by Pulse 97 Oximetry - Reevaluation(s) Reevaluation #1: Discussed all results with patient. Patient to be admitted to the hospitalist service. Patient agrees with plan of care. 12/09/18 15:10 - Consultations Consultation #1: Hospitalist consulted for admission. Hospitalist to admit patient and assumed care of the patient. Bridging orders placed if the hospitalist requested. 12/09/18 15:10 LAUREEN score - Laureen Score Age > 65: (0) No Aspirin use within the Past 7 Days: (1) Yes 3 or more CAD Risk Factors: (1) Yes 2 or more Angina events in past 24 hrs: (1) Yes Known CAD with more than 50% Stenosis: (0) No Elevated Cardiac Markers: (0) No ST Deviation Greater than 0.5mm: (1) Yes LAUREEN Score: 4 ED Medical Decision Making - Lab Data Result diagrams: 12/09/18 14:32 12/09/18 14:32 - EKG Data -: EKG Interpreted by Me EKG shows normal: sinus rhythm, axis, intervals, QRS complexes Rate: normal - EKG Data When compared to previous EKG there are: no significant change Interpretation: nonspecific ST-T wave pennie - Radiology Data Radiology results: report reviewed, image reviewed interpreted by me: No acute findings on chest x-ray CHEST 2 VIEWS INDICATION: Chest pain for one day. COMPARISON: 06/07/2017 chest x-ray report FINDINGS: Support devices: None. Heart: Within normal limits. Lungs/pleura: No acute air space or interstitial disease. No pneumothorax. Additional findings: Sternotomy wires are noted indicating previous thoracic surgery. IMPRESSION: Chest x-ray within normal limits. - Medical Decision Making Patient is a 58-year-old female that presents mention with complaints of chest pain and shortness of breath and nausea. Patient has a hi to tx and high heart score. Patient admitted to the hospitalist service. Patient's EKG is unchanged. Patient's chest x-ray is negative. Patient's labs are unremarkable except for an elevated BNP however the patient has no signs of CHF. Patient given aspirin, morphine and Zofran in the ER for chest pain. - Differential Diagnosis ACS. Chest pain. Shortness of breath. Nausea. Critical Care Time: Yes Critical care attestation.: If time is entered above; I have spent that time in minutes in the direct care of this critically ill patient, excluding procedure time. Critical Care Time: 35 minutes ED Disposition Clinical Impression: History of coronary artery bypass graft x 3, Hx of heart artery stent, SOB (shortness of breath) Chest pain Qualifiers: Chest pain type: unspecified Qualified Code(s): R07.9 - Chest pain, unspecified HTN (hypertension) Qualifiers: Hypertension type: unspecified Qualified Code(s): I10 - Essential (primary) hypertension CAD (coronary artery disease) Qualifiers: Coronary Disease-Associated Artery/Lesion type: [place] artery [place] vs. transplanted heart: [place] heart Associated angina: with unspecified angina Qualified Code(s): I25.119 - Atherosclerotic heart disease of [place] coronary artery with unspecified angina pectoris Disposition: OP ADMIT IP TO THIS HOSP Is pt being admited?: Yes Does the pt Need Aspirin: No Condition: Critical Time of Disposition: 15:12
--- NOTE | 2018-12-09 14:23 | XRay Report ---
CHEST 2 VIEWS INDICATION: Chest pain for one day. COMPARISON: 06/07/2017 chest x-ray report FINDINGS: Support devices: None. Heart: Within normal limits. Lungs/pleura: No acute air space or interstitial disease. No pneumothorax. Additional findings: Sternotomy wires are noted indicating previous thoracic surgery. IMPRESSION: Chest x-ray within normal limits. Signer Name: Logan Rossi Jr, MD Signed: 12/09/2018 2:19 PM Workstation Name: [id number]
[2018-12-09] MEDS ORDERED: ZOFRAN IV ONE (14:36)
[2018-12-09] MEDS ORDERED: MORPHINE IV ONE (14:36)
[2018-12-09 14:40] LABS: Basophils # (Auto) 0.1 K/mm3 (0.0-0.1); Basophils % (Auto) 0.9 % (0.0-1.8); Eosinophils # (Auto) 0.2 K/mm3 (0.0-0.4); Eosinophils % (Auto) 2.8 % (0.0-4.3); Hematocrit 37.1 % (30.3-42.9); Hemoglobin 12.4 gm/dl (10.1-14.3); Lymphocytes % (Auto) 40.9 % (13.4-35.0); Mean Corpuscular HGB Conc 34 % (30-34); Mean Corpuscular Volume 85 fl (79-97); Monocytes # (Auto) 0.5 K/mm3 (0.0-0.8); Monocytes % (Auto) 7.4 % (0.0-7.3); Platelet Count 232 K/mm3 (140-440); Red Blood Count 4.37 M/mm3 (3.65-5.03); Red Cell Distribution Width 14.3 % (13.2-15.2)
[2018-12-09] MEDS ORDERED: ZOFRAN ONE (14:40)
[2018-12-09] MEDS ORDERED: MORPHINE ONE (14:40)
[2018-12-09 14:50] LABS: INR 1.03 (0.87-1.13); Partial Thromboplastin Time 28.1 Sec. (24.2-36.6)
[2018-12-09 15:03] LABS: Alanine Aminotransferase 8 units/L (7-56); Albumin 3.1 g/dL (3.9-5); BUN/Creatinine Ratio 30; Blood Urea Nitrogen 18 mg/dL (7-17); Calcium 8.4 mg/dL (8.4-10.2); Hemolysis Index 43
[2018-12-09] MEDS ORDERED: APRESOLINE ONE (16:23)
[2018-12-09] MEDS ORDERED: DILAUDID ONE (16:23)
[2018-12-09] MEDS ORDERED: APRESOLINE IV ONE (16:25)
[2018-12-09] MEDS: DILAUDID IV PRN (16:28)
--- NOTE | 2018-12-09 21:31 | History and Physical Report ---
History of Present Illness Date of examination: 12/09/18 Date of admission: 12/09/18 15:14 Chief complaint: Left-sided chest pain since yesterday History of present illness: 58-year-old female presents with chest pain radiating to the left shoulder and right arm. Patient also has some shortness of breath. No diaphoresis no palpitations. Chest pain is about 6 on a scale of 1-10. His chest pain started since yesterday. No exacerbating or relieving factors. Patient also has some shortness of breath which is worse with exertion. No recent travel. Patient grant d coronary artery bypass surgery and coronary stents in the past. No recent stress test. Chest pain also worsens with exertion. Pain is dull in character. Past Medical History Previous Medical History?: Yes Hypertension: Yes Heart Attack/AMI: Yes Diabetes: Yes Arthritis: Yes Headaches / Migraines: Yes Asthma: Yes Additional medical history: lupus, Gastroparesis. sleep apnea, CPAP - Surgical History Past Surgical History?: Yes Coronary Stent: Yes Open Heart Surgery: Yes Cholecystectomy: Yes Additional Surgical History: stent placed in left lower extremity Rt BKA Family History hypertension Social History Smoking Status: Current Every Day Smoker Substance Use Type: None - Medications Home Medications: Home Medications Medication Instructions Recorded Confirmed Last Taken Type Clopidogrel Bisulfate [Plavix] 75 mg PO DAILY #30 tablet 06/10/17 10/26/18 10/25/18 Rx Detemir (Nf) [Levemir (Nf)] 18 units SUB-Q QHS #30 day 06/10/17 10/26/18 10/25/18 Rx ISOSORBIDE MONOnitrate [Imdur ER] 120 mg PO QDAY #30 day 06/10/17 10/26/18 10/25/18 Rx Nitroglycerin [Nitrostat] 0.4 mg SL .Q5MIN PRN #30 tablet 06/10/17 10/26/18 10/25/18 Rx Pantoprazole [Protonix TAB] 40 mg PO QDAY #30 tablet 06/10/17 10/26/18 10/25/18 Rx Prochlorperazine [Compazine] 10 mg PO Q6HR tablet 06/10/17 10/26/18 10/25/18 Rx amLODIPine [Norvasc] 10 mg PO QHS #30 tablet 06/10/17 10/26/1810/25/19 Rx oxyCODONE /ACETAMINOPHEN [Percocet 1 tab PO Q6H PRN #20 tablet 06/10/17 10/26/18 10/25/18 Rx 5/325 mg] Lisinopril [Zestril TAB] 20 mg PO QDAY 10/26/18 10/26/18 10/25/18 History Rosuvastatin Calcium [Crestor] 40 mg PO QHS 10/26/18 10/26/18 10/25/18 History metFORMIN [Glucophage] 500 mg PO BID 10/26/18 10/26/18 10/25/18 History Aspirin EC 81 mg PO QDAY #30 tablet 10/29/18 Unknown Rx Ranolazine ER [Ranexa ER] 1,000 mg PO BID #120 tablet 10/29/18 Unknown Rx Review of Systems ROS: Stated complaint: CHEST PAIN Other details as noted in HPI Constitutional: denies: chills, fever Eyes: denies: eye pain, eye discharge, vision change ENT: denies: ear pain, throat pain Respiratory: shortness of breath. denies: cough, wheezing Cardiovascular: chest pain. denies: palpitations Endocrine: no symptoms reported Gastrointestinal: denies: abdominal pain, nausea, diarrhea Genitourinary: denies: urgency, dysuria, discharge Musculoskeletal: denies: back pain, joint swelling, arthralgia Skin: denies: rash, lesions Neurological: denies: headache, weakness, paresthesias Psychiatric: denies: anxiety, depression Hematological/Lymphatic: denies: easy bleeding, easy bruising 14 point review of systems done Medications and Allergies Allergies Allergy/AdvReac Type Severity Reaction Status Date / Time insulin glargine, human AdvReac Unknown Verified 10/26/18 12:10 recombin. a [From Lantus] shellfish derived AdvReac Unknown Verified 10/26/18 12:10 Flu Vaccine AdvReac Rash Uncoded 06/07/17 03:27 IV Dye AdvReac Unknown Uncoded 06/07/17 03:27 Home Medications Medication Instructions Recorded Confirmed Last Taken Type Nitroglycerin [Nitrostat] 0.4 mg SL .Q5MIN PRN #30 tablet 06/10/17 12/09/18 10/25/18 Rx Lisinopril [Zestril TAB] 20 mg PO DAILY 10/26/18 12/09/18 10/25/18 History metFORMIN [Glucophage] 1,000 mg PO BID 10/26/18 12/09/18 10/25/18 History Ranolazine ER [Ranexa ER] 1,000 mg PO BID #120 tablet 10/29/18 12/09/18 Unknown Rx Aspirin 325 mg PO DAILY 12/09/18 12/09/18 Unknown History Detemir (Nf) [Levemir (Nf)] 40 units SUB-Q BID 12/09/18 12/09/18 Unknown History Gabapentin [Neurontin] 100 mg PO TID 12/09/18 12/09/18 Unknown History ISOSORBIDE MONOnitrate [Imdur ER] 120 mg PO DAILY 12/09/18 12/09/18 Unknown History amLODIPine [Norvasc] 10 mg PO DAILY 12/09/18 12/09/18 Unknown History Active Meds: Active Medications Hydromorphone HCl (Dilaudid) 0.5 mg IV Q3H PRN PRN Reason: Pain , Severe (7-10) Last Admin: 12/09/18 16:28 Dose: 0.5 mg Documented by: Exam - Constitutional Vitals: Temp Pulse Resp BP Pulse Ox 98.1 F 79 17 181/68 99 12/09/18 20:12 12/09/18 20:12 12/09/18 20:12 12/09/18 20:12 12/09/18 20:12 General appearance: Present: no acute distress, well-nourished - EENT Eyes: Present: PERRL ENT: hearing intact, clear oral mucosa - Neck Neck: Present: supple, normal ROM - Respiratory Respiratory effort: normal Respiratory: bilateral: CTA - Cardiovascular Heart rate: 78 Rhythm: regular Heart Sounds: Present: S1 & S2. Absent: rub, click - Extremities Extremities: no ischemia, pulses intact, pulses symmetrical, No edema Extremity abnormal: other (right below-knee amputation) Peripheral Pulses: abnormal (Rt BKA) - Abdominal General gastrointestinal: Present: soft, non-tender, non-distended, normal bowel sounds Female genitourinary: Present: normal - Rectal Rectal Exam: deferred - Integumentary Integumentary: Present: clear, warm, dry - Musculoskeletal Musculoskeletal: gait normal, strength equal bilaterally - Psychiatric Psychiatric: appropriate mood/affect, intact judgment & insight - Neurologic Neurologic: CNII-XII intact, moves all extremities - Allied Health Allied health notes reviewed: nursing, case management Results - Labs CBC & Chem 7: 12/10/18 04:59 12/10/18 04:59 Labs: Laboratory Last Values WBC 7.3 K/mm3 (4.5-11.0) 12/09/18 14:32 RBC 4.37 M/mm3 (3.65-5.03) 12/09/18 14:32 Hgb 12.4 gm/dl (10.1-14.3) 12/09/18 14:32 Hct 37.1 % (30.3-42.9) 12/09/18 14:32 MCV 85 fl (79-97) 12/09/18 14:32 MCH 28 pg (28-32) 12/09/18 14:32 MCHC 34 % (30-34) 12/09/18 14:32 RDW 14.3 % (13.2-15.2) 12/09/18 14:32 Plt Count 232 K/mm3 (140-440) 12/09/18 14:32 Lymph % (Auto) 40.9 % (13.4-35.0) H 12/09/18 14:32 [place] % (Auto) 7.4 % (0.0-7.3) H 12/09/18 14:32 Eos % (Auto) 2.8 % (0.0-4.3) 12/09/18 14:32 Baso % (Auto) 0.9 % (0.0-1.8) 12/09/18 14:32 Lymph # 3.0 K/mm3 (1.2-5.4) 12/09/18 14:32 [place] # 0.5 K/mm3 (0.0-0.8) 12/09/18 14:32 Eos # 0.2 K/mm3 (0.0-0.4) 12/09/18 14:32 Baso # 0.1 K/mm3 (0.0-0.1) 12/09/18 14:32 Seg Neutrophils % 48.0 % (40.0-70.0) 12/09/18 14:32 Seg Neutrophils # 3.5 K/mm3 (1.8-7.7) 12/09/18 14:32 PT 13.2 Sec. (12.2-14.9) 12/09/18 14:32 INR 1.03 (0.87-1.13) 12/09/18 14:32 APTT 28.1 Sec. (24.2-36.6) 12/09/18 14:32 Sodium 142 mmol/L (137-145) 12/09/18 14:32 Potassium 3.1 mmol/L (3.6-5.0) L 12/09/18 14:32 Chloride 109.2 mmol/L (98-107) H 12/09/18 14:32 Carbon Dioxide 22 mmol/L (22-30) 12/09/18 14:32 14 mmol/L 12/09/18 14:32 BUN 18 mg/dL (7-17) H 12/09/18 14:32 0.6 mg/dL (0.7-1.2) L 12/09/18 14:32 Estimated GFR > 60 ml/min 12/09/18 14:32 30 % 12/09/18 14:32 Glucose 210 mg/dL (65-100) H 12/09/18 14:32 Calcium 8.4 mg/dL (8.4-10.2) 12/09/18 14:32 0.30 mg/dL (0.1-1.2) 12/09/18 14:32 AST 12 units/L (5-40) 12/09/18 14:32 ALT 8 units/L (7-56) 12/09/18 14:32 60 units/L (35-129) 12/09/18 14:32 < 0.010 ng/mL (0.00-0.029) 12/09/18 19:37 NT-Pro-B Natriuret Pep 1445 pg/mL (0-900) H 12/09/18 14:32 6.0 g/dL (6.3-8.2) L 12/09/18 14:32 3.1 g/dL (3.9-5) L 12/09/18 14:32 1.1 % 12/09/18 14:32 21 units/L (13-60) 12/09/18 14:32 Short CBC 12/09/18 Range/Units 14:32 WBC 7.3 (4.5-11.0) K/mm3 Hgb 12.4 (10.1-14.3) gm/dl Hct 37.1 (30.3-42.9) % Plt Count 232 (140-440) K/mm3 BMP 12/09/18 14:32 Sodium 142 Potassium 3.1 L Chloride 109.2 H Carbon Dioxide 22 BUN 18 H Creatinine 0.6 L Glucose 210 H Calcium 8.4 Cardiac Enzymes 12/09/18 12/09/18 Range/Units 14:32 19:37 Troponin T < 0.010 < 0.010 (0.00-0.029) ng/mL Liver Function 12/09/18 Range/Units 14:32 Total Bilirubin 0.30 (0.1-1.2) mg/dL AST 12 (5-40) units/L ALT 8 (7-56) units/L Alkaline Phosphatase 60 (35-129) units/L Albumin 3.1 L (3.9-5) g/dL - Imaging and Cardiology EKG: report reviewed Chest x-ray: report reviewed (NAF) Assessment and Plan Advance Directives: Yes (full code) VTE prophylaxis?: Chemical Plan of care discussed with patient/family: Yes - Patient Problems (1) Chest pain Current Visit: Yes Status: Acute Qualifiers: Chest pain type: unspecified Qualified Code(s): R07.9 - Chest pain, unspecified Plan to address problem: Chest pain protocol Lexiscan in the morning Serial troponins Costochondritis in differential diagnosis Gerd in differential diagnosis (2) History of coronary artery bypass graft x 3 Current Visit: Yes Status: Chronic Plan to address problem: Continue Plavix (3) HTN (hypertension) Current Visit: Yes Status: Chronic Qualifiers: Hypertension type: unspecified Qualified Code(s): I10 - Essential (primary) hypertension Plan to address problem: Continue antihypertensives (4) Coronary artery disease Current Visit: Yes Status: Chronic Qualifiers: Coronary Disease-Associated Artery/Lesion type: [place] artery [place] vs. transplanted heart: [place] heart Plan to address problem: Continue isosorbide and Plavix (5) Insulin dependent diabetes mellitus Current Visit: Yes Status: Chronic Plan to address problem: Continue long-acting insulin in the form of Levemir and continue coverage Check hemoglobin A1c (6) Hyperlipidemia Current Visit: Yes Status: Chronic Qualifiers: Hyperlipidemia type: mixed hyperlipidemia Qualified Code(s): E78.2 - Mixed hyperlipidemia Plan to address problem: Continue coverage (7) DVT prophylaxis Current Visit: Yes Status: Chronic Plan to address problem: On Lovenox and GI prophylaxis
[2018-12-09] MEDS ORDERED: SODIUM CHLORIDE FLUSH SYRINGE 10 ML IV PRN (21:40)
[2018-12-09] MEDS ORDERED: TYLENOL PO PRN (21:40)
[2018-12-09] MEDS: PERCOCET 5/325 PO PRN (21:59)
[2018-12-09] MEDS: PEPCID PO SCH (21:59)
[2018-12-09] MEDS: HumaLOG SUB-Q SCH (22:00)
[2018-12-09] MEDS: SODIUM CHLORIDE FLUSH SYRINGE 10 ML IV SCH (22:01)
[2018-12-10 05:28] LABS: Basophils # (Auto) 0.1 K/mm3 (0.0-0.1); Eosinophils # (Auto) 0.3 K/mm3 (0.0-0.4); Eosinophils % (Auto) 4.1 % (0.0-4.3); Hematocrit 38.8 % (30.3-42.9); Hemoglobin 13.1 gm/dl (10.1-14.3); Lymphocytes # (Auto) 2.8 K/mm3 (1.2-5.4); Lymphocytes % (Auto) 44.4 % (13.4-35.0); Mean Corpuscular HGB Conc 34 % (30-34); Mean Corpuscular Volume 84 fl (79-97); Monocytes # (Auto) 0.5 K/mm3 (0.0-0.8); Platelet Count 229 K/mm3 (140-440); Red Cell Distribution Width 14.2 % (13.2-15.2)
[2018-12-10 05:50] LABS: Alanine Aminotransferase 8 units/L (7-56); Albumin 3.3 g/dL (3.9-5); BUN/Creatinine Ratio 26; Blood Urea Nitrogen 13 mg/dL (7-17); Calcium 8.5 mg/dL (8.4-10.2); Hemolysis Index 35
[2018-12-10] MEDS ORDERED: LEXISCAN IV ONE ×2 (07:37→07:56)
[2018-12-10] MEDS: HumaLOG SUB-Q SCH ×4 (08:17→22:40)
[2018-12-10] MEDS: DILAUDID IV PRN ×2 (08:43→16:21)
[2018-12-10] MEDS: SODIUM CHLORIDE FLUSH SYRINGE 10 ML IV SCH ×2 (10:35→22:17)
[2018-12-10] MEDS: PEPCID PO SCH ×2 (10:35→22:16)
[2018-12-10] MEDS ORDERED: NITROSTAT SL PRN (11:39)
[2018-12-10] MEDS ORDERED: K-DUR PO ONE (11:39)
--- NOTE | 2018-12-10 11:51 | Progress Note ---
Assessment and Plan Assessment and plan: --Chest pain; rule out acute coronary syndrome Patient has multiple risk factors, history of coronary artery disease Resume cardiac medications Cardiology evaluation --History of coronary artery disease status post CABG; resume Ranexa, lisinopril, Imdur, beta blockers, pain medication cardiology consult --Type 2 diabetes mellitus; Accu-Chek sliding scale coverage and ADA diet, hold metformin --Hypokalemia: replace with Kcl,monitor electroplytes --Dyslipidemia; Lipitor, low-cholesterol diet --DVT prophylaxis; Lovenox --Ongoing tobacco use; smoking cessation counseling Preventive counseling spent 10 minutes, nicotine patch f/uCardiology evaluation and recommendations Possible discharge in 1-2 days if stable History Interval history: Patient seen and examined medical records. Admitted yesterday with chest pain serial cardiac enzymes negative scheduled for stress test today which was discontinued As patient had recent workup Patient feels slightly better Vital signs reviewed Hospitalist Physical - Constitutional Vitals: Temp Pulse Resp BP Pulse Ox 98.1 F 81 18 191/73 98 12/10/18 04:15 12/10/18 10:00 12/10/18 10:00 12/10/18 04:15 12/10/18 10:00 General appearance: Present: no acute distress, well-nourished - EENT Eyes: Present: PERRL, EOM intact - Neck Neck: Present: supple, normal ROM - Respiratory Respiratory effort: normal Respiratory: bilateral: diminished, negative: rales, rhonchi, wheezing - Cardiovascular Rhythm: regular Heart Sounds: Present: S1 & S2 - Extremities Extremities: no ischemia, No edema - Abdominal General gastrointestinal: soft, non-tender, non-distended, normal bowel sounds - Integumentary Integumentary: Present: clear, warm - Psychiatric Psychiatric: appropriate mood/affect, cooperative - Neurologic Neurologic: CNII-XII intact, moves all extremities Results - Labs CBC & Chem 7: 12/10/18 04:59 12/10/18 04:59 Labs: Laboratory Last Values WBC 6.4 K/mm3 (4.5-11.0) 12/10/18 04:59 RBC 4.60 M/mm3 (3.65-5.03) 12/10/18 04:59 Hgb 13.1 gm/dl (10.1-14.3) 12/10/18 04:59 Hct 38.8 % (30.3-42.9) 12/10/18 04:59 MCV 84 fl (79-97) 12/10/18 04:59 MCH 28 pg (28-32) 12/10/18 04:59 MCHC 34 % (30-34) 12/10/18 04:59 RDW 14.2 % (13.2-15.2) 12/10/18 04:59 Plt Count 229 K/mm3 (140-440) 12/10/18 04:59 Lymph % (Auto) 44.4 % (13.4-35.0) H 12/10/18 04:59 [place] % (Auto) 8.0 % (0.0-7.3) H 12/10/18 04:59 Eos % (Auto) 4.1 % (0.0-4.3) 12/10/18 04:59 Baso % (Auto) 1.0 % (0.0-1.8) 12/10/18 04:59 Lymph # 2.8 K/mm3 (1.2-5.4) 12/10/18 04:59 [place] # 0.5 K/mm3 (0.0-0.8) 12/10/18 04:59 Eos # 0.3 K/mm3 (0.0-0.4) 12/10/18 04:59 Baso # 0.1 K/mm3 (0.0-0.1) 12/10/18 04:59 Seg Neutrophils % 42.5 % (40.0-70.0) 12/10/18 04:59 Seg Neutrophils # 2.7 K/mm3 (1.8-7.7) 12/10/18 04:59 PT 13.2 Sec. (12.2-14.9) 12/09/18 14:32 INR 1.03 (0.87-1.13) 12/09/18 14:32 APTT 28.1 Sec. (24.2-36.6) 12/09/18 14:32 Sodium 143 mmol/L (137-145) 12/10/18 04:59 Potassium 3.2 mmol/L (3.6-5.0) L 12/10/18 04:59 Chloride 107.5 mmol/L (98-107) H 12/10/18 04:59 Carbon Dioxide 24 mmol/L (22-30) 12/10/18 04:59 15 mmol/L 12/10/18 04:59 BUN 13 mg/dL (7-17) 12/10/18 04:59 0.5 mg/dL (0.7-1.2) L 12/10/18 04:59 Estimated GFR > 60 ml/min 12/10/18 04:59 26 % 12/10/18 04:59 Glucose 172 mg/dL (65-100) H 12/10/18 04:59 POC Glucose 170 (70-105) H 12/09/18 22:28 8.6 % (4-6) H 12/09/18 22:43 Calcium 8.5 mg/dL (8.4-10.2) 12/10/18 04:59 0.30 mg/dL (0.1-1.2) 12/10/18 04:59 AST 12 units/L (5-40) 12/10/18 04:59 ALT 8 units/L (7-56) 12/10/18 04:59 59 units/L (35-129) 12/10/18 04:59 < 0.010 ng/mL (0.00-0.029) 12/10/18 04:59 NT-Pro-B Natriuret Pep 1445 pg/mL (0-900) H 12/09/18 14:32 6.2 g/dL (6.3-8.2) L 12/10/18 04:59 3.3 g/dL (3.9-5) L 12/10/18 04:59 1.1 % 12/10/18 04:59 21 units/L (13-60) 12/09/18 14:32 Active Medications - Current Medications Current Medications: Generic Name Dose Route Start Last Admin Trade Name Freq PRN Reason Stop Dose Admin Acetaminophen 650 mg 12/09/18 21:40 Tylenol PO Q4H PRN Pain MILD(1-3)/Fever >100.5/MUSA Amlodipine Besylate 10 mg 12/11/18 10:00 Norvasc PO DAILY [facility] Aspirin 325 mg 12/11/18 10:00 Aspirin PO DAILY [facility] Famotidine 20 mg 12/09/18 22:00 12/10/18 10:35 Pepcid PO 20 mg BID MARLENI Administration Hydromorphone HCl 0.5 mg 12/09/18 16:25 12/10/18 08:43 Dilaudid IV 0.5 mg Q3H PRN Administration Pain , Severe (7-10) Insulin Human Lispro 0 unit 12/09/18 22:00 12/10/18 08:17 Humalog SUB-Q Not Given ACHS [facility] Protocol Lisinopril 20 mg 12/11/18 10:00 Zestril PO DAILY [facility] Nitroglycerin 0.4 mg 12/10/18 11:39 Nitrostat SL .Q5MIN PRN Chest Pain Ondansetron HCl 4 mg 12/09/18 21:40 Zofran IV Q8H PRN Nausea And Vomiting Oxycodone/Acetaminophen 1 tab 12/09/18 21:40 12/09/18 21:59 Percocet 5/325 PO 1 tab Q6H PRN Administration Pain, Moderate (4-6) Ranolazine 1,000 mg 12/10/18 22:00 Ranexa Er PO BID MARLENI Sodium Chloride 10 ml 12/09/18 22:00 12/10/18 10:35 Sodium Chloride Flush Syringe 10 Ml IV 10 ml BID MARLENI Administration Sodium Chloride 10 ml 12/09/18 21:40 Sodium Chloride Flush Syringe 10 Ml IV PRN PRN LINE FLUSH
--- NOTE | 2018-12-10 11:54 | Consultation ---
History of Present Illness Consult date: 12/10/18 Consult reason: chest pain History of present illness: This is a 58-year old woman with multivessel coronary artery disease and is status post single vessel bypass graft with MADRID to LAD and multiple stents. 2 years ago, following a cardiac cath, she was placed on medical therapy for chronic stable angina and small vessel disease. Her latest echocardiogram reports a normal left ventricular systolic function with an ejection fraction 55-60%. 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 She presents to this hospital with complaints of chest pain. Chest x-ray is negative. Cycled troponins are normal and her ECG is sinus rhythm, LVH with lateral ST depressions. No significant change from the prior ECG. Cardiac consultation has been requested. Medications and Allergies Allergies Allergy/AdvReac Type Severity Reaction Status Date / Time insulin glargine, human AdvReac Unknown Verified 10/26/18 12:10 recombin. a [From Lantus] shellfish derived AdvReac Unknown Verified 10/26/18 12:10 Flu Vaccine AdvReac Rash Uncoded 06/07/17 03:27 IV Dye AdvReac Unknown Uncoded 06/07/17 03:27 Home Medications Medication Instructions Recorded Confirmed Last Taken Type Nitroglycerin [Nitrostat] 0.4 mg SL .Q5MIN PRN #30 tablet 06/10/17 12/09/18 10/25/18 Rx Lisinopril [Zestril TAB] 20 mg PO DAILY 10/26/18 12/09/18 10/25/18 History metFORMIN [Glucophage] 1,000 mg PO BID 10/26/18 12/09/18 10/25/18 History Ranolazine ER [Ranexa ER] 1,000 mg PO BID #120 tablet 10/29/18 12/09/18 Unknown Rx Aspirin 325 mg PO DAILY 12/09/18 12/09/18 Unknown History Detemir (Nf) [Levemir (Nf)] 40 units SUB-Q BID 12/09/18 12/09/18 Unknown History Gabapentin [Neurontin] 100 mg PO TID 12/09/18 12/09/18 Unknown History ISOSORBIDE MONOnitrate [Imdur ER] 120 mg PO DAILY 12/09/18 12/09/18 Unknown History amLODIPine [Norvasc] 10 mg PO DAILY 12/09/18 12/09/18 Unknown History Active Meds: Active Medications Acetaminophen (Tylenol) 650 mg PO Q4H PRN PRN Reason: Pain MILD(1-3)/Fever >100.5/MUSA Amlodipine Besylate (Norvasc) 10 mg PO DAILY [facility] Aspirin (Aspirin) 325 mg PO DAILY [facility] Famotidine (Pepcid) 20 mg PO BID [facility] Last Admin: 12/10/18 10:35 Dose: 20 mg Documented by: Hydromorphone HCl (Dilaudid) 0.5 mg IV Q3H PRN PRN Reason: Pain , Severe (7-10) Last Admin: 12/10/18 08:43 Dose: 0.5 mg Documented by: Insulin Human Lispro (Humalog) 0 unit SUB-Q ACHS [facility]; Protocol Last Admin: 12/10/18 08:17 Dose: Not Given Documented by: Lisinopril (Zestril) 20 mg PO DAILY [facility] Nitroglycerin (Nitrostat) 0.4 mg SL .Q5MIN PRN PRN Reason: Chest Pain Ondansetron HCl (Zofran) 4 mg IV Q8H PRN PRN Reason: Nausea And Vomiting Oxycodone/Acetaminophen (Percocet 5/325) 1 tab PO Q6H PRN PRN Reason: Pain, Moderate (4-6) Last Admin: 12/09/18 21:59 Dose: 1 tab Documented by: Ranolazine (Ranexa Er) 1,000 mg PO BID [facility] Sodium Chloride (Sodium Chloride Flush Syringe 10 Ml) 10 ml IV BID [facility] Last Admin: 12/10/18 10:35 Dose: 10 ml Documented by: Sodium Chloride (Sodium Chloride Flush Syringe 10 Ml) 10 ml IV PRN PRN PRN Reason: LINE FLUSH Physical Examination Vital Signs Temp Pulse Resp BP Pulse Ox 97.9 F 85 16 164/69 97 12/09/18 13:25 12/09/18 13:25 12/09/18 13:25 12/09/18 13:25 12/09/18 13:25 General appearance: no acute distress HEENT: Positive: PERRL Neck: Positive: trachea midline Cardiac: Positive: Reg Rate and Rhythm Lungs: Positive: Decreased Breath Sounds Neuro: Positive: Grossly Intact Extremities: Absent: edema Results 12/10/18 04:59 12/10/18 04:59 Cardiac Enzymes 12/09/18 12/09/18 12/09/18 Range/Units 14:32 14:32 14:32 WBC 7.3 (4.5-11.0) K/mm3 RBC 4.37 (3.65-5.03) M/mm3 Hgb 12.4 (10.1-14.3) gm/dl Hct 37.1 (30.3-42.9) % MCV 85 (79-97) fl MCH 28 (28-32) pg MCHC 34 (30-34) % RDW 14.3 (13.2-15.2) % Plt Count 232 (140-440) K/mm3 Lymph % (Auto) 40.9 H (13.4-35.0) % [place] % (Auto) 7.4 H (0.0-7.3) % Eos % (Auto) 2.8 (0.0-4.3) % Baso % (Auto) 0.9 (0.0-1.8) % Lymph # 3.0 (1.2-5.4) K/mm3 [place] # 0.5 (0.0-0.8) K/mm3 Eos # 0.2 (0.0-0.4) K/mm3 Baso # 0.1 (0.0-0.1) K/mm3 Seg Neutrophils % 48.0 (40.0-70.0) % Seg Neutrophils # 3.5 (1.8-7.7) K/mm3 PT 13.2 (12.2-14.9) Sec. INR 1.03 (0.87-1.13) APTT 28.1 (24.2-36.6) Sec. Sodium 142 (137-145) mmol/L Potassium 3.1 L (3.6-5.0) mmol/L Chloride 109.2 H (98-107) mmol/L Carbon Dioxide 22 (22-30) mmol/L Anion Gap 14 mmol/L BUN 18 H (7-17) mg/dL Creatinine 0.6 L (0.7-1.2) mg/dL Estimated GFR > 60 ml/min BUN/Creatinine Ratio 30 % Glucose 210 H (65-100) mg/dL POC Glucose (70-105) Hemoglobin A1c (4-6) % Calcium 8.4 (8.4-10.2) mg/dL Total Bilirubin 0.30 (0.1-1.2) mg/dL AST 12 (5-40) units/L ALT 8 (7-56) units/L Alkaline Phosphatase 60 (35-129) units/L Troponin T < 0.010 (0.00-0.029) ng/mL NT-Pro-B Natriuret Pep 1445 H (0-900) pg/mL Total Protein 6.0 L (6.3-8.2) g/dL Albumin 3.1 L (3.9-5) g/dL Albumin/Globulin Ratio 1.1 % Lipase 21 (13-60) units/L 12/09/18 12/09/18 12/09/18 Range/Units 19:37 22:28 22:43 WBC (4.5-11.0) K/mm3 RBC (3.65-5.03) M/mm3 Hgb (10.1-14.3) gm/dl Hct (30.3-42.9) % MCV (79-97) fl MCH (28-32) pg MCHC (30-34) % RDW (13.2-15.2) % Plt Count (140-440) K/mm3 Lymph % (Auto) (13.4-35.0) % [place] % (Auto) (0.0-7.3) % Eos % (Auto) (0.0-4.3) % Baso % (Auto) (0.0-1.8) % Lymph # (1.2-5.4) K/mm3 [place] # (0.0-0.8) K/mm3 Eos # (0.0-0.4) K/mm3 Baso # (0.0-0.1) K/mm3 Seg Neutrophils % (40.0-70.0) % Seg Neutrophils # (1.8-7.7) K/mm3 PT (12.2-14.9) Sec. INR (0.87-1.13) APTT (24.2-36.6) Sec. Sodium (137-145) mmol/L Potassium (3.6-5.0) mmol/L Chloride (98-107) mmol/L Carbon Dioxide (22-30) mmol/L Anion Gap mmol/L BUN (7-17) mg/dL Creatinine (0.7-1.2) mg/dL Estimated GFR ml/min BUN/Creatinine Ratio % Glucose (65-100) mg/dL POC Glucose 170 H (70-105) Hemoglobin A1c 8.6 H (4-6) % Calcium (8.4-10.2) mg/dL Total Bilirubin (0.1-1.2) mg/dL AST (5-40) units/L ALT (7-56) units/L Alkaline Phosphatase (35-129) units/L Troponin T < 0.010 (0.00-0.029) ng/mL NT-Pro-B Natriuret Pep (0-900) pg/mL Total Protein (6.3-8.2) g/dL Albumin (3.9-5) g/dL Albumin/Globulin Ratio % Lipase (13-60) units/L 12/09/18 12/10/18 12/10/18 Range/Units 22:43 04:59 04:59 WBC 6.4 (4.5-11.0) K/mm3 RBC 4.60 (3.65-5.03) M/mm3 Hgb 13.1 (10.1-14.3) gm/dl Hct 38.8 (30.3-42.9) % MCV 84 (79-97) fl MCH 28 (28-32) pg MCHC 34 (30-34) % RDW 14.2 (13.2-15.2) % Plt Count 229 (140-440) K/mm3 Lymph % (Auto) 44.4 H (13.4-35.0) % [place] % (Auto) 8.0 H (0.0-7.3) % Eos % (Auto) 4.1 (0.0-4.3) % Baso % (Auto) 1.0 (0.0-1.8) % Lymph # 2.8 (1.2-5.4) K/mm3 [place] # 0.5 (0.0-0.8) K/mm3 Eos # 0.3 (0.0-0.4) K/mm3 Baso # 0.1 (0.0-0.1) K/mm3 Seg Neutrophils % 42.5 (40.0-70.0) % Seg Neutrophils # 2.7 (1.8-7.7) K/mm3 PT (12.2-14.9) Sec. INR (0.87-1.13) APTT (24.2-36.6) Sec. Sodium 143 (137-145) mmol/L Potassium 3.2 L (3.6-5.0) mmol/L Chloride 107.5 H (98-107) mmol/L Carbon Dioxide 24 (22-30) mmol/L Anion Gap 15 mmol/L BUN 13 (7-17) mg/dL Creatinine 0.5 L (0.7-1.2) mg/dL Estimated GFR > 60 ml/min BUN/Creatinine Ratio 26 % Glucose 172 H (65-100) mg/dL POC Glucose (70-105) Hemoglobin A1c (4-6) % Calcium 8.5 (8.4-10.2) mg/dL Total Bilirubin 0.30 (0.1-1.2) mg/dL AST 12 (5-40) units/L ALT 8 (7-56) units/L Alkaline Phosphatase 59 (35-129) units/L Troponin T < 0.010 (0.00-0.029) ng/mL NT-Pro-B Natriuret Pep (0-900) pg/mL Total Protein 6.2 L (6.3-8.2) g/dL Albumin 3.3 L (3.9-5) g/dL Albumin/Globulin Ratio 1.1 % Lipase (13-60) units/L // Range/Units 04:59 WBC (4.5-11.0) K/mm3 RBC (3.65-5.03) M/mm3 Hgb (10.1-14.3) gm/dl Hct (30.3-42.9) % MCV (79-97) fl MCH (28-32) pg MCHC (30-34) % RDW (13.2-15.2) % Plt Count (140-440) K/mm3 Lymph % (Auto) (13.4-35.0) % [place] % (Auto) (0.0-7.3) % Eos % (Auto) (0.0-4.3) % Baso % (Auto) (0.0-1.8) % Lymph # (1.2-5.4) K/mm3 [place] # (0.0-0.8) K/mm3 Eos # (0.0-0.4) K/mm3 Baso # (0.0-0.1) K/mm3 Seg Neutrophils % (40.0-70.0) % Seg Neutrophils # (1.8-7.7) K/mm3 PT (12.2-14.9) Sec. INR (0.87-1.13) APTT (24.2-36.6) Sec. Sodium (137-145) mmol/L Potassium (3.6-5.0) mmol/L Chloride (98-107) mmol/L Carbon Dioxide (22-30) mmol/L Anion Gap mmol/L BUN (7-17) mg/dL Creatinine (0.7-1.2) mg/dL Estimated GFR ml/min BUN/Creatinine Ratio % Glucose (65-100) mg/dL POC Glucose (70-105) Hemoglobin A1c (4-6) % Calcium (8.4-10.2) mg/dL Total Bilirubin (0.1-1.2) mg/dL AST (5-40) units/L ALT (7-56) units/L Alkaline Phosphatase (35-129) units/L Troponin T < 0.010 (0.00-0.029) ng/mL NT-Pro-B Natriuret Pep (0-900) pg/mL Total Protein (6.3-8.2) g/dL Albumin (3.9-5) g/dL Albumin/Globulin Ratio % Lipase (13-60) units/L Coagulation 12/09/18 Range/Units 14:32 PT 13.2 (12.2-14.9) Sec. INR 1.03 (0.87-1.13) APTT 28.1 (24.2-36.6) Sec. CBC 12/09/18 12/10/18 Range/Units 14:32 04:59 WBC 7.3 6.4 (4.5-11.0) K/mm3 RBC 4.37 4.60 (3.65-5.03) M/mm3 Hgb 12.4 13.1 (10.1-14.3) gm/dl Hct 37.1 38.8 (30.3-42.9) % Plt Count 232 229 (140-440) K/mm3 Lymph # 3.0 2.8 (1.2-5.4) K/mm3 [place] # 0.5 0.5 (0.0-0.8) K/mm3 Eos # 0.2 0.3 (0.0-0.4) K/mm3 Baso # 0.1 0.1 (0.0-0.1) K/mm3 Comprehensive Metabolic Panel 12/09/18 12/10/18 Range/Units 14:32 04:59 Sodium 142 143 (137-145) mmol/L Potassium 3.1 L 3.2 L (3.6-5.0) mmol/L Chloride 109.2 H 107.5 H (98-107) mmol/L Carbon Dioxide 22 24 (22-30) mmol/L BUN 18 H 13 (7-17) mg/dL Creatinine 0.6 L 0.5 L (0.7-1.2) mg/dL Glucose 210 H 172 H (65-100) mg/dL Calcium 8.4 8.5 (8.4-10.2) mg/dL AST 12 12 (5-40) units/L ALT 8 8 (7-56) units/L Alkaline Phosphatase 60 59 (35-129) units/L Total Protein 6.0 L 6.2 L (6.3-8.2) g/dL Albumin 3.1 L 3.3 L (3.9-5) g/dL Assessment and Plan Chronic stable angina from small vessel disease Hx of CAD with 1v CABG and multiple PCI's Diabetes mellitus Hypertension Tobacco abuse Noncompliant with outpatient cardiac follow ups Normal LVEF 55-60% by echo 05/2017. Recommendations: Advised smoking cessation. Continue medical therapy for coronary artery disease and chronic stable angina. Otherwise, conservative cardiac management.
[2018-12-10] MEDS: HABITROL TD SCH (16:22)
[2018-12-10] MEDS: NEURONTIN PO SCH (20:35)
[2018-12-10] MEDS ORDERED: LANTUS SUB-Q SCH (22:00)
[2018-12-10] MEDS ORDERED: INSULIN DETEMIR 40 UNIT SUB-Q SCH (22:00)
[2018-12-10] MEDS: GLUCOPHAGE PO SCH (22:15)
[2018-12-10] MEDS: PERCOCET 5/325 PO PRN (22:15)
[2018-12-10] MEDS: RANEXA ER PO SCH (22:16)
[2018-12-11] MEDS: APRESOLINE IV PRN (05:45)
[2018-12-11] MEDS: PERCOCET 5/325 PO PRN ×3 (05:46→21:41)
[2018-12-11] MEDS: ASPIRIN PO SCH (09:08)
[2018-12-11] MEDS: IMDUR PO SCH ×2 (09:08→21:12)
[2018-12-11] MEDS: NORVASC PO SCH (09:09)
[2018-12-11] MEDS: GLUCOPHAGE PO SCH ×2 (09:09→21:41)
[2018-12-11] MEDS: ZESTRIL PO SCH (09:09)
[2018-12-11] MEDS: HABITROL TD SCH (09:10)
[2018-12-11] MEDS: NEURONTIN PO SCH ×3 (09:10→19:58)
[2018-12-11] MEDS: PEPCID PO SCH (09:11)
[2018-12-11] MEDS: HumaLOG SUB-Q SCH ×4 (09:43→21:41)
[2018-12-11] MEDS: RANEXA ER PO SCH ×2 (09:44→21:40)
[2018-12-11] MEDS: SODIUM CHLORIDE FLUSH SYRINGE 10 ML IV SCH ×2 (09:44→21:45)
--- NOTE | 2018-12-11 11:37 | Progress Note ---
Assessment and Plan - Patient Problems (1) CAD (coronary artery disease) Current Visit: Yes Status: Chronic Qualifiers: Coronary Disease-Associated Artery/Lesion type: [place] artery [place] vs. transplanted heart: [place] heart Associated angina: with unspecified angina Qualified Code(s): I25.119 - Atherosclerotic heart disease of [place] coronary artery with unspecified angina pectoris Plan to address problem: We will optimize medical therapy as previously outlined for diffuse small vessel coronary artery disease and chronic stable angina pectoris. Patient is stable for cardiac discharge. I have recommended outpatient follow-up in my office in 7 days. Subjective Date of service: 12/11/18 Interval history: Patient is comfortable, no further chest pain, looks and feels well. Objective Vital Signs Temp Pulse Pulse Resp BP BP Pulse Ox 12/11/18 09:09 81 175/63 12/11/18 09:08 81 175/63 12/11/18 05:45 87 207/90 12/11/18 04:30 98.2 F 87 16 207/90 100 12/11/18 02:00 87 12/11/18 01:14 97.8 F 12/11/18 01:11 80 18 158/41 100 12/10/18 22:00 87 18 98 12/10/18 20:56 115/56 12/10/18 20:51 98.2 F 12/10/18 20:49 93 H 18 192/77 96 12/10/18 17:00 81 12/10/18 16:40 85 16 132/75 99 12/10/18 13:51 98.0 F 80 16 203/79 100 12/10/18 12:00 78 - Physical Examination General: Appears Well, No Apparent Distress HEENT: Positive: PERRL Neck: Positive: trachea midline Cardiac: Positive: Reg Rate and Rhythm Lungs: Positive: Decreased Breath Sounds Neuro: Positive: Grossly Intact Abdomen: Positive: Soft Skin: Positive: Clear Extremities: Absent: edema - Labs and Meds Comprehensive Metabolic Panel 12/11/18 Range/Units 09:43 Potassium 4.1 D (3.6-5.0) mmol/L - Imaging and Cardiology EKG: report reviewed
--- NOTE | 2018-12-11 14:50 | Progress Note ---
Assessment and Plan Assessment and plan: --Patient had an episode of severe chest pain, patient in mild distress and anxious Stat EKG did not show any new findings, cardiac enzymes negative Patient received nitroglycerin, morphine, with significant improvement of symptoms We will hold discharge, continue current management --Chest pain; intermittent chest pain Cardiac enzymes negative, EKG no new changes Probably noncardiac chest pain, cardiology following Patient has multiple risk factors, history of coronary artery disease Patient had recent abnormal stress test, at which time refused heart cath And opted for medical management. --History of coronary artery disease status post CABG; resume Ranexa, lisinopril, Imdur, beta blockers, pain medication cardiology consult --Type 2 diabetes mellitus; Accu-Chek sliding scale coverage and ADA diet, hold metformin --Hypokalemia: replace with Kcl,monitor electroplytes --Dyslipidemia; Lipitor, low-cholesterol diet --DVT prophylaxis; Lovenox --Ongoing tobacco use; smoking cessation counseling Preventive counseling spent 10 minutes, nicotine patch We will hold the discharge, continue current management Reevaluate tomorrow, and manage accordingly Plan of care is reviewed with the patient and the nurse History Interval history: Patient seen and examined medical records reviewed Patient was admitted with atypical chest pain, Cardiac enzymes negative, EKG no new acute ST-T changes Cardiology initially cleared for discharge and follow-up in the office However patient developed sudden chest pain Patient was emotional crying, EKG no new changes suggestive of ischemia Set of cardiac enzymes negative Patient in mild distress intermittent chest pain vital signs reviewed Hospitalist Physical - Constitutional Vitals: Temp Pulse Resp BP Pulse Ox 98.2 F 81 16 175/63 100 12/11/18 04:30 12/11/18 09:09 12/11/18 04:30 12/11/18 09:09 12/11/18 04:30 General appearance: Present: mild distress, well-nourished - EENT Eyes: Present: PERRL, EOM intact - Neck Neck: Present: supple, normal ROM - Respiratory Respiratory effort: normal Respiratory: bilateral: diminished, negative: rales, rhonchi, wheezing - Cardiovascular Rhythm: regular Heart Sounds: Present: S1 & S2 - Extremities Extremities: no ischemia, No edema - Abdominal General gastrointestinal: soft, non-tender, non-distended, normal bowel sounds - Integumentary Integumentary: Present: clear, warm - Psychiatric Psychiatric: appropriate mood/affect, cooperative - Neurologic Neurologic: CNII-XII intact, moves all extremities Results - Labs CBC & Chem 7: 12/10/18 04:59 12/12/18 07:45 Labs: Laboratory Last Values WBC 6.4 K/mm3 (4.5-11.0) 12/10/18 04:59 RBC 4.60 M/mm3 (3.65-5.03) 12/10/18 04:59 Hgb 13.1 gm/dl (10.1-14.3) 12/10/18 04:59 Hct 38.8 % (30.3-42.9) 12/10/18 04:59 MCV 84 fl (79-97) 12/10/18 04:59 MCH 28 pg (28-32) 12/10/18 04:59 MCHC 34 % (30-34) 12/10/18 04:59 RDW 14.2 % (13.2-15.2) 12/10/18 04:59 Plt Count 229 K/mm3 (140-440) 12/10/18 04:59 Lymph % (Auto) 44.4 % (13.4-35.0) H 12/10/18 04:59 [place] % (Auto) 8.0 % (0.0-7.3) H 12/10/18 04:59 Eos % (Auto) 4.1 % (0.0-4.3) 12/10/18 04:59 Baso % (Auto) 1.0 % (0.0-1.8) 12/10/18 04:59 Lymph # 2.8 K/mm3 (1.2-5.4) 12/10/18 04:59 [place] # 0.5 K/mm3 (0.0-0.8) 12/10/18 04:59 Eos # 0.3 K/mm3 (0.0-0.4) 12/10/18 04:59 Baso # 0.1 K/mm3 (0.0-0.1) 12/10/18 04:59 Seg Neutrophils % 42.5 % (40.0-70.0) 12/10/18 04:59 Seg Neutrophils # 2.7 K/mm3 (1.8-7.7) 12/10/18 04:59 PT 13.2 Sec. (12.2-14.9) 12/09/18 14:32 INR 1.03 (0.87-1.13) 12/09/18 14:32 APTT 28.1 Sec. (24.2-36.6) 12/09/18 14:32 Sodium 143 mmol/L (137-145) 12/10/18 04:59 Potassium 4.1 mmol/L (3.6-5.0) D 12/11/18 09:43 Chloride 107.5 mmol/L (98-107) H 12/10/18 04:59 Carbon Dioxide 24 mmol/L (22-30) 12/10/18 04:59 15 mmol/L 12/10/18 04:59 BUN 13 mg/dL (7-17) 12/10/18 04:59 0.5 mg/dL (0.7-1.2) L 12/10/18 04:59 Estimated GFR > 60 ml/min 12/10/18 04:59 26 % 12/10/18 04:59 Glucose 172 mg/dL (65-100) H 12/10/18 04:59 POC Glucose 189 (70-105) H 12/11/18 12:18 8.6 % (4-6) H 12/09/18 22:43 Calcium 8.5 mg/dL (8.4-10.2) 12/10/18 04:59 Magnesium 1.70 mg/dL (1.7-2.3) 12/11/18 09:43 0.30 mg/dL (0.1-1.2) 12/10/18 04:59 AST 12 units/L (5-40) 12/10/18 04:59 ALT 8 units/L (7-56) 12/10/18 04:59 59 units/L (35-129) 12/10/18 04:59 47 units/L (30-135) 12/11/18 13:55 CK-MB (CK-2) 2.0 ng/mL (0.0-4.0) 12/11/18 13:55 CK-MB (CK-2) Rel Index 4.2 (0-4) H 12/11/18 13:55 < 0.010 ng/mL (0.00-0.029) 12/11/18 13:55 NT-Pro-B Natriuret Pep 1445 pg/mL (0-900) H 12/09/18 14:32 6.2 g/dL (6.3-8.2) L 12/10/18 04:59 3.3 g/dL (3.9-5) L 12/10/18 04:59 1.1 % 12/10/18 04:59 21 units/L (13-60) 12/09/18 14:32 Active Medications - Current Medications Current Medications: Generic Name Dose Route Start Last Admin Trade Name Freq PRN Reason Stop Dose Admin Acetaminophen 650 mg 12/09/18 21:40 Tylenol PO Q4H PRN Pain MILD(1-3)/Fever >100.5/MUSA Amlodipine Besylate 10 mg 12/11/18 10:00 12/11/18 09:09 Norvasc PO 10 mg DAILY MARLENI Administration Aspirin 325 mg 12/11/18 10:00 12/11/18 09:08 Aspirin PO 325 mg DAILY [facility] Administration Gabapentin 100 mg 12/10/18 20:00 12/11/18 09:10 Neurontin PO 100 mg TID MARLENI Administration Hydralazine HCl 10 mg 12/10/18 23:17 12/11/18 05:45 Apresoline IV 10 mg Q4HR PRN Administration Blood Pressure Hydromorphone HCl 0.5 mg 12/09/18 16:25 12/10/18 16:21 Dilaudid IV 0.5 mg Q3H PRN Administration Pain , Severe (7-10) Insulin Human Lispro 0 unit 12/10/18 16:30 12/11/18 12:26 Humalog SUB-Q 2 unit ACHS MARLENI Administration Protocol Isosorbide Mononitrate 120 mg 12/10/18 17:00 12/11/18 09:08 Imdur PO 120 mg DAILY [facility]LEN[facility] Administration Lisinopril 20 mg 12/11/18 10:00 12/11/18 09:09 Zestril PO 20 mg DAILY [facility] Administration Metformin HCl 1,000 mg 12/10/18 22:00 12/11/18 09:09 Glucophage PO 1,000 mg BID MARLENI Administration Miscellaneous Medication 40 units 12/11/18 10:00 Levemir SUB-Q BID MAR[facility] Morphine Sulfate 2 mg 12/11/18 14:41 Morphine IV Q4H PRN Pain, Moderate (4-6) Nicotine 14 mg 12/10/18 16:00 12/11/18 09:10 Habitrol TD 14 mg QDAY MARLENI Administration Nitroglycerin 0.4 mg 12/10/18 11:39 Nitrostat SL .Q5MIN PRN Chest Pain Ondansetron HCl 4 mg 12/09/18 21:40 Zofran IV Q8H PRN Nausea And Vomiting Oxycodone/Acetaminophen 1 tab 12/09/18 21:40 12/11/18 12:17 Percocet 5/325 PO 1 tab Q6H PRN Administration Pain, Moderate (4-6) Pantoprazole Sodium 40 mg 12/12/18 10:00 Protonix PO QDAY MARLENI Ranolazine 1,000 mg 12/10/18 22:00 12/11/18 09:44 Ranexa Er PO 1,000 mg BID MARLENI Administration Sodium Chloride 10 ml 12/09/18 22:00 12/11/18 09:44 Sodium Chloride Flush Syringe 10 Ml IV 10 ml BID MARLENI Administration Sodium Chloride 10 ml 12/09/18 21:40 Sodium Chloride Flush Syringe 10 Ml IV PRN PRN LINE FLUSH Nutrition/Malnutrition Assess - Dietary Evaluation Nutrition/Malnutrition Findings: Nutrition Notes Start: 12/10/18 18:41 Freq: Status: Active Protocol: Document 12/10/18 18:41 RM (Rec: 12/10/18 18:48 RM [id number]) Nutrition Notes 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 Pt stated that her appetite is "so so" and that she eats none to 20% of her meals. Noted preferences. Pt already familiar w/DM diet education and stated that her A1c has come down from 11. Burn Absent Trauma Absent #1 Nutrition Diagnosis Inadequate oral intake Etiology decreased appetite As Evidenced by Signs and Symptoms pt statement that she eats none to 20% of her meals Is patient on ventilator? No Is Patient Ambulatory and/or Out of Bed No REE-([facility]-confined to bed) 1437.840 Calculation Used for Recommendations [facility] Additional Notes Protein Needs: 52-65g (0.8-1g/ kg) Fluid Needs: 1 ml/kcal Nutrition Intervention Change Diet Order: Continue current Add Supplement/Snack (indicate name/kcal Glucerna [place] 1 daily /protein ) Provides kCal: 220 Provides Protein (gm) 10 Goal #1 Meet at least 75% of calorie and protein needs via PO and ONS intakes Anticipated Discharge Needs: Cardiac/Consistent CHO diet Follow-Up By: 12/13/18 Additional Comments Follow for PO and ONS intakes
[2018-12-11] MEDS: ZOFRAN IV PRN (14:58)
[2018-12-11] MEDS: MORPHINE IV PRN (19:58)
[2018-12-12] MEDS: DILAUDID IV PRN ×2 (04:45→09:42)
[2018-12-12 08:42] LABS: BUN/Creatinine Ratio 21; Blood Urea Nitrogen 23 mg/dL (7-17); Calcium 8.8 mg/dL (8.4-10.2); Hemolysis Index 1
[2018-12-12 08:43] LABS: Creatine Kinase MB 1.7 ng/mL (0.0-4.0)
[2018-12-12] MEDS: IMDUR PO SCH (09:46)
[2018-12-12] MEDS: HumaLOG SUB-Q SCH ×4 (09:46→21:40)
[2018-12-12] MEDS: ZESTRIL PO SCH (09:47)
[2018-12-12] MEDS: NORVASC PO SCH (09:47)
[2018-12-12] MEDS: SODIUM CHLORIDE FLUSH SYRINGE 10 ML IV SCH ×2 (10:00→21:49)
[2018-12-12] MEDS: RANEXA ER PO SCH ×2 (10:00→21:38)
[2018-12-12] MEDS: ASPIRIN PO SCH (10:00)
[2018-12-12] MEDS: ZOFRAN IV PRN ×2 (10:16→12:52)
[2018-12-12] MEDS: NEURONTIN PO SCH ×3 (11:00→21:38)
--- NOTE | 2018-12-12 11:10 | Progress Note ---
Assessment and Plan Assessment and plan: --Persistent intermittent chest pain ; Cardiac enzymes negative, EKG no new changes Patient reports chest pain this morning, patient had recent abnormal stress test On 10/27/2018; large severe reversible defect in the inferior lateral wall consistent with ischemia in the right coronary artery or circumflex artery distribution. EF48% As per records medical management was opted at that time Management per cardiology --History of coronary artery disease status post CABG; resume Ranexa, lisinopril, Imdur, beta blockers, pain medication cardiology consult --Type 2 diabetes mellitus; Accu-Chek sliding scale coverage and ADA diet, hold metformin --Hypokalemia: replace with Kcl,monitor electroplytes --Dyslipidemia; Lipitor, low-cholesterol diet --DVT prophylaxis; Lovenox --Ongoing tobacco use; smoking cessation counseling Preventive counseling spent 10 minutes, nicotine patch Disposition; discharge the patient when stable cardiac-fernandez History Interval history: Patient continues to have intermittent chest pain Denies any nausea vomiting or diaphoresis Alert awake oriented 3 Vital signs reviewed Hospitalist Physical - Constitutional Vitals: Temp Pulse Resp BP Pulse Ox 98.0 F 78 20 102/48 99 12/12/18 04:37 12/12/18 04:37 12/12/18 04:37 12/12/18 04:37 12/12/18 04:37 General appearance: Present: no acute distress, well-nourished - EENT Eyes: Present: PERRL, EOM intact - Neck Neck: Present: supple, normal ROM - Respiratory Respiratory effort: normal Respiratory: bilateral: diminished, negative: rales, rhonchi, wheezing - Cardiovascular Rhythm: regular Heart Sounds: Present: S1 & S2 - Extremities Extremities: no ischemia, No edema - Abdominal General gastrointestinal: soft, non-tender, non-distended, normal bowel sounds - Integumentary Integumentary: Present: clear, warm - Psychiatric Psychiatric: appropriate mood/affect, cooperative - Neurologic Neurologic: CNII-XII intact, moves all extremities Results - Labs CBC & Chem 7: 12/10/18 04:59 12/12/18 07:45 Labs: Laboratory Last Values WBC 6.4 K/mm3 (4.5-11.0) 12/10/18 04:59 RBC 4.60 M/mm3 (3.65-5.03) 12/10/18 04:59 Hgb 13.1 gm/dl (10.1-14.3) 12/10/18 04:59 Hct 38.8 % (30.3-42.9) 12/10/18 04:59 MCV 84 fl (79-97) 12/10/18 04:59 MCH 28 pg (28-32) 12/10/18 04:59 MCHC 34 % (30-34) 12/10/18 04:59 RDW 14.2 % (13.2-15.2) 12/10/18 04:59 Plt Count 229 K/mm3 (140-440) 12/10/18 04:59 Lymph % (Auto) 44.4 % (13.4-35.0) H 12/10/18 04:59 [place] % (Auto) 8.0 % (0.0-7.3) H 12/10/18 04:59 Eos % (Auto) 4.1 % (0.0-4.3) 12/10/18 04:59 Baso % (Auto) 1.0 % (0.0-1.8) 12/10/18 04:59 Lymph # 2.8 K/mm3 (1.2-5.4) 12/10/18 04:59 [place] # 0.5 K/mm3 (0.0-0.8) 12/10/18 04:59 Eos # 0.3 K/mm3 (0.0-0.4) 12/10/18 04:59 Baso # 0.1 K/mm3 (0.0-0.1) 12/10/18 04:59 Seg Neutrophils % 42.5 % (40.0-70.0) 12/10/18 04:59 Seg Neutrophils # 2.7 K/mm3 (1.8-7.7) 12/10/18 04:59 PT 13.2 Sec. (12.2-14.9) 12/09/18 14:32 INR 1.03 (0.87-1.13) 12/09/18 14:32 APTT 28.1 Sec. (24.2-36.6) 12/09/18 14:32 Sodium 139 mmol/L (137-145) 12/12/18 07:45 Potassium 4.2 mmol/L (3.6-5.0) 12/12/18 07:45 Chloride 104.5 mmol/L (98-107) 12/12/18 07:45 Carbon Dioxide 25 mmol/L (22-30) 12/12/18 07:45 14 mmol/L 12/12/18 07:45 BUN 23 mg/dL (7-17) H 12/12/18 07:45 1.1 mg/dL (0.7-1.2) D 12/12/18 07:45 Estimated GFR > 60 ml/min 12/12/18 07:45 21 % 12/12/18 07:45 Glucose 115 mg/dL (65-100) H 12/12/18 07:45 POC Glucose 110 (70-105) H 12/12/18 08:22 8.6 % (4-6) H 12/09/18 22:43 Calcium 8.8 mg/dL (8.4-10.2) 12/12/18 07:45 Magnesium 1.70 mg/dL (1.7-2.3) 12/11/18 09:43 0.30 mg/dL (0.1-1.2) 12/10/18 04:59 AST 12 units/L (5-40) 12/10/18 04:59 ALT 8 units/L (7-56) 12/10/18 04:59 59 units/L (35-129) 12/10/18 04:59 35 units/L (30-135) 12/12/18 07:45 CK-MB (CK-2) 1.7 ng/mL (0.0-4.0) 12/12/18 07:45 CK-MB (CK-2) Rel Index 4.8 (0-4) H 12/12/18 07:45 < 0.010 ng/mL (0.00-0.029) 12/12/18 07:45 NT-Pro-B Natriuret Pep 1445 pg/mL (0-900) H 12/09/18 14:32 6.2 g/dL (6.3-8.2) L 12/10/18 04:59 3.3 g/dL (3.9-5) L 12/10/18 04:59 1.1 % 12/10/18 04:59 21 units/L (13-60) 12/09/18 14:32 Active Medications - Current Medications Current Medications: Generic Name Dose Route Start Last Admin Trade Name Freq PRN Reason Stop Dose Admin Acetaminophen 650 mg 12/09/18 21:40 Tylenol PO Q4H PRN Pain MILD(1-3)/Fever >100.5/MUSA Amlodipine Besylate 10 mg 12/11/18 10:00 12/12/18 09:47 Norvasc PO Not Given DAILY [facility] Aspirin 325 mg 12/11/18 10:00 12/11/18 09:08 Aspirin PO 325 mg DAILY [facility] Administration Gabapentin 100 mg 12/10/18 20:00 12/11/18 19:58 Neurontin PO 100 mg TID [facility] Administration Hydralazine HCl 10 mg 12/10/18 23:17 12/11/18 05:45 Apresoline IV 10 mg Q4HR PRN Administration Blood Pressure Hydromorphone HCl 0.5 mg 12/09/18 16:25 12/12/18 09:42 Dilaudid IV 0.5 mg Q3H PRN Administration Pain , Severe (7-10) Insulin Human Lispro 0 unit 12/10/18 16:30 12/12/18 09:46 Humalog SUB-Q Not Given [facility] Protocol Isosorbide Mononitrate 120 mg 12/10/18 17:00 12/12/18 09:46 Imdur PO Not Given DAILY [facility] Lisinopril 20 mg 12/11/18 10:00 12/12/18 09:47 Zestril PO Not Given DAILY [facility] Metformin HCl 1,000 mg 12/10/18 22:00 12/11/18 21:41 Glucophage PO 1,000 mg BID [facility] Administration Miscellaneous Medication 40 units 12/11/18 10:00 Levemir SUB-Q BID [facility] Morphine Sulfate 2 mg 12/11/18 14:41 12/11/18 19:58 Morphine IV 2 mg Q4H PRN Administration Pain, Moderate (4-6) Nicotine 14 mg 12/10/18 16:00 12/11/18 09:10 Habitrol TD 14 mg QDAY [facility] Administration Nitroglycerin 0.4 mg 12/10/18 11:39 Nitrostat SL .Q5MIN PRN Chest Pain Ondansetron HCl 4 mg 12/09/18 21:40 12/12/18 10:16 Zofran IV 4 mg Q8H PRN Administration Nausea And Vomiting Oxycodone/Acetaminophen 1 tab 12/09/18 21:40 12/11/18 21:41 Percocet 5/325 PO 1 tab Q6H PRN Administration Pain, Moderate (4-6) Pantoprazole Sodium 40 mg 12/12/18 10:00 Protonix PO QDAY MARLENI Ranolazine 1,000 mg 12/10/18 22:00 12/11/18 21:40 Ranexa Er PO 1,000 mg BID MARLENI Administration Sodium Chloride 10 ml 12/09/18 22:00 12/11/18 21:45 Sodium Chloride Flush Syringe 10 Ml IV 10 ml BID MARLENI Administration Sodium Chloride 10 ml 12/09/18 21:40 Sodium Chloride Flush Syringe 10 Ml IV PRN PRN LINE FLUSH Nutrition/Malnutrition Assess - Dietary Evaluation Nutrition/Malnutrition Findings: Nutrition Notes Start: 12/10/18 18:41 Freq: Status: Active Protocol: Document 12/10/18 18:41 RM (Rec: 12/10/18 18:48 RM [id number]) Nutrition Notes 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 Pt stated that her appetite is "so so" and that she eats none to 20% of her meals. Noted preferences. Pt already familiar w/DM diet education and stated that her A1c has come down from 11. Burn Absent Trauma Absent #1 Nutrition Diagnosis Inadequate oral intake Etiology decreased appetite As Evidenced by Signs and Symptoms pt statement that she eats none to 20% of her meals Is patient on ventilator? No Is Patient Ambulatory and/or Out of Bed No REE-([facility]-confined to bed) 2468.264 Calculation Used for Recommendations [facility] Additional Notes Protein Needs: 52-65g (0.8-1g/ kg) Fluid Needs: 1 ml/kcal Nutrition Intervention Change Diet Order: Continue current Add Supplement/Snack (indicate name/kcal Glucerna [place] 1 daily /protein ) Provides kCal: 220 Provides Protein (gm) 10 Goal #1 Meet at least 75% of calorie and protein needs via PO and ONS intakes Anticipated Discharge Needs: Cardiac/Consistent CHO diet Follow-Up By: 12/13/18 Additional Comments Follow for PO and ONS intakes
[2018-12-12] MEDS: PERCOCET 5/325 PO PRN ×2 (14:48→21:38)
[2018-12-12] MEDS: PROTONIX PO SCH (14:48)
[2018-12-12] MEDS: HABITROL TD SCH (14:49)
--- NOTE | 2018-12-12 15:18 | Progress Note ---
Assessment and Plan - Patient Problems (1) CAD (coronary artery disease) Current Visit: Yes Status: Chronic Qualifiers: Coronary Disease-Associated Artery/Lesion type: [place] artery [place] vs. transplanted heart: [place] heart Associated angina: with unspecified angina Qualified Code(s): I25.119 - Atherosclerotic heart disease of [place] coronary artery with unspecified angina pectoris Plan to address problem: Patient's discharge will be held, will proceed with diagnostic coronary angiography. Her previous coronary anatomy on cardiac catheterization 2 years ago: The right coronary artery was a INSIDE TESTER at this ostium within a previous stent. The LAD was a INSIDE TESTER in its midsegment. A single vessel left internal mammary florian ry graft was patent, anastomose to the distal LAD. There were additional distal LAD stents were patent beyond the graft insertion. The left main was patent and perfused a proximal diagonal branch of the LAD as well as a medium to large codominant circumflex. The mid obtuse marginal branch of the circumflex was a small vessel that was a INSIDE TESTER in its midsegment also within a previous stent. Subjective Date of service: 12/12/18 Interval history: Patient complains of recurrent chest pain despite optimal anti-ischemic medical therapy. ECG is unchanged from baseline, shows a sinus rhythm with left ventricular hypertrophy, lateral ST segment abnormalities suggest repolarization abnormalities of LVH. Due to recurrent ongoing chest pain, we have recommended and the patient has consented to proceed with cardiac catheterization and diagnostic coronary angiography. Her previous coronary anatomy on cardiac catheterization 2 years ago: The right coronary artery was a INSIDE TESTER at this ostium within a previous stent. The LAD was a INSIDE TESTER in its midsegment. A single vessel left internal mammary artery graft was patent, anastomose to the distal LAD. There were additional distal LAD stents were patent beyond the graft insertion. The left main was patent and perfused a proximal diagonal branch of the LAD as well as a medium to large codominant circumflex. The mid obtuse marginal branch of the circumflex was a small vessel that was a INSIDE TESTER in its midsegment also within a previous stent. Objective Vital Signs Temp Pulse Pulse Resp BP Pulse Ox 12/12/18 04:37 98.0 F 78 20 102/48 99 12/11/18 23:32 97.0 F L 78 20 131/51 97 12/11/18 20:20 84 20 98 12/11/18 19:15 97.6 F 75 20 141/56 100 12/11/18 17:09 97.9 F 71 16 97/45 97 - Physical Examination General: Appears Well, No Apparent Distress HEENT: Positive: PERRL Neck: Positive: trachea midline Cardiac: Positive: Reg Rate and Rhythm Lungs: Positive: Decreased Breath Sounds Neuro: Positive: Grossly Intact Abdomen: Positive: Soft Skin: Positive: Clear Extremities: Absent: edema - Labs and Meds Cardiac Enzymes 12/12/18 Range/Units 07:45 CK-MB (CK-2) 1.7 (0.0-4.0) ng/mL Comprehensive Metabolic Panel 12/12/18 Range/Units 07:45 Sodium 139 (137-145) mmol/L Potassium 4.2 (3.6-5.0) mmol/L Chloride 104.5 (98-107) mmol/L Carbon Dioxide 25 (22-30) mmol/L BUN 23 H (7-17) mg/dL Creatinine 1.1 D (0.7-1.2) mg/dL Glucose 115 H (65-100) mg/dL Calcium 8.8 (8.4-10.2) mg/dL - Imaging and Cardiology EKG: report reviewed
[2018-12-12] MEDS ORDERED: NACL 0.9% 500 ML 500 ML IV SCH (16:00)
[2018-12-13 05:12] LABS: INR 1.05 (0.87-1.13)
[2018-12-13] MEDS ORDERED: ZOFRAN IV NR (09:00)
--- NOTE | 2018-12-13 09:02 | Progress Note ---
Assessment and Plan Assessment and plan: --Persistent intermittent chest pain ; Cardiac enzymes negative, EKG no new changes Patient reports chest pain this morning, patient had recent abnormal stress test On 10/27/2018; large severe reversible defect in the inferior lateral wall consistent with ischemia in the right coronary artery or circumflex artery distribution. EF48% As per records medical management was opted at that time Heart cath today, reschedule for tomorrow --History of coronary artery disease status post CABG; resume Ranexa, lisinopril, Imdur, beta blockers, pain medication cardiology consult --Type 2 diabetes mellitus; Accu-Chek sliding scale coverage and ADA diet, hold metformin --Hypokalemia: replace with Kcl,monitor electroplytes --Dyslipidemia; Lipitor, low-cholesterol diet --DVT prophylaxis; Lovenox --Ongoing tobacco use; smoking cessation counseling Preventive counseling spent 10 minutes, nicotine patch Disposition; cath tomorrow Discharged when stable History Interval history: Sincerely better, scheduled for heart cath today She denies chest pain or shortness of breath Hospitalist Physical - Constitutional Vitals: Temp Pulse Resp BP Pulse Ox 98.6 F 86 18 189/63 95 12/13/18 08:50 12/13/18 08:50 12/13/18 08:50 12/13/18 08:50 12/13/18 08:50 General appearance: Present: mild distress, well-nourished - EENT Eyes: Present: PERRL, EOM intact - Neck Neck: Present: supple, normal ROM - Respiratory Respiratory effort: normal Respiratory: bilateral: diminished, negative: rales, rhonchi, wheezing - Cardiovascular Rhythm: regular Heart Sounds: Present: S1 & S2 - Extremities Extremities: no ischemia, No edema - Abdominal General gastrointestinal: soft, non-tender, non-distended, normal bowel sounds - Integumentary Integumentary: Present: clear, warm - Psychiatric Psychiatric: appropriate mood/affect, cooperative - Neurologic Neurologic: CNII-XII intact, moves all extremities Results - Labs CBC & Chem 7: 12/10/18 04:59 12/12/18 07:45 Labs: Laboratory Last Values WBC 6.4 K/mm3 (4.5-11.0) 12/10/18 04:59 RBC 4.60 M/mm3 (3.65-5.03) 12/10/18 04:59 Hgb 13.1 gm/dl (10.1-14.3) 12/10/18 04:59 Hct 38.8 % (30.3-42.9) 12/10/18 04:59 MCV 84 fl (79-97) 12/10/18 04:59 MCH 28 pg (28-32) 12/10/18 04:59 MCHC 34 % (30-34) 12/10/18 04:59 RDW 14.2 % (13.2-15.2) 12/10/18 04:59 Plt Count 229 K/mm3 (140-440) 12/10/18 04:59 Lymph % (Auto) 44.4 % (13.4-35.0) H 12/10/18 04:59 [place] % (Auto) 8.0 % (0.0-7.3) H 12/10/18 04:59 Eos % (Auto) 4.1 % (0.0-4.3) 12/10/18 04:59 Baso % (Auto) 1.0 % (0.0-1.8) 12/10/18 04:59 Lymph # 2.8 K/mm3 (1.2-5.4) 12/10/18 04:59 [place] # 0.5 K/mm3 (0.0-0.8) 12/10/18 04:59 Eos # 0.3 K/mm3 (0.0-0.4) 12/10/18 04:59 Baso # 0.1 K/mm3 (0.0-0.1) 12/10/18 04:59 Seg Neutrophils % 42.5 % (40.0-70.0) 12/10/18 04:59 Seg Neutrophils # 2.7 K/mm3 (1.8-7.7) 12/10/18 04:59 PT 13.4 Sec. (12.2-14.9) 12/13/18 04:10 INR 1.05 (0.87-1.13) 12/13/18 04:10 APTT 30.7 Sec. (24.2-36.6) 12/13/18 04:10 Sodium 139 mmol/L (137-145) 12/12/18 07:45 Potassium 4.2 mmol/L (3.6-5.0) 12/12/18 07:45 Chloride 104.5 mmol/L (98-107) 12/12/18 07:45 Carbon Dioxide 25 mmol/L (22-30) 12/12/18 07:45 14 mmol/L 12/12/18 07:45 BUN 23 mg/dL (7-17) H 12/12/18 07:45 1.1 mg/dL (0.7-1.2) D 12/12/18 07:45 Estimated GFR > 60 ml/min 12/12/18 07:45 21 % 12/12/18 07:45 Glucose 115 mg/dL (65-100) H 12/12/18 07:45 POC Glucose 126 (70-105) H 12/13/18 08:59 8.6 % (4-6) H 12/09/18 22:43 Calcium 8.8 mg/dL (8.4-10.2) 12/12/18 07:45 Magnesium 1.70 mg/dL (1.7-2.3) 12/11/18 09:43 0.30 mg/dL (0.1-1.2) 12/10/18 04:59 AST 12 units/L (5-40) 12/10/18 04:59 ALT 8 units/L (7-56) 12/10/18 04:59 59 units/L (35-129) 12/10/18 04:59 35 units/L (30-135) 12/12/18 07:45 CK-MB (CK-2) 1.7 ng/mL (0.0-4.0) 12/12/18 07:45 CK-MB (CK-2) Rel Index 4.8 (0-4) H 12/12/18 07:45 < 0.010 ng/mL (0.00-0.029) 12/12/18 07:45 NT-Pro-B Natriuret Pep 1445 pg/mL (0-900) H 12/09/18 14:32 6.2 g/dL (6.3-8.2) L 12/10/18 04:59 3.3 g/dL (3.9-5) L 12/10/18 04:59 1.1 % 12/10/18 04:59 21 units/L (13-60) 12/09/18 14:32 Blood Type O POSITIVE 12/13/18 04:19 Antibody Screen Negative 12/13/18 04:19 Active Medications - Current Medications Current Medications: Generic Name Dose Route Start Last Admin Trade Name Freq PRN Reason Stop Dose Admin Acetaminophen 650 mg 12/09/18 21:40 Tylenol PO Q4H PRN Pain MILD(1-3)/Fever >100.5/MUSA Amlodipine Besylate 10 mg 12/11/18 10:00 12/12/18 09:47 Norvasc PO Not Given DAILY [facility] Aspirin 325 mg 12/11/18 10:00 12/12/18 10:00 Aspirin PO Not Given DAILY [facility] Gabapentin 100 mg 12/10/18 20:00 12/12/18 21:38 Neurontin PO 100 mg TID MARLENI Administration Hydralazine HCl 10 mg 12/10/18 23:17 12/11/18 05:45 Apresoline IV 10 mg Q4HR PRN Administration Blood Pressure Hydromorphone HCl 0.5 mg 12/09/18 16:25 12/12/18 09:42 Dilaudid IV 0.5 mg Q3H PRN Administration Pain , Severe (7-10) Insulin Human Lispro 0 unit 12/10/18 16:30 12/12/18 21:40 Humalog SUB-Q 2 unit ACHS [facility] Administration Protocol Isosorbide Mononitrate 120 mg 12/10/18 17:00 12/12/18 09:46 Imdur PO Not Given DAILY [facility] Lisinopril 20 mg 12/11/18 10:00 12/12/18 09:47 Zestril PO Not Given DAILY [facility] Miscellaneous Medication 40 units 12/11/18 10:00 Levemir SUB-Q BID [facility] Morphine Sulfate 2 mg 12/11/18 14:41 12/11/18 19:58 Morphine IV 2 mg Q4H PRN Administration Pain, Moderate (4-6) Nicotine 14 mg 12/10/18 16:00 12/12/18 14:49 Habitrol TD 14 mg QDAY [facility] Administration Nitroglycerin 0.4 mg 12/10/18 11:39 Nitrostat SL .Q5MIN PRN Chest Pain Ondansetron HCl 4 mg 12/09/18 21:40 12/12/18 12:52 Zofran IV 4 mg Q8H PRN Administration Nausea And Vomiting Ondansetron HCl 4 mg 12/13/18 09:00 Zofran IV 12/13/18 09:01 ONCE ONE Oxycodone/Acetaminophen 1 tab 12/09/18 21:40 12/12/18 21:38 Percocet 5/325 PO 1 tab Q6H PRN Administration Pain, Moderate (4-6) Pantoprazole Sodium 40 mg 12/12/18 10:00 12/12/18 14:48 Protonix PO 40 mg QDAY MARLENI Administration Pneumococcal Polyvalent Vaccine 0.5 ml 12/13/18 12:00 Pneumovax 23 IM 12/13/18 12:01 .ONCE ONE Ranolazine 1,000 mg 12/10/18 22:00 12/12/18 21:38 Ranexa Er PO 1,000 mg BID MARLENI Administration Sodium Chloride 10 ml 12/09/18 22:00 12/12/18 21:49 Sodium Chloride Flush Syringe 10 Ml IV 10 ml BID MARLENI Administration Sodium Chloride 10 ml 12/09/18 21:40 Sodium Chloride Flush Syringe 10 Ml IV PRN PRN LINE FLUSH Nutrition/Malnutrition Assess - Dietary Evaluation Nutrition/Malnutrition Findings: Nutrition Notes Start: 12/10/18 18:41 Freq: Status: Active Protocol: Document 12/10/18 18:41 RM (Rec: 12/10/18 18:48 RM [id number]) Nutrition Notes 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 Pt stated that her appetite is "so so" and that she eats none to 20% of her meals. Noted preferences. Pt already familiar w/DM diet education and stated that her A1c has come down from 11. Burn Absent Trauma Absent #1 Nutrition Diagnosis Inadequate oral intake Etiology decreased appetite As Evidenced by Signs and Symptoms pt statement that she eats none to 20% of her meals Is patient on ventilator? No Is Patient Ambulatory and/or Out of Bed No REE-([place]-St. Jeor-confined to bed) [phone] Calculation Used for Recommendations [place] Jeor Additional Notes Protein Needs: 52-65g (0.8-1g/ kg) Fluid Needs: 1 ml/kcal Nutrition Intervention Change Diet Order: Continue current Add Supplement/Snack (indicate name/kcal Glucerna [place] 1 daily /protein ) Provides kCal: 220 Provides Protein (gm) 10 Goal #1 Meet at least 75% of calorie and protein needs via PO and ONS intakes Anticipated Discharge Needs: Cardiac/Consistent CHO diet Follow-Up By: 12/13/18 Additional Comments Follow for PO and ONS intakes
[2018-12-13] MEDS: APRESOLINE IV PRN (09:23)
[2018-12-13] MEDS: HumaLOG SUB-Q SCH ×4 (09:24→23:11)
[2018-12-13] MEDS: SODIUM CHLORIDE FLUSH SYRINGE 10 ML IV SCH ×2 (09:25→23:16)
[2018-12-13] MEDS ORDERED: PNEUMOVAX 23 IM ONE (12:00)
--- NOTE | 2018-12-13 12:36 | Progress Note ---
Assessment and Plan Chronic stable angina from small vessel disease Hx of CAD with 1v CABG and multiple PCI's Diabetes mellitus Hypertension Tobacco abuse Noncompliant with outpatient cardiac follow ups Normal LVEF 55-60% by echo 05/2017. Recommendations: Advised smoking cessation. Continue medical therapy for coronary artery disease and chronic stable angina. Diagnostic coronary angiography rescheduled for tomorrow morning. Subjective Date of service: 12/13/18 Interval history: Cardiac cath postponed until tomorrow. Objective Vital Signs Temp Pulse Resp BP Pulse Ox 12/13/18 11:15 98.6 F 84 18 146/52 97 12/13/18 09:23 96 H 189/63 12/13/18 08:50 98.6 F 86 18 189/63 95 12/13/18 03:05 97.9 F 78 18 133/49 98 12/13/18 00:02 98.0 F 76 18 109/51 97 12/12/18 22:00 82 12/12/18 19:17 98.9 F 80 18 154/64 97 12/12/18 17:01 98.3 F 85 16 198/80 98 - Physical Examination General: Appears Well, No Apparent Distress HEENT: Positive: PERRL Neck: Positive: trachea midline Cardiac: Positive: Reg Rate and Rhythm Lungs: Positive: Decreased Breath Sounds Neuro: Positive: Grossly Intact Abdomen: Positive: Soft Extremities: Absent: edema - Labs and Meds Coagulation 12/13/18 12/13/18 Range/Units 04:10 04:10 PT 13.4 (12.2-14.9) Sec. INR 1.05 (0.87-1.13) APTT 30.7 (24.2-36.6) Sec.
[2018-12-13] MEDS: IMDUR PO SCH (12:51)
[2018-12-13] MEDS: RANEXA ER PO SCH ×2 (12:52→23:11)
[2018-12-13] MEDS: ASPIRIN PO SCH (12:52)
[2018-12-13] MEDS: ZESTRIL PO SCH (12:52)
[2018-12-13] MEDS: PROTONIX PO SCH (12:53)
[2018-12-13] MEDS: HABITROL TD SCH (12:53)
[2018-12-13] MEDS: NEURONTIN PO SCH ×3 (12:53→23:10)
[2018-12-13] MEDS: NORVASC PO SCH (12:53)
[2018-12-13] MEDS: PERCOCET 5/325 PO PRN (18:02)
[2018-12-13] MEDS: LEVEMIR 40 UNIT SUB-Q SCH (23:13)
[2018-12-14 05:44] LABS: BUN/Creatinine Ratio 10; Blood Urea Nitrogen 9 mg/dL (7-17); Calcium 8.6 mg/dL (8.4-10.2); Hemolysis Index 2
[2018-12-14] MEDS: MORPHINE IV PRN ×2 (06:14→22:49)
[2018-12-14] MEDS: HumaLOG SUB-Q SCH ×4 (08:20→22:40)
[2018-12-14] MEDS ORDERED: ECOTRIN PO ONE (11:32)
[2018-12-14] MEDS ORDERED: NACL 0.9% 500 ML 500 ML IV SCH (12:00)
[2018-12-14] MEDS ORDERED: HEPARIN/NS 5000 UNIT/500ML(CATH LAB) 0 ML IR ONE (12:36)
[2018-12-14] MEDS ORDERED: NITROGLYCERIN SYRINGE 0 ML ONE ×2 (12:37→13:18)
[2018-12-14] MEDS ORDERED: XYLOCAINE 2% INFILTRATI ONE ×2 (12:37→13:18)
[2018-12-14] MEDS ORDERED: VERSED ONE ×2 (12:38→13:17)
[2018-12-14] MEDS ORDERED: SUBLIMAZE ONE ×2 (12:38→13:17)
[2018-12-14] MEDS ORDERED: HEPARIN 10,000 UNITS/10 ML ONE ×2 (12:52→13:17)
[2018-12-14] MEDS ORDERED: BENADRYL ONE (13:12)
[2018-12-14] MEDS ORDERED: HEPARIN/NS 5000 UNIT/500ML(CATH LAB) 1,000 ML IR ONE (13:17)
[2018-12-14] MEDS ORDERED: CALAN ONE (13:18)
[2018-12-14] MEDS ORDERED: NACL 0.9% 500 ML 0 ML ONE (13:18)
[2018-12-14] MEDS ORDERED: APRESOLINE ONE (13:31)
[2018-12-14] MEDS: IMDUR PO SCH (14:48)
[2018-12-14] MEDS: NEURONTIN PO SCH ×3 (14:48→22:38)
[2018-12-14] MEDS: PROTONIX PO SCH (14:49)
[2018-12-14] MEDS: RANEXA ER PO SCH ×2 (14:49→22:39)
[2018-12-14] MEDS: ZESTRIL PO SCH (14:49)
[2018-12-14] MEDS: ZOFRAN IV PRN (14:50)
[2018-12-14] MEDS: NORVASC PO SCH (14:50)
[2018-12-14] MEDS ORDERED: NACL 0.9% 1000 ML 1,000 ML IV SCH (15:00)
[2018-12-14] MEDS: HABITROL TD SCH (15:13)
[2018-12-14] MEDS: SODIUM CHLORIDE FLUSH SYRINGE 10 ML IV SCH ×2 (15:21→23:00)
[2018-12-14] MEDS: LEVEMIR 40 UNIT SUB-Q SCH ×2 (15:21→22:51)
[2018-12-14] MEDS: ASPIRIN PO SCH (15:21)
--- NOTE | 2018-12-14 16:28 | Cardiac Catherization Report ---
CARDIAC CATHETERIZATION REPORT REASON FOR PROCEDURE: Chest pain. The patient is a 58-year-old woman with complex 3-vessel coronary artery disease, status post multiple prior interventional procedures and a single vessel coronary artery bypass. She presents with recurrent chest pain despite maximal medical therapy. PROCEDURES: 1. Left heart catheterization. 2. Selective left and right coronary angiography. 3. Angiography of the left internal mammary artery graft. 4. Left ventricular angiography. 5. Sedation time start 1320, sedation end 1345. The patient was prepped and draped in a sterile fashion after informed consent. The right femoral artery was entered using Seldinger technique followed by placement of a 6-Surinamese sheath. A 5-Surinamese sheath was meticulously placed into the right femoral vein for IV access. Selective left and right coronary angiography was performed using a #3.5 left [place] and a #4 right [place]o. Angiography of the left internal mammary artery graft was done using the left internal mammary artery catheter. Left ventricular angiography was performed using a pigtail catheter. The catheters were then removed, sheath removed, and hemostasis achieved using manual compression. The patient was returned to the postprocedure unit in stable condition. There were no complications. FINDINGS: HEMODYNAMICS: Left ventricular end-diastolic pressure was 25-30, following coronary angiography. Ascending aortic pressure was 209/79. There was no significant pressure gradient on pullback across the aortic valve. CORONARY ANGIOGRAPHY: There was mild ostial narrowing of the left main coronary artery, followed by a 30% luminal stenosis of the distal vessel before its bifurcation into the LAD and circumflex. The LAD was completely occluded in its proximal to mid segment after a small caliber first diagonal branch and within a previous proximal to mid LAD stents. The diagonal branch itself contained a 50% stenosis in its mid segment. The left internal mammary artery graft to the LAD was patent with good anastomosis into the mid LAD beyond the stented segment, but we did note additional stents that were deployed via the internal mammary artery graft, through the anastomosis, and into the distal LAD. Left internal mammary artery graft to distal LAD stents were patent with good flow into the distal LAD. We did note a proximal 30-40% atherosclerotic narrowing of the left internal mammary artery graft. The circumflex artery was a fairly large, codominant system with the right coronary artery. There was diffuse mild atherosclerosis of the AV groove circumflex, through its proximal, mid, and distal segment, leading to 2 medium sized terminal posterolateral branches. The mid obtuse marginal was a small caliber vessel that was completely occluded in its mid segment. This was another, chronic total occlusion within a previous stent in this branch vessel. The right coronary artery also contained a stent in its proximal segment, extending from its ostium. Angiography revealed a chronic total occlusion at the ostium of this vessel within the previous stent. There was very faint collateralization of the distal segments of the right coronary artery from the left coronary system. Left ventricular systolic function was well preserved, ejection fraction 50-55%. CONCLUSIONS: 1. Severe 3-vessel coronary artery disease. 2. Patent left internal mammary artery graft to the LAD. 3. Well preserved left ventricular systolic function, ejection fraction 50-55%. Based on the current anatomy with a patent left internal mammary artery graft and patency of a fairly large, codominant circumflex system, the patient will be recommended for medical therapy and aggressive risk factor modification for small vessel disease. [facility]# [id number] KILEY/CONCHITA
--- NOTE | 2018-12-14 16:56 | Progress Note ---
Assessment and Plan Assessment and plan: --Persistent intermittent chest pain ; heart cath today Cardiac enzymes negative, EKG no new changes Patient reports chest pain this morning, patient had recent abnormal stress test On 10/27/2018; large severe reversible defect in the inferior lateral wall consistent with ischemia in the right coronary artery or circumflex artery distribution. EF48% As per records medical management was opted at that time --History of coronary artery disease status post CABG; resume Ranexa, lisinopril, Imdur, beta blockers, pain medication cardiology consult --Type 2 diabetes mellitus; Accu-Chek sliding scale coverage and ADA diet, hold metformin --Hypokalemia: replace with Kcl,monitor electroplytes --Dyslipidemia; Lipitor, low-cholesterol diet --DVT prophylaxis; Lovenox --Ongoing tobacco use; smoking cessation counseling Preventive counseling spent 10 minutes, nicotine patch Disposition; follow heart cath, if negative and stable Patient may be discharged home History Interval history: Patient seen and examined medical records reviewed The patient is scheduled for heart cath today Patient continues to have intermittent mild chest pain No nausea vomiting or diaphoresis Vital signs reviewed, nothing by mouth status Hospitalist Physical - Constitutional Vitals: Temp Pulse Resp BP Pulse Ox 98.2 F 87 18 193/76 99 12/14/18 08:57 12/14/18 14:50 12/14/18 08:57 12/14/18 14:50 12/14/18 08:57 General appearance: Present: mild distress, well-nourished - EENT Eyes: Present: PERRL, EOM intact - Neck Neck: Present: supple, normal ROM - Respiratory Respiratory effort: normal Respiratory: bilateral: diminished, negative: rales, rhonchi, wheezing - Cardiovascular Rhythm: regular Heart Sounds: Present: S1 & S2 - Extremities Extremities: no ischemia, No edema - Abdominal General gastrointestinal: soft, non-tender, non-distended, normal bowel sounds - Integumentary Integumentary: Present: clear, warm - Psychiatric Psychiatric: appropriate mood/affect, cooperative - Neurologic Neurologic: CNII-XII intact, moves all extremities Results - Labs CBC & Chem 7: 12/10/18 04:59 12/14/18 04:56 Labs: Laboratory Last Values WBC 6.4 K/mm3 (4.5-11.0) 12/10/18 04:59 RBC 4.60 M/mm3 (3.65-5.03) 12/10/18 04:59 Hgb 13.1 gm/dl (10.1-14.3) 12/10/18 04:59 Hct 38.8 % (30.3-42.9) 12/10/18 04:59 MCV 84 fl (79-97) 12/10/18 04:59 MCH 28 pg (28-32) 12/10/18 04:59 MCHC 34 % (30-34) 12/10/18 04:59 RDW 14.2 % (13.2-15.2) 12/10/18 04:59 Plt Count 229 K/mm3 (140-440) 12/10/18 04:59 Lymph % (Auto) 44.4 % (13.4-35.0) H 12/10/18 04:59 [place] % (Auto) 8.0 % (0.0-7.3) H 12/10/18 04:59 Eos % (Auto) 4.1 % (0.0-4.3) 12/10/18 04:59 Baso % (Auto) 1.0 % (0.0-1.8) 12/10/18 04:59 Lymph # 2.8 K/mm3 (1.2-5.4) 12/10/18 04:59 [place] # 0.5 K/mm3 (0.0-0.8) 12/10/18 04:59 Eos # 0.3 K/mm3 (0.0-0.4) 12/10/18 04:59 Baso # 0.1 K/mm3 (0.0-0.1) 12/10/18 04:59 Seg Neutrophils % 42.5 % (40.0-70.0) 12/10/18 04:59 Seg Neutrophils # 2.7 K/mm3 (1.8-7.7) 12/10/18 04:59 PT 13.4 Sec. (12.2-14.9) 12/13/18 04:10 INR 1.05 (0.87-1.13) 12/13/18 04:10 APTT 30.7 Sec. (24.2-36.6) 12/13/18 04:10 Sodium 141 mmol/L (137-145) 12/14/18 04:56 Potassium 3.5 mmol/L (3.6-5.0) L 12/14/18 04:56 Chloride 105.4 mmol/L (98-107) 12/14/18 04:56 Carbon Dioxide 26 mmol/L (22-30) 12/14/18 04:56 13 mmol/L 12/14/18 04:56 BUN 9 mg/dL (7-17) 12/14/18 04:56 0.9 mg/dL (0.7-1.2) 12/14/18 04:56 Estimated GFR > 60 ml/min 12/14/18 04:56 10 % 12/14/18 04:56 Glucose 114 mg/dL (65-100) H 12/14/18 04:56 POC Glucose 131 (70-105) H 12/14/18 08:10 8.6 % (4-6) H 12/09/18 22:43 Calcium 8.6 mg/dL (8.4-10.2) 12/14/18 04:56 Magnesium 1.70 mg/dL (1.7-2.3) 12/11/18 09:43 0.30 mg/dL (0.1-1.2) 12/10/18 04:59 AST 12 units/L (5-40) 12/10/18 04:59 ALT 8 units/L (7-56) 12/10/18 04:59 59 units/L (35-129) 12/10/18 04:59 35 units/L (30-135) 12/12/18 07:45 CK-MB (CK-2) 1.7 ng/mL (0.0-4.0) 12/12/18 07:45 CK-MB (CK-2) Rel Index 4.8 (0-4) H 12/12/18 07:45 < 0.010 ng/mL (0.00-0.029) 12/12/18 07:45 NT-Pro-B Natriuret Pep 1445 pg/mL (0-900) H 12/09/18 14:32 6.2 g/dL (6.3-8.2) L 12/10/18 04:59 3.3 g/dL (3.9-5) L 12/10/18 04:59 1.1 % 12/10/18 04:59 21 units/L (13-60) 12/09/18 14:32 Blood Type O POSITIVE 12/13/18 04:19 Antibody Screen Negative 12/13/18 04:19 Active Medications - Current Medications Current Medications: Generic Name Dose Route Start Last Admin Trade Name Freq PRN Reason Stop Dose Admin Acetaminophen 650 mg 12/09/18 21:40 Tylenol PO Q4H PRN Pain MILD(1-3)/Fever >100.5/MUSA Amlodipine Besylate 10 mg 12/11/18 10:00 12/14/18 14:50 Norvasc PO 10 mg DAILY MARLENI Administration Aspirin 325 mg 12/11/18 10:00 12/14/18 15:21 Aspirin PO Not Given DAILY [facility] Gabapentin 100 mg 12/10/18 20:00 12/14/18 15:20 Neurontin PO Not Given TID [facility] Hydralazine HCl 10 mg 12/10/18 23:17 12/13/18 09:23 Apresoline IV 10 mg Q4HR PRN Administration Blood Pressure Hydromorphone HCl 0.5 mg 12/09/18 16:25 12/12/18 09:42 Dilaudid IV 0.5 mg Q3H PRN Administration Pain , Severe (7-10) Sodium Chloride 500 mls @ 50 mls/hr 12/14/18 12:00 Nacl 0.9% 500 Ml IV DIRECT [facility] Sodium Chloride 1,000 mls @ 75 mls/hr 12/14/18 15:00 Nacl 0.9% 1000 Ml IV 12/14/18 20:59 DIRECT [facility] Insulin Human Lispro 0 unit 12/10/18 16:30 12/14/18 14:20 [facility] SUB-Q [facility] Protocol Isosorbide Mononitrate 120 mg 12/10/18 17:00 12/14/18 14:48 Imdur PO 120 mg DAILY [facility] Administration Lisinopril 20 mg 12/11/18 10:00 12/14/18 14:49 Zestril PO 20 mg DAILY MARLENI Administration Miscellaneous Medication 40 units 12/13/18 22:00 12/14/18 15:21 Levemir SUB-Q Not Given BID [facility] Morphine Sulfate 2 mg 12/11/18 14:41 12/14/18 06:14 Morphine IV 2 mg Q4H PRN Administration Pain, Moderate (4-6)CHEST PAIN Nicotine 14 mg 12/10/18 16:00 12/14/18 15:13 Habitrol TD 14 mg QDAY MARLENI Administration Nitroglycerin 0.4 mg 12/10/18 11:39 Nitrostat SL .Q5MIN PRN Chest Pain Ondansetron HCl 4 mg 12/09/18 21:40 12/14/18 14:50 Zofran IV 4 mg Q8H PRN Administration Nausea And Vomiting Oxycodone/Acetaminophen 1 tab 12/09/18 21:40 12/13/18 18:02 Percocet 5/325 PO 1 tab Q6H PRN Administration Pain, Moderate (4-6) Pantoprazole Sodium 40 mg 12/12/18 10:00 12/14/18 14:49 Protonix PO 40 mg QDAY MARLENI Administration Ranolazine 1,000 mg 12/10/18 22:00 12/14/18 14:49 Ranexa Er PO 1,000 mg BID MARLENI Administration Sodium Chloride 10 ml 12/09/18 22:00 12/14/18 15:21 Sodium Chloride Flush Syringe 10 Ml IV 10 ml BID MARLENI Administration Sodium Chloride 10 ml 12/09/18 21:40 12/14/18 06:16 Sodium Chloride Flush Syringe 10 Ml IV 10 ml PRN PRN Administration LINE FLUSH Nutrition/Malnutrition Assess - Dietary Evaluation Nutrition/Malnutrition Findings: Nutrition Notes Start: 12/10/18 18:41 Freq: Status: Active Protocol: Document 12/13/18 13:57 GINO (Rec: 12/13/18 14:02 GINO [id number]) Nutrition Notes Initial or Follow up Reassessment Current Diagnosis Coronary Artery Disease, Diabetes,Hyperlipidemia Other Pertinent Diagnosis Chest pain Current Diet Cardiac/Consistent CHO Labs/Tests Reviewed Pertinent Medications Reviewed Height 5 ft 3 in Weight 66.1 kg [place] Body Weight (kg) 52.27 BMI 25.8 Subjective/Other Information Pt reports poor appetite and is amenable to Glucerna shake. 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 She has consumed 25% of last two recorded meals. Percent of energy/protein needs met: 34% energy 40% pro Burn Absent Trauma Absent #1 Nutrition Diagnosis Inadequate oral intake Diagnosis Progress(for reassessment Continues documentation) Is patient on ventilator? No Is Patient Ambulatory and/or Out of Bed No REE-([place]. [place]-confined to bed) 0021.016 Calculation Used for Recommendations [place]-St Jeor Additional Notes Pro needs 0.8-1g/k-66g/ day Fluid needs 1ml/kcal Nutrition Intervention Change Diet Order: Continue current diet order Add Supplement/Snack (indicate name/kcal Glucerna TID (strawberry) /protein ) Provides kCal: 660 Provides Protein (gm) 30 Goal #1 PO intake of meals plus ONS to meet at least 75% energy and pro needs Follow-Up By: 12/16/18 Additional Comments F/U: intakes
--- NOTE | 2018-12-14 18:02 | Event Note ---
Date: 12/14/18 Left heart catheterization was completed, no complications. Findings: Severe three-vessel coronary artery disease. Patent left internal mammary artery graft to the LAD. The circumflex system is only mildly diseased, except for a chronic total occlusion of the small caliber mid obtuse marginal branch. The right coronary artery is chronically totally occluded within a stent in the proximal segment. Left ventricle systolic function is well preserved, ejection fraction 50-55%. The patient's anatomy is unchanged from the cardiac catheterization 2 years ago, with no indication for any further revascularization procedures at this time. The patient is recommended for continued, maximum medical therapy for chronic stable angina due to small vessel atherosclerosis. She'll be stable for cardiac discharge tomorrow.
[2018-12-14] MEDS: PERCOCET 5/325 PO PRN (18:24)
[2018-12-15] MEDS: MORPHINE IV PRN (05:34)
[2018-12-15] MEDS: ZOFRAN IV PRN (05:35)
[2018-12-15] MEDS: HumaLOG SUB-Q SCH ×2 (08:21→10:12)
--- NOTE | 2018-12-15 09:00 | Progress Note ---
<FAUZIA JUÁREZ - Last Filed: 12/15/18 10:34> Assessment and Plan Chronic stable angina from small vessel disease Hx of CAD with 1v CABG and multiple PCI's Left heart catheterization this admission: Severe three-vessel coronary artery disease. Patent left internal mammary artery graft to the LAD. The circumflex system is only mildly diseased, except for a chronic total occlusion of the small caliber mid obtuse marginal branch. The right coronary artery is chronically totally occluded within a stent in the proximal segment. Left ventricle systolic function is well preserved, ejection fraction 50-55%. The patient's anatomy is unchanged from the cardiac catheterization 2 years ago, with no indication for any further revascularization procedures at this time. Diabetes mellitus Hypertension Tobacco abuse Noncompliant with outpatient cardiac follow ups Normal LVEF 55-60% by echo 05/2017. Recommendations: Advised smoking cessation. Continue medical therapy for coronary artery disease and chronic stable angina. Stable cardiac fernandez, for discharge today. Patient will follow up with Dr Bonilla, at [facility] as scheduled December 24 at 150p. Subjective Date of service: 12/15/18 Interval history: Patient is resting in bed comfortably. She denies chest pain and shortness of breath. Cardiac cath site, soft and intact. No hematoma noted. Objective Vital Signs Temp Pulse Resp Resp BP Pulse Ox 12/15/18 05:03 74 12/15/18 03:42 97.9 F 80 16 136/54 96 12/14/18 23:07 97.3 F L 80 18 133/46 100 12/14/18 23:00 22 12/14/18 22:00 80 12/14/18 19:23 97.7 F 85 16 106/43 98 12/14/18 16:11 98.0 F 80 18 142/63 100 12/14/18 15:11 97.6 F 80 14 146/62 97 12/14/18 14:50 87 193/76 12/14/18 14:49 87 193/76 12/14/18 14:48 87 /76 - Physical Examination General: No Apparent Distress HEENT: Positive: PERRL Neck: Positive: trachea midline Cardiac: Positive: Reg Rate and Rhythm Lungs: Positive: Decreased Breath Sounds Neuro: Positive: Grossly Intact Abdomen: Positive: Soft Extremities: Absent: edema - Imaging and Cardiology EKG: report reviewed <IOANA HOLDER - Last Filed: 12/22/18 11:47> Assessment and Plan I seen and evaluated the patient agrees with the assessment and plan as stated above. At this time recommend continue maximal medical therapy for treatment of coronary artery disease.
[2018-12-15] MEDS: IMDUR PO SCH (10:10)
[2018-12-15] MEDS: LEVEMIR 40 UNIT SUB-Q SCH (10:11)
[2018-12-15] MEDS: ZESTRIL PO SCH (10:11)
[2018-12-15] MEDS: NORVASC PO SCH (10:11)
[2018-12-15] MEDS: RANEXA ER PO SCH (11:05)
[2018-12-15] MEDS: NEURONTIN PO SCH (11:05)
[2018-12-15] MEDS: HABITROL TD SCH (11:05)
[2018-12-15] MEDS: PROTONIX PO SCH (11:05)
[2018-12-15] MEDS: ASPIRIN PO SCH (11:06)
--- NOTE | 2018-12-15 13:08 | Discharge Summary ---
Providers - Providers Date of Admission: 12/13/18 11:20 Date of discharge: 12/15/18 Attending physician: DEBBY IRAHETA 12/10/18 11:35 Consult to Physician [CONS] Routine Comment: Consulting Provider: WILFREDO KIM Physician Instructions: Reason For Exam: chest pain/risk factors 12/14/18 14:54 Consult to Cardiac Rehabilitation [CONS] Routine Reason For Exam: Cardiac Rehab Evaluation [facility] Reason for admission: left-sided chest pain of one-day duration Condition: Fair Pertinent studies: Chest x-ray; normal Left heart catheterization this admission: Severe three-vessel coronary artery disease. Patent left internal mammary artery graft to the LAD. The circumflex system is only mildly diseased, except for a chronic total occlusion of the small caliber mid obtuse marginal branch. The right coronary artery is chronically totally occluded within a stent in the proximal segment. Left ventricle systolic function is well preserved, ejection fraction 50-55%. The patient's anatomy is unchanged from the cardiac catheterization 2 years a go, with no indication for any further revascularization procedures at this time. Hospital course: 58-year-old female presents with chest pain radiating to the left shoulder and right arm. Patient also has some shortness of breath. No diaphoresis no palpitations. Chest pain is about 6 on a scale of 1-10. His chest pain started since yesterday. No exacerbating or relieving factors. Patient also has some shortness of breath which is worse with exertion. No recent travel. Patient had coronary artery bypass surgery and coronary stents in the past. Recent stre ss test a few weeks ago was abnormal, however opted for medical management Patient was admitted evaluated by cardiology subsequently underwent heart cath findings as mentioned above Today patient is comfortable in no new complaints vital signs stable physical examination unremarkable Smoking cessation counseling done Patient is hemodynamically and clinically stable at discharge Cleared by cardiology for discharge and follow-up in the office per schedule Discharge Diagnosis: --abnormal stress test; on cardiac medications On 10/27/2018; large severe reversible defect in the inferior lateral wall consistent with ischemia in the right coronary artery or circumflex artery distribution. EF48% As per records medical management was opted at that time --Persistent intermittent chest pain ; s/p heart cath today The patient's anatomy is unchanged from the cardiac catheterization 2 years ago, with no indication for any further revascularization procedures at this time. --History of coronary artery disease status post CABG; resume Ranexa, lisinopril, Imdur, beta blockers, pain medication cardiology consult --Type 2 diabetes mellitus; Accu-Chek sliding scale coverage and ADA diet, hold metformin --Hypokalemia: replace with Kcl,monitor electroplytes --Dyslipidemia; Lipitor, low-cholesterol diet --DVT prophylaxis; Lovenox --Ongoing tobacco use; smoking cessation counseling Preventive counseling spent 10 minutes, nicotine patch Disposition: DC- TO HOME OR SELFCARE Time spent for discharge: 34 min Core Measure Documentation - Palliative Care Palliative Care/ Comfort Measures: Not Applicable - Core Measures Any of the following diagnoses?: none Exam - Constitutional Vitals: Temp Pulse Resp BP Pulse Ox 97.9 F 74 16 136/54 96 12/15/18 03:42 12/15/18 05:03 12/15/18 03:42 12/15/18 03:42 12/15/18 03:42 General appearance: Present: no acute distress, well-nourished - EENT Eyes: Present: PERRL, EOM intact - Neck Neck: Present: supple, normal ROM - Respiratory Respiratory effort: normal Respiratory: bilateral: diminished, negative: rales, rhonchi, wheezing - Cardiovascular Rhythm: regular Heart Sounds: Present: S1 & S2 - Extremities Extremities: no ischemia, No edema - Abdominal General gastrointestinal: Present: soft, non-tender, non-distended, normal bowel sounds - Integumentary Integumentary: Present: clear, warm - Musculoskeletal Musculoskeletal: strength equal bilaterally - Psychiatric Psychiatric: appropriate mood/affect, cooperative - Neurologic Neurologic: CNII-XII intact, moves all extremities Plan Activity: advance as tolerated Diet: other (cardiac diet) Additional Instructions: Smoking cessation, nicotine patch as needed. Advised to comply with medications and diet follow-up visits. Start Metformin from tomorrow Follow up with: LUIS CARLOS GONZALEZ MD [Staff Physician] - 7 Days DIXON JESSICA CHAMBERS MD [Primary Care Provider] - 3-5 Days Prescriptions: Aspirin 325 mg PO DAILY #30 tablet Nicotine [Habitrol] 14 mg TD QDAY #30 patch ISOSORBIDE MONOnitrate [Imdur ER] 120 mg PO DAILY #30 tablet Ranolazine ER [Ranexa ER] 1,000 mg PO BID #60 tablet Lisinopril [Zestril TAB] 20 mg PO DAILY #30 tablet
[2018-12-15 16:18] VITALS: BP 111/44
== END 2018-12-15 14:51 | disposition home or self-care (01) | DRG 287 ==
LOC: ED 13:07 → 4A 15:14 → OBSVTOIN 12-13 11:20
PROVIDERS: ADMIT Internal Medicine; ATTEND Internal Medicine
PROC: 3E0234Z Introduction of Serum, Toxoid and Vaccine into Muscle, Percutaneous Approach (ICD-10-PCS; 2018-12-13)
PROC: 4A023N7 Measurement of Cardiac Sampling and Pressure, Left Heart, Percutaneous Approach (ICD-10-PCS; principal; 2018-12-14)
PROC: B2111ZZ Fluoroscopy of Multiple Coronary Arteries using Low Osmolar Contrast (ICD-10-PCS; 2018-12-14)
PROC: B2181ZZ Fluoroscopy of Left Internal Mammary Bypass Graft using Low Osmolar Contrast (ICD-10-PCS; 2018-12-14)
PROC: B2151ZZ Fluoroscopy of Left Heart using Low Osmolar Contrast (ICD-10-PCS; 2018-12-14)
DX: I25.119 Atherosclerotic heart disease of native coronary artery with unspecified angina pectoris (principal); E87.6 Hypokalemia; T82.855A Stenosis of coronary artery stent, initial encounter; Y83.2 Surgical operation with anastomosis, bypass or graft as the cause of abnormal reaction of the patient, or of later complication, without mention of misadventure at the time of the procedure; F17.200 Nicotine dependence, unspecified, uncomplicated; E11.9 Type 2 diabetes mellitus without complications; I10 Essential (primary) hypertension; M19.90 Unspecified osteoarthritis, unspecified site; G43.909 Migraine, unspecified, not intractable, without status migrainosus; G47.30 Sleep apnea, unspecified; J45.909 Unspecified asthma, uncomplicated; E78.2 Mixed hyperlipidemia; Z91.14 Patient's other noncompliance with medication regimen; Z79.82 Long term (current) use of aspirin; Y92.89 Other specified places as the place of occurrence of the external cause; Z71.6 Tobacco abuse counseling; Z95.1 Presence of aortocoronary bypass graft; Z79.899 Other long term (current) drug therapy; I25.2 Old myocardial infarction; Z95.5 Presence of coronary angioplasty implant and graft; Z90.49 Acquired absence of other specified parts of digestive tract; Z82.49 Family history of ischemic heart disease and other diseases of the circulatory system; Z91.041 Radiographic dye allergy status; Z91.013 Allergy to seafood; Z88.1 Allergy status to other antibiotic agents; Z79.4 Long term (current) use of insulin; Z23 Encounter for immunization
CPT/HCPCS: 36415; 71046; 80048; 80053; 82550; 82553; 82962; 83036; 83690; 83735; 83880; 84132; 84484; 85025; 85610; 85730; 86850; 86900; 86901; 90732; 93005; 93010; 93459; G0378; C1769; C1894; J0360; J1170; J1200; J1644; J1720; J1815; J2250; J2270; J2405; J2785; J3010; J7040; Q9967

== ENCOUNTER 2019-04-04 02:10 | Inpatient (IN) | payer MEDICAID ==
--- NOTE | 2019-04-04 02:20 | Emergency Department Report ---
ED Neuro Deficit HPI - General Chief Complaint: Neuro Symptoms/Deficit Stated Complaint: HIGH BP Time Seen by Provider: 04/04/19 02:15 Source: patient, EMS (verbal report received from EMS. EMS documentation not available at time of chart dictation ), RN notes reviewed, old records reviewed Mode of arrival: Stretcher Limitations: Physical Limitation - History of Present Illness Initial Comments: This is a 58-year-old female. This patient has a complex an extensive past medical history, including heart disease, CABG, diabetes, high cholesterol The patient is brought to the hospital by emergency medical services. Patient states that at around 9:30 PM last night, she developed visual symptoms, including blurry vision, and visual loss. She also had left-sided headache, left-sided facial droop, and left-sided weakness. The headache is not described as sudden or thunderclap in nature. There is no vomiting. She has mild crampy abdominal pain. She endorses dysuria. Emergency medical services report that left-sided facial droop developed while in the emergency room. The patient contacted 911 with a complaint of hypertension. Her primary care doctor is Dr. Stephens -: Gradual, hour(s) Location: left face, left arm, left leg Presenting Symptoms: Present: Blurred/Loss of Vision History of same: No Place: home Severity: moderate Improves With: none Worsens With: none On Anticoagulants: Yes Context: gradual onset - Related Data Home Medications: Home Medications Medication Instructions Recorded Confirmed Last Taken metFORMIN [Glucophage] 1,000 mg PO BID 10/26/18 12/09/18 10/25/18 Detemir (Nf) [Levemir (Nf)] 40 units SUB-Q BID 12/09/18 12/09/18 Unknown Gabapentin 100 mg PO TID 12/09/18 12/09/18 Unknown amLODIPine 10 mg PO DAILY 12/09/18 12/09/18 Unknown Previous Rx's Medication Instructions Recorded Last Taken Type Nitroglycerin [Nitrostat] 0.4 mg SL .Q5MIN PRN #30 tablet 06/10/17 10/25/18 Rx Aspirin 325 mg PO DAILY #30 tablet 12/15/18 Unknown Rx ISOSORBIDE MONOnitrate [Imdur ER] 120 mg PO DAILY #30 tablet 12/15/18 Unknown Rx Lisinopril [Zestril TAB] 20 mg PO DAILY #30 tablet 12/15/18 Unknown Rx Nicotine [Habitrol] 14 mg TD QDAY #30 patch 12/15/18 Unknown Rx Ranolazine ER [Ranexa ER] 1,000 mg PO BID #60 tablet 12/15/18 Unknown Rx Allergies/Adverse Reactions: Allergies Allergy/AdvReac Type Severity Reaction Status Date / Time insulin glargine, human AdvReac Unknown Verified 10/26/18 12:10 recombin. a [From Lantus] shellfish derived AdvReac Unknown Verified 10/26/18 12:10 Flu Vaccine AdvReac Rash Uncoded 06/07/17 03:27 IV Dye AdvReac Unknown Uncoded 06/07/17 03:27 ED Review of Systems ROS: Stated complaint: HIGH BP Other details as noted in HPI Constitutional: malaise Eyes: eye pain, vision change ENT: denies: congestion Respiratory: denies: wheezing Cardiovascular: denies: syncope Gastrointestinal: denies: nausea, vomiting Genitourinary: dysuria Musculoskeletal: myalgia Skin: denies: lesions Neurological: headache, weakness Hematological/Lymphatic: denies: easy bleeding ED Past Medical Hx - Past Medical History Hx Hypertension: Yes Hx Heart Attack/AMI: Yes Hx Diabetes: Yes Hx Arthritis: Yes Hx Headaches / Migraines: Yes Hx Asthma: Yes Additional medical history: lupus, Gastroparesis. sleep apnea, CPAP - Surgical History Hx Coronary Stent: Yes Hx Open Heart Surgery: Yes Hx Cholecystectomy: Yes Additional Surgical History: stent placed in left lower extremity - Social History Smoking Status: Former Smoker - Medications Home Medications: Home Medications Medication Instructions Recorded Confirmed Last Taken Type Nitroglycerin [Nitrostat] 0.4 mg SL .Q5MIN PRN #30 tablet 06/10/17 12/09/18 10/25/18 Rx metFORMIN [Glucophage] 1,000 mg PO BID 10/26/18 12/09/18 10/25/18 History Detemir (Nf) [Levemir (Nf)] 40 units SUB-Q BID 12/09/18 12/09/18 Unknown History Gabapentin 100 mg PO TID 12/09/18 12/09/18 Unknown History amLODIPine 10 mg PO DAILY 12/09/18 12/09/18 Unknown History Aspirin 325 mg PO DAILY #30 tablet 12/15/18 Unknown Rx ISOSORBIDE MONOnitrate [Imdur ER] 120 mg PO DAILY #30 tablet 12/15/18 Unknown Rx Lisinopril [Zestril TAB] 20 mg PO DAILY #30 tablet 12/15/18 Unknown Rx Nicotine [Habitrol] 14 mg TD QDAY #30 patch 12/15/18 Unknown Rx Ranolazine ER [Ranexa ER] 1,000 mg PO BID #60 tablet 12/15/18 Unknown Rx ED Neuro Physical Exam - General Limitations: No Limitations, Physical Limitation General appearance: alert, anxious, obese Suspected Stroke: Yes - Head Head exam: Present: atraumatic, normocephalic - Eye Eye exam: Present: normal appearance, PERRL. Absent: EOMI (there is a right- sided medial rectus palsy. The right eye cannot adduct past midline. Right- sided ocular abduction, elevation, depression intact. Left-sided ocular movements are intact.) - ENT ENT exam: Present: normal exam, normal orophraynx, mucous membranes moist, normal external ear exam - Neck Neck exam: Present: normal inspection, full ROM. Absent: tenderness, meningismus - Respiratory Respiratory exam: Present: normal lung sounds bilaterally. Absent: respiratory distress - Cardiovascular Cardiovascular Exam: Present: regular rate, normal rhythm, normal heart sounds. Absent: bradycardia, tachycardia, irregular rhythm, systolic murmur, diastolic murmur, rubs, gallop - GI/Abdominal GI/Abdominal exam: Present: soft. Absent: distended, tenderness, guarding, rebound, rigid, pulsatile mass - Extremities Exam Extremities exam: Present: normal inspection, other (2+ pulses noted in the bilateral upper extremities. There is no long bony tenderness. 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 Absent: full ROM - Back Exam Back exam: Present: normal inspection - Neurological Exam Neurological exam: Present: alert, oriented X3, motor sensory deficit - NIHSS Assessment Interval: Baseline 1a. Level of Consciousness: alert/keenly responsive 1b. LOC Questions: answers both correctly 1c. LOC Commands: performs tasks correctly 2. Best Gaze: partial gaze palsy 3. Visual: no visual loss 4. Facial Palsy: minor paralysis 5b. Motor Arm Right: no drift 5a. Motor Arm Left: drift 6a. Motor Leg Left: some gravity effort 6b. Motor Leg Right: no drift 7. Limb Ataxia: absent 8. Sensory: normal 9. Best Language: no aphasia 10. Dysarthria: normal 11. Extinction/Inattention: no abnormality Total Score: 5 Stroke Severity: Moderate Stroke - Psychiatric Psychiatric exam: Present: normal affect, normal mood - Skin Skin exam: Present: warm, dry, intact, normal color. Absent: rash ED Course Vital Signs 04/04/19 02:37 Temperature 98.2 F Pulse Rate 91 H Respiratory 19 Rate Blood Pressure 232/94 Blood Pressure 232/94 [Left] O2 Sat by Pulse 99 Oximetry - Reevaluation(s) Reevaluation #1: 04/04/19 04:48 CT angiogram show stenoses, however, no large vessel occlusions are noted. X-ray the chest is unremarkable. Hospital physician, Dr. Prince has accepted the patient to the medical service. - Lab Data Result diagrams: 04/04/19 02:59 04/04/19 02:59 Lab Results 04/04/19 04/04/19 04/04/19 Range/Units 02:24 02:59 02:59 WBC 8.6 (4.5-11.0) K/mm3 RBC 4.85 (3.65-5.03) M/mm3 Hgb 14.2 (10.1-14.3) gm/dl Hct 40.9 (30.3-42.9) % MCV 84 (79-97) fl MCH 29 (28-32) pg MCHC 35 H (30-34) % RDW 14.3 (13.2-15.2) % Plt Count 241 (140-440) K/mm3 Lymph % (Auto) 33.9 (13.4-35.0) % [place] % (Auto) 5.9 (0.0-7.3) % Eos % (Auto) 2.6 (0.0-4.3) % Baso % (Auto) 1.5 (0.0-1.8) % Lymph # 2.9 (1.2-5.4) K/mm3 [place] # 0.5 (0.0-0.8) K/mm3 Eos # 0.2 (0.0-0.4) K/mm3 Baso # 0.1 (0.0-0.1) K/mm3 Seg Neutrophils % 56.1 (40.0-70.0) % Seg Neutrophils # 4.8 (1.8-7.7) K/mm3 PT 12.2 (12.2-14.9) Sec. INR 0.91 (0.87-1.13) APTT 29.1 (24.2-36.6) Sec. Thrombin Time (15.1-19.6) Sec. Sodium (137-145) mmol/L Potassium (3.6-5.0) mmol/L Chloride (98-107) mmol/L Carbon Dioxide (22-30) mmol/L Anion Gap mmol/L BUN (7-17) mg/dL Creatinine (0.7-1.2) mg/dL Estimated GFR ml/min BUN/Creatinine Ratio % Glucose (65-100) mg/dL POC Glucose 252 H (70-105) Calcium (8.4-10.2) mg/dL Total Bilirubin (0.1-1.2) mg/dL AST (5-40) units/L ALT (7-56) units/L Alkaline Phosphatase (35-129) units/L Total Creatine Kinase (30-135) units/L CK-MB (CK-2) (0.0-4.0) ng/mL CK-MB (CK-2) Rel Index (0-4) Troponin T (0.00-0.029) ng/mL Total Protein (6.3-8.2) g/dL Albumin (3.9-5) g/dL Albumin/Globulin Ratio % 04/04/19 04/04/19 Range/Units 02:59 02:59 WBC (4.5-11.0) K/mm3 RBC (3.65-5.03) M/mm3 Hgb (10.1-14.3) gm/dl Hct (30.3-42.9) % MCV (79-97) fl MCH (28-32) pg MCHC (30-34) % RDW (13.2-15.2) % Plt Count (140-440) K/mm3 Lymph % (Auto) (13.4-35.0) % [place] % (Auto) (0.0-7.3) % Eos % (Auto) (0.0-4.3) % Baso % (Auto) (0.0-1.8) % Lymph # (1.2-5.4) K/mm3 [place] # (0.0-0.8) K/mm3 Eos # (0.0-0.4) K/mm3 Baso # (0.0-0.1) K/mm3 Seg Neutrophils % (40.0-70.0) % Seg Neutrophils # (1.8-7.7) K/mm3 PT (12.2-14.9) Sec. INR (0.87-1.13) APTT (24.2-36.6) Sec. Thrombin Time 17.2 (15.1-19.6) Sec. Sodium 140 (137-145) mmol/L Potassium 3.6 (3.6-5.0) mmol/L Chloride 105.3 (98-107) mmol/L Carbon Dioxide 21 L (22-30) mmol/L Anion Gap 17 mmol/L BUN 17 (7-17) mg/dL Creatinine 0.8 (0.7-1.2) mg/dL Estimated GFR > 60 ml/min BUN/Creatinine Ratio 21 % Glucose 249 H (65-100) mg/dL POC Glucose (70-105) Calcium 8.6 (8.4-10.2) mg/dL Total Bilirubin 0.20 (0.1-1.2) mg/dL AST 12 (5-40) units/L ALT 9 (7-56) units/L Alkaline Phosphatase 75 (35-129) units/L Total Creatine Kinase 65 (30-135) units/L CK-MB (CK-2) 2.8 (0.0-4.0) ng/mL CK-MB (CK-2) Rel Index 4.3 H (0-4) Troponin T < 0.010 (0.00-0.029) ng/mL Total Protein 6.0 L (6.3-8.2) g/dL Albumin 3.0 L (3.9-5) g/dL Albumin/Globulin Ratio 1.0 % Vital Signs 04/04/19 02:37 Temperature 98.2 F Pulse Rate 91 H Respiratory 19 Rate Blood Pressure 232/94 Blood Pressure 232/94 [Left] O2 Sat by Pulse 99 Oximetry Lab Results 04/04/19 04/04/19 Range/Units 02:24 02:59 WBC 8.6 (4.5-11.0) K/mm3 RBC 4.85 (3.65-5.03) M/mm3 Hgb 14.2 (10.1-14.3) gm/dl Hct 40.9 (30.3-42.9) % MCV 84 (79-97) fl MCH 29 (28-32) pg MCHC 35 H (30-34) % RDW 14.3 (13.2-15.2) % Plt Count 241 (140-440) K/mm3 Lymph % (Auto) 33.9 (13.4-35.0) % [place] % (Auto) 5.9 (0.0-7.3) % Eos % (Auto) 2.6 (0.0-4.3) % Baso % (Auto) 1.5 (0.0-1.8) % Lymph # 2.9 (1.2-5.4) K/mm3 [place] # 0.5 (0.0-0.8) K/mm3 Eos # 0.2 (0.0-0.4) K/mm3 Baso # 0.1 (0.0-0.1) K/mm3 Seg Neutrophils % 56.1 (40.0-70.0) % Seg Neutrophils # 4.8 (1.8-7.7) K/mm3 POC Glucose 252 H (70-105) - EKG Data -: EKG Interpreted by Or EKG shows normal: sinus rhythm Rate: normal 04/04/19 03:23 The EKG shows a sinus rhythm, 85 bpm, left axis deviation, QTC is 481 ms, there is left ventricular hypertrophy, nonspecific T-wave abnormalities, the EKG is abnormal, the EKG is not consistent with ST elevation myocardial infarction. - Radiology Data Radiology results: report reviewed, image reviewed Noncontrast CT scan of the brain is negative for acute disease. CT angiogram head and neck pending interpretation. Print Report Print Report Referring Physician: IOANA BILLIGNSLEY Patient Name: GERTRUDE YU Date of : 1960 Sex: Female Report Date: 2019-04-04 Report Status: Finalized Findings [address] [address] Cat Scan Report Signed Patient: GERTRUDE YU MR#: [id number] : 1960 Acct:[id number] Age/Sex: 58 / F ADM Date: 04/04/19 Loc: ED Attending Dr: Ordering Physician: IOANA BILLINGSLEY MD Date of Service: 04/04/19 Procedure(s): CT angio head Accession Number(s): [id number] cc: IOANA BILLINGSLEY MD CT ANGIOGRAM BRAIN: 04/04/2019 04/04/2019 HISTORY: Facial weakness FINDINGS: Contrast- enhanced CT angiographic images of the intracranial circulation were obtained. In addition to the axial images, sagittal and coronal reformatted images were obtained. In addition, 3 plane MIP reconstructions were produced. There is prominent atherosclerotic vascular calcification associated distal internal carotid arteries at the level of the cavernous sinuses, associated significant segmental stenosis pseudocapsule sinuses bilaterally. Stenosis in the range of 80-90%. There is no evidence of occlusion. Intracranial vascular contours demonstrate no evidence of narrowing or occlusion. There is no evidence of aneurysm. Vertebrobasilar system is unremarkable. IMPRESSION: Bilateral atherosclerotic stenosis of the distal internal carotid arteries at the level of the cavernous sinuses bilaterally. All CT scans at this location are performed using dose reduction to ALARA by means of automated exposure control. Signer Name: Ari Valencia MD Signed: 04/04/2019 4:41 AM Workstation Name: [id number] Transcribed By: AO Dictated By: Ari Valencia MD Electronically Authenticated By: Ari Valencia MD Signed Date/Time: 04/04/19440 DD/ 7 TD/TT: Referring Physician: IOANA BILLINGSLEY Patient Name: GERTRUDE YU Date of : 1960 Sex: Female Report Date: 2019-04-04 Report Status: Finalized Findings [address] [address] XRay Report Signed Patient: GERTRUDE YU MR#: [id number] : 1960 Acct:[id number] Age/Sex: 58 / F ADM Date: 04/04/19 Loc: ED Attending Dr: Ordering Physician: IOANA BILLINGSLEY MD Date of Service: 04/04/19 Procedure(s): XR chest 1V ap Accession Number(s): [id number] cc: IOANA BILLINGSLEY MD Fluoro Time In Minutes: CHEST 1 VIEW INDICATION / CLINICAL INFORMATION: htn cva weak. COMPARISON: 12/09/2018 FINDINGS: SUPPORT DEVICES: None. HEART / MEDIASTINUM: Sternotomy. Cardiac silhouette size is upper limits of normal. Calcified coronary graft/stent is noted. LUNGS / PLEURA: No significant pulmonary or pleural abnormality. No pneumothorax. ADDITIONAL FINDINGS: No significant additional findings. IMPRESSION: 1. No acute pulmonary disease. Signer Name: Hillary Zarco MD Signed: 04/04/2019 3:52 AM Workstation Name: [email or web address] Transcribed By: JR Dictated By: Hillary Zarco MD Electronically Authenticated By: Hillary Zarco MD Signed Date/Time: 04/04/19351 DD/ 0 TD/TT: [email or web address] Report Referring Physician: IOANA BILLINGSLEY Patient Name: GETRRUDE YU Date of : 1960 Sex: Female Report Date: 2019-04-04 Report Status: [place] [address] Cat Scan Report Signed Patient: GERTRUDE YU MR#: [id number] : 1960 Acct:[id number] Age/Sex: 58 / F ADM Date: 04/04/19 Loc: ED Attending Dr: Ordering Physician: IOANA BILLINGSLEY MD Date of Service: 04/04/19 Procedure(s): CT angio neck Accession Number(s): [id number] cc: IOANA BILLINGSLEY MD NECK CT ANGIOGRAM 03/25/2019 HISTORY: Right facial weakness FINDINGS: Contrast-enhanced CT angiographic images of the neck were obtained. In addition to the axial images, sagittal and coronal reformatted images were obtained. In addition, 3 plane MIP reconstructions were produced. Atherosclerotic vascular calcifications are present at the bifurcations bilaterally. This results in narrowing at the origin of the internal carotid arteries. On the right, there is high-grade stenosis of 80-90%. On the left, there is high-grade stenosis of 70%. The common and internal carotid arteries are otherwise unremarkable. Vertebral arteries are relatively hypoplastic on a developmental basis. Incidental note is made of a 1.6 cm right thyroid nodule. IMPRESSION: Bilateral high-grade stenosis at the origin of the internal carotid arteries. Incidental right thyroid nodule. INCIDENTAL THYROID NODULE RECOMMENDATIONS Nonpalpable nodules detected on US or other anatomic imaging studies are termed incidentally discovered nodules or incidentalomas. Nonpalpable nodules have the same risk of malignancy as palpable nodules with the same size. Generally, only nodules >1 cm should be evaluated, since they have a greater potential to be clinically significant cancers. (DEVAN, 2009). Follow up for incidental thyroid nodules <1 cm is not recommended. In patients <35 years with an incidental thyroid nodule detected on CT, MRI, or extrathyroidal ultrasound, dedicated thyroid ultrasound is recommended if the nodule is 1 cm, has no suspicious imaging features, and if the patient has normal life expectancy. In patients 35 years with an incidental thyroid nodule detected on CT, MRI, or extrathyroidal ultrasound, dedicated thyroid ultrasound is recommended if the nodule is 1.5 cm, has no suspicious imaging features, and if the patient has normal life expectancy. NASCET like criteria were used in this evaluation. All CT scans at this location are performed using dose reduction to ALARA by means of automated exposure control. Signer Name: Ari Valencia MD Signed: 04/04/2019 4:38 AM Workstation Name: [id number] Transcribed By: LINCOLN Dictated By: Ari Valencia MD Electronically Authenticated By: Ari Valencia MD Signed Date/Time: 04/04/19437 DD/ 3 - Medical Decision Making Differential diagnosis, including not limited to: Stroke, pneumonia, urinary tract infection, multiple sclerosis Assessment and plan: 58-year-old female who presents more than 4.5 hours after neurologic symptom onset, including visual disturbance, headache, facial droop, and left-sided weakness. She has hypertension, we will allow for permissive hypertension. Given that patient presents more than 4.5 hours after symptom onset, she is not a TPA candidate. This is unlikely to be a large vessel occlusion, especially given bilateral neurologic symptoms, however, we will obtain CT angiogram head and neck. We will also obtain x-ray of the chest and urinalysis. Screening laboratory studies are requested. Patient seen in conjunction with stroke neurology, Dr. Aylin Brown, who agrees with this plan of care, and also corroborates that patient not appropriate for TPA at this time. - Core Measures Measure Exclusions: not indicated - Thrombolytic Inclusion/Exclusion Thrombolytic Exclusion Criteria: Symptom Onset > 3 Hours Thrombolytic Contraindications: Systolic Pressure > 185 Critical care attestation.: If time is entered above; I have spent that time in minutes in the direct care of this critically ill patient, excluding procedure time. ED Disposition Clinical Impression: Stroke Disposition: DC-09 OP ADMIT IP TO THIS HOSP Is pt being admited?: Yes Does the pt Need Aspirin: Yes Condition: Stable Referrals: PRIMARY CARE, [Primary Care Provider] - 3-5 Days
[2019-04-04] MEDS ORDERED: SODIUM CHLORIDE 0.9% 250ML 250 ML IV ONE (02:35)
--- NOTE | 2019-04-04 02:38 | Cat Scan Report ---
CT head/brain wo con INDICATION / CLINICAL INFORMATION: MAIN: STROKE ALERT. RT FACIAL DROOPING. [phone]. TECHNIQUE: Axial CT imaging of the brain was obtained without contrast. Coronal and sagittal reformatted imaging obtained and reviewed. All CT scans at this location are performed using CT dose reduction for ALAR A by means of automated exposure control. COMPARISON: Prior head CT, 03/02/2018 FINDINGS: No intracranial hemorrhage, mass, or midline shift is noted. No extra-axial fluid collection or evide nce for acute territorial infarction. Ventricular system and basilar cisterns are unremarkable. Visualized paranasal sinuses and mastoid air cells are well aerated and clear. No calvarial abnormali ty noted. IMPRESSION: 1. No acute intracranial abnormality. 2. A negative head CT report was called to the ED. 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 Jimenez Signer Name: Hillary Zarco MD Signed: 04/04/2019 2:34 AM Workstation Name: [email or web address]
[2019-04-04] MEDS ORDERED: ASPIRIN 81 MG TAB CHEW PO ONE (03:11)
--- NOTE | 2019-04-04 03:11 | Emergency Department Report ---
ED Neuro Deficit HPI - General Chief Complaint: Neuro Symptoms/Deficit Stated Complaint: HIGH BP Time Seen by Provider: 04/04/19 02:15 Source: patient, EMS Mode of arrival: Stretcher Limitations: Physical Limitation - History of Present Illness Initial Comments: [facility] TeleStroke Metrics: LKW: 2130 Door Time: 0210 [facility] Contacted: 021 [facility] at Bedside: 0223 NIHSS: 0228 Decision on Alteplase: Not to give as her last known well time is greater than 4.5 hours prior to her presentation. Interventional Candidate: Not a candidate as her symptoms are not consistent with a large vessel proximal occlusion. Chief Complaint: Headaches, visual changes, and left-sided numbness HPI: Asked to see this patient in emergent telemedicine consultation utilizing interactive audio and video technologies. Consultation was performed with assistance of ancillary / medical staff at bedside. Verbal consent to perform the examination with telemedicine was obtained. Patient agreed to proceed with the consultation for acute stroke protocol. 58-year-old right-handed -[place] female who comes to the emergency room by EMS for evaluation of elevated blood pressures and neurological symptoms. She states she currently takes aspirin and Plavix. She is an active smoker. Patient states that sometime around 9:30 PM last night, she developed right eye pain, transient right eye vision loss, and double vision. She also described left frontotemporal sharp headache pains. She apparently called EMS due to her elevated blood pressures. She admittedly had not taken her blood pressure medications over the last several days. Rather than come to the emergency room, she decided to take her blood pressure pills and see how she would feel over the next several hours. By 1:30 AM, she continued to have her headaches and elevated blood pressures. She states her blood pressure was still 191/106 despite restarting her blood pressure medications. She also at some point developed tongue numbness and slurred speech. PMH: Significant for lupus, hypertension, hyperlipidemia, migraine headaches, coronary artery disease with prior CABG and coronary stents, right BKA, and diabetes mellitus SOC: Positive for tobacco abuse. Negative x2. She lives with family. FMH: Positive for stroke. ROS: 13 point review of systems were reviewed with the patient, and are all negative with the exception of the aforementioned in the history of present illness. VS: Nothing documented yet. Exam: Patient is in no apparent distress. Patient appears as stated age. No obvious acute respiratory or cardiac distress. Patient is well groomed and well-nourished. 1a- LOC: Keenly responsive - 0 1b- LOC questions: Answers both questions correctly - 0 1c- LOC commands- Performs both tasks correctly- 0 2- Gaze: Normal; no gaze paresis or gaze deviation - 0 3- Visual Logn: normal, no Visual field deficit - 0 4- Facial movements: no facial palsy - 0 5- Upper limb motor bilateral arm drifts - 2 6- Lower limb motor left leg drift - 2 7- Limb Coordination: absent ataxia - 0 8- Sensory: left sensory loss - 1 9- Language - No aphasia - 0 10- Speech - Mild dysarthria - 1 11- Neglect / Extinction - none found - 0 NIHSS score: 6 Diagnostic Data: CT of the head was reportedly negative. Blood glucose 252 Medical Data Reviewed: 1.Data?reviewed include clinical labs, radiology,?and medical tests; 2.Tests?results discussed w/performing or interpreting physician; 3.Obtaining/reviewing old medical records; 4.Obtaining?case history from another source; 5.Independent?review of image, tracing, or specimen. Medical Decision Making: - Extensive number of diagnosis or management options are considered below. - Extensive amount of complex data reviewed. - High risk of complication and/or morbidity or mortality are associated with differential diagnostic considerations below. - There may be?uncertain?outcome and increased probability of prolonged functional impairment or high probability of severe prolonged functional impairment associated with some of these differential diagnosis. Differential Diagnosis for Stroke: 1.?Cardioembolic?stroke 2. Small vessel disease/lacune 3. Thromboembolic, [id number]-[id number] mechanism 4.?Hypercoagulable?state-related infarct 5. Transient ischemic attack 6. Thrombotic mechanism, large artery disease Assessment: 1. Possible acute brainstem stroke 2. Hypertension 3. Hyperlipidemia 4. History of lupus 5. Migraine headaches 6. Coronary artery disease status post CABG and coronary stents 7. Right BKA 8. Diabetes mellitus 9. Tobacco abuse Recommendations: Reasonable to obtain a CTA of the head and neck to further evaluate her intracranial and extracranial blood vessels, with particular attention to the posterior circulation. Patient can be admitted to the hospital for further work-up of her symptoms. Maintain the patient on her aspirin and Plavix. Allow permissive hypertension. Check MRI brain without contrast to rule out any acute intracranial process. Check echocardiogram to gauge her cardiac function. Maintain the patient on telemetry to look for paroxysmal atrial fibrillation. Check hemoglobin A1c, lipid panel, and urine drug screen. Consult PT, OT, and ST. Consult local neurology team to assist with evaluation and management. Continue supportive care. Thank you for allowing [facility] to participate in the care of your patient. Please call me, Dr. Macias, with any questions at [phone]. Case discussed with the ER staff and Dr. Jimenez. Critical Care notation: I was called to see this critical patient emergently. I personally evaluated this critical patient for acute stroke evaluation, and determining their eligib ility for IV Alteplase and interventional therapies. I have spent approximately 11 minutes with the patient, including time at bedside, time discussing the case with other physicians, reviewing plan of care, and time independently reviewing the records and scans. - Related Data Home Medications: Home Medications Medication Instructions Recorded Confirmed Last Taken metFORMIN [Glucophage] 1,000 mg PO BID 10/26/18 12/09/18 10/25/18 Detemir (Nf) [Levemir (Nf)] 40 units SUB-Q BID 12/09/18 12/09/18 Unknown Gabapentin 100 mg PO TID 12/09/18 12/09/18 Unknown amLODIPine 10 mg PO DAILY 12/09/18 12/09/18 Unknown Previous Rx's Medication Instructions Recorded Last Taken Type Nitroglycerin [Nitrostat] 0.4 mg SL .Q5MIN PRN #30 tablet 06/10/17 10/25/18 Rx Aspirin 325 mg PO DAILY #30 tablet 12/15/18 Unknown Rx ISOSORBIDE MONOnitrate [Imdur ER] 120 mg PO DAILY #30 tablet 12/15/18 Unknown Rx Lisinopril [Zestril TAB] 20 mg PO DAILY #30 tablet 12/15/18 Unknown Rx Nicotine [Habitrol] 14 mg TD QDAY #30 patch 12/15/18 Unknown Rx Ranolazine ER [Ranexa ER] 1,000 mg PO BID #60 tablet 12/15/18 Unknown Rx Allergies/Adverse Reactions: Allergies Allergy/AdvReac Type Severity Reaction Status Date / Time insulin glargine, human AdvReac Unknown Verified 10/26/18 12:10 recombin. a [From Lantus] shellfish derived AdvReac Unknown Verified 10/26/18 12:10 Flu Vaccine AdvReac Rash Uncoded 06/07/17 03:27 IV Dye AdvReac Unknown Uncoded 06/07/17 03:27 ED Review of Systems ROS: Stated complaint: HIGH BP Other details as noted in HPI ED Past Medical Hx - Past Medical History Previous Medical History?: Yes Hx Hypertension: Yes Hx Heart Attack/AMI: Yes Hx Diabetes: Yes Hx Arthritis: Yes Hx Headaches / Migraines: Yes Hx Asthma: Yes Additional medical history: lupus, Gastroparesis, high cholesterol. sleep apnea, CPAP - Surgical History Past Surgical History?: Yes Hx Coronary Stent: Yes (x14) Hx Open Heart Surgery: Yes Hx Cholecystectomy: Yes Additional Surgical History: stent placed in left lower extremity, right BKA, - Social History Smoking Status: Current Every Day Smoker Substance Use Type: None - Medications Home Medications: Home Medications Medication Instructions Recorded Confirmed Last Taken Type Nitroglycerin [Nitrostat] 0.4 mg SL .Q5MIN PRN #30 tablet 06/10/17 12/09/18 10/25/18 Rx metFORMIN [Glucophage] 1,000 mg PO BID 10/26/18 12/09/18 10/25/18 History Detemir (Nf) [Levemir (Nf)] 40 units SUB-Q BID 12/09/18 12/09/18 Unknown History Gabapentin 100 mg PO TID 12/09/18 12/09/18 Unknown History amLODIPine 10 mg PO DAILY 12/09/18 12/09/18 Unknown History Aspirin 325 mg PO DAILY #30 tablet 12/15/18 Unknown Rx ISOSORBIDE MONOnitrate [Imdur ER] 120 mg PO DAILY #30 tablet 12/15/18 Unknown Rx Lisinopril [Zestril TAB] 20 mg PO DAILY #30 tablet 12/15/18 Unknown Rx Nicotine [Habitrol] 14 mg TD QDAY #30 patch 12/15/18 Unknown Rx Ranolazine ER [Ranexa ER] 1,000 mg PO BID #60 tablet 12/15/18 Unknown Rx ED Neuro Physical Exam - General Limitations: Physical Limitation Suspected Stroke: Yes - NIHSS Assessment Interval: Baseline 1a. Level of Consciousness: alert/keenly responsive 1b. LOC Questions: answers both correctly 1c. LOC Commands: performs tasks correctly 2. Best Gaze: normal 3. Visual: no visual loss 4. Facial Palsy: normal symmetrical movement 5b. Motor Arm Right: drift 5a. Motor Arm Left: drift 6a. Motor Leg Left: some gravity effort 6b. Motor Leg Right: no drift 7. Limb Ataxia: absent 8. Sensory: mild/moderate sensory loss 9. Best Language: no aphasia 10. Dysarthria: mild/moderate dysarthria 11. Extinction/Inattention: no abnormality Total Score: 6 Stroke Severity: Moderate Stroke ED Course Vital Signs 04/04/19 02:37 Temperature 98.2 F Pulse Rate 91 H Respiratory 19 Rate Blood Pressure 232/94 Blood Pressure 232/94 [Left] O2 Sat by Pulse 99 Oximetry - Lab Data Lab Results 04/04/19 Range/Units 02:24 POC Glucose 252 H (70-105) Critical care attestation.: If time is entered above; I have spent that time in minutes in the direct care of this critically ill patient, excluding procedure time. ED Disposition Clinical Impression: Stroke Disposition: [id number] OP ADMIT IP TO THIS HOSP Is pt being admited?: Yes Does the pt Need Aspirin: Yes Condition: Stable
[2019-04-04 03:18] LABS: Basophils # (Auto) 0.1 K/mm3 (0.0-0.1); Basophils % (Auto) 1.5 % (0.0-1.8); Eosinophils # (Auto) 0.2 K/mm3 (0.0-0.4); Eosinophils % (Auto) 2.6 % (0.0-4.3); Hematocrit 40.9 % (30.3-42.9); Hemoglobin 14.2 gm/dl (10.1-14.3); Lymphocytes # (Auto) 2.9 K/mm3 (1.2-5.4); Lymphocytes % (Auto) 33.9 % (13.4-35.0); Mean Corpuscular HGB Conc 35 % (30-34); Mean Corpuscular Volume 84 fl (79-97); Monocytes # (Auto) 0.5 K/mm3 (0.0-0.8); Monocytes % (Auto) 5.9 % (0.0-7.3); Platelet Count 241 K/mm3 (140-440); Red Blood Count 4.85 M/mm3 (3.65-5.03); Red Cell Distribution Width 14.3 % (13.2-15.2)
[2019-04-04 03:28] LABS: INR 0.91 (0.87-1.13)
[2019-04-04 03:29] LABS: Partial Thromboplastin Time 29.1 Sec. (24.2-36.6)
--- NOTE | 2019-04-04 03:56 | XRay Report ---
CHEST 1 VIEW INDICATION / CLINICAL INFORMATION: htn cva weak. COMPARISON: 12/09/2018 FINDINGS: SUPPORT DEVICES: None. HEART / MEDIASTINUM: Sternotomy. Cardiac silhouette size is upper limits of normal. Calcified coronar y graft/stent is noted. LUNGS / PLEURA: No significant pulmonary or pleural abnormality. No pneumothorax. ADDITIONAL FINDINGS: No significant additional findings. IMPRESSION: 1. No acute pulmonary disease. Signer Name: Hillary Zarco MD Signed: 04/04/2019 3:52 AM Workstation Name: [id number]
[2019-04-04 04:00] LABS: Creatine Kinase MB 2.8 ng/mL (0.0-4.0)
[2019-04-04 04:02] LABS: Alanine Aminotransferase 9 units/L (7-56); BUN/Creatinine Ratio 21; Blood Urea Nitrogen 17 mg/dL (7-17); Calcium 8.6 mg/dL (8.4-10.2); Hemolysis Index 9
[2019-04-04] MEDS ORDERED: hydrALAZINE 20 MG/1 ML INJ IV ONE (04:14)
--- NOTE | 2019-04-04 04:42 | Cat Scan Report ---
NECK CT ANGIOGRAM 03/25/2019 HISTORY: Right facial weakness FINDINGS: Contrast-enhanced CT angiographic images of the neck were obtained. In addition to the axia l images, sagittal and coronal reformatted images were obtained. In addition, 3 plane MIP reconstruct ions were produced. Atherosclerotic vascular calcifications are present at the bifurcations bilaterally. This results in narrowing at the origin of the internal carotid arteries. On the right, there is high-grade stenosis of 80-90%. On the left, there is high-grade stenosis of 70 %. The common and internal carotid arteries are otherwise unremarkable. Vertebral arteries are relatively hypoplastic on a developmental basis. Incidental note is made of a 1.6 cm right thyroid nodule. IMPRESSION: Bilateral high-grade stenosis at the origin of the internal carotid arteries. Incidental right thyroid nodule. INCIDENTAL THYROID NODULE RECOMMENDATIONS Nonpalpable nodules detected on US or other anatomic imaging studies are termed incidentally discover ed nodules or incidentalomas. Nonpalpable nodules have the same risk of malignancy as palpable nodule s with the same size. Generally, only nodules >1 cm should be evaluated, since they have a greater po tential to be clinically significant cancers. (DEVAN, 2009). Follow up for incidental thyroid nodules <1 cm is not recommended. In patients <35 years with an incidental thyroid nodule detected on CT, MRI, or extrathyroidal ultras ound, dedicated thyroid ultrasound is recommended if the nodule is 1 cm, has no suspicious imaging fe atures, and if the patient has normal life expectancy. In patients 35 years with an incidental thyroid nodule detected on CT, MRI, or extrathyroidal ultraso und, dedicated thyroid ultrasound is recommended if the nodule is 1.5 cm, has no suspicious imaging f eatures, and if the patient has normal life expectancy. NASCET like criteria were used in this evaluation. All CT scans at this location are performed using dose reduction to ALARA by means of automated expos ure control. Signer Name: Ari Valencia MD Signed: 04/04/2019 4:38 AM Workstation Name: [id number]
--- NOTE | 2019-04-04 04:46 | Cat Scan Report ---
CT ANGIOGRAM BRAIN: 04/04/2019 04/04/2019 HISTORY: Facial weakness FINDINGS: Contrast-enhanced CT angiographic images of the intracranial circulation were obtained. In addition to the axial images, sagittal and coronal reformatted images were obtained. In addition, 3 p mere MIP reconstructions were produced. There is prominent atherosclerotic vascular calcification associated distal internal carotid arteries at the level of the cavernous sinuses, associated significant segmental stenosis pseudocapsule sinus es bilaterally. Stenosis in the range of 80-90%. There is no evidence of occlusion. Intracranial vascular contours demonstrate no evidence of narrowing or occlusion. There is no evidenc e of aneurysm. Vertebrobasilar system is unremarkable. IMPRESSION: Bilateral atherosclerotic stenosis of the distal internal carotid arteries at the level o f the cavernous sinuses bilaterally. All CT scans at this location are performed using dose reduction to ALARA by means of automated expos ure control. Signer Name: Ari Valencia MD Signed: 04/04/2019 4:41 AM Workstation Name: [id number]
[2019-04-04] MEDS ORDERED: MAGNESIUM HYDROXIDE (MOM) ORAL LIQD UDC PO PRN (05:13)
[2019-04-04] MEDS ORDERED: ONDANSETRON 4 MG/2 ML INJ IV PRN (05:13)
[2019-04-04] MEDS ORDERED: ACETAMINOPHEN 325 MG TAB PO PRN (05:13)
--- NOTE | 2019-04-04 05:21 | History and Physical Report ---
History of Present Illness Date of examination: 04/04/19 History of present illness: 58 -year-old with a history of hypertension diabetes, coronary artery disease, benign, hyperlipidemia, lupus, sleep apnea comes emergency room with complaints of blood pressure being too high and having blurred vision, left sided headache and leg weakness. Patient says she has not taken any antihypertensives since Thursday Review Of Systems: Constitutional: no weight loss, fever, chills Ears, eyes, nose, mouth and throat: no nasal congestion, no nasal discharge, no sinus pressure, blurry vision, diplopia Neck: No neck pain or rigidity. Cardiovascular: No palpitations, chest pain Respiratory: No shortness of breath, cough Gastrointestinal: No hematochezia, abdominal pain Genitourinary : no dysuria, frequency Musculoskeletal: no muscle ache , joint pain Integumentary: no rash, no pruritis Neurological: no parathesias, focal weakness Endocrine: no cold or heat intolerance, no polyuria or polydipsia Hematologic/Lymphatic: no easy bruising, no easy bleeding, no gland swelling Allergic/Immunologic: no urticaria, no angioedema. PAST MEDICAL HISTORY:hypertension diabetes, coronary artery disease, benign, hyperlipidemia, lupus, sleep apnea PAST SURGICAL HISTORY: Right BKA, hysterectomy FAMILY HISTORY:hypertension, diabetes SOCIAL HISTORY: Denies drugs, alcohol, smokes half pack a day Medications and Allergies Allergies Allergy/AdvReac Type Severity Reaction Status Date / Time insulin glargine, human AdvReac Unknown Verified 10/26/18 12:10 recombin. a [From Lantus] shellfish derived AdvReac Unknown Verified 10/26/18 12:10 Flu Vaccine AdvReac Rash Uncoded 06/07/17 03:27 IV Dye AdvReac Unknown Uncoded 06/07/17 03:27 Home Medications Medication Instructions Recorded Confirmed Last Taken Type Nitroglycerin [Nitrostat] 0.4 mg SL .Q5MIN PRN #30 tablet 06/10/17 12/09/18 10/25/18 Rx metFORMIN [Glucophage] 1,000 mg PO BID 10/26/18 12/09/18 10/25/18 History Detemir (Nf) [Levemir (Nf)] 40 units SUB-Q BID 12/09/18 12/09/18 Unknown History Gabapentin 100 mg PO TID 12/09/18 12/09/18 Unknown History amLODIPine 10 mg PO DAILY 12/09/18 12/09/18 Unknown History Aspirin 325 mg PO DAILY #30 tablet 12/15/18 Unknown Rx ISOSORBIDE MONOnitrate [Imdur ER] 120 mg PO DAILY #30 tablet 12/15/18 Unknown Rx Lisinopril [Zestril TAB] 20 mg PO DAILY #30 tablet 12/15/18 Unknown Rx Nicotine [Habitrol] 14 mg TD QDAY #30 patch 12/15/18 Unknown Rx Ranolazine ER [Ranexa ER] 1,000 mg PO BID #60 tablet 12/15/18 Unknown Rx Exam - Physical Exam Narrative exam: General Apperance: The patient sitting in bed no acute distress HEENT: Normocephalic, atraumatic. Pupils equally round and reactive to light, extraocular movement intact, and no sclericterus or JVD or thyromegaly or nodule. Neck supple, no carotid bruit, mucous membranes moist, no exudate or erythema Heart: S1-S2, regular is rhythm Lungs: Clear to auscultation bilaterally, breathing comfortable Abdomen: Positive bowel sounds, soft, nontender, nondistended, no organomegaly Extremities: No edema cyanosis clubbing Skin: no rash, nodule, warm and dry Neuro:CN 2 -12 intact, LLE 4/5, facial droop, sensory intact, speech is fluent - Constitutional Vitals: Temp Pulse Resp BP Pulse Ox 98.2 F 91 H 19 232/94 99 04/04/19 02:37 04/04/19 02:37 04/04/19 02:37 04/04/19 02:37 04/04/19 02:37 Results - Labs CBC & Chem 7: 04/04/19 02:59 04/04/19 02:59 Labs: Abnormal lab results 04/04/19 04/04/19 04/04/19 Range/Units 02:24 02:59 02:59 MCHC 35 H (30-34) % Carbon Dioxide 21 L (22-30) mmol/L Glucose 249 H (65-100) mg/dL POC Glucose 252 H (70-105) CK-MB (CK-2) Rel Index 4.3 H (0-4) Total Protein 6.0 L (6.3-8.2) g/dL Albumin 3.0 L (3.9-5) g/dL - Imaging and Cardiology CT Scan - head: report reviewed Assessment and Plan CTA head and neck reviewed Assessment CVA Carotid stenosis without obstruction hypertension diabetes coronary artery disease hyperlipidemia lupus sleep apnea non Compliant Plan Admit to medicine Obtain MRI of the head, echo Start aspirin, statin IV hydralazine as needed for blood pressure control Consult neurology, physical and occupational, speech therapy Check fingersticks, initiate insulin sliding scale DVT prophylaxis Addendum patient failed swallow eval, hold oral medications
[2019-04-04] MEDS ORDERED: DEXTROSE 50% IN WATER (25GM) 50 ML SYRINGE IV PRN (05:26)
[2019-04-04] MEDS ORDERED: ENOXAPARIN 30 MG/0.3 ML INJ SUB-Q SCH (10:00)
[2019-04-04] MEDS ORDERED: ASPIRIN 325 MG TAB PO SCH (10:00)
--- NOTE | 2019-04-04 10:53 | Magnetic Resonance Report ---
MR brain wo con INDICATION / CLINICAL INFORMATION: 58 years Female; stroke. TECHNIQUE: Multiplanar, multisequence MR images of the brain were obtained. COMPARISON: CT - 04/04/2019 FINDINGS: BRAIN / INTRACRANIAL CONTENTS: Very small areas of ischemia seen in the midbrain, predominantly right koch of midline. Cortical spinal tract on the right is most likely involved. This finding is positive on ADC map as well, suggesting it is acute/subacute in age. Otherwise, no acute hemorrhage, mass effect, midline shift, hydrocephalus, or acute, large territoria l infarct. No chronic infarct or atrophy. No significant white matter abnormality. CRANIOCERVICAL JUNCTION: No significant abnormality. VASCULAR FLOW-VOIDS: Isointense T2 signal seen in the left vertebral artery, suggesting slow or no fl ow. Interviewing CTA of the head/neck from 04/04/2019, there is suggestion of multiple areas of signi ficant stenosis in the left vertebral artery normal with most marked findings at the level of foramen magnum. On the prior exam, mild narrowing is suggested in the right vertebral artery at the level of foramen magnum, as well. ORBITS: No significant abnormality of visualized orbits. SINUSES / MASTOIDS: No significant abnormality the visualized paranasal sinuses or mastoid air cells. ADDITIONAL FINDINGS: None. IMPRESSION: 1. Ischemic changes seen in the midbrain, as described above. 2. Multiple areas of narrowing suggested in the left vertebral artery as described above. Signer Name: Lukas Christine MD, III Signed: 04/04/2019 10:48 AM Workstation Name: [email or web address]
[2019-04-04] MEDS: ENOXAPARIN 40 MG/0.4 ML INJ SUB-Q SCH (11:17)
[2019-04-04] MEDS: ASPIRIN 300 MG RECT SUPP PR SCH (11:18)
[2019-04-04] MEDS: hydrALAZINE 20 MG/1 ML INJ IV PRN ×2 (12:22→22:23)
[2019-04-04] MEDS ORDERED: ACETAMINOPHEN 650 MG RECT SUPP PR PRN (13:53)
[2019-04-04] MEDS: KETOROLAC 30 MG/1 ML INJ IV PRN ×2 (17:41→22:21)
[2019-04-04] MEDS: SODIUM CHLORIDE 0.45% 1000 ML 1,000 ML IV SCH (17:45)
[2019-04-04 17:55] LABS: Bacteria,Urine 1+ /HPF (Negative); Bilirubin,Urine NEG (Negative); Blood,Urine MOD (Negative); Color,Urine Yellow (Yellow); Urobilinogen,Urine < 2.0 mg/dL (<2.0)
[2019-04-04 18:02] LABS: Amphetamine Screen,Urine PRESUMPTIVE NEGATIVE; Benzodiazepines Screen,Urine PRESUMPTIVE NEGATIVE; Cannabinoid Screen,Urine PRESUMPTIVE NEGATIVE; Cocaine Screen,Urine PRESUMPTIVE NEGATIVE; Methadone Screen,Urine PRESUMPTIVE NEGATIVE; Opiate Screen,Urine PRESUMPTIVE NEGATIVE
--- NOTE | 2019-04-04 19:30 | Consultation ---
Medications and Allergies Allergies Allergy/AdvReac Type Severity Reaction Status Date / Time insulin glargine, human AdvReac Unknown Verified 10/26/18 12:10 recombin. a [From Lantus] shellfish derived AdvReac Unknown Verified 10/26/18 12:10 Flu Vaccine AdvReac Rash Uncoded 06/07/17 03:27 IV Dye AdvReac Unknown Uncoded 06/07/17 03:27 Home Medications Medication Instructions Recorded Confirmed Last Taken Type Nitroglycerin [Nitrostat] 0.4 mg SL .Q5MIN PRN #30 tablet 06/10/17 12/09/18 10/25/18 Rx metFORMIN [Glucophage] 1,000 mg PO BID 10/26/18 12/09/18 10/25/18 History Detemir (Nf) [Levemir (Nf)] 40 units SUB-Q BID 12/09/18 12/09/18 Unknown History Gabapentin 100 mg PO TID 12/09/18 12/09/18 Unknown History amLODIPine 10 mg PO DAILY 12/09/18 12/09/18 Unknown History Aspirin 325 mg PO DAILY #30 tablet 12/15/18 Unknown Rx ISOSORBIDE MONOnitrate [Imdur ER] 120 mg PO DAILY #30 tablet 12/15/18 Unknown Rx Lisinopril [Zestril TAB] 20 mg PO DAILY #30 tablet 12/15/18 Unknown Rx Nicotine [Habitrol] 14 mg TD QDAY #30 patch 12/15/18 Unknown Rx Ranolazine ER [Ranexa ER] 1,000 mg PO BID #60 tablet 12/15/18 Unknown Rx Active Meds: Active Medications Acetaminophen (Tylenol) 650 mg TX Q4H PRN PRN Reason: Pain, Mild (1-3) Last Admin: 04/04/19 14:05 Dose: 650 mg Documented by: Aspirin (Aspirin) 300 mg TX DAILY MARLENI Last Admin: 04/04/19 11:18 Dose: 300 mg Documented by: Dextrose (D50w (25gm) Syringe) 50 ml IV Q30MIN PRN; Protocol PRN Reason: Hypoglycemia Enoxaparin Sodium (Enoxaparin) 40 mg SUB-Q QDAY@1000 MARLENI Last Admin: 04/04/19 11:17 Dose: 40 mg Documented by: Hydralazine HCl (Apresoline) 5 mg IV Q6H PRN PRN Reason: Hypertension Last Admin: 04/04/19 12:22 Dose: 5 mg Documented by: Sodium Chloride (Nacl 0.45% 1000 Ml) 1,000 mls @ 42 mls/hr IV DIRECT MARLENI Ketorolac Tromethamine (Toradol) 15 mg IV Q6H PRN PRN Reason: Pain, Mild (1-3) Stop: 04/09/19 14:28 Last Admin: 04/04/19 17:41 Dose: 15 mg Documented by: Labetalol HCl (Labetalol) 10 mg IV Q4H PRN PRN Reason: BP >170/105; hold for HR <60 Ondansetron HCl (Zofran) 4 mg IV Q8H PRN PRN Reason: Nausea And Vomiting Sodium Chloride (Sodium Chloride Flush Syringe 10 Ml) 10 ml IV PRN PRN PRN Reason: LINE FLUSH Physical Examination - Vital Signs Vital Signs: Vital Signs Resp 9 L 04/04/19 02:26 Results - Laboratory Findings CBC and BMP: 04/04/19 02:59 04/04/19 02:59 Abnormal Lab Findings: Abnormal Labs 04/04/19 04/04/19 04/04/19 02:24 02:59 02:59 MCHC 35 H Carbon Dioxide 21 L Glucose 249 H POC Glucose 252 H CK-MB (CK-2) Rel Index 4.3 H Total Protein 6.0 L Albumin 3.0 L Urine WBC (Auto) 04/04/19 04/04/19 04/04/19 06:13 12:46 15:47 MCHC Carbon Dioxide Glucose POC Glucose 203 H 173 H 153 H CK-MB (CK-2) Rel Index Total Protein Albumin Urine WBC (Auto) 04/04/19 Unknown MCHC Carbon Dioxide Glucose POC Glucose CK-MB (CK-2) Rel Index Total Protein Albumin Urine WBC (Auto) 108.0 H Assessment and Plan 58 YEAR OLD WITH HISTORY OF HYPERTENSION,,DIABETES,S/P RT BKA, CAD,,LUPUS,SLEEP APNEA, WHO CAME IN WITH COMPLAIN OF HEADACHE AND LEFT SIDED NUMBNESS, WORK IN THE EMERGENCY INCLUDING CT SCAN OF THE BRAIN DID NOT SHOW ANY ACUTE INFARCT OR HEMORRHAGE. SHE WAS NOT A TPA CANDIDATE DUE TO BEING OUTSIDE THE WINDOW. MRI OF BRAIN SHOWED RT MIDBRAIN INFARCT. PATIENT HAD BEEN PLACED ON ASPIRIN AND PLAVIX ,BUT SHE WAS NOT TAKING HER MEDICATION REGULARLY CONFIRMED BY HER .SHE ALSO DID NOT USE THE CPAP MACHINE FOR HER OBSTRUCTIVE SLEEP APNEA. UPON ADMISSION HER BP SHOWED A SYSTOLIC PRESSURE OF 216, SHE ALSO ADMITTED NOT TAKING HER BP MEDICATION FOR THREE DAYS PRIOR TO HER ADMISSION. WORK UP ALSO SHOWED HYPO PLASTIC VERTEBRAL ARTERIES,SIGNIFICANT STENOSIS OF BILATERAL CAROTIDS,MORE THAN 70%. BILATERAL STENOSIS OF INTERNAL CAROTID ARTERIES AT THE LEVEL OF CAROTID SINUS. PHYSICAL EXAMINATION; IN NO ACUTE DISTRESS ,PATIENT IS SOMNOLENT ,DOES NOT ANSWER QUESTIONS.HOWEVER STATED THAT SHE TALKED WITH HIM, HEART-NORMAL RATE AND RHYTHM CAROTIDS- BOTH PALPABLE. CRANIAL NERVES- PTOSIS ON THE RIGHT SIDE, EXTRA OCULAR MOVEMENT COULD NOT BE EXAMINED DUE TO PATIENT'S LACK OF COOPERATION. MOTOR- RIGHT BKA, MOVES RIGHT UPPER EXTREMITY MORE THAN THE LEFT. MUSCLE TONE IS INCREASED ON THE LEFT UPPER EXTREMITY AND LEFT LOWER EXTREMITY. REFLEXES- REFLEXES ARE INCREASED ON THE LEFT UPPER EXTREMITY WITH UP GOING TOE ON THE LEFT. MUSCLE TONE IS INCREASED ON THE LEFT UPPER AND LOWER EXTREMITIES. IMPRESSION. 1. RIGHT MIDBRAIN INFARCT, SMALL VESSEL DISEASE, ASPIRIN AND PLAVIX FAILURE DUE TO NON COMPLIANCE WITH MEDICATION. INTRA CRANIAL AND EXTRA CRANIAL SIGNIFICANT VASCULAR STENOSIS POSING RISK FOR FUTURE STROKE RECOMMEND. 1. I DO NOT RECOMMEND PLAVIX AT THIS POINT, SHE SHOULD BE ENCOURAGED TO TAKE ASPIRIN AND PLAVIX REGULARLY AND ALSO STATIN. 2. PLEASE CHECK T4,TSH AND LIPID PROFILE TO DETERMINE THE DOSE OF STATIN. 3. CONSULT VASCULAR NEUROSURGEON FOR INTRA CRANIAL STENOSIS AND HYPO PLASTIC VERTEBRAL ARTERIES, FOR POSSIBLE STENTING AND ALSO CONSULT VASCULAR SURGEON FOR CAROTIDS.
[2019-04-05 07:01] LABS: Chol/HDL Ratio 4.04 %
[2019-04-05] MEDS: ASPIRIN 300 MG RECT SUPP PR SCH (10:59)
[2019-04-05] MEDS: ENOXAPARIN 40 MG/0.4 ML INJ SUB-Q SCH (10:59)
[2019-04-05] MEDS ORDERED: NITROGLYCERIN 0.4 MG TAB SUBL SL PRN (11:13)
--- NOTE | 2019-04-05 11:32 | Progress Note ---
Assessment and Plan Assessment and plan: 58-year-old woman who reports to the hospital complaining of visual loss, blurred vision and severe left-sided weakness. Acute CVA Tele- neurology input appreciated, neurology consulted appreciated, Allow permissive hypertension, has received aspirin, stroke education, observe for arrhythmia on telemetry, - --aspirin per rectal, patient needs high-dose statin but is currently n.p.o. Due to severe dysphasia again -When patient has an modality to take pills. We will give her aspirin and Plavix. Per neurologist he does not recommend apixaban for her. -Neurology attending mentioned that she needs to be seen by a neurosurgeon in his notes, will call him ask if the patient needs to be transferred to higher level facility. Hypertensive urgency Still allowing for permissive hypertension UTI Empiric antibiotics, follow-up urine cultures Diabetes Optimize insulins Severe dysphasia Unable to do MBS today. Continue to work with speech pathologist. Keep n.p.o. dvt ppx, scds, will consider starting lovenox tomorrow History Interval history: Continues to have left-sided weakness and slurred speech and difficulty swallowing even her own saliva Review of systems Constitutional: No fevers, no malaise, no joint pains CVS: No chest pain, no orthopnea, no pedal edema GI: No abdominal pain, no diarrhea, no vomiting, no constipation Respiratory: No shortness of breath, no wheezing, no coughing Hospitalist Physical - Physical exam Narrative exam: General.: Appears well, no distress, nontoxic HEENT: Moist mucous membranes, extraocular muscles intact, no lymphadenopathy Neck: supple Cardiac: S1-S2 heard Lungs: clear to auscultation bilaterally Abdomen: soft , nontender, nondistended, bowel sounds positive Extremities: no edema clubbing or cyanosis Skin: no rash or lesions Neurologic: Slurred speech, left-sided weakness Psych: calm, and cooperative - Constitutional Vitals: Temp Pulse Resp BP Pulse Ox 97.9 F 80 18 169/79 99 04/05/19 08:15 04/05/19 08:15 04/05/19 08:15 04/05/19 08:15 04/05/19 08:15 Results - Labs CBC & Chem 7: 04/04/19 02:59 04/04/19 02:59 Labs: Laboratory Last Values WBC 8.6 K/mm3 (4.5-11.0) 04/04/19 02:59 RBC 4.85 M/mm3 (3.65-5.03) 04/04/19 02:59 Hgb 14.2 gm/dl (10.1-14.3) 04/04/19 02:59 Hct 40.9 % (30.3-42.9) 04/04/19 02:59 MCV 84 fl (79-97) 04/04/19 02:59 MCH 29 pg (28-32) 04/04/19 02:59 MCHC 35 % (30-34) H 04/04/19 02:59 RDW 14.3 % (13.2-15.2) 04/04/19 02:59 Plt Count 241 K/mm3 (140-440) 04/04/19 02:59 Lymph % (Auto) 33.9 % (13.4-35.0) 04/04/19 02:59 [place] % (Auto) 5.9 % (0.0-7.3) 04/04/19 02:59 Eos % (Auto) 2.6 % (0.0-4.3) 04/04/19 02:59 Baso % (Auto) 1.5 % (0.0-1.8) 04/04/19 02:59 Lymph # 2.9 K/mm3 (1.2-5.4) 04/04/19 02:59 [place] # 0.5 K/mm3 (0.0-0.8) 04/04/19 02:59 Eos # 0.2 K/mm3 (0.0-0.4) 04/04/19 02:59 Baso # 0.1 K/mm3 (0.0-0.1) 04/04/19 02:59 Seg Neutrophils % 56.1 % (40.0-70.0) 04/04/19 02:59 Seg Neutrophils # 4.8 K/mm3 (1.8-7.7) 04/04/19 02:59 PT 12.2 Sec. (12.2-14.9) 04/04/19 02:59 INR 0.91 (0.87-1.13) 04/04/19 02:59 APTT 29.1 Sec. (24.2-36.6) 04/04/19 02:59 Thrombin Time 17.2 Sec. (15.1-19.6) 04/04/19 02:59 Sodium 140 mmol/L (137-145) 04/04/19 02:59 Potassium 3.6 mmol/L (3.6-5.0) 04/04/19 02:59 Chloride 105.3 mmol/L (98-107) 04/04/19 02:59 Carbon Dioxide 21 mmol/L (22-30) L 04/04/19 02:59 Anion Gap 17 mmol/L 04/04/19 02:59 BUN 17 mg/dL (7-17) 04/04/19 02:59 Creatinine 0.8 mg/dL (0.7-1.2) 04/04/19 02:59 Estimated GFR > 60 ml/min 04/04/19 02:59 BUN/Creatinine Ratio 21 % 04/04/19 02:59 Glucose 249 mg/dL (65-100) H 04/04/19 02:59 POC Glucose 153 (70-105) H 04/05/19 11:34 Calcium 8.6 mg/dL (8.4-10.2) 04/04/19 02:59 Total Bilirubin 0.20 mg/dL (0.1-1.2) 04/04/19 02:59 AST 12 units/L (5-40) 04/04/19 02:59 ALT 9 units/L (7-56) 04/04/19 02:59 Alkaline Phosphatase 75 units/L (35-129) 04/04/19 02:59 Total Creatine Kinase 65 units/L (30-135) 04/04/19 02:59 CK-MB (CK-2) 2.8 ng/mL (0.0-4.0) 04/04/19 02:59 CK-MB (CK-2) Rel Index 4.3 (0-4) H 04/04/19 02:59 Troponin T < 0.010 ng/mL (0.00-0.029) 04/04/19 02:59 Total Protein 6.0 g/dL (6.3-8.2) L 04/04/19 02:59 Albumin 3.0 g/dL (3.9-5) L 04/04/19 02:59 Albumin/Globulin Ratio 1.0 % 04/04/19 02:59 Triglycerides 122 mg/dL (2-149) 04/05/19 06:18 Cholesterol 299 mg/dL (50-199) H 04/05/19 06:18 LDL Cholesterol Direct 232 mg/dL (50-130) H 04/05/19 06:18 HDL Cholesterol 74 mg/dL (40-59) H 04/05/19 06:18 Cholesterol/HDL Ratio 4.04 % 04/05/19 06:18 TSH 0.541 mlU/mL (0.270-4.200) 04/05/19 06:18 Free T4 1.05 ng/dL (0.76-1.46) 04/05/19 06:18 Thyroxine (T4) 6.9 ug/dL (4.0-12.0) 04/05/19 06:18 Urine Color Yellow (Yellow) 04/04/19 Unknown Urine Turbidity Slightly-cloudy (Clear) 04/04/19 Unknown Urine pH 7.0 (5.0-7.0) 04/04/19 Unknown Ur Specific [place] 1.026 (1.003-1.030) 04/04/19 Unknown Urine Protein 100 mg/dl mg/dL (Negative) 04/04/19 Unknown Urine Glucose (UA) Neg mg/dL (Negative) 04/04/19 Unknown Urine Ketones Neg mg/dL (Negative) 04/04/19 Unknown Urine Blood Mod (Negative) 04/04/19 Unknown Urine Nitrite Neg (Negative) 04/04/19 Unknown Urine Bilirubin Neg (Negative) 04/04/19 Unknown Urine Urobilinogen < 2.0 mg/dL (<2.0) 04/04/19 Unknown Ur Leukocyte Esterase Lg (Negative) 04/04/19 Unknown Urine WBC (Auto) 108.0 /HPF (0.0-6.0) H 04/04/19 Unknown Urine RBC (Auto) 49.0 /HPF (0.0-6.0) 04/04/19 Unknown Urine Bacteria (Auto) 1+ /HPF (Negative) 04/04/19 Unknown Urine Opiates Screen Presumptive negative 04/04/19 Unknown Urine Methadone Screen Presumptive negative 04/04/19 Unknown Ur Barbiturates Screen Presumptive negative 04/04/19 Unknown Ur Phencyclidine Scrn Presumptive negative 04/04/19 Unknown Ur Amphetamines Screen Presumptive negative 04/04/19 Unknown U Benzodiazepines Scrn Presumptive negative 04/04/19 Unknown Urine Cocaine Screen Presumptive negative 04/04/19 Unknown U Marijuana (THC) Screen Presumptive negative 04/04/19 Unknown Drugs of Abuse Note Disclamer 04/04/19 Unknown Active Medications - Current Medications Current Medications: Generic Name Dose Route Start Last Admin Trade Name Freq PRN Reason Stop Dose Admin Acetaminophen 650 mg 04/04/19 13:53 04/04/19 14:05 Tylenol AR 650 mg Q4H PRN Administration Pain, Mild (1-3) Aspirin 300 mg 04/04/19 10:00 04/05/19 10:59 Aspirin AR 300 mg DAILY MARLENI Administration Clopidogrel Bisulfate 75 mg 04/06/19 10:00 Plavix PO QDAY [facility] [place] Dextrose 50 ml 04/04/19 05:26 D50w (25gm) Syringe IV Q30MIN PRN Hypoglycemia Protocol Enoxaparin Sodium 40 mg 04/04/19 10:00 04/05/19 10:59 Enoxaparin SUB-Q 40 mg QDAY@1000 MARLENI Administration Hydralazine HCl 5 mg 04/04/19 05:26 04/04/19 22:23 Apresoline IV 5 mg Q6H PRN Administration Hypertension Sodium Chloride 1,000 mls @ 42 mls/hr 04/04/19 15:00 04/04/19 17:45 Nacl 0.45% 1000 Ml IV 42 mls/hr DIRECT MARLENI Administration Isosorbide Mononitrate 120 mg 04/06/19 10:00 Imdur PO DAILY [facility] Ketorolac Tromethamine 15 mg 04/04/19 14:29 04/04/19 22:21 Toradol IV 04/09/19 14:28 15 mg Q6H PRN Administration Pain, Mild (1-3) Labetalol HCl 10 mg 04/04/19 14:30 Labetalol IV Q4H PRN BP >170/105; hold for HR <60 Miscellaneous Medication 40 units 04/05/19 22:00 Insulin Detemir SUB-Q BID [facility] Nicotine 14 mg 04/06/19 10:00 Habitrol TD QDAY [facility] Nitroglycerin 0.4 mg 04/05/19 11:13 Nitrostat SL .Q5MIN PRN Chest Pain Ondansetron HCl 4 mg 04/04/19 05:13 04/04/19 22:26 Zofran IV 4 mg Q8H PRN Administration Nausea And Vomiting Ranolazine 1,000 mg 04/05/19 22:00 Ranexa Er PO BID MARLENI Sodium Chloride 10 ml 04/04/19 05:13 Sodium Chloride Flush Syringe 10 Ml IV PRN PRN LINE FLUSH
[2019-04-05] MEDS ORDERED: DEXTROSE 50% IN WATER (25GM) 50 ML SYRINGE IV PRN (15:26)
[2019-04-05] MEDS: INSULIN LISPRO 100 UNIT/ML SUB-Q SCH (18:42)
[2019-04-05] MEDS: cefTRIAXone/NS 1 GM/50 ML 1 GM/50 ML BAG IV SCH (18:47)
[2019-04-05] MEDS: RANOLAZINE ER 500 MG TAB 12HR PO SCH (21:24)
[2019-04-05] MEDS ORDERED: INSULIN DETEMIR 40 UNIT SUB-Q SCH (22:00)
[2019-04-05] MEDS ORDERED: hydrALAZINE 20 MG/1 ML INJ IV ONE (22:47)
[2019-04-06] MEDS: INSULIN LISPRO 100 UNIT/ML SUB-Q SCH ×4 (05:20→17:48)
[2019-04-06] MEDS: ASPIRIN 300 MG RECT SUPP PR SCH (09:19)
[2019-04-06] MEDS: CLOPIDOGREL 75 MG TAB PO SCH (09:25)
[2019-04-06] MEDS: ENOXAPARIN 40 MG/0.4 ML INJ SUB-Q SCH (09:25)
[2019-04-06] MEDS: RANOLAZINE ER 500 MG TAB 12HR PO SCH ×3 (09:25→22:07)
[2019-04-06] MEDS: NICOTINE 14 MG/24 HR PATCH TD SCH (09:26)
[2019-04-06] MEDS: KETOROLAC 30 MG/1 ML INJ IV PRN (09:33)
--- NOTE | 2019-04-06 12:19 | Progress Note ---
Assessment and Plan Assessment and plan: 58-year-old woman who reports to the hospital complaining of visual loss, blurred vision and severe left-sided weakness. Acute CVA Tele- neurology input appreciated, neurology consulted appreciated, Allow permissive hypertension, has received aspirin, stroke education, observe for arrhythmia on telemetry, - --aspirin, plavix and statin -Patient will need outpatient neurosurgeon follow-up for " INTRA CRANIAL STENOSIS AND HYPO PLASTIC VERTEBRAL ARTERIES, FOR POSSIBLE STENTING VASCULAR SURGEON FOR bilateral ICA stenosis noted on CTA neck which, will obtain carotids Hypertensive urgency optimize BP meds UTI, enterobacter cloacae in urine cx -cont abx, it is sens to rocephin, 3 days for uncomplicated UTI, last day is 06/07 Diabetes Optimize insulins, A1c 8.2. Basal insulin on hold at this time, Severe dysphasia Speech therapy input appreciated, diet has been advanced, dysphagia is improving dvt ppx, Lovenox History Interval history: Continues to have left-sided weakness and slurred speech a Review of systems Constitutional: No fevers, no malaise, no joint pains CVS: No chest pain, no orthopnea, no pedal edema GI: No abdominal pain, no diarrhea, no vomiting, no constipation Respiratory: No shortness of breath, no wheezing, no coughing Hospitalist Physical - Physical exam Narrative exam: General.: Appears well, no distress, nontoxic HEENT: Moist mucous membranes, extraocular muscles intact, no lymphadenopathy Neck: supple Cardiac: S1-S2 heard Lungs: clear to auscultation bilaterally Abdomen: soft , nontender, nondistended, bowel sounds positive Extremities: no edema clubbing or cyanosis Skin: no rash or lesions Neurologic: Slurred speech, left-sided weakness Psych: calm, and cooperative - Constitutional Vitals: Temp Pulse Resp BP Pulse Ox 98.6 F 95 H 18 133/58 100 04/06/19 12:03 04/06/19 12:03 04/06/19 12:03 04/06/19 12:03 04/06/19 12:03 Results - Labs CBC & Chem 7: 04/04/19 02:59 04/04/19 02:59 Labs: Laboratory Last Values WBC 8.6 K/mm3 (4.5-11.0) 04/04/19 02:59 RBC 4.85 M/mm3 (3.65-5.03) 04/04/19 02:59 Hgb 14.2 gm/dl (10.1-14.3) 04/04/19 02:59 Hct 40.9 % (30.3-42.9) 04/04/19 02:59 MCV 84 fl (79-97) 04/04/19 02:59 MCH 29 pg (28-32) 04/04/19 02:59 MCHC 35 % (30-34) H 04/04/19 02:59 RDW 14.3 % (13.2-15.2) 04/04/19 02:59 Plt Count 241 K/mm3 (140-440) 04/04/19 02:59 Lymph % (Auto) 33.9 % (13.4-35.0) 04/04/19 02:59 [place] % (Auto) 5.9 % (0.0-7.3) 04/04/19 02:59 Eos % (Auto) 2.6 % (0.0-4.3) 04/04/19 02:59 Baso % (Auto) 1.5 % (0.0-1.8) 04/04/19 02:59 Lymph # 2.9 K/mm3 (1.2-5.4) 04/04/19 02:59 [place] # 0.5 K/mm3 (0.0-0.8) 04/04/19 02:59 Eos # 0.2 K/mm3 (0.0-0.4) 04/04/19 02:59 Baso # 0.1 K/mm3 (0.0-0.1) 04/04/19 02:59 Seg Neutrophils % 56.1 % (40.0-70.0) 04/04/19 02:59 Seg Neutrophils # 4.8 K/mm3 (1.8-7.7) 04/04/19 02:59 PT 12.2 Sec. (12.2-14.9) 04/04/19 02:59 INR 0.91 (0.87-1.13) 04/04/19 02:59 APTT 29.1 Sec. (24.2-36.6) 04/04/19 02:59 Thrombin Time 17.2 Sec. (15.1-19.6) 04/04/19 02:59 Sodium 140 mmol/L (137-145) 04/04/19 02:59 Potassium 3.6 mmol/L (3.6-5.0) 04/04/19 02:59 Chloride 105.3 mmol/L (98-107) 04/04/19 02:59 Carbon Dioxide 21 mmol/L (22-30) L 04/04/19 02:59 Anion Gap 17 mmol/L 04/04/19 02:59 BUN 17 mg/dL (7-17) 04/04/19 02:59 Creatinine 0.8 mg/dL (0.7-1.2) 04/04/19 02:59 Estimated GFR > 60 ml/min 04/04/19 02:59 BUN/Creatinine Ratio 21 % 04/04/19 02:59 Glucose 249 mg/dL (65-100) H 04/04/19 02:59 POC Glucose 181 (70-105) H 04/06/19 11:37 Hemoglobin A1c 8.2 % (4-6) H 04/06/19 08:12 Calcium 8.6 mg/dL (8.4-10.2) 04/04/19 02:59 Total Bilirubin 0.20 mg/dL (0.1-1.2) 04/04/19 02:59 AST 12 units/L (5-40) 04/04/19 02:59 ALT 9 units/L (7-56) 04/04/19 02:59 Alkaline Phosphatase 75 units/L (35-129) 04/04/19 02:59 Total Creatine Kinase 65 units/L (30-135) 04/04/19 02:59 CK-MB (CK-2) 2.8 ng/mL (0.0-4.0) 04/04/19 02:59 CK-MB (CK-2) Rel Index 4.3 (0-4) H 04/04/19 02:59 Troponin T < 0.010 ng/mL (0.00-0.029) 04/04/19 02:59 Total Protein 6.0 g/dL (6.3-8.2) L 04/04/19 02:59 Albumin 3.0 g/dL (3.9-5) L 04/04/19 02:59 Albumin/Globulin Ratio 1.0 % 04/04/19 02:59 Triglycerides 122 mg/dL (2-149) 04/05/19 06:18 Cholesterol 299 mg/dL (50-199) H 04/05/19 06:18 LDL Cholesterol Direct 232 mg/dL (50-130) H 04/05/19 06:18 HDL Cholesterol 74 mg/dL (40-59) H 04/05/19 06:18 Cholesterol/HDL Ratio 4.04 % 04/05/19 06:18 TSH 0.541 mlU/mL (0.270-4.200) 04/05/19 06:18 Free T4 1.05 ng/dL (0.76-1.46) 04/05/19 06:18 Thyroxine (T4) 6.9 ug/dL (4.0-12.0) 04/05/19 06:18 Urine Color Yellow (Yellow) 04/04/19 Unknown Urine Turbidity Slightly-cloudy (Clear) 04/04/19 Unknown Urine pH 7.0 (5.0-7.0) 04/04/19 Unknown Ur Specific [place] 1.026 (1.003-1.030) 04/04/19 Unknown Urine Protein 100 mg/dl mg/dL (Negative) 04/04/19 Unknown Urine Glucose (UA) Neg mg/dL (Negative) 04/04/19 Unknown Urine Ketones Neg mg/dL (Negative) 04/04/19 Unknown Urine Blood Mod (Negative) 04/04/19 Unknown Urine Nitrite Neg (Negative) 04/04/19 Unknown Urine Bilirubin Neg (Negative) 04/04/19 Unknown Urine Urobilinogen < 2.0 mg/dL (<2.0) 04/04/19 Unknown Ur Leukocyte Esterase Lg (Negative) 04/04/19 Unknown Urine WBC (Auto) 108.0 /HPF (0.0-6.0) H 04/04/19 Unknown Urine RBC (Auto) 49.0 /HPF (0.0-6.0) 04/04/19 Unknown Urine Bacteria (Auto) 1+ /HPF (Negative) 04/04/19 Unknown Urine Opiates Screen Presumptive negative 04/04/19 Unknown Urine Methadone Screen Presumptive negative 04/04/19 Unknown Ur Barbiturates Screen Presumptive negative 04/04/19 Unknown Ur Phencyclidine Scrn Presumptive negative 04/04/19 Unknown Ur Amphetamines Screen Presumptive negative 04/04/19 Unknown U Benzodiazepines Scrn Presumptive negative 04/04/19 Unknown Urine Cocaine Screen Presumptive negative 04/04/19 Unknown U Marijuana (THC) Screen Presumptive negative 04/04/19 Unknown Drugs of Abuse Note Disclamer 04/04/19 Unknown Active Medications - Current Medications Current Medications: Generic Name Dose Route Start Last Admin Trade Name Freq PRN Reason Stop Dose Admin Acetaminophen 650 mg 04/04/19 13:53 04/04/19 14:05 Tylenol [place] 650 mg Q4H PRN Administration Pain, Mild (1-3) Aspirin 300 mg 04/04/19 10:00 04/06/19 09:19 Aspirin MO 300 mg DAILY MARLENI Administration Clopidogrel Bisulfate 75 mg 04/06/19 10:00 04/06/19 09:25 Plavix PO 75 mg QDAY MARLENI Administration Dextrose 50 ml 04/05/19 15:26 D50w (25gm) Syringe IV Q30MIN PRN Hypoglycemia Protocol Enoxaparin Sodium 40 mg 04/04/19 10:00 04/06/19 09:25 Enoxaparin SUB-Q 40 mg QDAY@1000 MARLENI Administration Sodium Chloride 1,000 mls @ 42 mls/hr 04/04/19 15:00 04/04/19 17:45 Nacl 0.45% 1000 Ml IV 42 mls/hr DIRECT MARLENI Administration Ceftriaxone Sodium 1 gm in 50 mls @ 100 mls/hr 04/05/19 18:00 04/05/19 18:47 Rocephin/Ns 1 Gm/50 Ml IV 100 mls/hr Q24H MARLENI Administration Protocol Insulin Human Lispro 0 unit 04/05/19 18:00 04/06/19 06:36 Humalog SUB-Q Not Given Q6HR MARLENI Protocol Isosorbide Mononitrate 120 mg 04/06/19 10:00 04/06/19 09:27 Imdur PO 120 mg DAILY MARLENI Administration Ketorolac Tromethamine 15 mg 04/04/19 14:29 04/06/19 09:33 Toradol IV 04/09/19 14:28 15 mg Q6H PRN Administration Pain, Mild (1-3) Labetalol HCl 10 mg 04/04/19 14:30 04/06/19 04:22 Labetalol IV 10 mg Q4H PRN Administration BP >170/105; hold for HR <60 Nicotine 14 mg 04/06/19 10:00 04/06/19 09:26 Habitrol TD 14 mg QDAY MARLENI Administration Nitroglycerin 0.4 mg 04/05/19 11:13 Nitrostat SL .Q5MIN PRN Chest Pain Ondansetron HCl 4 mg 04/04/19 05:13 04/04/19 22:26 Zofran IV 4 mg Q8H PRN Administration Nausea And Vomiting Ranolazine 1,000 mg 04/05/19 22:00 04/06/19 09:39 Ranexa Er PO Not Given BID MARLENI Sodium Chloride 10 ml 04/04/19 05:13 Sodium Chloride Flush Syringe 10 Ml IV PRN PRN LINE FLUSH
[2019-04-06] MEDS: cefTRIAXone/NS 1 GM/50 ML 1 GM/50 ML BAG IV SCH (17:25)
[2019-04-06] MEDS ORDERED: ENOXAPARIN 40 MG/0.4 ML INJ SUB-Q SCH (22:00)
[2019-04-07] MEDS: INSULIN LISPRO 100 UNIT/ML SUB-Q SCH ×4 (05:42→19:14)
--- NOTE | 2019-04-07 09:29 | Consultation ---
History of Present Illness - Reason for Consult Consult date: 04/07/19 carotid stenosis - History of Present Illness Patient with a complex medical history who presents with left-sided weakness and right visual disturbances. Excision is unable to open her right eyelid. 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 On examination, the patient unable to move the left side of her body or open her right eye. The patient's speech is occult to understand regarding the onset of her symptoms. Medications and Allergies Allergies Allergy/AdvReac Type Severity Reaction Status Date / Time insulin glargine, human AdvReac Unknown Verified 10/26/18 12:10 recombin. a [From Lantus] shellfish derived AdvReac Unknown Verified 10/26/18 12:10 Flu Vaccine AdvReac Rash Uncoded 06/07/17 03:27 IV Dye AdvReac Unknown Uncoded 06/07/17 03:27 Home Medications Medication Instructions Recorded Confirmed Last Taken Type Nitroglycerin [Nitrostat] 0.4 mg SL .Q5MIN PRN #30 tablet 06/10/17 12/09/18 10/25/18 Rx metFORMIN [Glucophage] 1,000 mg PO BID 10/26/18 12/09/18 10/25/18 History Detemir (Nf) [Levemir (Nf)] 40 units SUB-Q BID 12/09/18 12/09/18 Unknown History Gabapentin 100 mg PO TID 12/09/18 12/09/18 Unknown History amLODIPine 10 mg PO DAILY 12/09/18 12/09/18 Unknown History Aspirin 325 mg PO DAILY #30 tablet 12/15/18 Unknown Rx ISOSORBIDE MONOnitrate [Imdur ER] 120 mg PO DAILY #30 tablet 12/15/18 Unknown Rx Lisinopril [Zestril TAB] 20 mg PO DAILY #30 tablet 12/15/18 Unknown Rx Nicotine [Habitrol] 14 mg TD QDAY #30 patch 12/15/18 Unknown Rx Ranolazine ER [Ranexa ER] 1,000 mg PO BID #60 tablet 12/15/18 Unknown Rx Active Meds: Active Medications Acetaminophen (Tylenol) 650 mg TN Q4H PRN PRN Reason: Pain, Mild (1-3) Last Admin: 04/04/19 14:05 Dose: 650 mg Documented by: Amlodipine Besylate (Amlodipine) 10 mg PO DAILY [facility] Aspirin (Halfprin Ec) 81 mg PO QDAY [facility] Atorvastatin Calcium (Lipitor) 40 mg PO QHS [facility] Last Admin: 04/06/19 22:08 Dose: 40 mg Documented by: Clopidogrel Bisulfate (Plavix) 75 mg PO QDAY [facility] Last Admin: 04/06/19 09:25 Dose: 75 mg Documented by: Dextrose (D50w (25gm) Syringe) 50 ml IV Q30MIN PRN; Protocol PRN Reason: Hypoglycemia Enoxaparin Sodium (Enoxaparin) 40 mg SUB-Q QDAY@1000 MARLENI Last Admin: 04/06/19 09:25 Dose: 40 mg Documented by: Sodium Chloride (Nacl 0.45% 1000 Ml) 1,000 mls @ 42 mls/hr IV DIRECT [facility] Last Admin: 04/04/19 17:45 Dose: 42 mls/hr Documented by: Ceftriaxone Sodium (Rocephin/Ns 1 Gm/50 Ml) 1 gm in 50 mls @ 100 mls/hr IV Q24H [facility]; Protocol Last Admin: 04/06/19 17:25 Dose: 100 mls/hr Documented by: Insulin Human Lispro (Humalog) 0 unit SUB-Q Q6HR [facility]; Protocol Last Admin: 04/07/19 05:42 Dose: 1 unit Documented by: Isosorbide Mononitrate (Imdur) 120 mg PO DAILY [facility] Last Admin: 04/06/19 09:27 Dose: 120 mg Documented by: Ketorolac Tromethamine (Toradol) 15 mg IV Q6H PRN PRN Reason: Pain, Mild (1-3) Stop: 04/09/19 14:28 Last Admin: 04/06/19 09:33 Dose: 15 mg Documented by: Labetalol HCl (Labetalol) 10 mg IV Q4H PRN PRN Reason: BP >170/105; hold for HR <60 Last Admin: 04/07/19 00:35 Dose: 10 mg Documented by: Lisinopril (Zestril) 20 mg PO DAILY [facility] Nicotine (Habitrol) 14 mg TD QDAY [facility] Last Admin: 04/06/19 09:26 Dose: 14 mg Documented by: Nitroglycerin (Nitrostat) 0.4 mg SL .Q5MIN PRN PRN Reason: Chest Pain Ondansetron HCl (Zofran) 4 mg IV Q8H PRN PRN Reason: Nausea And Vomiting Last Admin: 04/04/19 22:26 Dose: 4 mg Documented by: Ranolazine (Ranexa Er) 1,000 mg PO BID [facility] Last Admin: 04/06/19 22:07 Dose: 1,000 mg Documented by: Sodium Chloride (Sodium Chloride Flush Syringe 10 Ml) 10 ml IV PRN PRN PRN Reason: LINE FLUSH Review of Systems ROS unobtainable: due to mental status Exam - Constitutional Vitals: Temp Pulse Resp BP Pulse Ox 99.5 F 85 18 198/84 100 04/07/19 07:55 04/07/19 07:55 04/07/19 07:55 04/07/19 07:55 04/07/19 07:55 General appearance: Present: no acute distress - EENT ENT: hearing intact - Neck Neck: Present: normal ROM - Respiratory Respiratory effort: normal - Extremities Extremities: abnormal (patient with a below the knee amputation and scars on her left leg consistent with saphenous vein harvest.) - Abdominal General gastrointestinal: Present: deferred Female genitourinary: Present: deferred - Rectal Rectal Exam: deferred - Musculoskeletal Musculoskeletal: left sided weakness, other (right facial weakness) - Psychiatric Psychiatric: cooperative Results - Labs CBC & Chem 7: 04/04/19 02:59 04/04/19 02:59 Labs: Abnormal lab results 04/06/19 04/06/19 04/06/19 Range/Units 11:37 15:34 17:50 POC Glucose 181 H 129 H 130 H (70-105) 04/07/19 04/07/19 Range/Units 00:39 05:31 POC Glucose 149 H 156 H (70-105) - Imaging and Cardiology CT Scan - head: report reviewed, image reviewed MRI - head: report reviewed, image reviewed Assessment and Plan Patient with clinically significant bilateral internal carotid artery stenosis however, this does not appear to be the etiology of the patient's current symptoms. Patient will need follow-up in our office after discharge for evaluation and treatment of her carotid disease. The patient symptoms and pattern of CVA are consistent with vertebrobasilar disease. We do not have neurosurgery at this institution. The patient may need transfer to an institution with neurosurgery for further evaluation and possible treatment.
[2019-04-07] MEDS ORDERED: LISINOPRIL 20 MG TAB PO SCH (10:00)
[2019-04-07] MEDS ORDERED: amLODIPine 5 MG TAB PO SCH (10:00)
[2019-04-07] MEDS ORDERED: amLODIPine 10 MG TAB PO SCH (10:00)
--- NOTE | 2019-04-07 10:41 | Progress Note ---
Assessment and Plan Assessment and plan: 58-year-old woman who reports to the hospital complaining of visual loss, blurred vision and severe left-sided weakness. Acute CVA Tele- neurology input appreciated, neurology consulted appreciated, Allow permissive hypertension, has received aspirin, stroke education, observe for arrhythmia on telemetry, - --aspirin, plavix and statin -per Dr Cooper, neurologist, Patient will need outpatient neurosurgeon follow- up for " INTRA CRANIAL STENOSIS AND HYPO PLASTIC VERTEBRAL ARTERIES, FOR POSSIBLE STENTING VASCULAR SURGEON consult appreciated for bilateral ICA stenosis, to fup with them as an OP Hypertensive urgency optimize BP meds UTI, enterobacter cloacae in urine cx -cont abx, it is sens to rocephin, 3 days for uncomplicated UTI, last day is 04/07 Diabetes Optimize insulins, A1c 8.2. Basal insulin on hold at this time, Severe dysphasia Speech therapy input appreciated, diet has been advanced, dysphagia is improving dvt ppx, Lovenox Dispo; acute rehab pending History Interval history: Continues to have left-sided weakness and slurred speech a Review of systems Constitutional: No fevers, no malaise, no joint pains CVS: No chest pain, no orthopnea, no pedal edema GI: No abdominal pain, no diarrhea, no vomiting, no constipation Respiratory: No shortness of breath, no wheezing, no coughing Hospitalist Physical - Physical exam Narrative exam: General.: Appears well, no distress, nontoxic HEENT: Moist mucous membranes, extraocular muscles intact, no lymphadenopathy Neck: supple Cardiac: S1-S2 heard Lungs: clear to auscultation bilaterally Abdomen: soft , nontender, nondistended, bowel sounds positive Extremities: no edema clubbing or cyanosis Skin: no rash or lesions Neurologic: Slurred speech, left-sided weakness Psych: calm, and cooperative - Constitutional Vitals: Temp Pulse Resp BP Pulse Ox 99.5 F 85 18 198/84 100 04/07/19 07:55 04/07/19 07:55 04/07/19 07:55 04/07/19 07:55 04/07/19 07:55 General appearance: Present: no acute distress Results - Labs CBC & Chem 7: 04/04/19 02:59 04/04/19 02:59 Labs: Laboratory Last Values WBC 8.6 K/mm3 (4.5-11.0) 04/04/19 02:59 RBC 4.85 M/mm3 (3.65-5.03) 04/04/19 02:59 Hgb 14.2 gm/dl (10.1-14.3) 04/04/19 02:59 Hct 40.9 % (30.3-42.9) 04/04/19 02:59 MCV 84 fl (79-97) 04/04/19 02:59 MCH 29 pg (28-32) 04/04/19 02:59 MCHC 35 % (30-34) H 04/04/19 02:59 RDW 14.3 % (13.2-15.2) 04/04/19 02:59 Plt Count 241 K/mm3 (140-440) 04/04/19 02:59 Lymph % (Auto) 33.9 % (13.4-35.0) 04/04/19 02:59 [place] % (Auto) 5.9 % (0.0-7.3) 04/04/19 02:59 Eos % (Auto) 2.6 % (0.0-4.3) 04/04/19 02:59 Baso % (Auto) 1.5 % (0.0-1.8) 04/04/19 02:59 Lymph # 2.9 K/mm3 (1.2-5.4) 04/04/19 02:59 [place] # 0.5 K/mm3 (0.0-0.8) 04/04/19 02:59 Eos # 0.2 K/mm3 (0.0-0.4) 04/04/19 02:59 Baso # 0.1 K/mm3 (0.0-0.1) 04/04/19 02:59 Seg Neutrophils % 56.1 % (40.0-70.0) 04/04/19 02:59 Seg Neutrophils # 4.8 K/mm3 (1.8-7.7) 04/04/19 02:59 PT 12.2 Sec. (12.2-14.9) 04/04/19 02:59 INR 0.91 (0.87-1.13) 04/04/19 02:59 APTT 29.1 Sec. (24.2-36.6) 04/04/19 02:59 Thrombin Time 17.2 Sec. (15.1-19.6) 04/04/19 02:59 Sodium 140 mmol/L (137-145) 04/04/19 02:59 Potassium 3.6 mmol/L (3.6-5.0) 04/04/19 02:59 Chloride 105.3 mmol/L (98-107) 04/04/19 02:59 Carbon Dioxide 21 mmol/L (22-30) L 04/04/19 02:59 Anion Gap 17 mmol/L 04/04/19 02:59 BUN 17 mg/dL (7-17) 04/04/19 02:59 Creatinine 0.8 mg/dL (0.7-1.2) 04/04/19 02:59 Estimated GFR > 60 ml/min 04/04/19 02:59 BUN/Creatinine Ratio 21 % 04/04/19 02:59 Glucose 249 mg/dL (65-100) H 04/04/19 02:59 POC Glucose 156 (70-105) H 04/07/19 05:31 Hemoglobin A1c 8.2 % (4-6) H 04/06/19 08:12 Calcium 8.6 mg/dL (8.4-10.2) 04/04/19 02:59 Total Bilirubin 0.20 mg/dL (0.1-1.2) 04/04/19 02:59 AST 12 units/L (5-40) 04/04/19 02:59 ALT 9 units/L (7-56) 04/04/19 02:59 Alkaline Phosphatase 75 units/L (35-129) 04/04/19 02:59 Total Creatine Kinase 65 units/L (30-135) 04/04/19 02:59 CK-MB (CK-2) 2.8 ng/mL (0.0-4.0) 04/04/19 02:59 CK-MB (CK-2) Rel Index 4.3 (0-4) H 04/04/19 02:59 Troponin T < 0.010 ng/mL (0.00-0.029) 04/04/19 02:59 Total Protein 6.0 g/dL (6.3-8.2) L 04/04/19 02:59 Albumin 3.0 g/dL (3.9-5) L 04/04/19 02:59 Albumin/Globulin Ratio 1.0 % 04/04/19 02:59 Triglycerides 122 mg/dL (2-149) 04/05/19 06:18 Cholesterol 299 mg/dL (50-199) H 04/05/19 06:18 LDL Cholesterol Direct 232 mg/dL (50-130) H 04/05/19 06:18 HDL Cholesterol 74 mg/dL (40-59) H 04/05/19 06:18 Cholesterol/HDL Ratio 4.04 % 04/05/19 06:18 TSH 0.541 mlU/mL (0.270-4.200) 04/05/19 06:18 Free T4 1.05 ng/dL (0.76-1.46) 04/05/19 06:18 Thyroxine (T4) 6.9 ug/dL (4.0-12.0) 04/05/19 06:18 Urine Color Yellow (Yellow) 04/04/19 Unknown Urine Turbidity Slightly-cloudy (Clear) 04/04/19 Unknown Urine pH 7.0 (5.0-7.0) 04/04/19 Unknown Ur Specific [place] 1.026 (1.003-1.030) 04/04/19 Unknown Urine Protein 100 mg/dl mg/dL (Negative) 04/04/19 Unknown Urine Glucose (UA) Neg mg/dL (Negative) 04/04/19 Unknown Urine Ketones Neg mg/dL (Negative) 04/04/19 Unknown Urine Blood Mod (Negative) 04/04/19 Unknown Urine Nitrite Neg (Negative) 04/04/19 Unknown Urine Bilirubin Neg (Negative) 04/04/19 Unknown Urine Urobilinogen < 2.0 mg/dL (<2.0) 04/04/19 Unknown Ur Leukocyte Esterase Lg (Negative) 04/04/19 Unknown Urine WBC (Auto) 108.0 /HPF (0.0-6.0) H 04/04/19 Unknown Urine RBC (Auto) 49.0 /HPF (0.0-6.0) 04/04/19 Unknown Urine Bacteria (Auto) 1+ /HPF (Negative) 04/04/19 Unknown Urine Opiates Screen Presumptive negative 04/04/19 Unknown Urine Methadone Screen Presumptive negative 04/04/19 Unknown Ur Barbiturates Screen Presumptive negative 04/04/19 Unknown Ur Phencyclidine Scrn Presumptive negative 04/04/19 Unknown Ur Amphetamines Screen Presumptive negative 04/04/19 Unknown U Benzodiazepines Scrn Presumptive negative 04/04/19 Unknown Urine Cocaine Screen Presumptive negative 04/04/19 Unknown U Marijuana (THC) Screen Presumptive negative 04/04/19 Unknown Drugs of Abuse Note Disclamer 04/04/19 Unknown Active Medications - Current Medications Current Medications: Generic Name Dose Route Start Last Admin Trade Name Freq PRN Reason Stop Dose Admin Acetaminophen 650 mg 04/04/19 13:53 04/04/19 14:05 Tylenol [place] 650 mg Q4H PRN Administration Pain, Mild (1-3) Amlodipine Besylate 10 mg 04/07/19 10:00 Amlodipine PO DAILY [facility] Aspirin 81 mg 04/07/19 10:00 Halfprin Ec PO QDAY [facility] Atorvastatin Calcium 40 mg 04/06/19 22:00 04/06/19 22:08 Lipitor PO 40 mg QHS [facility] Administration Clopidogrel Bisulfate 75 mg 04/06/19 10:00 04/06/19 09:25 Plavix PO 75 mg QDAY [facility] Administration Dextrose 50 ml 04/05/19 15:26 D50w (25gm) Syringe IV Q30MIN PRN Hypoglycemia Protocol Enoxaparin Sodium 40 mg 04/04/19 10:00 04/06/19 09:25 Enoxaparin SUB-Q 40 mg QDAY@1000 MARLENI Administration Sodium Chloride 1,000 mls @ 42 mls/hr 04/04/19 15:00 04/04/19 17:45 Nacl 0.45% 1000 Ml IV 42 mls/hr DIRECT [facility] Administration Ceftriaxone Sodium 1 gm in 50 mls @ 100 mls/hr 04/05/19 18:00 04/06/19 17:25 Rocephin/Ns 1 Gm/50 Ml IV 100 mls/hr Q24H [facility] Administration Protocol Insulin Human Lispro 0 unit 04/05/19 18:00 04/07/19 05:42 Humalog SUB-Q 1 unit Q6HR [facility] Administration Protocol Isosorbide Mononitrate 120 mg 04/06/19 10:00 04/06/19 09:27 Imdur PO 120 mg DAILY [facility] Administration Ketorolac Tromethamine 15 mg 04/04/19 14:29 04/06/19 09:33 Toradol IV 04/09/19 14:28 15 mg Q6H PRN Administration Pain, Mild (1-3) Labetalol HCl 10 mg 04/04/19 14:30 04/07/19 00:35 Labetalol IV 10 mg Q4H PRN Administration BP >170/105; hold for HR <60 Lisinopril 20 mg 04/07/19 10:00 Zestril PO DAILY [facility] Nicotine 14 mg 04/06/19 10:00 04/06/19 09:26 Habitrol TD 14 mg QDAY [facility] Administration Nitroglycerin 0.4 mg 04/05/19 11:13 Nitrostat SL .Q5MIN PRN Chest Pain Ondansetron HCl 4 mg 04/04/19 05:13 04/04/19 22:26 Zofran IV 4 mg Q8H PRN Administration Nausea And Vomiting Ranolazine 1,000 mg 04/05/19 22:00 04/06/19 22:07 Ranexa Er PO 1,000 mg BID [facility] Administration Sodium Chloride 10 ml 04/04/19 05:13 Sodium Chloride Flush Syringe 10 Ml IV PRN PRN LINE FLUSH
--- NOTE | 2019-04-07 11:22 | Vascular Lab Report ---
"DUPLEX DOPPLER ULTRASOUND CAROTID, BILATERAL INDICATION: ica stenosis. FINDINGS: RIGHT CAROTID: Moderate calcified atherosclerotic plaque. Right ICA peak systolic velocity: 184 cm/sec. Right Vertebral Artery: Antegrade flow. LEFT CAROTID: Moderate calcified atherosclerotic plaque. Left ICA peak systolic velocity: 220 cm/sec. Left Vertebral Artery: Antegrade flow. IMPRESSION: 1. Right Internal Carotid Artery: 50-69% diameter stenosis. 2. Left Internal Carotid Artery: 50-69% diameter stenosis. Velocity criteria are extrapolated from diameter data as defined by the Society of Radiologists in Ul trasound Consensus Conference, Radiology 2003; 229;340-346. Degree of Stenosis (%) || ICA PSV (cm/sec) || Plaque estimate (%) || ICA/CCA PSV Ratio Normal <125 None <2.0 <50 <125 <50 <2.0 50-69 125-230 50 2.0-4.0 70 but less than 100 >230 50 >4.0 Near occlusion High, low, or none visible variable Total occlusion None visible; no lumen N/A Signer Name: Myron Mahoney MD Signed: 04/07/2019 11:17 AM Workstation Name: [id number]"
[2019-04-07] MEDS: ENOXAPARIN 40 MG/0.4 ML INJ SUB-Q SCH (11:25)
[2019-04-07] MEDS: ASPIRIN EC 81 MG TAB PO SCH (11:29)
[2019-04-07] MEDS: RANOLAZINE ER 500 MG TAB 12HR PO SCH ×2 (11:29→23:00)
[2019-04-07] MEDS: NICOTINE 14 MG/24 HR PATCH TD SCH (11:29)
[2019-04-07] MEDS: CLOPIDOGREL 75 MG TAB PO SCH (11:30)
[2019-04-07] MEDS: KETOROLAC 30 MG/1 ML INJ IV PRN (14:18)
[2019-04-07] MEDS ORDERED: oxyCODONE /ACETAMINOPHEN 5-325MG TAB PO PRN (15:11)
[2019-04-07] MEDS ORDERED: HYDROmorphone 1 MG/1 ML INJ IV PRN (15:11)
--- NOTE | 2019-04-07 17:20 | Vascular Lab Report ---
DUPLEX DOPPLER LOWER EXTREMITY ARTERIAL, BILATERAL INDICATION: Claudication. TECHNIQUE: Arterial duplex examination of both lower extremities performed using B-mode, color flow and spectral Doppler assessment. FINDINGS: RIGHT: Common Femoral Artery: PSV 183 cm/sec. Biphasic waveform. Proximal SFA: PSV 202 cm/sec. Biphasic waveform. Mid SFA: PSV 104 cm/sec. Biphasic waveform. Distal SFA: PSV 80 cm/sec. Monophasic waveform. Popliteal artery: PSV 111 cm/sec. Monophasic waveform. Posterior tibial artery: Previous BKA. Dorsalis Pedis Artery: Previous BKA. LEFT: Common Femoral Artery: PSV 129 cm/sec. Biphasic waveform. Proximal SFA: PSV 179 cm/sec. Biphasic waveform. Mid SFA: PSV 134 cm/sec. Biphasic waveform. Distal SFA: PSV 132 cm/sec. Biphasic waveform. Popliteal artery: PSV 118 cm/sec. Monophasic waveform. Posterior tibial artery: No appreciable flow. Dorsalis Pedis Artery: PSV 29 cm/sec. Monophasic waveform. IMPRESSION: 1. Hemodynamically significant bilateral peripheral arterial disease based on waveform measurements a s described. 2. Occluded left posterior tibial artery. Doppler Waveform: * Triphasic is normal. * Biphasic is abnormal if clear transition from triphasic signal along vascular tree. * Monophasic is abnormal. Signer Name: Ervin Bacon MD Signed: 04/07/2019 5:16 PM Workstation Name: [id number]
[2019-04-07] MEDS: cefTRIAXone/NS 1 GM/50 ML 1 GM/50 ML BAG IV SCH (18:08)
[2019-04-07] MEDS: LISINOPRIL 40 MG TAB PO SCH (18:09)
[2019-04-08] MEDS: INSULIN LISPRO 100 UNIT/ML SUB-Q SCH ×4 (00:47→19:28)
--- NOTE | 2019-04-08 12:21 | Cat Scan Report ---
CT HEAD WITHOUT CONTRAST INDICATION / CLINICAL INFORMATION: Code stroke. TECHNIQUE: Axial imaging performed from the skull apex through the skull base without the use of cont rast. Sagittal and coronal reformatted images. All CT scans at this location are performed using CT dose reduction for ALARA by means of automated exposure control. COMPARISON: CT head and MR brain dated 04/04/2019 FINDINGS: CEREBRAL PARENCHYMA: There is a 2.1 cm area of diminished attenuation in the right thalamus extending to the right cerebral peduncle and midbrain. Overall this has a subacute to chronic appearance. This appears to represent normal evolution of the stroke seen on the most recent MR brain. No acute hamlet torial infarct is identified. No significant mass effect. HEMORRHAGE: None. EXTRA-AXIAL SPACES: Normal in size and morphology for the patient's age. VENTRICULAR SYSTEM: Normal in size and morphology for the patient's age. MIDLINE SHIFT OR HERNIATION: None. CEREBELLUM / BRAINSTEM: No significant abnormality. CALVARIUM: No significant abnormality. ORBITS: Normal as visualized. PARANASAL SINUSES / MASTOID AIR CELLS: Normal as visualized. SOFT TISSUES of HEAD: No significant abnormality. ADDITIONAL FINDINGS: None. IMPRESSION: Subacute to early chronic ischemic insult involving the right thalamus, right cerebral peduncle and m idbrain is identified as described above. No acute ischemia or hemorrhage is identified. These findings were discussed with the charge nurse, Ambrocio, at 1217 hours EST. A read back was perfor med. Signer Name: Logan Rossi Jr, MD Signed: 04/08/2019 12:17 PM Workstation Name: [id number]
[2019-04-08] MEDS: ENOXAPARIN 40 MG/0.4 ML INJ SUB-Q SCH (14:28)
[2019-04-08] MEDS: RANOLAZINE ER 500 MG TAB 12HR PO SCH ×2 (14:35→22:03)
[2019-04-08] MEDS: ASPIRIN EC 81 MG TAB PO SCH (14:36)
[2019-04-08] MEDS: CLOPIDOGREL 75 MG TAB PO SCH (14:37)
[2019-04-08] MEDS: NICOTINE 14 MG/24 HR PATCH TD SCH (14:38)
--- NOTE | 2019-04-08 16:24 | Cat Scan Report ---
CTA NECK WITH CONTRAST HISTORY: Stroke COMPARISON: CT scan of the brain obtained at 11:48 AM TECHNIQUE: Routine CTA of the neck was performed. 3-D/MIP reformats were postprocessed. Percentage s tenosis is determined by direct quantitative measurements of diseased internal carotid artery diamete r compared with normal distal internal carotid artery reference segments or by criteria similar to NA SCET where applicable.All CT scans at this location are performed using CT dose reduction for ALARA b y means of automated exposure control CONTRAST: 100 ml of Isovue 370 FINDINGS: Aortic arch: No significant abnormality. Cervical vertebral arteries: Right vertebral artery is normal from its origin up to basilar formation . However, atheromatous changes are seen in the left vertebral artery from its origin, at the extraos seous segment. Foraminal segment of left vertebral artery is normal. Common carotid arteries: Normal CAROTID BIFURCATIONS: Densely calcified atheromatous plaque is seen around the medial lateral and pos terior wall of the distal right common carotid artery extending into proximal right internal carotid artery. At the origin of the right internal carotid artery, there is more than 80% stenoses. On the l eft side, tandem calcified atheromatous plaque is seen. Almost circumferential densely calcified plaq ue is seen in the proximal left internal carotid artery. At the origin, left internal carotid artery is narrowed more than 60%. Distal calcified plaque narrows the lumen by approximately 90%. Cervical internal carotid arteries: Antegrade flow is seen in the cervical internal carotid arteries bilaterally. They are normal. Additional findings: None. IMPRESSION: 1. Densely calcified atheromatous plaque in both carotid bifurcations On the right side, there is more than 80% stenoses. Calcified plaques are seen in the proximal left i nternal carotid artery. Proximal of these 2 plaques resulting in 60% stenoses. Distal of these 2 plaq ues is resulting in 90% stenoses on the left side. Signer Name: Salome Garza MD Signed: 04/08/2019 4:20 PM Workstation Name: [id number]
--- NOTE | 2019-04-08 16:32 | Cat Scan Report ---
CT angio head INDICATION / CLINICAL INFORMATION: 58 years Female; Stroke. TECHNIQUE: Thin cut axial images obtained through the head during IV bolus contrast administration. S agittal, coronal, and 3 plane MIP reconstructions performed by the technologist. NASCET type criteria used evaluate stenoses. Automated exposure control utilized for radiation reduction purposes. COMPARISON: None available. FINDINGS: INTERNAL CAROTID ARTERIES: Significant narrowing is seen in the cavernous portions of the internal ca rotid arteries bilaterally-right greater than left. Findings are felt to be hemodynamically significa nt. There is also mild narrowing in the communicating portions. VERTEBROBASILAR SYSTEM: The basilar artery is diminutive in size, related to prominent posterior comm unicating arteries bilaterally supplying posterior cerebral artery territories. Areas of mild narrowi ng seen in the basilar artery - not felt to be hemodynamically significant. DISTAL BRANCHES: Distal branches of the anterior, middle, and posterior cerebral arteries are fairly symmetric in appearance and number. There are multiple areas of [id number] narrowing identified throughout. Findings are seen in the middle and posterior cerebral artery territories. ANEURYSM: None identified. ADDITIONAL FINDINGS: Ischemic changes suggested in the right thalamic region, as well as the right ce rebral peduncle and in the midbrain rightward of midline. IMPRESSION: Multiple areas of narrowing as described above. Signer Name: Lukas Christine MD, III Signed: 04/08/2019 4:28 PM Workstation Name: [id number]
[2019-04-08] MEDS: LISINOPRIL 40 MG TAB PO SCH (17:09)
[2019-04-08] MEDS: NIFEdipine XL 60 MG TAB PO SCH (17:09)
[2019-04-08] MEDS: cefTRIAXone/NS 1 GM/50 ML 1 GM/50 ML BAG IV SCH (19:14)
[2019-04-08] MEDS: SODIUM CHLORIDE 0.45% 1000 ML 1,000 ML IV SCH (22:04)
[2019-04-09] MEDS: INSULIN LISPRO 100 UNIT/ML SUB-Q SCH ×3 (03:27→14:16)
[2019-04-09] MEDS: NIFEdipine XL 60 MG TAB PO SCH (10:17)
[2019-04-09] MEDS: LISINOPRIL 40 MG TAB PO SCH (10:17)
[2019-04-09] MEDS: NICOTINE 14 MG/24 HR PATCH TD SCH (10:19)
[2019-04-09] MEDS: CLOPIDOGREL 75 MG TAB PO SCH (10:19)
[2019-04-09] MEDS: ASPIRIN EC 81 MG TAB PO SCH (10:19)
[2019-04-09] MEDS: ENOXAPARIN 40 MG/0.4 ML INJ SUB-Q SCH (10:19)
[2019-04-09] MEDS: RANOLAZINE ER 500 MG TAB 12HR PO SCH (10:19)
[2019-04-09] MEDS ORDERED: GABAPENTIN 100 MG CAP PO SCH (14:00)
--- NOTE | 2019-04-09 14:00 | Discharge Summary ---
Providers - Providers Date of Admission: 04/04/19 05:13 Attending physician: DIDI DAVILA MD 04/04/19 Consult to Physician [CONS] Routine Comment: Consulting Provider: ARUNA DANIEL Physician Instructions: Reason For Exam: cva 04/04/19 05:13 Occupational Therapy Evaluate and Treat [CONS] Routine Comment: Reason For Exam: Neuro deficits Physical Therapy Evaluation and Treat [CONS] Routine Comment: Reason For Exam: Neuro deficits 04/04/19 06:14 Speech Therapy Evaluation and Treat [CONS] Routine Reason For Exam: failed swallow 04/06/19 16:26 Consult to Physician [CONS] Routine Comment: Consulting Provider: TAO LANCE Physician Instructions: Reason For Exam: bilateral ICA stenosis 04/07/19 17:26 Consult to Physician [CONS] Routine Comment: Consulting Provider: TAO LANCE Physician Instructions: Reason For Exam: PAD of LE Primary care physician: SNAKE CHARMER Hospitalization Condition: Stable Hospital course: 58-year-old woman who reports to the hospital complaining of visual loss, blurred vision and severe left-sided weakness. Acute CVA Tele- neurology input appreciated, neurology consulted appreciated, Allow permissive hypertension, has received aspirin, stroke education, no arrhythmia on telemetry, - --aspirin, plavix and statin -per Dr Daniel, neurologist, Patient will need outpatient neurosurgeon follow- up for " INTRA CRANIAL STENOSIS AND HYPO PLASTIC VERTEBRAL ARTERIES, FOR POSSIBLE STENTING VASCULAR SURGEON consult appreciated for bilateral ICA stenosis, to fup with them as an OP PAD of LE for outpatient vascular surgery eval, they are aware of the patient Hypertensive urgency optimize BP meds UTI, enterobacter cloacae in urine cx -cont abx, it is sens to rocephin, 3 days for uncomplicated UTI, last day ws 04/07 Diabetes Optimize insulins, A1c 8.2. Basal insulin on hold at this time, Severe dysphasia Speech therapy input appreciated, diet has been advanced, dysphagia is improving dvt ppx, Lovenox Disposition: [id number] [facility]PT [facility] Time spent for discharge: 33 mins Core Measure Documentation - Palliative Care Palliative Care/ Comfort Measures: Not Applicable - Core Measures Any of the following diagnoses?: stroke - Stroke Discharge Requirements Statin for LDL = or >70 mg/dl on DC: Yes Anticoag for atrial fib/atrial flutter: Not Applicable Antithrombotic for ischemic stroke: Yes Exam - Physical Exam Narrative exam: General.: Appears well, no distress, nontoxic HEENT: Moist mucous membranes, extraocular muscles intact, no lymphadenopathy Neck: supple Cardiac: S1-S2 heard Lungs: clear to auscultation bilaterally Abdomen: soft , nontender, nondistended, bowel sounds positive Extremities: no edema clubbing or cyanosis Skin: no rash or lesions Neurologic: Slurred speech, left-sided weakness Psych: calm, and cooperative - Constitutional Vitals: Temp Pulse Resp BP Pulse Ox 98.3 F 77 18 82/41 97 04/09/19 09:00 04/09/19 11:57 04/09/19 09:00 04/09/19 11:57 04/09/19 11:57 Plan Follow up with: VIKI FRANCO MD [Primary Care Provider] - 3-5 Days TAO LANCE MD [Staff Physician] - 7 Days
[2019-04-09 14:56] VITALS: BP 128/61
[2019-04-09] MEDS ORDERED: metFORMIN 500 MG TAB PO SCH (22:00)
[2019-04-09] MEDS ORDERED: PENTOXIFYLLINE ER 400 MG TAB PO SCH (22:00)
--- NOTE | 2019-04-22 15:44 | Physician Progress Note ---
ASSESSMENT AND PLAN: A 58-year-old woman who reports to the hospital complaining of visual loss, blurred vision and severe left-sided weakness. The patient has been medically optimized for secondary prevention by the neurologist. She needs outpatient Vascular Surgery consult for carotid stenosis, this was discussed with the vascular surgeon. I spoke with the neurologist, who also recommended outpatient Neurosurgery consult as she has intracranial stenosis. Hypertensive urgency. BP meds optimized. Urinary tract infection. Has completed antibiotics. Type 2 diabetes, continue sliding scale. Severe dysphagia, improving. The patient is tolerating diet. INTERVAL HISTORY: Weakness appears to be improving, dysphagia is improving, no fevers, no chest pain, no abdominal pain, no shortness of breath. PHYSICAL EXAMINATION: GENERAL: Appears well. HEENT: Moist mucous membranes. NECK: Supple. CARDIAC: S1, S2. LUNGS: Clear. ABDOMEN: Soft, nontender. EXTREMITIES: Right lower extremity amputation. Left lower extremity, poor pulse. SKIN: No rash or lesions. NEUROLOGIC: Slurred speech, left-sided weakness. PSYCHIATRIC: She is calm and cooperative. JOB# [id number] NMO/NTS
== END 2019-04-09 15:48 | DRG 65 ==
LOC: ED 02:10 → 4A 05:13
PROVIDERS: ADMIT Internal Medicine; ATTEND Internal Medicine
PROC: 4A033R1 Measurement of Arterial Saturation, Peripheral, Percutaneous Approach (ICD-10-PCS; principal; 2019-04-07)
DX: I63.9 Cerebral infarction, unspecified (principal); N39.0 Urinary tract infection, site not specified; E11.9 Type 2 diabetes mellitus without complications; I25.10 Atherosclerotic heart disease of native coronary artery without angina pectoris; I10 Essential (primary) hypertension; M32.9 Systemic lupus erythematosus, unspecified; G47.30 Sleep apnea, unspecified; I16.0 Hypertensive urgency; B96.89 Other specified bacterial agents as the cause of diseases classified elsewhere; R13.10 Dysphagia, unspecified; I65.29 Occlusion and stenosis of unspecified carotid artery; E78.5 Hyperlipidemia, unspecified; M19.90 Unspecified osteoarthritis, unspecified site; G43.909 Migraine, unspecified, not intractable, without status migrainosus; R29.705 NIHSS score 5; R47.02 Dysphasia; Z91.041 Radiographic dye allergy status; Z91.013 Allergy to seafood; Z79.82 Long term (current) use of aspirin; Z79.899 Other long term (current) drug therapy; Z90.710 Acquired absence of both cervix and uterus; Z89.511 Acquired absence of right leg below knee; Z82.49 Family history of ischemic heart disease and other diseases of the circulatory system; Z83.3 Family history of diabetes mellitus; Z91.14 Patient's other noncompliance with medication regimen; I25.2 Old myocardial infarction; Z95.5 Presence of coronary angioplasty implant and graft; Z90.49 Acquired absence of other specified parts of digestive tract; Z95.1 Presence of aortocoronary bypass graft
CPT/HCPCS: 36415; 36600; 70450; 70496; 70498; 70551; 71045; 80048; 80053; 80061; 80307; 81001; 82550; 82553; 82803; 82962; 83036; 84436; 84439; 84443; 84484; 85025; 85610; 85670; 85730; 87076; 87086; 87116; 87186; 93005; 93010; 93306; 93880; 93925; 99406; G0378; A9270-GY; J0360; J0696; J1170; J1650; J1815; J1885; J2405; J7030; Q9967

== ENCOUNTER 2019-06-01 21:06 | Inpatient (IN) | payer MEDICAID ==
--- NOTE | 2019-06-01 21:10 | Emergency Department Report ---
ED Altered Mental Status HPI - General Stated Complaint: POSS STROKE Time Seen by Provider: 06/01/19 21:09 Source: family, EMS Mode of arrival: Stretcher Limitations: Altered Mental Status, Physical Limitation - History of Present Illness Initial Comments: Patient is a 59-year-old female that presents emergency room for altered mental status and decreased responsiveness. Last known well time 1 PM today. Patient is altered and is at bedside for history. states the patient was answering yes no questions at 1 and then had a nap at 5 and when she woke up the patient was not responding as usual. states the patient had a stroke on April 08. states that the stroke left the patient with left-sided weakness and left-sided hemiparesis. MD Complaint: altered mental status, decreased responsiveness -: Sudden Severity: severe Consistency of Symptoms: constant Associated Symptoms: denies: chest pain, cough, diaphoresis, fever/chills, headaches, loss of appetite, malaise, nausea/vomiting, rash, seizure, shortness of breath, syncope, weakness, foul smelling urine, difficulty walking, diarrhea, incontinence - Related Data Home Medications Medication Instructions Recorded Confirmed Last Taken metFORMIN [Glucophage] 1,000 mg PO BID 10/26/18 06/02/19 06/01/19 Gabapentin 100 mg PO TID 12/09/18 06/02/19 06/01/19 Previous Rx's Medication Instructions Recorded Last Taken Type Nitroglycerin [Nitrostat] 0.4 mg SL .Q5MIN PRN #30 tablet 06/10/17 06/01/19 Rx ISOSORBIDE MONOnitrate [Imdur ER] 120 mg PO DAILY #30 tablet 12/15/18 06/01/19 Rx Ranolazine ER [Ranexa ER] 1,000 mg PO BID #60 tablet 12/15/18 06/01/19 Rx Aspirin EC [Halfprin EC] 81 mg PO QDAY #30 tablet 04/09/19 06/01/19 Rx AtorvaSTATin [Lipitor] 40 mg PO QHS tablet 04/09/19 06/01/19 Rx Clopidogrel [Plavix] 75 mg PO QDAY tablet 04/09/19 06/01/19 Rx Lispro Insulin [HumaLOG] 0 unit SUB-Q Q6HR 30 Days units 04/09/19 06/01/19 Rx Pentoxifylline [TRENtal] 400 mg PO Q12HR #60 tablet 04/09/19 06/01/19 Rx lisinopriL [Zestril TAB] 40 mg PO DAILY tablet 04/09/19 06/01/19 Rx Allergies Allergy/AdvReac Type Severity Reaction Status Date / Time insulin glargine, human AdvReac Unknown Verified 10/26/18 12:10 recombin. a [From Lantus] shellfish derived AdvReac Unknown Verified 10/26/18 12:10 Flu Vaccine AdvReac Rash Uncoded 06/07/17 03:27 IV Dye AdvReac Unknown Uncoded 06/07/17 03:27 ED Review of Systems ROS: Stated complaint: POSS STROKE Other details as noted in HPI Comment: Unobtainable due to pts medical conditions ED Past Medical Hx - Past Medical History Previous Medical History?: Yes Hx Hypertension: Yes Hx Heart Attack/AMI: Yes Hx Diabetes: Yes Hx Arthritis: Yes Hx Headaches / Migraines: Yes Hx Asthma: Yes Additional medical history: lupus, Gastroparesis. sleep apnea, CPAP - Surgical History Past Surgical History?: Yes Hx Coronary Stent: Yes Hx Open Heart Surgery: Yes Hx Cholecystectomy: Yes Additional Surgical History: stent placed in left lower extremity - Family History Family history: no significant - Social History Smoking Status: Current Every Day Smoker Substance Use Type: None - Medications Home Medications: Home Medications Medication Instructions Recorded Confirmed Last Taken Type Nitroglycerin [Nitrostat] 0.4 mg SL .Q5MIN PRN #30 tablet 06/10/17 06/02/19 06/01/19 Rx metFORMIN [Glucophage] 1,000 mg PO BID 10/26/18 06/02/19 06/01/19 History Gabapentin 100 mg PO TID 12/09/18 06/02/19 06/01/19 History ISOSORBIDE MONOnitrate [Imdur ER] 120 mg PO DAILY #30 tablet 12/15/18 06/02/19 06/01/19 Rx Ranolazine ER [Ranexa ER] 1,000 mg PO BID #60 tablet 12/15/18 06/02/19 06/01/19 Rx Aspirin EC [Halfprin EC] 81 mg PO QDAY #30 tablet 04/09/19 06/02/19 06/01/19 Rx AtorvaSTATin [Lipitor] 40 mg PO QHS tablet 04/09/19 06/02/19 06/01/19 Rx Clopidogrel [Plavix] 75 mg PO QDAY tablet 04/09/19 06/02/19 06/01/19 Rx Lispro Insulin [HumaLOG] 0 unit SUB-Q Q6HR 30 Days units 04/09/19 06/02/19 06/01/19 Rx Pentoxifylline [TRENtal] 400 mg PO Q12HR #60 tablet 04/09/19 06/02/19 06/01/19 Rx lisinopriL [Zestril TAB] 40 mg PO DAILY tablet 04/09/19 06/02/19 06/01/19 Rx ED Physical Exam - General Limitations: Altered Mental Status, Physical Limitation General appearance: lethargic - Head Head exam: Present: atraumatic, normocephalic - Eye Eye exam: Present: normal appearance, PERRL Pupils: Present: normal accommodation - ENT ENT exam: Present: mucous membranes dry - Neck Neck exam: Present: normal inspection - Respiratory Respiratory exam: Present: normal lung sounds bilaterally. Absent: respiratory distress, wheezes - Cardiovascular Cardiovascular Exam: Present: regular rate, normal rhythm. Absent: systolic murmur, diastolic murmur, rubs, gallop - GI/Abdominal GI/Abdominal exam: Present: soft, normal bowel sounds. Absent: distended - Rectal Rectal exam: Present: deferred - Extremities Exam Extremities exam: Present: normal inspection (except for right BKA). Absent: calf tenderness - Back Exam Back exam: Present: normal inspection - Neurological Exam Neurological exam: Present: altered - Expanded Neurological Exam Expanded Best Eye Response (Leonardo): (3) open to voice Best Motor Response (Leonardo): (5) localizes to pain Best Verbal Response (Leonardo): (3) inappropriate words [place] Total: 11 - Skin Skin exam: Present: warm, dry, intact, normal color. Absent: rash - Assessment Assessment Interval: Baseline - Level of Consciousness 1a. Level of Consciousness: arousable/minor stimuli - LOC Questions 1b. LOC Questions: answers 1 question correctly - LOC Command 1c. LOC Commands: performs no tasks correctly - Best Gaze 2. Best Gaze: normal - Visual 3. Visual: no visual loss - Facial Palsy 4. Facial Palsy: normal symmetrical movement - Motor Arm 5a. Motor Arm Left: no movement 5b. Motor Arm Right: no drift - Motor Leg 6a. Motor Leg Left: no movement 6b. Motor Leg Right: amputation/joint fusion - Limb Ataxia 7. Limb Ataxia: absent - Sensory 8. Sensory: normal - Best Language 9. Best Language: mild/moderate aphasia - Dysarthria 10. Dysarthria: normal - Extinction and Inattention 11. Extinction/Inattention: no abnormality - Scoring Total Score: 13 Stroke Severity: Moderate Stroke ED Course Vital Signs 06/01/19 06/01/19 06/01/19 21:13 21:24 21:45 Temperature 97.7 F Pulse Rate 102 H Respiratory 18 16 Rate Blood Pressure 191/80 Blood Pressure 180/80 [Right] O2 Sat by Pulse 100 Oximetry 06/01/19 06/01/19 06/01/19 22:01 22:45 23:00 Temperature Pulse Rate 106 H 96 H 104 H Respiratory 17 14 17 Rate Blood Pressure 191/80 120/53 138/57 Blood Pressure [Right] O2 Sat by Pulse 99 99 98 Oximetry 06/01/19 06/02/19 06/02/19 23:30 00:00 00:19 Temperature Pulse Rate 98 H 97 H 98 H Respiratory 15 12 13 Rate Blood Pressure 128/68 145/56 142/56 Blood Pressure [Right] O2 Sat by Pulse 99 99 100 Oximetry 06/02/19 06/02/19 06/02/19 00:44 01:01 01:30 Temperature Pulse Rate 95 H 85 99 H Respiratory 15 11 L 13 Rate Blood Pressure 142/56 118/47 183/79 Blood Pressure [Right] O2 Sat by Pulse 100 99 Oximetry 06/02/19 06/02/19 06/02/19 02:00 02:30 03:00 Temperature Pulse Rate 101 H 100 H 107 H Respiratory 16 14 16 Rate Blood Pressure 186/76 170/69 180/67 Blood Pressure [Right] O2 Sat by Pulse 99 98 98 Oximetry - Reevaluation(s) Reevaluation #1: Initial evaluation done. Code stroke initiated. Patient essentially nonverbal but able to answer yes no questions by shaking her head. Patient is oriented times one. 06/01/19 21:09 Nurses unable to obtain peripheral IV. I will attempt a ultrasound-guided. 06/01/19 21:58 Reevaluation #2: Unable to achieve a ultrasound-guided peripheral IV. Central line will be placed. 06/01/19 22:35 Reevaluation #3: A central line placed. See procedure note. CTA will be done now that we have IV access. 06/01/19 22:58 Reevaluation #4: Patient ready for admission. Patient admitted to the hospitalist service. I discussed all results with family. Family agrees to plan of care and admission. 06/02/19 02:05 - Consultations Consultation #1: Neurologist does not recommend TPA. Neurologist recommends CTA stat. 06/01/19 21:57 Consultation #2: Hospitalist consult for admission. Hospitalist to admit patient. 06/02/19 02:06 - Central Line Placement Left Femoral Consent Obtained: emergent situation Time Out Performed: Yes Patient Placed on Monitor/Pulse Ox: Yes MD Prep: mask, gown, gloves Central Line Prep: Chlorhexidine scrub, sterile drapes applied Local Anesthesia Used: Lidocaine 1% Amount of Anesthesia Used (mls): 5 Ultrasound Used for Placement: Yes Central Line Lumen Inserted: triple Bloods Obtained for Lab: No Central Line Position: good blood return, all ports aspirated, flus, sutured in place with 2-0 Dressing Applied: Tegaderm Patient Tolerated Procedure: well, no complications Complications: none - Lab Data Result diagrams: 06/01/19 21:35 06/01/19 21:35 Lab Results 06/01/19 06/01/19 06/01/19 Range/Units 21:35 21:35 21:35 WBC 9.7 (4.5-11.0) K/mm3 RBC 4.80 (3.65-5.03) M/mm3 Hgb 13.3 (10.1-14.3) gm/dl Hct 40.7 (30.3-42.9) % MCV 85 (79-97) fl MCH 28 (28-32) pg MCHC 33 (30-34) % RDW 13.9 (13.2-15.2) % Plt Count 322 (140-440) K/mm3 Lymph % (Auto) 45.2 H (13.4-35.0) % [place] % (Auto) 5.4 (0.0-7.3) % Eos % (Auto) 2.8 (0.0-4.3) % Baso % (Auto) 0.8 (0.0-1.8) % Lymph # 4.4 (1.2-5.4) K/mm3 [place] # 0.5 (0.0-0.8) K/mm3 Eos # 0.3 (0.0-0.4) K/mm3 Baso # 0.1 (0.0-0.1) K/mm3 Seg Neutrophils % 45.8 (40.0-70.0) % Seg Neutrophils # 4.5 (1.8-7.7) K/mm3 PT 13.5 (12.2-14.9) Sec. INR 1.02 (0.87-1.13) APTT 33.2 (24.2-36.6) Sec. Thrombin Time (15.1-19.6) Sec. Sodium 141 (137-145) mmol/L Potassium 4.9 (3.6-5.0) mmol/L Chloride 102.5 (98-107) mmol/L Carbon Dioxide 16 L (22-30) mmol/L Anion Gap 27 mmol/L BUN 44 H (7-17) mg/dL Creatinine 1.3 H (0.7-1.2) mg/dL Estimated GFR 51 ml/min BUN/Creatinine Ratio 34 % Glucose 121 H (65-100) mg/dL Calcium 10.2 (8.4-10.2) mg/dL Troponin T < 0.010 (0.00-0.029) ng/mL 06/01/19 Range/Units 21:35 WBC (4.5-11.0) K/mm3 RBC (3.65-5.03) M/mm3 Hgb (10.1-14.3) gm/dl Hct (30.3-42.9) % MCV (79-97) fl MCH (28-32) pg MCHC (30-34) % RDW (13.2-15.2) % Plt Count (140-440) K/mm3 Lymph % (Auto) (13.4-35.0) % [place] % (Auto) (0.0-7.3) % Eos % (Auto) (0.0-4.3) % Baso % (Auto) (0.0-1.8) % Lymph # (1.2-5.4) K/mm3 [place] # (0.0-0.8) K/mm3 Eos # (0.0-0.4) K/mm3 Baso # (0.0-0.1) K/mm3 Seg Neutrophils % (40.0-70.0) % Seg Neutrophils # (1.8-7.7) K/mm3 PT (12.2-14.9) Sec. INR (0.87-1.13) APTT (24.2-36.6) Sec. Thrombin Time 16.1 (15.1-19.6) Sec. Sodium (137-145) mmol/L Potassium (3.6-5.0) mmol/L Chloride (98-107) mmol/L Carbon Dioxide (22-30) mmol/L Anion Gap mmol/L BUN (7-17) mg/dL Creatinine (0.7-1.2) mg/dL Estimated GFR ml/min BUN/Creatinine Ratio % Glucose (65-100) mg/dL Calcium (8.4-10.2) mg/dL Troponin T (0.00-0.029) ng/mL - EKG Data -: EKG Interpreted by Hi EKG shows normal: sinus rhythm, intervals, QRS complexes, ST-T waves Rate: tachycardia Interpretation: LVH, other (axis deviation) - Radiology Data Radiology results: report reviewed NONENHANCED CT SCAN OF THE HEAD: INDICATION / CLINICAL INFORMATION: 59 years Female; [facility] CALL ED AT [phone]. TECHNIQUE: Routine CT head without contrast. All CT scans at this location are performed using CT dose reduction for ALARA by means of automated exposure control. COMPARISON: CT scan of the brain from 04/08/2019 and 04/04/2019 and MRI scan from March 2019 FINDINGS: BRAIN / INTRACRANIAL CONTENTS: No acute hemorrhage, mass effect, midline shift, hydrocephalus, or acute, large territorial infarct. Chronic ischemic changes are seen in the right cerebral peduncle, right thalamus and mariely.. C2 the last CT scan from 04/08/2019, previously seen lesion involving right thalamus extending into the right cerebral peduncle has decreased significantly. This lesion was also not seen in the MRI scan obtained before days earlier (04/04/2019). No significant white matter abnormality. CRANIOCERVICAL JUNCTION: No significant abnormality. ORBITS: No significant abnormality of visualized orbits. SINUSES / MASTOIDS: No significant abnormality of the visualized paranasal sinuses or mastoid air cells. ADDITIONAL FINDINGS: None. IMPRESSION: No focal mass, hemorrhage, hydrocephalus, or acute, large territorial infarct. CTA NECK WITH CONTRAST HISTORY: Altered mental status; weakness COMPARISON: 04/08/2019 TECHNIQUE: Routine CTA of the neck was performed. 3-D/MIP reformats were postprocessed. Percentage stenosis is determined by direct quantitative measurements of diseased internal carotid artery diameter compared with normal distal internal carotid artery reference segments or by criteria similar to NASCET where applicable.All CT scans at this location are performed using CT dose reduction for ALARA by means of automated exposure control CONTRAST: 100 ml of Omnipaque 350 FINDINGS: Aortic arch: Atheromatous plaques are seen at the origins of all 3 major arteries from the aorta. Less than 50% stenoses of the origins of left common and left subclavian arteries. Cervical vertebral arteries: Minimal atheromatous changes in the origin of right vertebral artery. Foraminal and extraspinal and intradural segments of right vertebral artery are normal. As seen in the last CTA, significant atheromatous changes are seen at the origin and extraosseous segment of left vertebral artery. Atheromatous changes are also seen in the foraminal segment of left vertebral artery. Common carotid arteries: No significant abnormality. Carotid bifurcations: Densely calcified atheromatous plaque is seen in the p roximal right internal carotid artery with approximately 80% stenoses. This remains unchanged. Densely calcified atheromatous plaque tandem stenoses of 60% and 70% are seen in the proximal left internal carotid artery. This remains unchanged. Cervical internal carotid arteries: No significant abnormality. Additional findings: None. IMPRESSION: Calcified atheromatous plaques in the proximal internal carotid arteries bilaterally with significant stenoses; remains unchanged since CT scan from 04/08/2019 Significant atherosclerotic disease at the origin and extraosseous segment of left vertebral artery and foraminal segment of left vertebral artery; unchanged since the previous CTA CTA HEAD WITH CONTRAST HISTORY: Altered mental status COMPARISON: None. TECHNIQUE: Routine non-contrast CT Head, CTA of the head and post-contrast CT Head are performed. 3-D/MIP reformats postprocessed. All CT scans at this location are performed using CT dose reduction for ALARA by means of automated exposure control CONTRAST: 100 ml of Omnipaque 350 FINDINGS: CTA Head: Intracranial vertebral arteries: Intradural segment of right vertebral artery is normal. Significant atherosclerotic disease is seen in the intradural segment of left vertebral artery. Basilar artery: Atheromatous changes are seen in the basilar artery. Basilar artery is patent up to basilar. Posterior cerebral arteries: Both posterior communicating arteries are contributing to posterior cerebral arteries. Atherosclerotic changes are seen in the left posterior cerebral artery at the P2 and P3 segments. Intracranial internal carotid arteries: Calcification is seen in the cavernous segments of both internal carotid arteries. Minimal narrowing communicating segments of both carotid arteries are seen. Remains unchanged since previous CTA. Anterior cerebral arteries: No significant abnormality. Middle cerebral arteries: narrowing right M1 segment is seen. Remains unchanged. Left A1 segment is normal. Dural venous sinuses:Not optimally opacified. No significant abnormality. Additional findings: None. IMPRESSION: Atherosclerotic disease in the intradural left vertebral artery, basilar artery, communicating segments of both internal carotid arteries and right M1 segment; remains unchanged since 04/08/2019. - Medical Decision Making Patient is a 59-year-old female that presents emergency room with decreased responsiveness and altered mental status. Patient had a recent stroke. Patient's symptoms consistent more with encephalopathy versus a stroke however a code stroke was ran immediately upon arrival. Patient responsive and able to answer some questions by shaking her head. Patient's head CT negative for acute findings. Patient had a CTA of the head and neck and showed no change in her arthrosclerotic disease. Patient admitted to the hospitalist service and into the ICU. Patient's blood pressure treated. Patient given fluids. Patient's labs consistent with acidosis. Patient had a central line placed due to inability to place a peripheral line. - Differential Diagnosis encephalopathy, dehydration, stroke, unresponsive, altered mental status - Core Measures AMI Core Measures Followed: Yes Critical Care Time: Yes Critical care time in (mins) excluding proc time.: 50 Critical care attestation.: If time is entered above; I have spent that time in minutes in the direct care of this critically ill patient, excluding procedure time. Critical Care Time: 50 minutes ED Disposition Clinical Impression: Decreased responsiveness, Metabolic encephalopathy, Metabolic acidosis, Renal insufficiency Altered mental state Qualifiers: Altered mental status type: unspecified Qualified Code(s): R41.82 - Altered mental status, unspecified HTN (hypertension) Qualifiers: Hypertension type: essential hypertension Qualified Code(s): I10 - Essential (primary) hypertension Disposition: 09 OP ADMIT IP TO THIS HOSP Is pt being admited?: Yes Does the pt Need Aspirin: No Condition: Critical Time of Disposition: 02:08
--- NOTE | 2019-06-01 21:44 | Cat Scan Report ---
NONENHANCED CT SCAN OF THE HEAD: INDICATION / CLINICAL INFORMATION: 59 years Female; MAIN: poss strokeCODE STROKE CALL ED AT [phone]. TECHNIQUE: Routine CT head without contrast. All CT scans at this location are performed using CT dos e reduction for ALARA by means of automated exposure control. COMPARISON: CT scan of the brain from 04/08/2019 and 04/04/2019 and MRI scan from March 2019 FINDINGS: BRAIN / INTRACRANIAL CONTENTS: No acute hemorrhage, mass effect, midline shift, hydrocephalus, or acu te, large territorial infarct. Chronic ischemic changes are seen in the right cerebral peduncle, righ t thalamus and mariely.. C2 the last CT scan from 04/08/2019, previously seen lesion involving right patricia lamus extending into the right cerebral peduncle has decreased significantly. This lesion was also no t seen in the MRI scan obtained before days earlier (04/04/2019). No significant white matter abnorma lity. CRANIOCERVICAL JUNCTION: No significant abnormality. ORBITS: No significant abnormality of visualized orbits. SINUSES / MASTOIDS: No significant abnormality of the visualized paranasal sinuses or mastoid air josy ls. ADDITIONAL FINDINGS: None. IMPRESSION: No focal mass, hemorrhage, hydrocephalus, or acute, large territorial infarct. This exam was performed as part of a code stroke protocol. The exam was completed at 9:15 PM eastern standard time on 06/01/2019. The exam was reviewed at 8:35 PM Central standard time and Dr Zandra MUÑOZ was notified at 8:39 PM Central standard time.. Signer Name: Salome aGrza MD Signed: 06/01/2019 9:40 PM Workstation Name: [employer]
[2019-06-01 22:00] LABS: Basophils # (Auto) 0.1 K/mm3 (0.0-0.1); Basophils % (Auto) 0.8 % (0.0-1.8); Eosinophils # (Auto) 0.3 K/mm3 (0.0-0.4); Eosinophils % (Auto) 2.8 % (0.0-4.3); Hematocrit 40.7 % (30.3-42.9); Hemoglobin 13.3 gm/dl (10.1-14.3); Lymphocytes # (Auto) 4.4 K/mm3 (1.2-5.4); Lymphocytes % (Auto) 45.2 % (13.4-35.0); Mean Corpuscular HGB Conc 33 % (30-34); Mean Corpuscular Volume 85 fl (79-97); Monocytes # (Auto) 0.5 K/mm3 (0.0-0.8); Monocytes % (Auto) 5.4 % (0.0-7.3); Platelet Count 322 K/mm3 (140-440); Red Cell Distribution Width 13.9 % (13.2-15.2)
[2019-06-01 22:11] LABS: INR 1.02 (0.87-1.13)
[2019-06-01 22:13] LABS: Partial Thromboplastin Time 33.2 Sec. (24.2-36.6)
[2019-06-01 22:22] LABS: BUN/Creatinine Ratio 34; Blood Urea Nitrogen 44 mg/dL (7-17); Calcium 10.2 mg/dL (8.4-10.2); Hemolysis Index 3
--- NOTE | 2019-06-02 01:48 | Cat Scan Report ---
CTA NECK WITH CONTRAST HISTORY: Altered mental status; weakness COMPARISON: 04/08/2019 TECHNIQUE: Routine CTA of the neck was performed. 3-D/MIP reformats were postprocessed. Percentage s tenosis is determined by direct quantitative measurements of diseased internal carotid artery diamete r compared with normal distal internal carotid artery reference segments or by criteria similar to NA SCET where applicable.All CT scans at this location are performed using CT dose reduction for ALARA b y means of automated exposure control CONTRAST: 100 ml of Omnipaque 350 FINDINGS: Aortic arch: Atheromatous plaques are seen at the origins of all 3 major arteries from the aorta. Les s than 50% stenoses of the origins of left common and left subclavian arteries. Cervical vertebral arteries: Minimal atheromatous changes in the origin of right vertebral artery. Fo raminal and extraspinal and intradural segments of right vertebral artery are normal. As seen in the last CTA, significant atheromatous changes are seen at the origin and extraosseous segment of left ve rtebral artery. Atheromatous changes are also seen in the foraminal segment of left vertebral artery. Common carotid arteries: No significant abnormality. Carotid bifurcations: Densely calcified atheromatous plaque is seen in the proximal right internal ca rotid artery with approximately 80% stenoses. This remains unchanged. Densely calcified atheromatous plaque tandem stenoses of 60% and 70% are seen in the proximal left in ternal carotid artery. This remains unchanged. Cervical internal carotid arteries: No significant abnormality. Additional findings: None. IMPRESSION: Calcified atheromatous plaques in the proximal internal carotid arteries bilaterally with significant stenoses; remains unchanged since CT scan from 04/08/2019 Significant atherosclerotic disease at the origin and extraosseous segment of left vertebral artery a nd foraminal segment of left vertebral artery; unchanged since the previous CTA Signer Name: Salome Garza MD Signed: 06/02/2019 1:43 AM Workstation Name: [id number]
--- NOTE | 2019-06-02 01:56 | Cat Scan Report ---
CTA HEAD WITH CONTRAST HISTORY: Altered mental status COMPARISON: None. TECHNIQUE: Routine non-contrast CT Head, CTA of the head and post-contrast CT Head are performed. 3-D /MIP reformats postprocessed. All CT scans at this location are performed using CT dose reduction for ALARA by means of automated exposure control CONTRAST: 100 ml of Omnipaque 350 FINDINGS: CTA Head: Intracranial vertebral arteries: Intradural segment of right vertebral artery is normal. Significant atherosclerotic disease is seen in the intradural segment of left vertebral artery. Basilar artery: Atheromatous changes are seen in the basilar artery. Basilar artery is patent up to b asilar. Posterior cerebral arteries: Both posterior communicating arteries are contributing to posterior cere bral arteries. Atherosclerotic changes are seen in the left posterior cerebral artery at the P2 and P 3 segments. Intracranial internal carotid arteries: Calcification is seen in the cavernous segments of both inter nal carotid arteries. Minimal narrowing communicating segments of both carotid arteries are seen. Rem ains unchanged since previous CTA. Anterior cerebral arteries: No significant abnormality. Middle cerebral arteries: narrowing right M1 segment is seen. Remains unchanged. Left A1 segment is normal. Dural venous sinuses:Not optimally opacified. No significant abnormality. Additional findings: None. IMPRESSION: Atherosclerotic disease in the intradural left vertebral artery, basilar artery, communicating segmen ts of both internal carotid arteries and right M1 segment; remains unchanged since 04/08/2019. Signer Name: Salome Garza MD Signed: 06/02/2019 1:52 AM Workstation Name: [id number]
[2019-06-02] MEDS ORDERED: SODIUM CHLORIDE 0.9% 1000 ML 1,000 ML IV ONE (01:58)
[2019-06-02] MEDS ORDERED: MAGNESIUM HYDROXIDE (MOM) ORAL LIQD UDC PO PRN ×2 (03:06)
[2019-06-02] MEDS ORDERED: METOCLOPRAMIDE 10 MG TAB PO PRN (03:06)
[2019-06-02] MEDS ORDERED: ACETAMINOPHEN 325 MG TAB PO PRN (03:06)
[2019-06-02] MEDS ORDERED: PROMETHAZINE 25 MG RECT SUPP PR PRN (03:06)
[2019-06-02] MEDS ORDERED: DEXTROSE 50% IN WATER (25GM) 50 ML SYRINGE IV PRN (03:06)
[2019-06-02] MEDS ORDERED: ONDANSETRON 4 MG/2 ML INJ IV PRN ×2 (03:06)
[2019-06-02] MEDS ORDERED: SODIUM CHLORIDE 0.9% 1000 ML 1,000 ML IV SCH (03:15)
--- NOTE | 2019-06-02 03:28 | History and Physical Report ---
History of Present Illness Date of examination: 06/02/19 Date of admission: 06/02/2019 Chief complaint: Decreased responsiveness History of present illness: 59-year-old female with known history of hypertension, diabetes mellitus, coronary artery disease and history of CVA in March 2019 brought into the emergency room today with a decrease in responsiveness today. She had rested well left sided weakness after a recent stroke. There has been no history of headache or dizziness, no chest pain or shortness of breath, no fever or chills. Patient unable to give any history. Patient was evaluated by the tele-neurologist and CT scan of the head and CTA were unchanged from previous. She was not a candidate for TPA. She has been admitted to be evaluated for CVA. Past History Past Medical History: diabetes, hypertension, other (Gastroparesis, lupus, history of sleep apnea) Past Surgical History: cholecystectomy, CABG, PTCA, Other (Right below-knee amputation) Social history: smoking (Smokes less than a pack of cigarette daily) Family history: no significant family history Medications and Allergies Allergies Allergy/AdvReac Type Severity Reaction Status Date / Time insulin glargine, human AdvReac Unknown Verified 10/26/18 12:10 recombin. a [From Lantus] shellfish derived AdvReac Unknown Verified 10/26/18 12:10 Flu Vaccine AdvReac Rash Uncoded 06/07/17 03:27 IV Dye AdvReac Unknown Uncoded 06/07/17 03:27 Home Medications Medication Instructions Recorded Confirmed Last Taken Type Nitroglycerin [Nitrostat] 0.4 mg SL .Q5MIN PRN #30 tablet 06/10/17 06/02/19 06/01/19 Rx metFORMIN [Glucophage] 1,000 mg PO BID 10/26/18 06/02/19 06/01/19 History Gabapentin 100 mg PO TID 12/09/18 06/02/19 06/01/19 History ISOSORBIDE MONOnitrate [Imdur ER] 120 mg PO DAILY #30 tablet 12/15/18 06/02/19 06/01/19 Rx Ranolazine ER [Ranexa ER] 1,000 mg PO BID #60 tablet 12/15/18 06/02/19 06/01/19 Rx Aspirin EC [Halfprin EC] 81 mg PO QDAY #30 tablet 11/06/02/19 06/01/19 Rx AtorvaSTATin [Lipitor] 40 mg PO QHS tablet 04/09/19 06/02/19 06/01/19 Rx Clopidogrel [Plavix] 75 mg PO QDAY tablet 04/09/19 06/02/19 06/01/19 Rx Lispro Insulin [HumaLOG] 0 unit SUB-Q Q6HR 30 Days units 04/09/19 06/02/19 06/01/19 Rx Pentoxifylline [TRENtal] 400 mg PO Q12HR #60 tablet 04/09/19 06/02/19 06/01/19 Rx lisinopriL [Zestril TAB] 40 mg PO DAILY tablet 04/09/19 06/02/19 06/01/19 Rx Active Meds: Active Medications Acetaminophen (Tylenol) 650 mg PO Q4H PRN PRN Reason: Pain, Mild (1-3) Aspirin (Aspirin) 325 mg PO QDAY [facility] Bisacodyl (Dulcolax) [address] QDAY PRN PRN Reason: Constipation Dextrose (D50w (25gm) Syringe) 50 ml IV Q30MIN PRN; Protocol PRN Reason: Hypoglycemia Sodium Chloride (Nacl 0.9% 1000 Ml) 1,000 mls @ 75 mls/hr IV DIRECT MARLEN[facility] Insulin Human Lispro (Humalog) 0 unit SUB-Q ACHS MARLEN[facility]; Protocol Magnesium Hydroxide (Milk Of Magnesia) 30 ml PO Q4H PRN PRN Reason: Constipation Magnesium Hydroxide (Milk Of Magnesia) 30 ml PO Q4H PRN PRN Reason: Constipation Metoclopramide HCl (Reglan) 10 mg PO Q6H PRN PRN Reason: Nausea And Vomiting Morphine Sulfate (Morphine) 2 mg IV Q4H PRN PRN Reason: Pain, Moderate (4-6) Ondansetron HCl (Zofran) 4 mg IV Q8H PRN PRN Reason: Nausea And Vomiting Ondansetron HCl (Zofran) 4 mg IV Q8H PRN PRN Reason: Nausea And Vomiting Promethazine HCl (Phenergan) [address] Q6H PRN PRN Reason: Nausea And Vomiting Sodium Chloride (Sodium Chloride Flush Syringe 10 Ml) 10 ml IV BID MARLENI Sodium Chloride (Sodium Chloride Flush Syringe 10 Ml) 10 ml IV PRN PRN PRN Reason: LINE FLUSH Sodium Chloride (Sodium Chloride Flush Syringe 10 Ml) 10 ml INJ PRN PRN PRN Reason: LINE FLUSH Review of Systems ROS unobtainable: due to mental status Exam - Constitutional Vitals: Temp Pulse Resp BP Pulse Ox 97.7 F 107 H 16 180/67 98 06/01/19 21:13 06/02/19 03:00 06/02/19 03:00 06/02/19 03:00 06/02/19 03:00 General appearance: Present: no acute distress, well-nourished - EENT Eyes: Present: PERRL, EOM intact ENT: hearing intact, clear oral mucosa, dentition normal - Neck Neck: Present: supple, normal ROM - Respiratory Respiratory effort: normal Respiratory: bilateral: CTA - Cardiovascular Rhythm: regular Heart Sounds: Present: S1 & S2 - Extremities Extremities: no ischemia, pulses intact, No edema Extremity abnormal: other (Right BKA) Peripheral Pulses: within normal limits - Abdominal General gastrointestinal: Present: soft, non-tender, non-distended - Integumentary Integumentary: Present: clear, warm, dry - Musculoskeletal Musculoskeletal: left sided weakness - Psychiatric Psychiatric: appropriate mood/affect, cooperative - Neurologic Neurologic: other (Patient alert but nonverbal with left hemiparesis) Results - Labs CBC & Chem 7: 06/01/19 21:35 06/01/19 21:35 Labs: Abnormal lab results 06/01/19 06/01/19 Range/Units 21:35 21:35 Lymph % (Auto) 45.2 H (13.4-35.0) % Carbon Dioxide 16 L (22-30) mmol/L BUN 44 H (7-17) mg/dL Creatinine 1.3 H (0.7-1.2) mg/dL Glucose 121 H (65-100) mg/dL Assessment and Plan - Patient Problems (1) Altered mental state Current Visit: Yes Status: Acute Qualifiers: Altered mental status type: unspecified Qualified Code(s): R41.82 - Altered mental status, unspecified Plan to address problem: Probably secondary to metabolic encephalopathy. Will monitor chemistry and monitor mental status. 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 We will continue daily aspirin. We will work-up patient for a new CVA. (3) Coronary artery disease Current Visit: No Status: Chronic Qualifiers: Coronary Disease-Associated Artery/Lesion type: unga artery [place] vs. transplanted heart: unga heart Plan to address problem: Stable. Will resume routine home medications once reconciled. (4) Diabetes Current Visit: No Status: Chronic Plan to address problem: We will monitor Accu-Cheks and resume routine home medications. (5) DVT prophylaxis Current Visit: No Status: Chronic Plan to address problem: We will place on subcutaneous heparin. (6) Full code status Current Visit: Yes Status: Acute
[2019-06-02 04:27] LABS: Bilirubin,Urine NEG (Negative); Blood,Urine NEG (Negative); Color,Urine Yellow (Yellow); Mucus,Urine FEW /HPF; Urobilinogen,Urine < 2.0 mg/dL (<2.0)
--- NOTE | 2019-06-02 05:01 | Consultation ---
History of Present Illness - Reason for Consult Consult date: 06/01/19 - History of Present Illness [facility] Date of Service: 06/01/2019 21:08:22 Impression: RO Acute Ischemic Stroke Comments: The patient had become unresponsive, on the left she is flaccid and weak. This is completely unlike her. She has left sided weakness, and BKA, she is otherwise not responsive. would load with keppra 1000 mg IV x1 as CTA head/neck is n egative for new disease Metrics: Last Known Well: 06/01/2019 13:00:00 [facility] Notification Time: 06/01/2019 21:07:50 Arrival Time: 06/01/2019 21:06:00 Stamp Time: 06/01/2019 21:08:22 Telephone Response Time: 06/01/2019 21:16:00 Time First Login Attempt: 06/01/2019 21:16:00 Video Start Time: 06/01/2019 21:15:06 Symptoms: Stroke NIHSS Start Assessment Time: 06/01/2019 21:22:20 Patient is not a candidate for tPA. Patient was not deemed candidate for tPA thrombolytics because of Last Well Known Above 4.5 Hours. Video End Time: 06/01/2019 21:29:57 CT head showed no acute hemorrhage or acute core infarct. Advanced imaging was reviewed, No Indication of Large Vessel Occlusive Thrombus. Radiologist was called back for review of advanced imaging on 06/01/2019 21:27:56 ER Physician notified of the decision on thrombolytics management on 06/01/2019 21:23:21 Our recommendations are outlined below. Recommendations: Activate Stroke Protocol Admission/Order Set Stroke/Telemetry Floor Neuro Checks Bedside Swallow Eval DVT Prophylaxis IV Fluids, Normal Saline Head of Bed Below 30 Degrees Euglycemia and Avoid Hyperthermia (PRN Acetaminophen) Antiplatelet Therapy Recommended Recommended Scan: MRI Head with and Without Contrast Lipid Panel to Be Obtained, if Not Done in the Last Three Months Therapies: Physical Therapy, Occupational Therapy, Speech Therapy Assessment When Applicable Dysphaghia Screen: Swallow Evaluation, Bedside NPO Until Swallow Evaluation History of Present Illness: Patient is a 59 year old Male. Patient was brought by EMS for symptoms of Stroke The patient had a stroke, recently - two months prior had a stroke, and had left sided weakness, and at 5. CT head showed no acute hemorrhage or acute core infarct. Last seen normal was beyond 4.5 hours of presentation. There is no history of hemorrhagic complications or intracranial hemorrhage. There is no history of Recent Anticoagulants. There is no history of recent major surgery. There is no history of recent stroke. Examination: BP(180/80), Pulse(98), Blood Glucose(77) 1A: Level of Consciousness - Requires repeated stimulation to arouse + 2 1B: Ask Month and Age - Both Questions Right + 0 1C: Blink Eyes & Squeeze Hands - Performs Both Tasks + 0 2: Test Horizontal Extraocular Movements - Normal + 0 3: Test Visual Long - No Visual Loss + 0 4: Test Facial Palsy (Use Grimace if Obtunded) - Normal symmetry + 0 5A: Test Left Arm Motor Drift - No Movement + 4 5B: Test Right Arm Motor Drift - No Drift for 10 Seconds + 0 6A: Test Left Leg Motor Drift - No Movement + 4 6B: Test Right Leg Motor Drift - Amputation/Joint Fusion + 0 7: Test Limb Ataxia (FNF/Heel-Wright) - No Ataxia + 0 8: Test Sensation - Normal; No sensory loss + 0 9: Test Language/Aphasia - Normal; No aphasia + 0 10: Test Dysarthria - Normal + 0 11: Test Extinction/Inattention - No abnormality + 0 NIHSS Score: 10 Patient was informed the Neurology Consult would happen via TeleHealth consult by way of interactive audio and video telecommunications and consented to receiving care in this manner. Due to the immediate potential for life-threatening deterioration due to underlying acute neurologic illness, I spent 35 minutes providing critical care. This time includes time for face to face visit via telemedicine, review of medical records, imaging studies and discussion of findings with providers, the patient and/or family. Dr Harjinder [facility] Case [id number] Past History Past Medical History: diabetes, hypertension, other (Gastroparesis, lupus, history of sleep apnea) Past Surgical History: cholecystectomy, CABG, PTCA, Other (Right below-knee amputation) Social history: smoking (Smokes less than a pack of cigarette daily) Family history: no significant family history Medications and Allergies Allergies Allergy/AdvReac Type Severity Reaction Status Date / Time insulin glargine, human AdvReac Unknown Verified 10/26/18 12:10 recombin. a [From Lantus] shellfish derived AdvReac Unknown Verified 10/26/18 12:10 Flu Vaccine AdvReac Rash Uncoded 06/07/17 03:27 IV Dye AdvReac Unknown Uncoded 06/07/17 03:27 Home Medications Medication Instructions Recorded Confirmed Last Taken Type Nitroglycerin [Nitrostat] 0.4 mg SL .Q5MIN PRN #30 tablet 06/10/17 06/02/19 06/01/19 Rx metFORMIN [Glucophage] 1,000 mg PO BID 10/26/18 06/02/19 06/01/19 History Gabapentin 100 mg PO TID 12/09/18 06/02/19 06/01/19 History ISOSORBIDE MONOnitrate [Imdur ER] 120 mg PO DAILY #30 tablet 12/15/18 06/02/19 06/01/19 Rx Ranolazine ER [Ranexa ER] 1,000 mg PO BID #60 tablet 12/15/18 06/02/19 06/01/19 Rx Aspirin EC [Halfprin EC] 81 mg PO QDAY #30 tablet 04/09/19 06/02/19 06/01/19 Rx AtorvaSTATin [Lipitor] 40 mg PO QHS tablet 04/09/19 06/02/19 06/01/19 Rx Clopidogrel [Plavix] 75 mg PO QDAY tablet 04/09/19 06/02/19 06/01/19 Rx Lispro Insulin [HumaLOG] 0 unit SUB-Q Q6HR 30 Days units 04/09/19 06/02/19 06/01/19 Rx Pentoxifylline [TRENtal] 400 mg PO Q12HR #60 tablet 04/09/19 06/02/19 06/01/19 Rx lisinopriL [Zestril TAB] 40 mg PO DAILY tablet 04/09/19 06/02/19 06/01/19 Rx Active Meds: Active Medications Acetaminophen (Tylenol) 650 mg PO Q4H PRN PRN Reason: Pain, Mild (1-3) Aspirin (Aspirin) 325 mg PO QDAY [facility] Bisacodyl (Dulcolax) 10 mg UT QDAY PRN PRN Reason: Constipation Dextrose (D50w (25gm) Syringe) 50 ml IV Q30MIN PRN; Protocol PRN Reason: Hypoglycemia Sodium Chloride (Nacl 0.9% 1000 Ml) 1,000 mls @ 75 mls/hr IV DIRECT MARLENI Insulin Human Lispro (Humalog) 0 unit SUB-Q ACHS MARLENI; Protocol Magnesium Hydroxide (Milk Of Magnesia) 30 ml PO Q4H PRN PRN Reason: Constipation Metoclopramide HCl (Reglan) 10 mg PO Q6H PRN PRN Reason: Nausea And Vomiting Morphine Sulfate (Morphine) 2 mg IV Q4H PRN PRN Reason: Pain, Moderate (4-6) Ondansetron HCl (Zofran) 4 mg IV Q8H PRN PRN Reason: Nausea And Vomiting Promethazine HCl (Phenergan) 25 mg UT Q6H PRN PRN Reason: Nausea And Vomiting Sodium Chloride (Sodium Chloride Flush Syringe 10 Ml) 10 ml IV BID MARLENI Sodium Chloride (Sodium Chloride Flush Syringe 10 Ml) 10 ml IV PRN PRN PRN Reason: LINE FLUSH Exam - Constitutional Vitals: Temp Pulse Resp BP Pulse Ox 97.7 F 82 13 111/47 99 06/01/19 21:13 06/02/19 04:00 06/02/19 04:00 06/02/19 04:00 06/02/19 04:00 Results - Labs CBC & Chem 7: 06/01/19 21:35 06/01/19 21:35 Labs: Abnormal lab results 06/01/19 06/01/19 06/02/19 Range/Units 21:35 21:35 04:05 Lymph % (Auto) 45.2 H (13.4-35.0) % Carbon Dioxide 16 L (22-30) mmol/L BUN 44 H (7-17) mg/dL Creatinine 1.3 H (0.7-1.2) mg/dL Glucose 121 H (65-100) mg/dL Ur Specific [place] 1.036 H (1.003-1.030) Urine WBC (Auto) 8.0 H (0.0-6.0) /HPF
[2019-06-02] MEDS ORDERED: NITROGLYCERIN 0.4 MG TAB SUBL SL PRN (07:29)
[2019-06-02] MEDS ORDERED: INSULIN LISPRO 100 UNIT/ML SUB-Q SCH (07:30)
[2019-06-02] MEDS: GABAPENTIN 100 MG CAP PO SCH ×3 (09:00→22:15)
[2019-06-02] MEDS: metFORMIN 500 MG TAB PO SCH ×2 (09:00→17:16)
--- NOTE | 2019-06-02 09:29 | Consultation ---
History of Present Illness Consult date: 06/02/19 Requesting physician: HOWARD MCCONNELL Reason for Consult: AMS Chief complaint: n/a d/t mental status History of present illness: 59-year-old female unable to give her own hx non verbal prior stroke L sided weakness R BKA hx of vasculopathy DM HTN on asa plavix statin coags neg CMP CBC reviewed WNL EKG sinus / tacchy trop neg CT head reviewed old R thal/ R peduncle mariely stroke CTA h/n multifocal intracranial stenosis prox ICA 80% atheroma aortic arch major branches verts : b/l atheroma stenosis L ICA 70% basilar b/l carotids and R M1, sig stenosis arrived 191/80 bedside: opens eyes briefly tracks to my face then looks away blinks and stares no other extra movements or inter ictal like activity seems densely weak on the L UE LE , brace to L hand not fsc non verbal opens eyes to voice and tactile no AED given , no sz on arrival JOSÉ ANTONIO 44/1.3 Past History Past Medical History: diabetes, hypertension, other (Gastroparesis, lupus, history of sleep apnea) Past Surgical History: cholecystectomy, CABG, PTCA, Other (Right below-knee amputation) Social history: smoking (Smokes less than a pack of cigarette daily) Family history: no significant family history Medications and Allergies Allergies Allergy/AdvReac Type Severity Reaction Status Date / Time insulin glargine, human AdvReac Unknown Verified 10/26/18 12:10 recombin. a [From Lantus] shellfish derived AdvReac Unknown Verified 10/26/18 12:10 Flu Vaccine AdvReac Rash Uncoded 06/07/17 03:27 IV Dye AdvReac Unknown Uncoded 06/07/17 03:27 Home Medications Medication Instructions Recorded Confirmed Last Taken Type Nitroglycerin [Nitrostat] 0.4 mg SL .Q5MIN PRN #30 tablet 06/10/17 06/02/19 06/01/19 Rx metFORMIN [Glucophage] 1,000 mg PO BID 10/26/18 06/02/19 06/01/19 History Gabapentin 100 mg PO TID 12/09/18 06/02/19 06/01/19 History ISOSORBIDE MONOnitrate [Imdur ER] 120 mg PO DAILY #30 tablet 12/15/18 06/02/19 06/01/19 Rx Ranolazine ER [Ranexa ER] 1,000 mg PO BID #60 tablet 12/15/18 06/02/19 06/01/19 Rx Aspirin EC [Halfprin EC] 81 mg PO QDAY #30 tablet 04/09/19 06/02/19 06/01/19 Rx AtorvaSTATin [Lipitor] 40 mg PO QHS tablet 04/09/19 06/02/19 06/01/19 Rx Clopidogrel [Plavix] 75 mg PO QDAY tablet 04/09/19 06/02/19 06/01/19 Rx Lispro Insulin [HumaLOG] 0 unit SUB-Q Q6HR 30 Days units 04/09/19 06/02/19 06/01/19 Rx Pentoxifylline [TRENtal] 400 mg PO Q12HR #60 tablet 04/09/19 06/02/19 06/01/19 Rx lisinopriL [Zestril TAB] 40 mg PO DAILY tablet 04/09/19 06/02/19 06/01/19 Rx Active Meds: Active Medications Acetaminophen (Tylenol) 650 mg PO Q4H PRN PRN Reason: Pain, Mild (1-3) Aspirin (Halfprin Ec) 81 mg PO QDAY [facility] Atorvastatin Calcium (Lipitor) 40 mg PO QHS [facility] Bisacodyl (Dulcolax) 10 mg HI QDAY PRN PRN Reason: Constipation Clopidogrel Bisulfate (Plavix) 75 mg PO QDAY [facility] Dextrose (D50w (25gm) Syringe) 50 ml IV Q30MIN PRN; Protocol PRN Reason: Hypoglycemia Gabapentin (Gabapentin) 100 mg PO TID [facility] Last Admin: 06/02/19 09:00 Dose: Not Given Documented by: Sodium Chloride (Nacl 0.9% 1000 Ml) 1,000 mls @ 75 mls/hr IV DIRECT [facility] Dextrose/Sodium Chloride (D5ns) 1,000 mls @ 42 mls/hr IV DIRECT [facility] Insulin Human Lispro (Humalog) 0 unit SUB-Q Q6HR [facility]; Protocol Isosorbide Mononitrate (Imdur) 120 mg PO DAILY [facility] Lisinopril (Zestril) 40 mg PO DAILY [facility] Magnesium Hydroxide (Milk Of Magnesia) 30 ml PO Q4H PRN PRN Reason: Constipation Metformin HCl (Glucophage) 1,000 mg PO BIDDIAB [facility] Last Admin: 06/02/19 09:00 Dose: Not Given Documented by: Metoclopramide HCl (Reglan) 10 mg PO Q6H PRN PRN Reason: Nausea And Vomiting Morphine Sulfate (Morphine) 2 mg IV Q4H PRN PRN Reason: Pain, Moderate (4-6) Nitroglycerin (Nitrostat) 0.4 mg SL .Q5MIN PRN PRN Reason: Chest Pain Ondansetron HCl (Zofran) 4 mg IV Q8H PRN PRN Reason: Nausea And Vomiting Pentoxifylline (Trental) 400 mg PO Q12HR [facility]I Promethazine HCl (Phenergan) 25 mg HI Q6H PRN PRN Reason: Nausea And Vomiting Ranolazine (Ranexa Er) 1,000 mg PO BID [facility] Sodium Chloride (Sodium Chloride Flush Syringe 10 Ml) 10 ml IV BID [facility]LENI Sodium Chloride (Sodium Chloride Flush Syringe 10 Ml) 10 ml IV PRN PRN PRN Reason: LINE FLUSH Physical Examination - Vital Signs Vital Signs: Vital Signs Temp BP 97.7 F 180/80 06/01/19 21:13 06/01/19 21:13 see above awake though somnolent, doesnt track but looks at me briefly non verbal +BTT neck supple no resp distress no s/sx of meningitits Moving R LE, R BKA on command tongue seems midline L sided weakness and L facial droop pt is not moving her eye L or R pupils reactive b/l no d/c nose ears no rash no asymm edema pulses weak to L LE, good at radials b/l no extra movements, but increased blinking opens eyes to tactile and nox stim, no w/d L UE LE to nox does not look toxic Results - Laboratory Findings CBC and BMP: 06/01/19 21:35 06/01/19 21:35 Abnormal Lab Findings: Abnormal Labs 06/01/19 06/01/19 06/02/19 21:35 21:35 04:05 Lymph % (Auto) 45.2 H Carbon Dioxide 16 L BUN 44 H Creatinine 1.3 H Glucose 121 H POC Glucose Ur Specific [place] 1.036 H Urine WBC (Auto) 8.0 H 06/02/19 07:21 Lymph % (Auto) Carbon Dioxide BUN Creatinine Glucose POC Glucose 112 H Ur Specific [place] Urine WBC (Auto) Assessment and Plan AMS: concern for post circulation stroke , decreased eye movements w known basilar and other intracranial and extracranial athero dis, and known recent R thal R peduncle and R mariely stroke, I am concerned about recurrent stroke, vs recrud. no acute clot seen top of basilar concern for stroke acute isch thrombus of basilar sys. unstable ddx: PRES vs seizure vs multiembolic stroke, metabolic JOSÉ ANTONIO, BUN/Cr increased, hypoxic anoxic vs hypoglycemic event no fever or s/sx meningitis STAT eeg : no active sz, slow w/o epileptiform activity or aymm findings tele : no a.fib no LOC or sz no signs of neuro decline since admission would check ammonia MRI b NPO cont asa rectal and tele check b12 thyroid rpr no need for AED at this time, EEG was not sugg of epileptogenic potential, will put in official read further recomm pending clinical course check a1c, lipids ECHO
[2019-06-02] MEDS ORDERED: LISINOPRIL 40 MG TAB PO SCH (10:00)
[2019-06-02] MEDS ORDERED: ASPIRIN EC 81 MG TAB PO SCH (10:00)
[2019-06-02] MEDS ORDERED: ASPIRIN 325 MG TAB PO SCH (10:00)
[2019-06-02] MEDS ORDERED: D5W/0.9% NACL 1,000 ML IV ONE (10:17)
[2019-06-02] MEDS: D5W/0.9% NACL 1,000 ML IV SCH (10:24)
[2019-06-02 12:51] LABS: Free T4 (Free Thyroxine) 1.42 ng/dL (0.76-1.46)
[2019-06-02] MEDS: INSULIN LISPRO 100 UNIT/ML SUB-Q SCH ×2 (13:54→18:00)
[2019-06-02] MEDS ORDERED: LISINOPRIL 20 MG TAB ONE (14:03)
[2019-06-02] MEDS ORDERED: CLOPIDOGREL 75 MG TAB ONE (14:03)
[2019-06-02] MEDS ORDERED: GABAPENTIN 100 MG CAP ONE (14:03)
[2019-06-02] MEDS: CLOPIDOGREL 75 MG TAB PO SCH (14:06)
[2019-06-02] MEDS: PENTOXIFYLLINE ER 400 MG TAB PO SCH ×2 (14:08→22:15)
[2019-06-02] MEDS: RANOLAZINE ER 500 MG TAB 12HR PO SCH ×2 (14:08→22:15)
--- NOTE | 2019-06-02 14:53 | Event Note ---
Date: 06/02/19 patient seen and examined 59-year-old female with known history of hypertension, diabetes mellitus, coronary artery disease and history of CVA in March 2019 brought into the emergency room today with a decrease in responsiveness today. neuro consulted, on CVA protocol. MRI pending order for TF, cont current Mx.
[2019-06-02] MEDS ORDERED: hydrALAZINE 20 MG/1 ML INJ IV PRN (16:24)
[2019-06-02] MEDS: amLODIPine 10 MG TAB PO SCH (17:17)
[2019-06-02] MEDS: MORPHINE 2 MG/1 ML INJ IV PRN (17:17)
[2019-06-03] MEDS: INSULIN LISPRO 100 UNIT/ML SUB-Q SCH ×4 (01:10→18:15)
[2019-06-03 06:20] LABS: Basophils # (Auto) 0.1 K/mm3 (0.0-0.1); Basophils % (Auto) 0.9 % (0.0-1.8); Eosinophils # (Auto) 0.2 K/mm3 (0.0-0.4); Eosinophils % (Auto) 2.1 % (0.0-4.3); Hematocrit 35.7 % (30.3-42.9); Hemoglobin 11.9 gm/dl (10.1-14.3); Lymphocytes % (Auto) 20.5 % (13.4-35.0); Mean Corpuscular HGB Conc 33 % (30-34); Mean Corpuscular Volume 84 fl (79-97); Monocytes # (Auto) 0.8 K/mm3 (0.0-0.8); Monocytes % (Auto) 7.7 % (0.0-7.3); Platelet Count 268 K/mm3 (140-440); Red Blood Count 4.25 M/mm3 (3.65-5.03); Red Cell Distribution Width 13.9 % (13.2-15.2)
[2019-06-03 06:30] LABS: INR 1.07 (0.87-1.13)
[2019-06-03 06:34] LABS: BUN/Creatinine Ratio 34; Blood Urea Nitrogen 27 mg/dL (7-17); Calcium 9.1 mg/dL (8.4-10.2); Chol/HDL Ratio 1.88 %; HDL Cholesterol 51 mg/dL (40-59); Hemolysis Index 3; LDL Cholesterol,Direct 37 mg/dL (50-130)
[2019-06-03] MEDS: GABAPENTIN 100 MG CAP PO SCH ×3 (08:57→21:19)
[2019-06-03] MEDS: metFORMIN 500 MG TAB PO SCH ×2 (08:57→18:05)
[2019-06-03] MEDS: D5W/0.9% NACL 1,000 ML IV SCH (08:58)
[2019-06-03] MEDS: MORPHINE 2 MG/1 ML INJ IV PRN ×2 (08:59→18:01)
[2019-06-03] MEDS: amLODIPine 10 MG TAB PO SCH (09:08)
[2019-06-03] MEDS: CLOPIDOGREL 75 MG TAB PO SCH (09:08)
[2019-06-03] MEDS: RANOLAZINE ER 500 MG TAB 12HR PO SCH ×2 (11:01→21:19)
[2019-06-03] MEDS: PENTOXIFYLLINE ER 400 MG TAB PO SCH ×2 (11:01→21:19)
[2019-06-03] MEDS: ASPIRIN 81 MG TAB CHEW PO SCH (11:02)
--- NOTE | 2019-06-03 11:22 | Progress Note ---
Assessment and Plan AMS improving, presentation concern for post circulation stroke / vs TIA (decreased responsiveness, non verbal , and gaze paralysis), poss transient post circ. cerebral isch in setting of HTN urgency vs PRES , improving scanning speech poss cerebellar acute vs ch. 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 no acute clot seen top of basilar EEG reassuring course stable no recurrent stroke like events no a.fib no signs of neuro decline since admission LDL 37 HAIC pending avoid dehydration hypotension and rapid position change, pt post. circu insuff is dangerous and any decrease of cerebral perfusion from her baseline(which is likely abn higher than pop.) may lead to hemodyn stroke, recomm sys BP above 125 ddx: multiembolic stroke, metabolic JOSÉ ANTONIO, BUN/Cr increased, hypoxic anoxic vs hypoglycemic event no fever or s/sx meningitis would check ammonia MRI b pending antiplt and statin , tube feeds no need for AED at this time, EEG was not sugg of epileptogenic potential, will put in official read further recomm pending clinical course Subjective Date of service: 06/03/19 Principal diagnosis: i am doing ok doc Interval history: Patient is awake and verbal today Now moving eyes left and right able to track No events overnight no fever no headache Patient denies double vision vertigo No nausea vomiting Patient denies any new lateralizing deficits and has no new focal brain complaints Mental slowing Dysarthric speech scanning speech MRI brain pending No events overnight no atrial fibrillation EKG sinus tachycardia Elevated blood pressures Glucose within normal limits Mildly elevated BUN however normal creatinine Ammonia yesterday was normal no LOC or sz since admission ECHO : neg for clot or source of emboli, no pfo Objective - Exam Narrative Exam: Awake alert and oriented to her name and she understands she is in the hospital No extra movements no neck stiffness No respiratory distress Cranial nerves significant for left lower facial droop otherwise patient is able to show me EOMI PERRLA no apparent field cut pt denies dv R UE 5/5 R BKA but prox 5/5 R LE L sided dense weakness 2/5 UE and LE Scanning speech dysarthric however patient is able to name objects such as wrist watch cerebellar testing of R UE is normal tongue is midline - Vital Sign Vital Signs - 12hr 06/02/19 06/03/19 06/03/19 23:35 03:50 08:14 Temperature 98.8 F 97.9 F Pulse Rate 99 H 98 H Respiratory 18 18 18 Rate Blood Pressure 140/60 187/80 Blood Pressure [Right] O2 Sat by Pulse 99 100 Oximetry 06/03/19 06/03/19 06/03/19 08:44 08:48 09:08 Temperature 98.3 F Pulse Rate 100 H 100 H Respiratory 18 Rate Blood Pressure 153/64 Blood Pressure 153/64 [Right] O2 Sat by Pulse 95 100 Oximetry - Laboratory Findings CBC and BMP: 06/03/19 05:12 06/03/19 05:12 Abnormal Lab Findings: Abnormal Labs 06/01/19 06/01/19 06/02/19 21:35 21:35 04:05 Lymph % (Auto) 45.2 H [place] % (Auto) Chloride Carbon Dioxide 16 L BUN 44 H Creatinine 1.3 H Glucose 121 H POC Glucose LDL Cholesterol Direct Vitamin B12 Ur Specific [place] 1.036 H Urine WBC (Auto) 8.0 H 06/02/19 06/02/19 06/02/19 07:21 11:21 16:40 Lymph % (Auto) [place] % (Auto) Chloride Carbon Dioxide BUN Creatinine Glucose POC Glucose 112 H 129 H LDL Cholesterol Direct Vitamin B12 942.0 H Ur Specific [place] Urine WBC (Auto) 06/02/19 06/03/19 06/03/19 23:46 05:12 05:12 Lymph % (Auto) [place] % (Auto) 7.7 H Chloride 111.2 H Carbon Dioxide 17 L BUN 27 H Creatinine Glucose 123 H POC Glucose 131 H LDL Cholesterol Direct 37 L Vitamin B12 Ur Specific [place] Urine WBC (Auto) 06/03/19 05:50 Lymph % (Auto) [place] % (Auto) Chloride Carbon Dioxide BUN Creatinine Glucose POC Glucose 121 H LDL Cholesterol Direct Vitamin B12 Ur Specific [place] Urine WBC (Auto)
[2019-06-03] MEDS ORDERED: SIMPLE SYRUP 15 ML FEEDTUBE PRN ×2 (12:58)
[2019-06-03] MEDS ORDERED: LIPASE 10,500/PROTEASE 25,000/AMYLASE 43,750 (UNITS) DR CAP FEEDTUBE PRN (12:58)
[2019-06-03] MEDS ORDERED: SODIUM BICARBONATE 325 MG TAB FEEDTUBE PRN (12:58)
--- NOTE | 2019-06-03 13:23 | Progress Note ---
Assessment and Plan / Acute encephalopathy Probably secondary to elevated BP vs new CVA. Will monitor chemistry and monitor mental status. 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 We will continue daily aspirin. We will complete work-up patient for a new CVA. /Accelerated HTN, cont home meds and adjust medication o better control BP / Coronary artery disease Stable. Will cont routine home medications once reconciled. / Diabetes We will monitor Accu-Cheks and resume routine home medications. /Dysphagia , cont PEG tube feeding, speech eval /Scaral decubitus ulcer stage 2, POA - consulted wound care / DVT prophylaxis We will place on subcutaneous heparin. / Full code status Subjective Date of service: 06/03/19 Principal diagnosis: possible CVA Interval history: Patient seen and examined. Medical records and medication list reviewed. No acute event overnight noted by the RN. Patient denies any chest pain or difficulty breathing. Patient c/o left sided weakness and difficulty in speech Discussed plan of care at bedside with patient's son. Objective - Exam Narrative Exam: General appearance: Present: no acute distress, well-nourished - EENT Eyes: Present: PERRL, EOM intact ENT: hearing intact, clear oral mucosa, dentition normal - Neck Neck: Present: supple, normal ROM - Respiratory Respiratory effort: normal Respiratory: bilateral: CTA - Cardiovascular Rhythm: regular Heart Sounds: Present: S1 & S2 - Extremities Extremities: no ischemia, pulses intact, No edema Extremity abnormal: other (Right BKA) Peripheral Pulses: within normal limits - Abdominal General gastrointestinal: Present: soft, non-tender, non-distended, sacral decub ulcer - Integumentary Integumentary: Present: clear, warm, dry - Musculoskeletal Musculoskeletal: left sided weakness - Psychiatric Psychiatric: appropriate mood/affect, cooperative - Neurologic Neurologic: other (Patient alert but nonverbal with left hemiparesis) - Constitutional Vitals: Vital Signs - 12hr 06/03/19 06/03/19 06/03/19 03:50 08:14 08:44 Temperature 97.9 F Pulse Rate 98 H Respiratory 18 18 Rate Blood Pressure 187/80 Blood Pressure [Right] O2 Sat by Pulse 100 95 Oximetry 06/03/19 06/03/19 06/03/19 08:48 09:08 10:00 Temperature 98.3 F Pulse Rate 100 H 100 H 88 Respiratory 18 Rate Blood Pressure 153/64 Blood Pressure 153/64 [Right] O2 Sat by Pulse 100 Oximetry - Labs CBC & Chem 7: 06/03/19 05:12 06/03/19 05:12 Labs: Abnormal lab results 06/02/19 06/02/19 06/03/19 Range/Units 16:40 23:46 05:12 [place] % (Auto) 7.7 H (0.0-7.3) % Chloride (98-107) mmol/L Carbon Dioxide (22-30) mmol/L BUN (7-17) mg/dL Glucose (65-100) mg/dL POC Glucose 129 H 131 H (70-105) LDL Cholesterol Direct (50-130) mg/dL 06/03/19 06/03/19 06/03/19 Range/Units 05:12 05:50 12:06 [place] % (Auto) (0.0-7.3) % Chloride 111.2 H (98-107) mmol/L Carbon Dioxide 17 L (22-30) mmol/L BUN 27 H (7-17) mg/dL Glucose 123 H (65-100) mg/dL POC Glucose 121 H 117 H (70-105) LDL Cholesterol Direct 37 L (50-130) mg/dL
--- NOTE | 2019-06-03 18:54 | Magnetic Resonance Report ---
MRI BRAIN WITHOUT CONTRAST INDICATION / CLINICAL INFORMATION: stroke. Weakness. Slurred speech. TECHNIQUE: Multiplanar, multisequence MR images of the brain were obtained. COMPARISON: 04/04/2019 FINDINGS: BRAIN / INTRACRANIAL CONTENTS: Unenhanced MR images of the brain were obtained and compared to the pr ior exam from 04/04/2019. There is no evidence of acute abnormality. Previously seen area of ischemic injury in the right midbrain now has a chronic atrophic appearance, involving portions of the middle cerebellar peduncle and right paracentral midbrain. Some chronic enc ephalomalacia is no present in the lower right medial thalamus, presumably in this same vascular terr itory. There is evidence of methemoglobin signal associated with the medial right thalamus, presumabl y related to some extravasated blood products associated with the prior infarct. There is no evidence of acute superimposed ischemic injury. There is no evidence of acute hemorrhage or mass. Ventricles and sulci are normal in size and shape for a patient of this age. There are no abnormal ex tra-axial fluid collections. EXTRACRANIAL: Unremarkable CRANIOCERVICAL JUNCTION: No significant abnormality. VASCULAR FLOW-VOIDS: No significant abnormality. IMPRESSION: No acute abnormality. Chronic ischemic changes in the right thalamus and midbrain. Signer Name: Ari Valencia MD Signed: 06/03/2019 6:50 PM Workstation Name: [email or web address]
[2019-06-04] MEDS: INSULIN LISPRO 100 UNIT/ML SUB-Q SCH ×4 (01:20→18:40)
[2019-06-04] MEDS: MORPHINE 2 MG/1 ML INJ IV PRN ×3 (06:11→21:27)
[2019-06-04] MEDS: RANOLAZINE ER 500 MG TAB 12HR PO SCH ×2 (09:16→21:27)
[2019-06-04] MEDS: metFORMIN 500 MG TAB PO SCH ×2 (09:16→17:48)
[2019-06-04] MEDS: GABAPENTIN 100 MG CAP PO SCH ×3 (09:16→21:27)
[2019-06-04] MEDS: ASPIRIN 81 MG TAB CHEW PO SCH (09:17)
[2019-06-04] MEDS: CLOPIDOGREL 75 MG TAB PO SCH (09:17)
[2019-06-04] MEDS: PENTOXIFYLLINE ER 400 MG TAB PO SCH ×2 (09:17→21:27)
[2019-06-04] MEDS: amLODIPine 10 MG TAB PO SCH (09:18)
[2019-06-04] MEDS: D5W/0.9% NACL 1,000 ML IV SCH (12:50)
--- NOTE | 2019-06-04 17:00 | Discharge Summary ---
Providers - Providers Date of Admission: 06/02/19 02:09 Date of discharge: 06/04/19 Attending physician: HOWARD MCCONNELL 06/02/19 03:14 Consult to Dietitian/Nutrition [CONS] Routine Physician Instructions: Reason For Exam: Reason for Consult: Nutrition Recommendations Reason for Consult: Write/Manage Tube Feeding Consult to Physician [CONS] Routine Comment: Consulting Provider: YURIY VÁSQUEZ Physician Instructions: Reason For Exam: R/O CVA Occupational Therapy Evaluate and Treat [CONS] Routine Comment: Reason For Exam: Neuro deficits Physical Therapy Evaluation and Treat [CONS] Routine Comment: Reason For Exam: Neuro deficits 06/02/19 03:19 Speech Therapy Evaluation and Treat [CONS] Routine Reason For Exam: swallow eval 06/03/19 06:26 Consult to Wound/ET Nurse [CONS] Routine Reason For Exam: wound eval 06/03/19 13:00 Consult to Dietitian/Nutrition [CONS] Stat Physician Instructions: Reason For Exam: Reason for Consult: Write/Manage Tube Feeding Primary care physician: PAR[employer]GAL ASSISTANT Hospitalization Condition: Critical Hospital course: Discharge diagnosis: (1) Acute hypertensive encephalopathy Current Visit: Yes Status: Acute Qualifiers: Altered mental status type: unspecified Qualified Code(s): R41.82 - Altered mental status, unspecified Plan to address problem: Probably secondary to elevated BP. Will monitor chemistry and monitor mental status. 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 We will continue daily aspirin. We will work-up patient for a new CVA. (3) Coronary artery disease Current Visit: No Status: Chronic Qualifiers: Coronary Disease-Associated Artery/Lesion type: [place] artery [place] vs. transplanted heart: [place] heart Plan to address problem: Stable. Will resume routine home medications once reconciled. (4) Diabetes Current Visit: No Status: Chronic Plan to address problem: We will monitor Accu-Cheks and resume routine home medications. (5) DVT prophylaxis Current Visit: No Status: Chronic Plan to address problem: We will place on subcutaneous heparin. (6) Full code status Current Visit: Yes Status: Acute Disposition: DC/TX-06 HOME UNDER HOME [facility] Time spent for discharge: 34 minutes Core Measure Documentation - Palliative Care Palliative Care/ Comfort Measures: Not Applicable - Core Measures Any of the following diagnoses?: none Exam - Constitutional Vitals: Temp Pulse Resp BP Pulse Ox 98.9 F 79 18 149/59 99 06/04/19 08:58 06/04/19 10:00 06/04/19 10:00 06/04/19 09:18 06/04/19 08:58 Plan Activity: fall precautions Weight Bearing Status: Non-Weight Bearing Diet: other (TF diet and pureed diet as tolerated) Follow up with: PRIMARY CARE, [Primary Care Provider] - 3-5 Days Prescriptions: amLODIPine 10 mg PO QDAY #30 tablet
[2019-06-05] MEDS: INSULIN LISPRO 100 UNIT/ML SUB-Q SCH ×4 (01:14→17:38)
[2019-06-05] MEDS: MORPHINE 2 MG/1 ML INJ IV PRN ×3 (03:52→22:31)
[2019-06-05] MEDS: RANOLAZINE ER 500 MG TAB 12HR PO SCH ×2 (11:13→23:11)
[2019-06-05] MEDS: PENTOXIFYLLINE ER 400 MG TAB PO SCH ×2 (11:13→23:11)
[2019-06-05] MEDS: CLOPIDOGREL 75 MG TAB PO SCH (11:13)
[2019-06-05] MEDS: ASPIRIN 81 MG TAB CHEW PO SCH (11:13)
[2019-06-05] MEDS: amLODIPine 10 MG TAB PO SCH (11:13)
[2019-06-05] MEDS: metFORMIN 500 MG TAB PO SCH ×2 (11:19→19:47)
[2019-06-05] MEDS: GABAPENTIN 100 MG CAP PO SCH ×3 (11:19→22:30)
--- NOTE | 2019-06-05 15:05 | Progress Note ---
Assessment and Plan / Acute encephalopathy, resolved Probably secondary to elevated BP. Will monitor mental status. 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 We will continue daily aspirin and statin. negative work-up patient for a new CVA. /Accelerated HTN, cont home meds and adjust medication o better control BP BP much stable now / Coronary artery disease Stable. Will cont routine home medications once reconciled. / Diabetes We will monitor Accu-Cheks and resume routine home medications. /Dysphagia , cont PEG tube feeding, speech eval - barium swallow study tomorrow /Scaral decubitus ulcer stage 2, POA - consulted wound care / DVT prophylaxis We will place on subcutaneous heparin. / Full code status MRI brain: No acute abnormality. Chronic ischemic changes in the right thalamus and midbr ain. Disposition: need [facility]EMA Subjective Date of service: 06/05/19 Principal diagnosis: possible CVA Interval history: Patient seen and examined. Medical records and medication list reviewed. No acute event overnight noted by the RN. Patient denies any chest pain or difficulty breathing. Patient c/o left sided weakness, speech has improved Patient passed a speech eval for pured diet but still having symptoms while eating -order barium swallow study PT recommended subacute rehab -family willing to take patient home but requested for hospital bed Discussed plan of care at bedside with patient's RN. Objective - Exam Narrative Exam: General appearance: Present: no acute distress, well-nourished - EENT Eyes: Present: PERRL, EOM intact ENT: hearing intact, clear oral mucosa, dentition normal - Neck Neck: Present: supple, normal ROM - Respiratory Respiratory effort: normal Respiratory: bilateral: CTA - Cardiovascular Rhythm: regular Heart Sounds: Present: S1 & S2 - Extremities Extremities: no ischemia, pulses intact, No edema Extremity abnormal: other (Right BKA) Peripheral Pulses: within normal limits - Abdominal General gastrointestinal: Present: soft, non-tender, non-distended, sacral decub ulcer - Integumentary Integumentary: Present: clear, warm, dry - Musculoskeletal Musculoskeletal: left sided weakness - Psychiatric Psychiatric: appropriate mood/affect, cooperative - Neurologic Neurologic: other (Patient alert but nonverbal with left hemiparesis) - Constitutional Vitals: Vital Signs - 12hr 0106/05/19 06/05/19 04:05 07:44 08:12 Temperature 98.7 F 97.7 F Pulse Rate 94 H 98 H 100 H Respiratory 20 18 Rate Blood Pressure 134/58 150/67 O2 Sat by Pulse 100 95 Oximetry 06/05/19 06/05/19 06/05/19 10:00 10:48 11:23 Temperature 98.9 F Pulse Rate 98 H Respiratory 18 20 Rate Blood Pressure 154/59 O2 Sat by Pulse 96 93 Oximetry - Labs CBC & Chem 7: 06/03/19 05:12 06/03/19 05:12 Labs: Abnormal lab results 06/04/19 06/05/19 06/05/19 Range/Units 18:28 05:31 11:01 POC Glucose 124 H 114 H 155 H (70-105)
[2019-06-05] MEDS: D5W/0.9% NACL 1,000 ML IV SCH (15:34)
[2019-06-06] MEDS: INSULIN LISPRO 100 UNIT/ML SUB-Q SCH ×3 (01:08→12:00)
[2019-06-06] MEDS: GABAPENTIN 100 MG CAP PO SCH ×2 (08:00→13:19)
--- NOTE | 2019-06-06 09:33 | Progress Note ---
Assessment and Plan / Acute encephalopathy, resolved Probably secondary to elevated BP. Will monitor mental status. 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 We will continue daily aspirin and statin. negative work-up patient for a new CVA. /Accelerated HTN, cont home meds and adjust medication o better control BP BP much stable now / Coronary artery disease Stable. Will cont routine home medications once reconciled. / Diabetes We will monitor Accu-Cheks and resume routine home medications. /Dysphagia , cont PEG tube feeding, speech eval /Scaral decubitus ulcer stage 2, POA - consulted wound care / DVT prophylaxis We will place on subcutaneous heparin. / Full code status Disposition: pending PT eval Subjective Date of service: 06/04/19 Principal diagnosis: possible CVA Interval history: Patient seen and examined. Medical records and medication list reviewed. No acute event overnight noted by the RN. Patient denies any chest pain or difficulty breathing. Patient c/o left sided weakness, speech has improved Discussed plan of care at bedside with patient's son. Objective - Exam Narrative Exam: General appearance: Present: no acute distress, well-nourished - EENT Eyes: Present: PERRL, EOM intact ENT: hearing intact, clear oral mucosa, dentition normal - Neck Neck: Present: supple, normal ROM - Respiratory Respiratory effort: normal Respiratory: bilateral: CTA - Cardiovascular Rhythm: regular Heart Sounds: Present: S1 & S2 - Extremities Extremities: no ischemia, pulses intact, No edema Extremity abnormal: other (Right BKA) Peripheral Pulses: within normal limits - Abdominal General gastrointestinal: Present: soft, non-tender, non-distended, sacral decub ulcer - Integumentary Integumentary: Present: clear, warm, dry - Musculoskeletal Musculoskeletal: left sided weakness - Psychiatric Psychiatric: appropriate mood/affect, cooperative - Neurologic Neurologic: other (Patient alert but nonverbal with left hemiparesis) - Constitutional Vitals: Vital Signs - 12hr 06/05/19 06/05/19 06/06/19 22:00 23:11 05:22 Temperature 99.7 F H 99.0 F Pulse Rate 101 H 103 H Pulse Rate [ 101 H Right Radial] Respiratory 20 20 20 Rate Blood Pressure 147/62 153/67 O2 Sat by Pulse 95 95 99 Oximetry - Labs CBC & Chem 7: 06/03/19 05:12 06/03/19 05:12 Labs: Abnormal lab results 06/05/19 06/05/19 06/05/19 Range/Units 11:01 17:41 23:33 POC Glucose 155 H 125 H 162 H (70-105) 06/06/19 Range/Units 05:34 POC Glucose 146 H (70-105)
[2019-06-06] MEDS: amLODIPine 10 MG TAB PO SCH (09:40)
[2019-06-06] MEDS: CLOPIDOGREL 75 MG TAB PO SCH (09:40)
[2019-06-06] MEDS: ASPIRIN 81 MG TAB CHEW PO SCH (09:40)
[2019-06-06] MEDS: metFORMIN 500 MG TAB PO SCH (09:41)
--- NOTE | 2019-06-06 11:48 | Fluoroscopy Report ---
MODIFIED BARIUM SWALLOW INDICATION: possible aspiration. Dysphagia TECHNIQUE: Swallowing was evaluated in the lateral position under direct fluoroscopy. FINDINGS: The patient was evaluated with thin liquids, nectar, honey and puree consistencies.. Premature spillage was witnessed with all consistencies. Aspiration was witnessed with thin liquids, nectar and honey. 1 episode of trace and of 2 attempts was witnessed with puree consistency. Please c orrelate with the formal report by speech therapy. IMPRESSION: Aspiration was witnessed as described. Fluoroscopic time: 1.2 minutes Number of fluoroscopic images: 1 Signer Name: Logan Rossi Jr, MD Signed: 06/06/2019 11:43 AM Workstation Name: [id number]
[2019-06-06] MEDS: D5W/0.9% NACL 1,000 ML IV SCH (13:18)
--- NOTE | 2019-06-06 13:33 | Discharge Summary ---
Providers - Providers Date of Admission: 06/02/19 02:09 Date of discharge: 06/06/19 Attending physician: HOWARD MCCONNELL 06/02/19 03:14 Consult to Dietitian/Nutrition [CONS] Routine Physician Instructions: Reason For Exam: Reason for Consult: Nutrition Recommendations Reason for Consult: Write/Manage Tube Feeding Consult to Physician [CONS] Routine Comment: Consulting Provider: YURIY VÁSQUEZ Physician Instructions: Reason For Exam: R/O CVA Occupational Therapy Evaluate and Treat [CONS] Routine Comment: Reason For Exam: Neuro deficits Physical Therapy Evaluation and Treat [CONS] Routine Comment: Reason For Exam: Neuro deficits 06/02/19 03:19 Speech Therapy Evaluation and Treat [CONS] Routine Reason For Exam: swallow eval 06/03/19 06:26 Consult to Wound/ET Nurse [CONS] Routine Reason For Exam: wound eval 06/03/19 13:00 Consult to Dietitian/Nutrition [CONS] Stat Physician Instructions: Reason For Exam: Reason for Consult: Write/Manage Tube Feeding Primary care physician: PERSONNEL PLACEMENT SPECIALIST Hospitalization Condition: Critical Hospital course: Discharge Diagnosis and Mx: / Acute encephalopathy, resolved Probably secondary to elevated BP. Will monitor mental status. 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 We will continue daily aspirin and statin. negative work-up patient for a new CVA. /Accelerated HTN, cont home meds and adjust medication o better control BP BP much stable now / Coronary artery disease Stable. Will cont routine home medications once reconciled. /JOSÉ ANTONIO, vasomotor nephropathy, resolved / Diabetes We will monitor Accu-Cheks and resume routine home medications. /Dysphagia , cont PEG tube feeding, failed barium swallow eval /Scaral decubitus ulcer stage 2, POA - consulted wound care / DVT prophylaxis We will place on subcutaneous heparin. / Full code status MRI brain: No acute abnormality. Chronic ischemic changes in the right thalamus and midbrain. Disposition: home with physical exam General appearance: Present: no acute distress, well-nourished - EENT Eyes: Present: PERRL, EOM intact ENT: hearing intact, clear oral mucosa, dentition normal - Neck Neck: Present: supple, normal ROM - Respiratory Respiratory effort: normal Respiratory: bilateral: CTA - Cardiovascular Rhythm: regular Heart Sounds: Present: S1 & S2 - Extremities Extremities: no ischemia, pulses intact, No edema Extremity abnormal: other (Right BKA) Peripheral Pulses: within normal limits - Abdominal General gastrointestinal: Present: soft, non-tender, non-distended, sacral decub ulcer - Integumentary Integumentary: Present: clear, warm, dry - Musculoskeletal Musculoskeletal: left sided weakness - Psychiatric Psychiatric: appropriate mood/affect, cooperative - Neurologic Neurologic: other (Patient alert but nonverbal with left hemiparesis) Disposition: DC/TX-06 HOME UNDER HOME [facility] Time spent for discharge: 34 minutes Core Measure Documentation - Palliative Care Palliative Care/ Comfort Measures: Not Applicable - Core Measures Any of the following diagnoses?: history only Exam - Constitutional Vitals: Temp Pulse Resp BP Pulse Ox 99.1 F 99 H 20 142/60 97 06/06/19 13:00 06/06/19 13:00 06/06/19 13:00 06/06/19 13:00 06/06/19 13:00 Plan Activity: up only with assistance, fall precautions Weight Bearing Status: Non-Weight Bearing Diet: other (TF diet) Wound: per wound nurse instructions Follow up with: PRIMARY CARE, [Primary Care Provider] - 3-5 Days Prescriptions: amLODIPine 10 mg PO QDAY #30 tablet
[2019-06-06 16:50] VITALS: BP 147/69
== END 2019-06-06 19:00 | disposition home health service (06) | DRG 70 ==
LOC: ED 21:06 → CC1 06-02 02:09 → 4A 06-02 09:53 → 3A 06-05 15:53
PROVIDERS: ADMIT Internal Medicine Geriatric Medicine; ATTEND Internal Medicine
PROC: 06HN33Z Insertion of Infusion Device into Left Femoral Vein, Percutaneous Approach (ICD-10-PCS; principal; 2019-06-01)
PROC: B54CZZA Ultrasonography of Left Lower Extremity Veins, Guidance (ICD-10-PCS; 2019-06-01)
DX: G93.41 Metabolic encephalopathy (principal); N17.0 Acute kidney failure with tubular necrosis; I69.354 Hemiplegia and hemiparesis following cerebral infarction affecting left non-dominant side; I25.10 Atherosclerotic heart disease of native coronary artery without angina pectoris; I25.2 Old myocardial infarction; M19.90 Unspecified osteoarthritis, unspecified site; G43.909 Migraine, unspecified, not intractable, without status migrainosus; J45.909 Unspecified asthma, uncomplicated; E11.43 Type 2 diabetes mellitus with diabetic autonomic (poly)neuropathy; K31.84 Gastroparesis; M32.9 Systemic lupus erythematosus, unspecified; F17.210 Nicotine dependence, cigarettes, uncomplicated; E87.2 Acidosis; R29.810 Facial weakness; E86.0 Dehydration; R13.10 Dysphagia, unspecified; L89.152 Pressure ulcer of sacral region, stage 2; Z95.1 Presence of aortocoronary bypass graft; Z89.511 Acquired absence of right leg below knee; Z79.82 Long term (current) use of aspirin; Z95.5 Presence of coronary angioplasty implant and graft; Z90.49 Acquired absence of other specified parts of digestive tract; Z79.4 Long term (current) use of insulin
CPT/HCPCS: 36415; 70450; 70496; 70498; 70551; 74230; 80048; 80061; 81001; 82140; 82607; 82962; 84439; 84443; 84484; 85025; 85610; 85670; 85730; 87086; 87116; 93005; 93010; 93306; G0378; A9270-GY; J0360; J1956; J2270; J2405; J7042; Q9967